=== PATIENT | male | born 1965 | race Hispanic/Latino ===

== ENCOUNTER → 2021-01-28 | Outpatient (CLI) | payer OTHER ==
[~2021-01-28] MED LIST: AMLO2.5T4 PO; CIPR-278 PO; HYDR12.54 PO; POTA20TA82 PO
== END | disposition home or self-care (01) ==
LOC: RAH 13:43
PROVIDERS: ATTEND Family Medicine
DX: F17.200 Nicotine dependence, unspecified, uncomplicated (principal)
CPT/HCPCS: 71046

== ENCOUNTER 2025-05-29 20:07 | Inpatient (IN) | payer BC ==
[~2025-05-29] VITALS: Ht 172.7 cm; Wt 55.5 kg
[~2025-05-29 20:07] MED LIST changes: -AMLO2.5T4 PO; +CHOL1CAP16 PO; -CIPR-278 PO; +FAMO20TA8 PO; -HYDR12.54 PO; +POTA-202 PO; -POTA20TA82 PO; +SULF500EC PO; +VITA1CAP PO
[2025-05-29] MEDS ORDERED: POTA-202 PO (20:36)
[2025-05-29] MEDS ORDERED: SULF500T49 PO (20:36)
[2025-05-29] MEDS: 0.9%NACL 1000ML 1,000 ML IV ONE (20:44)
[2025-05-29 21:19] LABS: IMMATURE GRANULOCYTE ABSOLUTE 0.02 K/uL (0-1); NUCLEATED RED BLOOD CELLS 0.0 % (0.0-0.19); PLATELET COUNT (AUTO) 332 K/uL (130-400); RED BLOOD CELL COUNT(AUTO) 3.74 MIL/uL (4.50-6.20); RED CELL DISTRIBUTION WIDTH 16.7 % (11.0-15.5); WHITE BLOOD COUNT (AUTO) 7.1 K/uL (4.8-10.8)
[2025-05-29 21:28] LABS: CREATININE 0.7 mg/dL (0.5-1.3); GLOMERULAR FILTR. RATE CALC 105.0 mL/min (>90); GLUCOSE,RANDOM 73.0 mg/dL (70-105); SODIUM SERUM 133.0 mmol/L (136-145); UREA NITROGEN, BLOOD 20.0 mg/dL (7-18)
[2025-05-29 21:37] LABS: ASPARTATE AMINOTRANSFERASE 16.0 U/L (10-37); CREATINE KINASE, TOTAL 19.0 U/L (21-232); TOTAL PROTEIN, SERUM 4.8 g/dL (6.0-8.3)
--- NOTE | 2025-05-29 21:43 | NUR ---
PT WAS GIVEN URINAL BUT STATES HE CANT PROVIDE A SAMPLE YET HE HAS NOT HAD ANYTHING TO EAT OR DRINK
--- NOTE | 2025-05-29 21:56 | HMCIMG ---
EXAM: CR Chest, 1 view CLINICAL HISTORY: Shortness of breath. COMPARISON: Chest radiograph dated 04/24/2025. FINDINGS: Small to moderate pleural effusion on the left side. Lower lobe airspace disease bilaterally, more pronounced on the left side. COPD. No pneumothorax. The cardiomediastinal silhouette is within normal limits. No acute osseous abnormality. IMPRESSION: Small to moderate pleural effusion on the left side. Lower lobe airspace disease bilaterally, more pronounced on the left side. COPD. No gross interval changes. /[place]
--- NOTE | 2025-05-29 23:15 | ERN ---
General Chief Complaint: Other Problems Stated Complaint: FAILURE TO THRIVE Time Seen by MD: 20:14 Time Seen by Midlevel: 20:14 Source: patient, EMS History of Present Illness Initial Comments Patient is a 59-year-old male presenting to the emergency department for evaluation of increased generalized body weakness for the last six days. According to EMS and family who was on scene the patient has not been eating for the past six days. Patient also reports mild shortness of breath. Allergies: Coded Allergies: No Known Drug Allergies (Unverified Allergy, Unknown, 09/18/17) Home Meds Reported Medications Potassium Chloride (Potassium Chloride) 20 Meq Tab.er.prt, 1 TAB PO BID for 30 Days, #60 TAB 0 Refills 05/29/25 Sulfasalazine (Sulfasalazine Dr) 500 Mg Tablet.dr, 2 TAB PO QID for 30 Days, #120 TAB 0 Refills 05/29/25 Famotidine (Famotidine) 20 Mg Tablet, 1 TAB PO BID for 30 Days, #60 TAB 0 Refi lls 03/29/25 Discontinued Reported Medications Cholecalciferol (Vitd3)/Vit K2 (Vit D3-Vit K2 125-100 Mcg Sfgl) 125 Mcg (5000 Unit)-100 Mcg Capsule, 1 EACH PO QWEEK, CAP 03/29/25 Discontinued Scripts Sulfasalazine (Azulfidine En-Tab) 500 Mg Ectab, 1000 MG PO QID for 30 Days, #120 TAB.EC 0 Refills Prov:KERLINE ARENAS MD 04/25/25 Vitamin B Complex (B Complex) 1 Cap Capsule, 1 CAP PO DAILY for 30 Days, #30 CAP 0 Refills Prov:RADHA ROSENBAUM 04/02/25 Potassium Chloride (Potassium Chloride) 20 Meq Tab.er.prt, 20 MEQ PO DAILY, #60 TAB Prov:MICHAEL RENDON MD 09/20/17 Past Medical History Past Medical History: Other Medical History Other: CROHN'S Past Surgical History: None ROS Dictation CONSTITUTIONAL: Negative except for HPI HEAD/FACE: Negative except for HPI EENT: Negative except for HPI RESPIRATORY: Negative except for HPI GASTROINTESTINAL/ABDOMINAL: Negative except for HPI GENITOURINARY: Negative except for HPI MUSCULOSKELETAL: Negative except for HPI INTEGUMENTARY: Negative except for HPI NEUROLOGICAL/PSYCH: Negative except for HPI HEMATOLOGIC/LYMPHATIC: Negative except for HPI All Systems Negative, Except as noted above. 13 point review of systems assessed and all negative except for above. Physical Exam Physical Exam Dictation Vital Signs reviewed General Appearance: Alert, oriented x 3, no acute distress, frail-appearing Head and Face: non-traumatic. Eyes: PERRL, pink conjunctivas, eyelid no trauma, anterior chamber with arcus senilis. Ears: Pinnas intact and no signs of trauma or erythema ear canals clear and no discharge TM no erythema Nose: No discharge, no bleeding. Oropharynx: Mouth normal, tongue pink, pharynx clear,no erythema, tonsils no exudates, no abscesses noted, mucous membrane moist Neck: Supple, non-tender, no thyromegaly, no masses, no JVD, no bruits Breast:Deferred Chest:No tenderness, no crepitus, no paradoxical movement, no retractions Lungs:Clear, well-ventilated, symmetric, no rales, no wheezing, no rhonchi, no stridor, good breath sounds bilaterally Heart: Regular rate, regular rhythm, no murmur, no gallops Vascular: no peripheral edema, Abdomen: Soft, positive bowel sounds, nondistended, no guarding, nontender, no rebound, no masses no hepatomegaly, no splenomegaly, no Chopra's sign, no hernias. Rectal: Deferred Genital: Deferred Neurological: Normal speech, motor function intact, sensory function intact Musculoskeletal: Neck nontender, full range of motion, back nontender, full range of motion, Extremities: nontender, full range of motion Skin: Color pink, dry, no turgor, no rash, no lacerations, no abrasions, no contusions. Lymphatic: Deferred Results Laboratory and Microbiology Lab and Micro Result Laboratory Tests Test 05/29/25 20:54 05/29/25 23:22 White Blood Count 7.1 K/uL (4.8-10.8) Red Blood Count 3.74 MIL/uL (4.50-6.20) L Hemoglobin 12.1 g/dL (14.0-18.0) L Hematocrit 36.4 % (42-54) L Mean Corpuscular Volume 97.3 fL (79-99) Mean Corpuscular Hemoglobin 32.4 pg (27.0-33.0) Mean Corpuscular Hemoglobin Concent 33.2 g/dL (32.0-36.0) Red Cell Distribution Width 16.7 % (11.0-15.5) H Platelet Count 332 K/uL (130-400) Mean Platelet Volume 8.9 fL (7.5-10.5) Immature Granulocyte % (Auto) 0.3 % (0-1) Neutrophils (%) (Auto) 67.6 % (40.0-77.0) Lymphocytes (%) (Auto) 17.2 % (21.0-51.0) L Monocytes (%) (Auto) 14.1 % (3.0-13.0) H Eosinophils (%) (Auto) 0.4 % (0.0-8.0) Basophils (%) (Auto) 0.4 % (0.0-5.0) Neutrophils # (Auto) 4.8 K/uL (1.8-7.7) Lymphocytes # (Auto) 1.2 K/uL (1.0-4.8) Monocytes # (Auto) 1.0 K/uL (0.1-1.0) Eosinophils # (Auto) 0.03 K/uL (0.00-0.70) Basophils # (Auto) 0.03 K/uL (0.00-0.20) Absolute Immature Granulocyte (auto 0.02 K/uL (0-1) Nucleated Red Blood Cells 0.0 % (0.0-0.19) Sodium Level 133 mmol/L (136-145) L Potassium Level 3.7 mmol/L (3.5-5.1) Chloride Level 102 mmol/L (101-111) Carbon Dioxide Level 21 mmol/L (21-32) Blood Urea Nitrogen 20 mg/dL (7-18) H Creatinine 0.7 mg/dL (0.5-1.3) Glomerular Filtration Rate Calc 105 mL/min (>90) Random Glucose 73 mg/dL (70-105) Total Calcium 7.7 mg/dL (8.5-10.1) L Magnesium Level 1.90 mg/dL (1.80-2.40) Total Bilirubin 0.7 mg/dL (0.2-1.0) Aspartate Amino Transf (AST/SGOT) 16 U/L (10-37) Alanine Aminotransferase (ALT/SGPT) 11 U/L (12-78) L Alkaline Phosphatase 101 U/L (50-136) Total Creatine Kinase 19 U/L (21-232) #L Troponin I High Sensitivity 6 ng/L (4-75) Total Protein 4.8 g/dL (6.0-8.3) L Albumin 1.8 g/dL (3.5-5.0) L Urine Color DARK-YELLOW (YELLOW) Urine Appearance CLOUDY (CLEAR) H Urine pH 5.5 (5.0-8.0) Urine Specific [place] 1.030 (1.001-1.031) Urine Protein 30 mg/dL (NEGATIVE) H Urine Glucose (UA) NEGATIVE mg/dL (NEGATIVE) Urine Ketones 5 mg/dL (NEGATIVE) H Urine Occult Blood NEGATIVE (NEGATIVE) Urine Nitrate NEGATIVE (NEGATIVE) Urine Bilirubin 1 mg/dL (NEGATIVE) H Urine Urobilinogen 3 mg/dL (0.2-1.0) H Urine Leukocyte Esterase NEGATIVE Deonte/uL Urine RBC 11-25 /HPF (0-1) H Urine WBC 6-10 /HPF (0-1) H Urine Squamous Epithelial Cells RARE /HPF (0-2) Urine Calcium Oxalate Crystals RARE /LPF (None Seen) Urine Bacteria FEW /HPF (None Seen) Urine Hyaline Casts 11-25 /LPF (0-1 /LPF) H Labs Reviewed?: Yes MDM MDM: Differential diagnosis: Dehydration, failure to thrive, electrolyte abnormality Rationale: Tests considered and ordered secondary to shared decision making in clude: Previous outside records reviewed: Old ER visits. Risk of complication and/or morbidity or mortality of patient management: None Medications-Per medication reconciliation Need for hospitalization: Patient does meet criteria for hospitalization. Need for emergency major/minor surgery: No There are no social concerns with this patient. Prescription drug management Prescriptions will include symptomatic care Patient's prior external medical records from other ER visits were reviewed by me as indicated. Prior testing and results from previous visits were reviewed. Prior tests were taken into account with medical decision making and resource utilization, independent historian/historians were used to obtain complete medical history. I independently interpreted the test that were performed, results were reviewed by me and considered findings on radiology if ordered. Medical management and examination interpretation discussions were had by me with other qualified healthcare professionals as indicated for the patient's care. ED Course Orders Procedure Category Date Status Time Cbc With Differential LAB 05/29/25 Complete 20:29 Comprehensive LAB 05/29/25 Complete Metabolic Panel 20:29 Creatine Kinase, Total LAB 05/29/25 Complete 20:29 Troponin I High LAB 05/29/25 Complete Sensitivity 20:29 Urinalysis Profile LAB 05/29/25 Complete 20:29 Chest 1vw RAD 05/29/25 Resulted 20:29 Magnesium LAB 05/29/25 Complete 20:29 0.9%Nacl 1000ml (Ns PHA 05/29/25 Complete 1000ml) 20:30 Ceftriaxone 1g Vial PHA 05/29/25 Complete (Rocephine 1g Inj) 23:00 Culture Urine MARNIE 05/29/25 In Process 23:39 Current Medications Medications (Trade) Dose Ordered Sig/Estelita Route PRN Reason Start Time Stop Time Status Last Admin Dose Admin Ceftriaxone Sodium (ROCEphine 1G INJ) 1 gm ONCE ONCE IVPB 05/29/25 23:00 05/29/25 23:01 DC 05/29/25 23:18 Sodium Chloride 1,000 ml @ 0 mls/hr ONCE ONCE IV 05/29/25 20:30 05/29/25 20:31 DC 05/29/25 20:44 Vital Signs Date Time Temp Pulse Resp B/P (MAP) Pulse Ox O2 Delivery O2 Flow Rate FiO2 05/29/25 23:00 98.4 84 16 153/90 97 Room Air* 0 21 05/29/25 21:15 98.4 90 16 130/75 97 Room Air* 0 21 05/29/25 20:59 98.4 75 18 135/98 95 Room Air* 0 21 05/29/25 20:12 98.4 103 16 129/89 97 Room Air 0 DX & DISP Disposition: Inpatient Departure Impression: Primary Impression: Recurrent left pleural effusion Additional Impression: Failure to thrive Condition: Stable Referrals: BABAR THOMPSON M.D. (PCP) I have reviewed the case, and I agree with, Diagnosis and Plan I performed the substantive portion of the visit. I have reviewed and personally made and approve the management plan that is documented in the note by myself or the VALENTINA. I acknowledge for responsibility for the patient's management plan. ASIF MIJARES May 29, 2025 23:15
[2025-05-29 23:34] LABS: ADD UA MICROSCOPIC YES; APPEARANCE,URINE CLOUDY (CLEAR); GLUCOSE, URINE (UA) NEGATIVE (NEGATIVE); LEUKOCYTE ESTERASE ,URINE NEGATIVE Leu/uL (NEGATIVE); NITRATE,URINE NEGATIVE (NEGATIVE); OCCULT BLOOD,URINE NEGATIVE (NEGATIVE)
[2025-05-29 23:37] LABS: CALCIUM OXALATE CRYSTALS,UR RARE /LPF (None Seen); SQUAMOUS EPITHELIAL CELL,UR RARE /HPF (0-2)
--- NOTE | 2025-05-29 23:50 | HP ---
[facility] HISTORY AND PHYSICAL Date of Service: May 29, 2025 Time of Service: 23:50 Attending/supervising physicians: Dr. Rodriguez and Dr. Nation HISTORY OF PRESENT ILLNESS: Mr. Lu is 59-year-old male with a history of Crohn's, GERD, hypertension, multiple colonoscopies, former smoker with 10 years of tobacco use who presented to [facility] via EMS for evaluation of increased generalized body weakness for the last six days. According to EMS and family who was on scene the patient has not been eating for the past six days. ED provider reports that the patient also reports mild shortness of breath. Patient reports he has been having diarrhea but it is the same as it usually is due to Crohn's. He states he follows with Dr. Milner as outpatient. The patient denied any melena, hematemesis, fever or chills. The patient reports that the weakness is so bad that he has been bed- bound at home and not ambulating due to not feeling well and feeling very weak. Per chart review the patient was admitted on 04/20/2025 for similar symptoms of general body weakness. Cardiology, GI, and general surgeon evaluated the patient on that admission. The CT abdomen and pelvis done on 04/20/2025 showed colocolic intussusception at the sigmoid colon with underlining mass suspected. Right UPJ obstruction with mild hydronephrosis. GI was consulted who did a colonoscopy that showed partial obstructing polypoid mass in the ascending colon status post partial resection. General surgeon Dr. Santos was consulted who recommended outpatient follow up in elective surgery. Cardiology was consulted for moderate posterior pericardial effusion per echo which also showed global ej ection fraction of 65%. The patient was discharged on 04/25/2025. Today WBCs and troponin are WNL. Na 133, total calcium 7.7. Albumin 1.8, total protein 4.8. In ED the patient received Rocephin1 g and NS1 L bolus. ED provider request patient be admitted with the diagnosis of left pleural effusion and failure to thrive. Chest x-ray: Small to moderate pleural effusion on the left side. Lower lobe airspace disease bilaterally, more pronounced on the left side. COPD. No gross interval changes. I assessed the patient at bedside in ED 3. No family at bedside. The patient's breathing was even, unlabored, in no distress. He has edema to bilateral lower extremities and upper extremities (hand edema R>L) Informed him of plan to admit at CT results of left pleural effusion and interpretation of COPD. The patient reports that he has never been told that he has pleural effusion nor COPD and stated that that must be results from another patient. He reports that he never told ED provider that he was short of breath. He states that he is just here because he is very weak and has no appetite. Patient was not contributing with medical questions. He appeared frustrated. Plan and assessment are listed below. REVIEW OF SYSTEMS 12-point ROS reviewed with the patient. All pertinent positives mentioned above. Otherwise negative, noncontributory, non-pertinent. PAST MEDICAL HISTORY: As mentioned above PAST SURGICAL HISTORY: Colonoscopy PAST SOCIAL HISTORY: Quit smoking two years ago. Smoked on and off for 10 years, does not want to report, she used to smoke. FAMILY HISTORY: Noncontributory Coded Allergies: No Known Drug Allergies (Unverified Allergy, Unknown, 09/18/17) PHYSICAL EXAM GENERAL APPEARANCE: The patient is awake, alert, and oriented, in no acute cardiopulmonary distress. NEUROLOGICAL: Cranial nerves II-XII grossly intact. Motor is 5/5 in bilateral upper and lower extremities proximal to distal. No sensory deficits. HEENT: Face is symmetric. Pupils are equal and reactive. Extraocular movements are intact. NECK: Supple. No JVD. No thyromegaly. No submental, submandibular, pre- /postauricular, occipital or supraclavicular lymphadenopathy. CHEST: Normal chest expansion. No Telemetry. LUNGS: Absence of any rales, rhonchi or any wheezing. CARDIOVASCULAR: Regular. S1 and S2 normal. No appreciable rubs, murmurs or gallops. Bilateral upper and lower extremity edema. Edema right hand > left ABDOMEN: Soft, nontender, and nondistended. There is no rebound, voluntary guarding, or rigidity. : Deferred. No [place]. EXTREMITIES: Non-edematous and not cyanotic. No clubbing. Good capillary refill. SKIN: No skin breakdown. Vital Sign (Last 24 Hours) 05/29/25 23:00 Temp 98.4 Pulse 84 Resp 16 B/P (MAP) 153/90 Pulse Ox 97 O2 Delivery Room Air* O2 Flow Rate 0 FiO2 21 LABS: Laboratory: Test 05/29/25 23:22 05/29/25 20:54 Range/Units Urine Color DARK-YELLOW YELLOW Urine Appearance CLOUDY H CLEAR Urine pH 5.5 5.0-8.0 Urine Specific [place] 1.030 1.001-1.031 Urine Protein 30 H NEGATIVE mg/dL Urine Glucose (UA) NEGATIVE NEGATIVE mg/dL Urine Ketones 5 H NEGATIVE mg/dL Urine Occult Blood NEGATIVE NEGATIVE Urine Nitrate NEGATIVE NEGATIVE Urine Bilirubin 1 H NEGATIVE mg/dL Urine Urobilinogen 3 H 0.2-1.0 mg/dL Urine Leukocyte Esterase NEGATIVE NEGATIVE Deonte/uL Urine RBC 11-25 H 0-1 /HPF Urine WBC 6-10 H 0-1 /HPF Urine Squamous Epithelial Cells RARE 0-2 /HPF Urine Calcium Oxalate Crystals RARE None Seen /LPF Urine Bacteria FEW None Seen /HPF Urine Hyaline Casts 11-25 H 0-1 /LPF /LPF White Blood Count 7.1 4.8-10.8 K/uL Red Blood Count 3.74 L 4.50-6.20 MIL/uL Hemoglobin 12.1 L 14.0-18.0 g/dL Hematocrit 36.4 L 42-54 % Mean Corpuscular Volume 97.3 79-99 fL Mean Corpuscular Hemoglobin 32.4 27.0-33.0 pg Mean Corpuscular Hemoglobin Concent 33.2 32.0-36.0 g/dL Red Cell Distribution Width 16.7 H 11.0-15.5 % Platelet Count 332 130-400 K/uL Mean Platelet Volume 8.9 7.5-10.5 fL Immature Granulocyte % (Auto) 0.3 0-1 % Neutrophils (%) (Auto) 67.6 40.0-77.0 % Lymphocytes (%) (Auto) 17.2 L 21.0-51.0 % Monocytes (%) (Auto) 14.1 H 3.0-13.0 % Eosinophils (%) (Auto) 0.4 0.0-8.0 % Basophils (%) (Auto) 0.4 0.0-5.0 % Neutrophils # (Auto) 4.8 1.8-7.7 K/uL Lymphocytes # (Auto) 1.2 1.0-4.8 K/uL Monocytes # (Auto) 1.0 0.1-1.0 K/uL Eosinophils # (Auto) 0.03 0.00-0.70 K/uL Basophils # (Auto) 0.03 0.00-0.20 K/uL Absolute Immature Granulocyte (auto 0.02 0-1 K/uL Nucleated Red Blood Cells 0.0 0.0-0.19 % Sodium Level 133 L 136-145 mmol/L Potassium Level 3.7 3.5-5.1 mmol/L Chloride Level 102 101-111 mmol/L Carbon Dioxide Level 21 21-32 mmol/L Blood Urea Nitrogen 20 H 7-18 mg/dL Creatinine 0.7 0.5-1.3 mg/dL Glomerular Filtration Rate Calc 105 >90 mL/min Random Glucose 73 70-105 mg/dL Total Calcium 7.7 L 8.5-10.1 mg/dL Magnesium Level 1.90 1.80-2.40 mg/dL Total Bilirubin 0.7 0.2-1.0 mg/dL Aspartate Amino Transf (AST/SGOT) 16 10-37 U/L Alanine Aminotransferase (ALT/SGPT) 11 L 12-78 U/L Alkaline Phosphatase 101 50-136 U/L Total Creatine Kinase 19 #L 21-232 U/L Troponin I High Sensitivity 6 4-75 ng/L Total Protein 4.8 L 6.0-8.3 g/dL Albumin 1.8 L 3.5-5.0 g/dL DIAGNOSTICS / RADIOLOGY: [ ] ASSESSMENT: Failure to thrive, POA Anorexia, has not been eating x6 days Acute on chronic abdominal pain, POA Chronic diarrhea 2/2 Crohn's disease Acute dehydration, elevated BUN/ketonuria History of multiple colonoscopies, followed by Dr. Milner hx of colocolic intussusception at the sigmoid colon with underlining mass suspected, per CT abdomen and pelvis on 04/20/2025 Partial obstructing polypoid mass in the ascending colon status post partial resection, per colonoscopy on 03/2025 admission Left pleural effusion per chest x-ray on 05/30/2025, recurrent, with dyspnea, POA COPD per chest x-ray on 05/30/2025 Anemia chronic disease Electrolyte derangement (hyponatremia, hypocalcemia) Protein calorie malnutrition/hypoalbuminemia Proteinuria, ketonuria, bilirubinuria, urobilinogenuria, per UA on 05/29/25 Chronic problem list: Crohn's, GERD, hypertension, multiple colonoscopies, former smoker with 10 years of tobacco use History of right UPJ obstruction with mild hydronephrosis, per CT on 04/20/2025 Small to large posterior pericardial effusion, EF > 65%/3D volume EF 68% per echo on 04/21/2025 PLAN: -Admit to Medical floor with continuous telemetry monitoring -Obtain and follow CT abdomen/pelvis/chest with and without IV contrast. -Obtain influenza, COVID, strep screen. -Consult with pulmonology team for recurrent pleural effusion and suspected COPD. -GI or surgical consult depending on CT results. -LR gentle hydration at 50 mL/hour. -Monitor for fluid overload (The patient is edematous and dehydrated, ER administered NS 1 L bolus). -Pending BNP and D-dimer. -Echo in a.m. for evaluation of pericardial effusion. -Fluid restriction a 1200 mL. -Strict I&Os. -Monitor respiratory status. -Oxygen therapy as needed. Titrate oxygen prn to keep Spo2>/+=92%. -Albuterol and Atrovent PRN SOB. -Antibiotic therapy: Zosyn IV empiric coverage and for suspected complicated effusion (ED administered Rocephin1 g) -PRN medications for: Pain management, fever, hypertension, N/V, constipation, SOB. -Glucometer checks AC & HS needed with insulin regular sliding scale coverage as needed. -Blood pressure checks every 4 hours and as needed. -Reconcile home medications once available. -Monitor renal and liver function. -Monitor electrolytes and treat accordingly PRN -AM labs. -GI and DVT prophylaxis -Further plan/orders per hospitalization course. ADVANCED CARE PLANNING 1. Which of the following were discussed? Hospice Care - No Therapeutic options - Yes Advance Directives - Yes Other discussions - 2. Discussed with who? The patient 3. Voluntary nature of this service was explained to the patient? Yes 4. Amount of time spent - __ Over 35 minutes 5. Reviewed by Physician? (if this service was performed by VALENTINA) ATTESTATION BY PHYSICIAN I reviewed the documentation, medical decision making, and treatment plan as noted by the mid-level provider above. I agree with the findings and plan of care. ZIYAD GORDON [facility] May 29, 2025 23:50
[2025-05-30] MEDS ORDERED: LACTULOSE 20 GM/30 ML UDCUP PO PRN
--- NOTE | 2025-05-30 00:26 | NUR ---
PT WAS CHANGED AT THIS TIME, PT HAD LARGE LIQUI, BROWN BOWEL MOVEMENT IN HIS DISPOSABLE BRIEF.
[2025-05-30 03:16] LABS: AMPHET/METH SCREEN,URINE NEGATIVE (NEGATIVE); BARBITURATE SCREEN, URINE NEGATIVE (NEGATIVE); CANNABINOID SCREEN,URINE NEGATIVE (NEGATIVE); COCAINE SCREEN,URINE NEGATIVE (NEGATIVE)
[2025-05-30 05:14] LABS: NUCLEATED RED BLOOD CELLS 0.0 % (0.0-0.19); PLATELET COUNT (AUTO) 342.0 K/uL (130-400); RED BLOOD CELL COUNT(AUTO) 3.46 MIL/uL (4.50-6.20); RED CELL DISTRIBUTION WIDTH 16.6 % (11.0-15.5); WHITE BLOOD COUNT (AUTO) 7.4 K/uL (4.8-10.8)
[2025-05-30 05:41] LABS: ABG BASE EXCESS -7.1 mmol/L (-2.0-3.0); ABG HCO3 16.4 mmol/L (21.0-28.0); ABG OXYGEN SATURATION 95.1 % (94.0-98.0); ABG PCO2 27 mmHg (35-48); ABG PH 7.400 (7.350-7.450); CARBON MONOXIDE 0.1 % (0.5-1.5); DEVICE COMMENT RR NURSE MANNY; PO2, ARTERIAL BG 96.7 mmHg (83.0-108.0); TEMPERATURE, CELSIUS BG 37.0 CELSIUS (35.5-37.0); VENT MODE, BG ROOMAIR (ROOM AIR)
[2025-05-30 05:50] LABS: CREATININE 0.6 mg/dL (0.5-1.3); GLOMERULAR FILTR. RATE CALC 111.0 mL/min (>90); GLUCOSE,RANDOM 68.0 mg/dL (70-105); PHOSPHORUS 3.3 mg/dL (2.5-4.9); SODIUM SERUM 135.0 mmol/L (136-145); UREA NITROGEN, BLOOD 19.0 mg/dL (7-18)
[2025-05-30] MEDS: LACTATED RINGERS 1000ML 1,000 ML IV SCH (06:03)
[2025-05-30] MEDS ORDERED: IOHEXOL 350 MG/ML 100ML INFUS..BTL IV ONE (06:06)
[2025-05-30] MEDS ORDERED: ALBUTEROL 0.083% 2.5 MG/3 ML INH IH PRN (06:30)
[2025-05-30] MEDS: ZOSYN 3.375GM +NS 50ML IVPB SCH (06:31)
[2025-05-30 06:33] LABS: RAPID GROUP A STREP negative (NEGATIVE)
[2025-05-30 06:42] LABS: INFLUENZA TYPE A Negative For Type A (NEGATIVE); INFLUENZA TYPE B Negative For Type B (NEGATIVE); SARS-CoV-2, RNA, NAAT NEGATIVE SARS CoV-2 (NEGATIVE)
--- NOTE | 2025-05-30 07:39 | NUR ---
PT IS AOX4 NO SIGNS OF DISTRESS. 2 ORANGE JUICE AND BREAKFAST GIVEN TO PATIENT AT THIS TIME.
--- NOTE | 2025-05-30 09:31 | NUR ---
PULMOOLGY CONSULT DONE SPOKE TO RADHIKA LANDA NO NEW ORDERS AT THIS TIME
[2025-05-30] MEDS: DEXTROSE 5 % AND 0.9 % NACL 1,000 ML IV SCH (10:28)
[2025-05-30] MEDS: THIAMINE HCL 100 MG/ML 2ML VIAL IVP SCH (10:31)
--- NOTE | 2025-05-30 10:46 | CONS ---
[facility] CONSULTATION NOTE Date Patient Seen: May 30, 2025 Time of Visit: 10:46 Supervising Physician: Dr. Nakul Neri Reason for Consultation: Recurrent pleural effusions left lower lung Primary Care Physician: [ ] Outpatient Specialists: [ ] Inpatient Consults: [ ] PROBLEM LIST: 1. CHRISTIANA basal pleural effusion 2. Suspect congestive heart failure, last echocardiogram results 04/16EF greater than 65% 3. 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 Neumann, previous admission 04/20/2020 4. Dyspnea 5. Generalized body weakness 7. Electrolyte derangement syndrome: Hypokalemia, Hyponatremia mild, & Hypomagnesemia CHRONIC PROBLEM LIST: Crohn's disease GERD Hypertension Former smoker 10 years Suspect, COPD, undiagnosed and untreated Recommendations: Bilateral basal pleural effusions, clinical workup echocardiogram ordered to be read by on-call [employer], patient does not have one Gentle diuretic: Lasix 40 mg IV b.i.d. Electrolyte protocol replacement therapy: Potassium and Magnesium Keep oxygen saturation greater than 92% Aspiration precautions Safety precautions DVT prophylaxis with Lovenox 40 mg sub q.day GI prophylaxis Protonix 40 mg p.o. daily Strict I&O Daily weight A.m. labs ordered: CBC, CMP, magnesium, calcium, hemoglobin A1c Out of bed for all meals Educate and use incentive spirometer while awake out of bed 6-10 times an hours HPI: Latrlel Lu is a 59-year-old gentleman, patient of Dr. Layton Gonzales, health history: Hypertension, Crohn's disease, GERD, former smoker for 10 years, suspect COPD, undiagnosed and untreated,and obstructing polypoid mass ascending colon s/p partial resection, patient to follow up with Dr. Neumann, previous admission 04/20/2020, presents to the emergency department, yesterday evening, 05/29/2025 for generalized body weakness and dyspnea. Patient reports for the past six days to feel generalized body weakness has progressively worsened. Additionally, the patient is having increase shortness of the breath with minimal activities. Patient also reports feeling more bloated and that his legs are swollen. The patient had a previous admission on with similar symptoms was clinically worked up and diagnosed with obstructing polypoid mass ascending colon s/p partial resection, patient to follow up with Dr. Neumann as an outpatient. The patient did not. Consulted to assist with management of recurrent pleural effusion left lower lung. Vital signs: Temperature 98.4, pulse 90, respirations 16, blood pressure 130/75, oxygen saturation 97% on room air FiO2, 21. Laboratory results: Sodium 135, magnesium 1.8, calcium 7.5, white blood cell 7.1, hemoglobin 12.1, and hematocrit 36.4 CXR one view results: Left lower lobe basal effusion CT pelvis/abdomen/chest with/without contrast results: CHRISTIANA basal pleural effusions. The patient was assessed in the Emergency department, in [place]3, and a limited history and physical was obtained, the patient is a poor historian. And additional information was gathered by looking through the chart records. The patient did confirm that he did not follow up with Dr. Neumann as instructed during his previous admission at the end of March. Patient also reports being n oncompliant with his medications. During the assessment patient has bilateral lower extremity pitting edema, extra swelling in the abdominal area. Patient also reports that he feels that he has gained weight but has not checked his weight. Thank you for the consult in the and for the opportunity to participate in the care for this patient. PAST MEDICAL HX: see above PAST SURGICAL HX: noncontributory SOCIAL HISTORY: The patient reports smoking for 10 years and has quit for probably over20 +years. The patient reports drinking alcohol in the past, but has not and denies the use of recreational drugs. 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 The patient lives independently and has friends and family in the area. Coded Allergies: No Known Drug Allergies (Unverified Allergy, Unknown, 09/18/17) REVIEW OF SYSTEMS: 12 point ROS reviewed with patient. Pertinent positives mentioned above. Otherwise negative. PHYSICAL EXAM: GENERAL: alert, , awake oriented x 3 HEENT: EOMI, Sclera non icteric, moist mucosa NECK: Supple, no JVD, trachea midline LUNGS: Clear breath sounds bilaterally. No wheezes HEART: Regular rate and rhythm. Normal S1 and S2, without murmurs ABD: Abdomen soft, distended, nontender. Bowel sounds present EXT: No clubbing cyanosis bilateral pitting edema NEURO: Alert and oriented to person, follows commands Vital Signs (last 8hr) Date Time Temp Pulse Resp B/P (MAP) Pulse Ox O2 Delivery O2 Flow Rate FiO2 8//25 08:18 98.4 120 12 125/87 97 Room Air* 0 21 05/30/25 05:12 98.4 85 16 137/90 96 Room Air* 0 21 LABS: Hematology Labs: Test 05/30/25 05:04 05/29/25 20:54 Range/Units White Blood Count 7.4 4.8-10.8 K/uL Red Blood Count 3.46 L 4.50-6.20 MIL/uL Hemoglobin 11.2 L 14.0-18.0 g/dL Hematocrit 33.2 L 42-54 % Mean Corpuscular Volume 96.0 79-99 fL Mean Corpuscular Hemoglobin 32.4 27.0-33.0 pg Mean Corpuscular Hemoglobin Concent 33.7 32.0-36.0 g/dL Red Cell Distribution Width 16.6 H 11.0-15.5 % Platelet Count 342 130-400 K/uL Mean Platelet Volume 8.5 7.5-10.5 fL Nucleated Red Blood Cells 0.0 0.0-0.19 % Immature Granulocyte % (Auto) 0.3 0-1 % Neutrophils (%) (Auto) 67.6 40.0-77.0 % Lymphocytes (%) (Auto) 17.2 L 21.0-51.0 % Monocytes (%) (Auto) 14.1 H 3.0-13.0 % Eosinophils (%) (Auto) 0.4 0.0-8.0 % Basophils (%) (Auto) 0.4 0.0-5.0 % Neutrophils # (Auto) 4.8 1.8-7.7 K/uL Lymphocytes # (Auto) 1.2 1.0-4.8 K/uL Monocytes # (Auto) 1.0 0.1-1.0 K/uL Eosinophils # (Auto) 0.03 0.00-0.70 K/uL Basophils # (Auto) 0.03 0.00-0.20 K/uL Absolute Immature Granulocyte (auto 0.02 0-1 K/uL Chemistry Labs: Test 05/30/25 09:29 05/30/25 07:34 05/30/25 05:04 05/29/25 20:54 Range/Units Whole Blood Ketones Quantitative 3.6 H 0.0-0.6 mmol/L Lactic Acid Level 1.3 0.8-2.5 mmol/L Free Thyroxine (T4) Direct 0.97 0.76-1.46 ng/dL Free Triiodothyronine (T3) pg/mL 0.55 L 2.18-3.98 pg/mL Whole Blood Glucose 66 L 70-110 MG/DL Sodium Level 135 L 136-145 mmol/L Potassium Level 4.1 3.5-5.1 mmol/L Chloride Level 104 101-111 mmol/L Carbon Dioxide Level 21 21-32 mmol/L Blood Urea Nitrogen 19 H 7-18 mg/dL Creatinine 0.6 0.5-1.3 mg/dL Glomerular Filtration Rate Calc 111 >90 mL/min Random Glucose 68 L 70-105 mg/dL Total Calcium 7.5 L 8.5-10.1 mg/dL Phosphorus Level 3.3 2.5-4.9 mg/dL Magnesium Level 1.80 1.80-2.40 mg/dL Troponin I High Sensitivity 5 4-75 ng/L B-Type Natriuretic Peptide 19 0-100 pg/mL Thyroid Stimulating Hormone (TSH) 5.20 #H 0.36-3.74 uIU/mL Total Bilirubin 0.7 0.2-1.0 mg/dL Aspartate Amino Transf (AST/SGOT) 16 10-37 U/L Alanine Aminotransferase (ALT/SGPT) 11 L 12-78 U/L Alkaline Phosphatase 101 50-136 U/L Total Creatine Kinase 19 #L 21-232 U/L Total Protein 4.8 L 6.0-8.3 g/dL Albumin 1.8 L 3.5-5.0 g/dL Coagulation Labs: Test 05/30/25 05:04 Range/Units D-Dimer Quantitative (PE/DVT) 399 0-500 ng/mL DIAGNOSTICS / RADIOLOGY RESULTS: [ ] PLAN NEURO: Minimize central acting medications as possible. Maintain fall precautions, adequate lighting during the day PULMONARY: Supplemental 02 as needed. Maintain aspiration precautions at all times CARDIOVASCULAR: Follow hemodynamics. Vital signs per facility protocol GI & NUTRITION: Continue with nutritional support. Continue stool softeners and laxatives as needed. KIDNEYS & ELECTROLYTES: Strict monitoring of intake, output and overall fluid balance. Avoid nephrotoxic medications to the extent possible. Medications to be dosed according to renal function. Monitor electrolytes and replace as needed ENDOCRINE: Maintain blood glucose between 100-180 at all times. Hypoglycemia protocol in place INFECTIOUS DISEASE: Trend temperature, WBC and procalcitonin level Follow cultures, deescalate antibiotics as soon as possible. Panculture if new onset fever ONCOLOGY/HEMATOLOGY/COAGULATION: Monitor for s/s of bleeding Monitor hemoglobin, coagulation studies as needed SKIN: Pressure ulcer prevention per facility protocol Specialty mattress ORTHO/REHAB: Continue PT/OT Prophylaxis: Continue GI and DVT prophylaxis Code Status: Full Resuscitation Disposition: TBD Other: Total patient care time exceeds 50 minutes excluding all procedures. The patient's information including vital signs diagnostic tests assessment findings was reviewed and discussed with supervising physician, Dr. Nakul Neri and an intervention and treatment plan was formulated and implemented. ROSS AMBRIZ NP May 30, 2025 10:46
[2025-05-30] MEDS ORDERED: COMPOUND IV REFRIGERATED 1 EACH IVSOLN MISC PRN (11:00)
[2025-05-30 11:32] LABS: INR 1.15 (0.85-1.15)
--- NOTE | 2025-05-30 11:36 | PN ---
[facility] PROGRESS NOTE Date of Service: May 30, 2025 Time of Service: 10:57 History of Presenting Illness: Mr. Lu is 59-year-old male with a history of Crohn's, GERD, hypertension, multiple colonoscopies, former smoker with 10 years of tobacco use who presented to [facility] via EMS for evaluation of increased generalized body weakness for the last six days. According to EMS and family who was on scene the patient has not been eating for the past six days. ED provider reports that the patient also reports mild shortness of breath. Patient reports he has been having diarrhea but it is the same as it usually is due to Crohn's. He states he follows with Dr. Milner as outpatient. The patient denied any melena, hematemesis, fever or chills. The patient reports that the weakness is so bad that he has been bed- bound at home and not ambulating due to not feeling well and feeling very weak. Per chart review the patient was admitted on 04/20/2025 for similar symptoms of general body weakness. Cardiology, GI, and general surgeon evaluated the patient on that admission. The CT abdomen and pelvis done on 04/20/2025 showed colocolic intussusception at the sigmoid colon with underlining mass suspected. Right UPJ obstruction with mild hydronephrosis. GI was consulted who did a colonoscopy that showed partial obstructing polypoid mass in the ascending colon status post partial resection. General surgeon Dr. Santos was consulted who recommended outpatient follow up in elective surgery. Cardiology was consulted for moderate posterior pericardial effusion per echo which also showed global ejection fraction of 65%. The patient was discharged on 04/25/2025. Today WBCs and troponin are WNL. Na 133, total calcium 7.7. Albumin 1.8, total protein 4.8. In ED the patient received Rocephin1 g and NS1 L bolus. ED provider request patient be admitted with the diagnosis of left pleural effusion and failure to thrive. Chest x-ray: Small to moderate pleural effusion on the left side. Lower lobe airspace disease bilaterally, more pronounced on the left side. COPD. No gross interval changes. I assessed the patient at bedside in ED 3. No family at bedside. The patient's breathing was even, unlabored, in no distress. He has edema to bilateral lower extremities and upper extremities (hand edema R>L) Informed him of plan to admit at CT results of left pleural effusion and interpretation of COPD. The patient reports that he has never been told that he has pleural effusion nor COPD and stated that that must be results from another patient. He reports that he never told ED provider that he was short of breath. He states that he is just here because he is very weak and has no appetite. Patient was not contributing with medical questions. He appeared frustrated. Plan and assessment are listed below. SUBJECTIVE: 05/30/25: Patient was evaluated at the bedside in ED 3 today. Patient appeared very frail and weak. Patient has been complaining of generalized weakness since December or January this year. Patient has a past medical history of Crohn's disease follows Dr. Milner on an outpatient basis. Patient says he has no appetite and has nausea and vomiting. Patient does not recall the last time he had a proper meal. He is living with his sister who helps him with his daily activities of living. Patient reports he feels depressed. Denies fever, chills, abdominal pain, diarrhea, melena, and hematemesis. Patient says he had multiple colonos copies in the past and attributes his weakness to these procedures. His TSH is elevated 5.2, low free T3 was 0.55, and free T4 0.97. His serum albumin 1.8. He has Generalized edema prominent in the right lower leg and left leg up to mid calf and in bilateral upper limbs. His CRP is elevated, 77.2, Whole blood ketone is high,3.6 and ABG revealing primary metabolic acidosis, with adequate compensation. Anion gap of 14.6 and corrected anion gap of 20.1. Urine protein creatinine ratio is pending. A CT abdomen and 2D echo were ordered. REVIEW OF SYSTEMS CONSTITUTIONAL: No chills, no fever, generalized body weakness, no diaphoresis, malaise. HEAD/FACE: No signs of trauma. EENT: No eye pain, no blurred vision, no tearing, no double vision, no ear pain, no ear discharge, no nose pain, no nasal congestion, no throat pain, no throat swelling, no mouth pain. RESPIRATORY: No cough, no SOB, no orthopnea, no PND, no wheezing. CARDIOVASCULAR: No chest pain, generalized edema, bilateral pedal edema prominent on right, bilateral upper extremity edema, no palpitations, no syncope. GASTROINTESTINAL/ABDOMINAL: No abdominal pain, no constipation, no diarrhea, no nausea, no vomiting. GENITOURINARY: No abnormal discharge, no dysuria, no frequent urination, no hematuria. No complaints of pain in the genitals. MUSCULOSKELETAL: No back pain, no gout, no joint pain, no joint swelling, no muscle pain, no muscle stiffness, no neck pain. INTEGUMENTARY: No change in color, no change in hair/nails, no dryness, no lesion, no lumps, no rash. NEUROLOGICAL/PSYCH: No anxiety, depressed, no emotional problem, no headache, no numbness, no pre-existing deficit, no history of seizures, no tremors, no weakness. HEMATOLOGIC/LYMPHATIC: Not anemic, no history of blood clots, no apparent bleeding, no bruising, glands not swollen. All Systems Negative, Except as Noted. PHYSICAL EXAM GENERAL APPEARANCE: The patient is awake, alert, and oriented, in no acute cardiopulmonary distress. NEUROLOGICAL: Cranial nerves II-XII grossly intact. Motor is 5/5 in bilateral upper and lower extremities proximal to distal. No sensory deficits. HEENT: Face is symmetric. Pupils are equal and reactive. Extraocular movements are intact. NECK: Supple. No JVD. No thyromegaly. No submental, submandibular, pre- /postauricular, occipital or supraclavicular lymphadenopathy. CHEST: Normal chest expansion. No Telemetry. LUNGS: Absence of any rales, rhonchi or any wheezing. CARDIOVASCULAR: Regular. S1 and S2 normal. No appreciable rubs, murmurs or gallops. Bilateral upper and lower extremity edema. Edema right hand > left ABDOMEN: Soft, nontender, and nondistended. There is no rebound, voluntary guarding, or rigidity. : Deferred. No [place]. EXTREMITIES: Pitting edema bilateral lower extremities up to mid calf more prominent on right, bilateral upper extremity edema. No clubbing. Good capillary refill. SKIN: No skin breakdown. Vital Signs (last 8hr) Date Time Temp Pulse Resp B/P (MAP) Pulse Ox O2 Delivery O2 Flow Rate FiO2 05/30/25 08:18 98.4 120 12 125/87 97 Room Air* 0 21 05/30/25 05:12 98.4 85 16 137/90 96 Room Air* 0 21 LABS: Laboratory: Test 05/30/25 09:29 05/30/25 07:34 05/30/25 06:12 05/30/25 05:39 Range/Units Whole Blood Ketones Quantitative 3.6 H 0.0-0.6 mmol/L Lactic Acid Level 1.3 0.8-2.5 mmol/L Free Thyroxine (T4) Direct 0.97 0.76-1.46 ng/dL Free Triiodothyronine (T3) pg/mL 0.55 L 2.18-3.98 pg/mL Whole Blood Glucose 66 L 70-110 MG/DL Influenza Type A Antigen Negative For Type A NEGATIVE Influenza Type B Antigen Negative For Type B NEGATIVE SARS-CoV-2, RNA, NAAT NEGATIVE SARS CoV-2 NEGATIVE Group A Streptococcus Rapid negative NEGATIVE Blood Gas Specimen Type Arterial Arterial Blood pH 7.400 7.350-7.450 Arterial Blood Partial Pressure CO2 27 L 35-48 mmHg Arterial Blood Partial Pressure O2 96.7 83.0-108.0 mmHg Arterial Blood HCO3 16.4 L 21.0-28.0 mmol/L Arterial Blood Oxygen Saturation 95.1 94.0-98.0 % Arterial Blood Base Excess -7.1 L -2.0-3.0 mmol/L Hemoglobin (Blood Gas) 10.9 L 13.5-17.5 g/dL Sodium (Blood Gas) 128 L 136-145 MMOL/L Bedside Potassium (Blood Gas) 3.5 3.4-4.5 MMOL/L Bedside Chloride (Blood Gas) 106 98-107 MMOL/L Bedside Glucose (Blood Gas) 65 65-95 MG/DL Bedside Ionized Calcium (Blood Gas) 1.17 1.15-1.33 MMOL/L Bedside Lactic Acid (Blood Gas) 0.66 0.36-0.75 MMOL/L Blood Gas Temperature 37.0 35.5-37.0 CELSIUS Blood Gas Vent Mode ROOMAIR ROOM AIR FiO2 21.0 % Blood Gas Specimen Comment RR NURSE JULIEN Test 05/30/25 05:04 05/29/25 23:22 05/29/25 20:54 Range/Units White Blood Count 7.4 4.8-10.8 K/uL Red Blood Count 3.46 L 4.50-6.20 MIL/uL Hemoglobin 11.2 L 14.0-18.0 g/dL Hematocrit 33.2 L 42-54 % Mean Corpuscular Volume 96.0 79-99 fL Mean Corpuscular Hemoglobin 32.4 27.0-33.0 pg Mean Corpuscular Hemoglobin Concent 33.7 32.0-36.0 g/dL Red Cell Distribution Width 16.6 H 11.0-15.5 % Platelet Count 342 130-400 K/uL Mean Platelet Volume 8.5 7.5-10.5 fL Nucleated Red Blood Cells 0.0 0.0-0.19 % D-Dimer Quantitative (PE/DVT) 399 0-500 ng/mL Sodium Level 135 L 136-145 mmol/L Potassium Level 4.1 3.5-5.1 mmol/L Chloride Level 104 101-111 mmol/L Carbon Dioxide Level 21 21-32 mmol/L Blood Urea Nitrogen 19 H 7-18 mg/dL Creatinine 0.6 0.5-1.3 mg/dL Glomerular Filtration Rate Calc 111 >90 mL/min Random Glucose 68 L 70-105 mg/dL Total Calcium 7.5 L 8.5-10.1 mg/dL Phosphorus Level 3.3 2.5-4.9 mg/dL Magnesium Level 1.80 1.80-2.40 mg/dL Troponin I High Sensitivity 5 4-75 ng/L B-Type Natriuretic Peptide 19 0-100 pg/mL Thyroid Stimulating Hormone (TSH) 5.20 #H 0.36-3.74 uIU/mL Urine Color DARK-YELLOW YELLOW Urine Appearance CLOUDY H CLEAR Urine pH 5.5 5.0-8.0 Urine Specific [place] 1.030 1.001-1.031 Urine Protein 30 H NEGATIVE mg/dL Urine Glucose (UA) NEGATIVE NEGATIVE mg/dL Urine Ketones 5 H NEGATIVE mg/dL Urine Occult Blood NEGATIVE NEGATIVE Urine Nitrate NEGATIVE NEGATIVE Urine Bilirubin 1 H NEGATIVE mg/dL Urine Urobilinogen 3 H 0.2-1.0 mg/dL Urine Leukocyte Esterase NEGATIVE NEGATIVE [place]/uL Urine RBC 11-25 H 0-1 /HPF Urine WBC 6-10 H 0-1 /HPF Urine Squamous Epithelial Cells RARE 0-2 /HPF Urine Calcium Oxalate Crystals RARE None Seen /LPF Urine Bacteria FEW None Seen /HPF Urine Hyaline Casts 11-25 H 0-1 /LPF /LPF Urine Opiates Screen NEGATIVE NEGATIVE Urine Barbiturates Screen NEGATIVE NEGATIVE Urine Phencyclidine Screen NEGATIVE NEGATIVE Urine Amphetamines Screen NEGATIVE NEGATIVE Urine Benzodiazepines Screen NEGATIVE NEGATIVE Urine Cocaine Screen NEGATIVE NEGATIVE Urine Marijuana (THC) Screen NEGATIVE NEGATIVE Immature Granulocyte % (Auto) 0.3 0-1 % Neutrophils (%) (Auto) 67.6 40.0-77.0 % Lymphocytes (%) (Auto) 17.2 L 21.0-51.0 % Monocytes (%) (Auto) 14.1 H 3.0-13.0 % Eosinophils (%) (Auto) 0.4 0.0-8.0 % Basophils (%) (Auto) 0.4 0.0-5.0 % Neutrophils # (Auto) 4.8 1.8-7.7 K/uL Lymphocytes # (Auto) 1.2 1.0-4.8 K/uL Monocytes # (Auto) 1.0 0.1-1.0 K/uL Eosinophils # (Auto) 0.03 0.00-0.70 K/uL Basophils # (Auto) 0.03 0.00-0.20 K/uL Absolute Immature Granulocyte (auto 0.02 0-1 K/uL Total Bilirubin 0.7 0.2-1.0 mg/dL Aspartate Amino Transf (AST/SGOT) 16 10-37 U/L Alanine Aminotransferase (ALT/SGPT) 11 L 12-78 U/L Alkaline Phosphatase 101 50-136 U/L Total Creatine Kinase 19 #L 21-232 U/L Total Protein 4.8 L 6.0-8.3 g/dL Albumin 1.8 L 3.5-5.0 g/dL Current Medications Medications (Trade) Dose Ordered Sig/Estelita Route PRN Reason Start Time Stop Time Status Last Admin Dose Admin Acetaminophen (TYLenol 325MG TAB) 650 mg Q6H PRN PO FEVER/MILD PAIN LEVEL 1-3 05/30/25 00:00 06/29/25 00:00 Acetaminophen (TYLenol 650MG SUPPOSITORY) 650 mg Q6H PRN RC FEVER / MILD PAIN 1-3 IF NPO 05/30/25 00:00 06/29/25 00:00 Albuterol Sulfate (Proventil 0.083% 2.5mg/3ml) 2.5 mg Q4H PRN IH SHORTNESS OF BREATH 05/30/25 06:30 06/29/25 06:29 Dextrose/Sodium Chloride 1,000 ml @ 100 mls/hr Q10H IV 05/30/25 10:30 06/29/25 10:29 05/30/25 10:28 100 MLS/HR Docusate Sodium (COLace 100MG CAP) 100 mg BID PRN PO CONSTIPATION 05/30/25 00:00 06/29/25 00:00 Insulin Human Regular (humuLIN R 100 UNIT/ML 3ML) INSULIN SLIDING SCAL... ACHS SQ 05/30/25 07:30 06/29/25 07:29 Ipratropium [place] (AtrovENT UD) 0.5 mg Q4H PRN IH SHORTNESS OF BREATH 05/30/25 06:30 06/29/25 06:29 Labetalol HCl (TRANdate 20MG SYG) 10 mg Q2H PRN IV SBP GREATER THAN 160 05/30/25 00:00 06/29/25 00:00 Lactated Ringer's 1,000 ml @ 50 mls/hr Q20H IV 05/30/25 06:00 06/29/25 05:59 Hold 05/30/25 06:03 50 MLS/HR Lactulose (Constulose 20gm/ 30ml Udcup) 20 gm Q6H PRN PO CONSTIPATION 05/30/25 00:00 06/29/25 00:00 Multivitamins Therapeutic (Multivitamin Tablet) 1 tab DAILY PO 05/31/25 09:00 06/30/25 08:59 Multivitamins/ Minerals 10 ml/ Folic Acid 1 mg/ Thiamine HCl 100 mg/Sodium Chloride 1,010 ml @ 0 mls/hr DAILY IV 05/30/25 12:00 06/01/25 09:01 Ondansetron HCl (zoFRAN 4MG INJ) 4 mg Q6H PRN IVP NAUSEA/VOMITING 05/30/25 00:00 06/29/25 00:00 Piperacillin Sod/ Tazobactam Sod (Zosyn 3.375gm+NS 50ml) 3.375 gm Q8H IVPB 05/30/25 06:30 06/09/25 06:29 05/30/25 06:31 3.375 GM Temazepam (restORIL 15 MG CAP) 15 mg HS PRN PO INSOMNIA/SLEEP 05/30/25 00:00 06/29/25 00:00 Thiamine HCl (Vitamin B-1) 100 mg DAILY IVP 05/30/25 10:30 06/29/25 10:29 05/30/25 10:31 100 MG DIAGNOSTICS / RADIOLOGY: [ ] PATIENT: KIMBERLEY LU MR#: [id number] : 1965 SEX: M AGE: 59 LOCATION: [facility] ORDER 29 STATUS: REG ER REPORT#: [id number] SERVICE 28 REASON: SOB ORDERING PHYSICIAN: ASIF MIJARES PROCEDURE: CXR1VW - CHEST 1VW EXAM: CR Chest, 1 view CLINICAL HISTORY: Shortness of breath. COMPARISON: Chest radiograph dated 04/24/2025. FINDINGS: Small to moderate pleural effusion on the left side. Lower lobe airspace disease bilaterally, more pronounced on the left side. COPD. No pneumothorax. The cardiomediastinal silhouette is within normal limits. No acute osseous abnormality. IMPRESSION: Small to moderate pleural effusion on the left side. Lower lobe airspace disease bilaterally, more pronounced on the left side. COPD. No gross interval changes. /[place] DICTATED BY: STEPHIE EVANS Jr., MD DATE: 05/29/252254 ELECTRONICALLY SIGNED BY: STEPHIE EVANS Jr., MD DATE: 05/29/252254 ASSESSMENT: Failure to thrive, POA Anorexia, has not been eating x6 days Acute on chronic abdominal pain, POA Chronic diarrhea 2/2 Crohn's disease Acute dehydration, elevated BUN/ketonuria History of multiple colonoscopies, followed by Dr. Milner hx of colocolic intussusception at the sigmoid colon with underlining mass suspected, per CT abdomen and pelvis on 04/20/2025 Partial obstructing polypoid mass in the ascending colon status post partial resection, per colonoscopy on 03/2025 admission Left pleural effusion per chest x-ray on 05/30/2025, recurrent, with dyspnea, POA COPD per chest x-ray on 05/30/2025 Anemia chronic disease Electrolyte derangement (hyponatremia, hypocalcemia) Protein calorie malnutrition/hypoalbuminemia Proteinuria, ketonuria, bilirubinuria, urobilinogenuria, per UA on 05/29/25 Chronic problem list: Crohn's, GERD, hypertension, multiple colonoscopies, former smoker with 10 years of tobacco use History of right UPJ obstruction with mild hydronephrosis, per CT on 04/20/2025 Small to large posterior pericardial effusion, EF > 65%/3D volume EF 68% per echo on 04/21/2025 PLAN: Starvation ketosis * Admit to Medical floor with continuous telemetry monitoring * Start D5 NS 1000 ml @ 100 mls/hr * Start Thiamine 100 mg * Transfuse 3 Banana bags 1010 ml (multi vitamins, folic acid, Thiamine, 0.9 Nacl) * Monitor for phosphorous, magnesium, and electrolytes q12 * Monitor for signs of confusion, delirium, ataxia * Monitor Daily weight, strict I/O, JVP, lung crackles Failure to thrive, Protein calorie malnutrition, hypoalbuminemia * GI consult placed for assessment of chronic malnutrition, history of Crohn's disease, loss of appetite, heartburn * Dietary consult placed * Advance towards goals as tolerated * CT of chest, abdomen, and pelvis ordered * Hepatitis panel ordered * PT PTT ordered Left sided Pleural effusion, suspected pneumonia * Chest x-ray showed left sided pleural effusion * CT chest ordered * Serology influenza, COVID, strep screen, tested negative * Continue IV Zosyn 3.375 q8 * Monitor respiratory status. * Oxygen therapy as needed. Titrate oxygen prn to keep Spo2>/+=92%. * Albuterol and Atrovent PRN SOB. * Consult with pulmonology team for recurrent pleural effusion and suspected COPD. Hypothyroidism * TSH is 5.4, free T3 0.55, Free T4 0.97 * Monitor until patient is hemodynamically stable -LR gentle hydration at 50 mL/hour. -Monitor for fluid overload (The patient is edematous and dehydrated, ER administered NS 1 L bolus). -Pending BNP and D-dimer. -Echo in a.m. for evaluation of pericardial effusion. -Fluid restriction a 1200 mL. -PRN medications for: Pain management, fever, hypertension, N/V, constipation, SOB. -Glucometer checks AC & HS needed with insulin regular sliding scale coverage as needed. -Blood pressure checks every 4 hours and as needed. -Reconcile home medications once available. -Monitor renal and liver function. -Monitor electrolytes and treat accordingly PRN -AM labs. -GI and DVT prophylaxis -Further plan/orders per hospitalization course. ATTESTATION BY PHYSICIAN I have seen and examined the patient. I reviewed the documentation, medical dec ision making, and treatment plan as noted by the resident provider above. I agree with the findings and plan of care. ÁNGELA GAYLE MD, HARSHAVARDHA MD May 30, 2025 11:36
[2025-05-30 11:42] VITALS: PULSE 102; RESP 18; O2SAT 98
[2025-05-30 12:52] LABS: CREATININE,URINE RANDOM 96.94 mg/dL (30-135)
[2025-05-30] MEDS: M.V.I. IV [ADULT] 10 ML, FOLic ACID 5 MG/ML VIAL 1 MG, THIAMINE HCL 100 MG in 0.9%NACL ... IV SCH (13:32)
--- NOTE | 2025-05-30 14:13 | NUR ---
DCP:HOME Pt currently lives with his sister in her home. Pt has a hospital bed, wheelchair, and bedside commode. Pt does not have a provider or home health agency. Pt does require assistance with ADLS and dgt has been the one to assist with bathing and sister with home management and meals. PCP is Dr. Layton Gonzales and uses [facility] for any RX needs. At [place] pt will want to go home and family can assist with transportation. Addendum: 05/30/25 at 1415 by SANA DAVILA SS Amended: Links added.
--- NOTE | 2025-05-30 14:21 | NUR ---
GI CONSULT [employer] COUNTER PERSON AT BEDSIDE
--- NOTE | 2025-05-30 15:11 | CONS ---
GASTROENTEROLOGY CONSULTATION NOTE Date of Consultation: May 30, 2025 Time of Consultation: 15:11 History of Present Illness: [59-year-old male patient with past medical history significant for Crohn's disease, GERD, hypertension, who presented to the emergency room with complaints of generalized weakness, and shortness of breath. Per ER report any EMS report patient's family reported patient had not been eating for the past six days.On admission patient's WBC of 7.1, hemoglobin 12.1, platelets 332. Chemistry significant for sodium of 133, BUN of 20, calcium 7.7, total bilirubin 0.7, AST 16, ALT 11, alkaline phos 101, total creatinine kinase 19, albumin 1.8, and TSH 5.20. PT 12.0, INR 1.15. CT abdomen and pelvis impression: Long segment thickening of the proximal sigmoid colon for a length of 16.4 cm with a maximum diameter of 5.8 cm, showing significant inflammation, engorge pericolonic vessels, and mild fat stranding. No evidence of pneumatosis, evident perforation, or pericolonic abscess. Features suggestive of active colitis. Right UPJ obstruction with moderate hydronephrosis and calculi in the lower calyx. Thickened urinary bladder wall, suggesting cystitis. Bladder calculi. On 04/20/25: Patient had colonoscopy and was found to have a partially obstructing mass in ascending colon, diverticulosis in the sigmoid, descending colon, transverse colon, and an ascending colon, congested erythematous and inflamed mucosa in the sigmoid colon, normal rectum, nonbleeding internal hemorrhoids, fair prep noted. Patient reports he has had several colonoscopies with Dr. Milner and states he does not remember results but states his daughter was given information on results. On exam patient is ill-appearing. His vital signs are stable. His respirations are deep and unlabored with bilateral breath sounds clear. Abdomen is soft and not distended and nontender. He reports feeling tired he denies having any hematochezia. ] Review of Systems: CONSTITUTIONAL: No malaise or change in sensation of wellbeing. ENMT: No rhinorrhea, otorrhea, sinus pain, ear ache. CARDIOVASCULAR: No angina, palpitations, orthopnea or paroxysmal dyspnea. RESPIRATORY: No SOB. GASTROINTESTINAL: No abdominal pain, nausea, vomiting, diarrhea, hematemesis, melena or change in the patient's habitual bowel movements consistency/number. GENITOURINARY: No dysuria, hematuria or change in bladder continence. MUSCULOSKELETAL: No new muscle pain or decrease in muscular strength. No new joint swelling, redness or tenderness. SKIN: No new rash. Past Medical History: [ ] Past Surgical History: [ ] Past Social History: [ ] Family History: [ ] Coded Allergies: No Known Drug Allergies (Unverified Allergy, Unknown, 09/18/17) Physical Exam: GEN: Awake, alert, oriented in person, time and place, and in no acute distress. HEENT: No sinus tenderness. Tympanic membranes were not examined. No rhinorrhea. Oral pharyngeal mucosa is pink, moist and within normal limits. CHEST: Inspection, palpation of the chest were unremarkable. Lung auscultation revealed normal breath sounds bilaterally. CARDIAC: PMI is within normal limits. Heart sounds are regular. ABD: Soft, non-tender and not distended. No peritoneal signs on palpation. No organomegaly. Normal bowel sounds. EXT: No cyanosis or clubbing. No edema. SKIN: Intact. No rashes. JOINTS: No evidence of synovitis or acute arthritis. NEURO: Alert and oriented to name, place and person. Cranial nerve examination is unremarkable. No focal motor deficits. Normal speech. Strength is normal. Vital Sign (Last 24 Hours) 05/30/25 05/30/25 08:18 11:42 Temp 98.4 Pulse 102 Resp 18 B/P (MAP) 125/87 Pulse Ox 97 O2 Delivery N/A Room Air O2 Flow Rate 0 FiO2 21 Laboratory: [ ] Laboratory: Test 05/30/25 12:09 05/30/25 11:45 05/30/25 09:29 05/30/25 06:12 Range/Units Whole Blood Glucose 101 # 70-110 MG/DL Urine Random Creatinine 96.94 30-135 mg/dL Urine Random Sodium < 13 L 40-220 mmol/l Urine Random Potassium 30 25-125 mmol/L Urine Random Chloride 42 L 110-250 mmol/L Whole Blood Ketones Quantitative 3.6 H 0.0-0.6 mmol/L Lactic Acid Level 1.3 0.8-2.5 mmol/L Free Thyroxine (T4) Direct 0.97 0.76-1.46 ng/dL Free Triiodothyronine (T3) pg/mL 0.55 L 2.18-3.98 pg/mL Influenza Type A Antigen Negative For Type A NEGATIVE Influenza Type B Antigen Negative For Type B NEGATIVE SARS-CoV-2, RNA, NAAT NEGATIVE SARS CoV-2 NEGATIVE Group A Streptococcus Rapid negative NEGATIVE Test 05/30/25 05:39 05/30/25 05:04 05/29/25 23:22 05/29/25 20:54 Range/Units Blood Gas Specimen Type Arterial Arterial Blood pH 7.400 7.350-7.450 Arterial Blood Partial Pressure CO2 27 L 35-48 mmHg Arterial Blood Partial Pressure O2 96.7 83.0-108.0 mmHg Arterial Blood HCO3 16.4 L 21.0-28.0 mmol/L Arterial Blood Oxygen Saturation 95.1 94.0-98.0 % Arterial Blood Base Excess -7.1 L -2.0-3.0 mmol/L Hemoglobin (Blood Gas) 10.9 L 13.5-17.5 g/dL Sodium (Blood Gas) 128 L 136-145 MMOL/L Bedside Potassium (Blood Gas) 3.5 3.4-4.5 MMOL/L Bedside Chloride (Blood Gas) 106 98-107 MMOL/L Bedside Glucose (Blood Gas) 65 65-95 MG/DL Bedside Ionized Calcium (Blood Gas) 1.17 1.15-1.33 MMOL/L Bedside Lactic Acid (Blood Gas) 0.66 0.36-0.75 MMOL/L Blood Gas Temperature 37.0 35.5-37.0 CELSIUS Blood Gas Vent Mode ROOMAIR ROOM AIR FiO2 21.0 % Blood Gas Specimen Comment RR NURSE JULIEN White Blood Count 7.4 4.8-10.8 K/uL Red Blood Count 3.46 L 4.50-6.20 MIL/uL Hemoglobin 11.2 L 14.0-18.0 g/dL Hematocrit 33.2 L 42-54 % Mean Corpuscular Volume 96.0 79-99 fL Mean Corpuscular Hemoglobin 32.4 27.0-33.0 pg Mean Corpuscular Hemoglobin Concent 33.7 32.0-36.0 g/dL Red Cell Distribution Width 16.6 H 11.0-15.5 % Platelet Count 342 130-400 K/uL Mean Platelet Volume 8.5 7.5-10.5 fL Nucleated Red Blood Cells 0.0 0.0-0.19 % Prothrombin Time 12.0 H 9.6-11.6 SEC Prothromb Time International Ratio 1.15 0.85-1.15 Activated Partial Thromboplast Time 39.0 H 26.3-35.5 SEC D-Dimer Quantitative (PE/DVT) 399 0-500 ng/mL Sodium Level 135 L 136-145 mmol/L Potassium Level 4.1 3.5-5.1 mmol/L Chloride Level 104 101-111 mmol/L Carbon Dioxide Level 21 21-32 mmol/L Blood Urea Nitrogen 19 H 7-18 mg/dL Creatinine 0.6 0.5-1.3 mg/dL Glomerular Filtration Rate Calc 111 >90 mL/min Random Glucose 68 L 70-105 mg/dL Total Calcium 7.5 L 8.5-10.1 mg/dL Phosphorus Level 3.3 2.5-4.9 mg/dL Magnesium Level 1.80 1.80-2.40 mg/dL Troponin I High Sensitivity 5 4-75 ng/L C-Reactive Protein, Quantitative 77.20 H 0.5-3.0 mg/L B-Type Natriuretic Peptide 19 0-100 pg/mL Thyroid Stimulating Hormone (TSH) 5.20 #H 0.36-3.74 uIU/mL Urine Color DARK-YELLOW YELLOW Urine Appearance CLOUDY H CLEAR Urine pH 5.5 5.0-8.0 Urine Specific [place] 1.030 1.001-1.031 Urine Protein 30 H NEGATIVE mg/dL Urine Glucose (UA) NEGATIVE NEGATIVE mg/dL Urine Ketones 5 H NEGATIVE mg/dL Urine Occult Blood NEGATIVE NEGATIVE Urine Nitrate NEGATIVE NEGATIVE Urine Bilirubin 1 H NEGATIVE mg/dL Urine Urobilinogen 3 H 0.2-1.0 mg/dL Urine Leukocyte Esterase NEGATIVE NEGATIVE Deonte/uL Urine RBC 11-25 H 0-1 /HPF Urine WBC 6-10 H 0-1 /HPF Urine Squamous Epithelial Cells RARE 0-2 /HPF Urine Calcium Oxalate Crystals RARE None Seen /LPF Urine Bacteria FEW None Seen /HPF Urine Hyaline Casts 11-25 H 0-1 /LPF /LPF Urine Opiates Screen NEGATIVE NEGATIVE Urine Barbiturates Screen NEGATIVE NEGATIVE Urine Phencyclidine Screen NEGATIVE NEGATIVE Urine Amphetamines Screen NEGATIVE NEGATIVE Urine Benzodiazepines Screen NEGATIVE NEGATIVE Urine Cocaine Screen NEGATIVE NEGATIVE Urine Marijuana (THC) Screen NEGATIVE NEGATIVE Immature Granulocyte % (Auto) 0.3 0-1 % Neutrophils (%) (Auto) 67.6 40.0-77.0 % Lymphocytes (%) (Auto) 17.2 L 21.0-51.0 % Monocytes (%) (Auto) 14.1 H 3.0-13.0 % Eosinophils (%) (Auto) 0.4 0.0-8.0 % Basophils (%) (Auto) 0.4 0.0-5.0 % Neutrophils # (Auto) 4.8 1.8-7.7 K/uL Lymphocytes # (Auto) 1.2 1.0-4.8 K/uL Monocytes # (Auto) 1.0 0.1-1.0 K/uL Eosinophils # (Auto) 0.03 0.00-0.70 K/uL Basophils # (Auto) 0.03 0.00-0.20 K/uL Absolute Immature Granulocyte (auto 0.02 0-1 K/uL Total Bilirubin 0.7 0.2-1.0 mg/dL Aspartate Amino Transf (AST/SGOT) 16 10-37 U/L Alanine Aminotransferase (ALT/SGPT) 11 L 12-78 U/L Alkaline Phosphatase 101 50-136 U/L Total Creatine Kinase 19 #L 21-232 U/L Total Protein 4.8 L 6.0-8.3 g/dL Albumin 1.8 L 3.5-5.0 g/dL Current Medications Medications (Trade) Dose Ordered Sig/Estelita Route PRN Reason Start Time Stop Time Status Last Admin Dose Admin Acetaminophen (TYLenol 325MG TAB) 650 mg Q6H PRN PO FEVER/MILD PAIN LEVEL 1-3 05/30/25 00:00 06/29/25 00:00 Acetaminophen (TYLenol 650MG SUPPOSITORY) 650 mg Q6H PRN RC FEVER / MILD PAIN 1-3 IF NPO 05/30/25 00:00 06/29/25 00:00 Albuterol Sulfate (Proventil 0.083% 2.5mg/3ml) 2.5 mg Q4H PRN IH SHORTNESS OF BREATH 05/30/25 06:30 06/29/25 06:29 Dextrose/Sodium Chloride 1,000 ml @ 100 mls/hr Q10H IV 05/30/25 10:30 06/29/25 10:29 05/30/25 10:28 100 MLS/HR Docusate Sodium (COLace 100MG CAP) 100 mg BID PRN PO CONSTIPATION 05/30/25 00:00 06/29/25 00:00 Insulin Human Regular (humuLIN R 100 UNIT/ML 3ML) INSULIN SLIDING SCAL... ACHS SQ 05/30/25 07:30 06/29/25 07:29 Ipratropium [place] (AtrovENT UD) 0.5 mg Q4H PRN IH SHORTNESS OF BREATH 05/30/25 06:30 06/29/25 06:29 Labetalol HCl (TRANdate 20MG SYG) 10 mg Q2H PRN IV SBP GREATER THAN 160 05/30/25 00:00 06/29/25 00:00 Lactated Ringer's 1,000 ml @ 50 mls/hr Q20H IV 05/30/25 06:00 06/29/25 05:59 Hold 05/30/25 06:03 50 MLS/HR Lactulose (Constulose 20gm/ 30ml Udcup) 20 gm Q6H PRN PO CONSTIPATION 05/30/25 00:00 06/29/25 00:00 Multivitamins Therapeutic (Multivitamin Tablet) 1 tab DAILY PO 05/31/25 09:00 06/30/25 08:59 Multivitamins/ Minerals 10 ml/ Folic Acid 1 mg/ Thiamine HCl 100 mg/Sodium Chloride 1,010 ml @ 0 mls/hr DAILY IV 05/30/25 12:00 06/01/25 09:01 05/30/25 13:32 125 MLS/HR Ondansetron HCl (zoFRAN 4MG INJ) 4 mg Q6H PRN IVP NAUSEA/VOMITING 05/30/25 00:00 06/29/25 00:00 Piperacillin Sod/ Tazobactam Sod (Zosyn 3.375gm+NS 50ml) 3.375 gm Q8H IVPB 05/30/25 06:30 06/09/25 06:29 05/30/25 15:04 3.375 GM Temazepam (restORIL 15 MG CAP) 15 mg HS PRN PO INSOMNIA/SLEEP 05/30/25 00:00 06/29/25 00:00 Thiamine HCl (Vitamin B-1) 100 mg DAILY IVP 05/30/25 10:30 06/29/25 10:29 05/30/25 10:31 100 MG Diagnostics / Radiology: [COPY/PASTE HERE IF NO REPORTS PLEASE DELETE SECTION] Assessment: [Crohn's disease Acute dehydration Left Pleural effusion Ascending colon mass Copd Anemia ] Plan: [NO gi endoscopic intervention at this time given patient status Recommend repeating colonoscopy once patient's status improves Recommend GI prophylaxis with Protonix 40 BID Optimize hydration Trend HGB and transfuse as needed to goal of HGB> 7 Please call with questions, concerns, and change in clinical status Thank you for this consult. ] RANDALL OCHOA NP May 30, 2025 15:11
[2025-05-30 16:26] LABS: PHOSPHORUS 3.2 mg/dL (2.5-4.9)
--- NOTE | 2025-05-30 17:07 | HMCIMG ---
EXAM: CT Abdomen and Pelvis with and without Intravenous Contrast CLINICAL HISTORY: PLEURAL EFFUSION TECHNIQUE: Axial computed tomography images of the chest, abdomen and pelvis with and without intravenous contrast. CONTRAST: None. COMPARISON: None provided. FINDINGS: Large Bowel: There is a long segment thickening of the sigmoid colon for a length of 16.4 cm with a maximum diameter of 5.8 cm, showing significant inflammation, engorged pericolonic vessels, and mild fat stranding. There is also mild thickening of the splenic flexure, transverse colon, and ascending colon, reflecting underlying active colitis. No evidence of pneumatosis, evident perforation, or pericolonic abscess. There is mild wall thickening of the left lateral conal fascia and the paracolic gutter. Small Bowel: Small bowel loops within normal caliber. No evidence of significant small bowel wall thickening, obstruction, or abnormal enhancement. Liver, spleen, gall bladder, pancreas, and adrenal glands are normal in size and attenuation, with no focal lesions. Kidneys and Ureters: There is right UPJ obstruction causing moderate hydronephrosis with pooling of contrast and 6mm calculus in the lower calyx . No renal mass or perinephric collection. Urinary Bladder and Prostate: There is a 6.4 mm calculus in the dependent portion of the urinary bladder with wall thickening of 4.5 mm. Mild bladder wall calcification along the posterior urinary bladder wall. There is thickening of the bladder wall. Prostate is normal sized with intraprostatic calcification. Abdominal Wall and Subcutaneous Tissues: There is diffuse edema along the subcutaneous plane of the abdomen and the intramuscular plane. Musculoskeletal Structures: Bone shows degenerative changes. No lytic or sclerotic lesions. Other Findings: No free fluid or free air in the abdomen or pelvis. No lymphadenopathy. IMPRESSION: Long segment thickening of the proximal sigmoidcolon for a length of 16.4 cm with a maximum diameter of 5.8 cm, showing significant inflammation, engorged pericolonic vessels, and mild fat stranding. No evidence of pneumatosis, evident perforation, or pericolonic abscess. Features suggestive of active colitis. Right UPJ obstruction with moderate hydronephrosis and calculi in the lower calyx. Thickened urinary bladder wall, suggesting cystitis. Bladder calculi. /[place]
[2025-05-30] MEDS: ENOXAPARIN SODIUM 40 MG/0.4 ML SYRINGE SQ SCH (18:45)
[2025-05-30 19:15] VITALS: PULSE 100; RESP 16; O2SAT 97
--- NOTE | 2025-05-30 19:34 | NUR ---
CALLED TO GIVE REPORT FOR ROOM 414 AND FLOOR HUNG UP ON ME WILL TRY AGAIN IN 15 MINS
[2025-05-30 20:10] VITALS: BP_SYST 131; BP_SYST 135; BP_DIAS 62; BP_DIAS 88; PULSE 117; PULSE 69; RESP 20; TEMP 98.4; TEMP 98.9
[2025-05-30 23:02] LABS: HEPATITIS A IGM ANTIBODY Non-Reactive (Nonreactive); HEPATITIS B CORE IGM ANTIBODY Non-Reactive (Negative)
[2025-05-31] VITALS (7 sets, daily range): BP systolic 106–165; BP diastolic 61–83; PULSE 80–113; RESP 16–20; TEMP 97.6–98.8; O2SAT 94–96
[2025-05-31 05:34] LABS: IMMATURE GRANULOCYTE ABSOLUTE 0.02 K/uL (0-1); NUCLEATED RED BLOOD CELLS 0.0 % (0.0-0.19); PLATELET COUNT (AUTO) 278 K/uL (130-400); RED BLOOD CELL COUNT(AUTO) 3.37 MIL/uL (4.50-6.20); RED CELL DISTRIBUTION WIDTH 16.3 % (11.0-15.5); WHITE BLOOD COUNT (AUTO) 5.7 K/uL (4.8-10.8)
[2025-05-31 06:02] LABS: ASPARTATE AMINOTRANSFERASE 14.0 U/L (10-37); CREATININE 0.7 mg/dL (0.5-1.3); GLOMERULAR FILTR. RATE CALC 105.0 mL/min (>90); GLUCOSE,RANDOM 131.0 mg/dL (70-105); SODIUM SERUM 135.0 mmol/L (136-145); TOTAL PROTEIN, SERUM 4.3 g/dL (6.0-8.3); UREA NITROGEN, BLOOD 18.0 mg/dL (7-18)
[2025-05-31] MEDS: PoTASSium chl 10% ELIXIR 20MEQ 20 MEQ/15 ML UDCUP PO PRN (06:26)
--- NOTE | 2025-05-31 08:01 | HMCSR ---
APPROVED REPORT EXAM: Two-dimensional and M-mode echocardiogram with Doppler and color Doppler. Study Details: Previous echo 04/21/25 INDICATION ICD: General body weakness 2D Dimensions IVSd0.8 (0.7-1.1cm)LVEF(%)63.6 (>50%) LVDd3.2 (3.8-5.6cm)FS(%)33 % PWd1.1 (0.7-1.1cm)LA (2D)3.2 (1.6-4.0cm) IVSs1.1 cmAo Root(2D)3.0 (2.0-3.7cm) LVDs2.1 (2.5-4.0cm)LVOT diam1.8 (1.8-2.4cm) PWs1.0 cm M-Mode Dimensions EPSS0.6 cm LA (MM)3.2 (1.6-4.0cm) Ao Root(MM)2.8 (2.0-3.7cm) Aortic Valve AoV Vmax0.9 m/Michelle Peak GR3.5 mmHgLVOT Vmax0.8 m/s AoV VTI0.2 mAo Mean GR2.3 mmHgLVOT VTI0.16 m DEREK (VMAX)2.18 cm2AVA (VTI) 2.4 cm2 Mitral Valve MV E Vmax45.9 cm/sDECEL Mcpy075 ms MV A Vmax64.9 cm/sP 1/2 T59 ms E/A ratio0.7MVA (PHT)3.8 cm2 TDI E/E' Medial9.9E/E' Lateral8.5 Medial E' Peak V4.63 cm/sLateral E' Peak V5.38 cm/s Pulmonary Valve PV Vmax1.1 m/sPV VTI0.18 mPV Mean GR2.7 mmHg PV Peak GR5.2 mmHg Tricuspid Valve TR Vmax1.0 m/sRAP (EST) 8 ygMyFJSG26.1 mmHg TR Peak GR4.1 mmHg Left Ventricle The left ventricle is normal size. Cannot exclude regional wall motion abnormalities. Left ventricula r wall thickness appears normal. The LVEF is estimated> 65%. The left ventricular diastolic function is normal. Right Ventricle The right ventricle is normal size. The right ventricular systolic function appears normal. Atria The left atrium size is normal. The right atrium size is normal. Aortic Valve The aortic valve is normal in structure. No aortic regurgitation is present. There is no aortic valvu lar stenosis. Mitral Valve The mitral valve is normal in structure. There is no mitral valve regurgitation noted. There is no mi tral valve stenosis. Tricuspid Valve The tricuspid valve is normal in structure. There is trace of tricuspid valve regurgitation noted. Pulmonic Valve Pulmonic valve is not well visualized. There is no pulmonic valvular regurgitation. Great Vessels The aortic root is normal in size. IVC is not well visualized. Pericardium There is smal loculatedl pericardial effusion. No echo indications of pericardial tamponade. Other Information Quality : Technically difficult study due to body habitus Conclusion No significant changes compared to previous echocardiogram done on 04/21/25. The left ventricle is normal size. The LVEF is estimated> 65%. The left ventricular diastolic function is normal. The right ventricular systolic function appears normal. Both atria are normal in size. No hemodynamically significant valvular abnormalities. There is smal loculatedl pericardial effusion. No echo indications of pericardial tamponade.
[2025-05-31] MEDS ORDERED: MAGNESIUM 2GM PREMIX 50ML 50 ML IV PRN (09:00)
[2025-05-31] MEDS: MULTIVITAMIN TABLET PO SCH (09:24)
[2025-05-31] MEDS: PoTASSium chloRIDE 20MEQ ER 20 MEQ ERTAB PO PRN (09:25)
[2025-05-31 09:59] LABS: IRON, SERUM 41.0 mcg/dL (65-175)
[2025-05-31 10:07] LABS: % IRON SATURATION 102.5 % (30-44)
--- NOTE | 2025-05-31 11:23 | PN ---
[facility] PROGRESS NOTE Date Patient Seen: May 31, 2025 Time of Visit: 11:23 Supervising Physician: [ ] Primary Care Physician: [ ] Outpatient Specialists: [ ] Inpatient Consults: [ ] PROBLEM LIST: 1. CHRISTIANA basal pleural effusion 2. Suspect congestive heart failure, last echocardiogram results 04/16EF greater than 65% 3. 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 Neumann, previous admission 04/20/2020 4. Dyspnea 5. Generalized body weakness 7. Electrolyte derangement syndrome: Hypokalemia, Hyponatremia mild, & Hypomagnesemia CHRONIC PROBLEM LIST: Crohn's disease GERD Hypertension Former smoker 10 years Suspect, COPD, undiagnosed and untreated Recommendations: Bilateral basal pleural effusions, clinical workup echocardiogram ordered to be read by on-call sprinkler fitter helper's, patient does not have one Gentle diuretic: Lasix 40 mg IV b.i.d. Electrolyte protocol replacement therapy: Potassium and Magnesium Keep oxygen saturation greater than 92% Aspiration precautions Safety precautions DVT prophylaxis with Lovenox 40 mg sub q.day GI prophylaxis Protonix 40 mg p.o. daily Strict I&O Daily weight A.m. labs ordered: CBC, CMP, magnesium, calcium, hemoglobin A1c Out of bed for all meals Educate and use incentive spirometer while awake out of bed 6-10 times an hours INTERVAL HISTORY: [ ] REVIEW OF SYSTEMS: 12 point ROS reviewed with patient. Pertinent positives mentioned above. Otherwise negative. PHYSICAL EXAM: GENERAL: alert, , awake oriented x 3 HEENT: EOMI, Sclera non icteric, moist mucosa NECK: Supple, no JVD, trachea midline LUNGS: Clear breath sounds bilaterally. No wheezes HEART: Regular rate and rhythm. Normal S1 and S2, without murmurs ABD: Abdomen soft, distended, nontender. Bowel sounds present EXT: No clubbing cyanosis bilateral pitting edema NEURO: Alert and oriented to person, follows commands Vital Signs (last 8hr) Date Time Temp Pulse Resp B/P (MAP) Pulse Ox O2 Delivery O2 Flow Rate FiO2 05/31/25 08:00 98.8 100 18 119/80 94 Room Air 05/31/25 04:00 98.1 98 20 112/83 95 Room Air LABS: Hematology Labs: Test 05/31/25 09:22 05/31/25 05:27 Range/Units Reticulocyte Count (auto) 2.39396 H 0.42-2.23 % Immature Reticulocyte Fraction 6.60 H 0.18-0.48 % White Blood Count 5.7 4.8-10.8 K/uL Red Blood Count 3.37 L 4.50-6.20 MIL/uL Hemoglobin 10.9 L 14.0-18.0 g/dL Hematocrit 31.1 L 42-54 % Mean Corpuscular Volume 92.3 79-99 fL Mean Corpuscular Hemoglobin 32.3 27.0-33.0 pg Mean Corpuscular Hemoglobin Concent 35.0 32.0-36.0 g/dL Red Cell Distribution Width 16.3 H 11.0-15.5 % Platelet Count 278 130-400 K/uL Mean Platelet Volume 7.9 7.5-10.5 fL Immature Granulocyte % (Auto) 0.3 0-1 % Neutrophils (%) (Auto) 70.5 40.0-77.0 % Lymphocytes (%) (Auto) 15.7 L 21.0-51.0 % Monocytes (%) (Auto) 12.5 3.0-13.0 % Eosinophils (%) (Auto) 0.7 0.0-8.0 % Basophils (%) (Auto) 0.3 0.0-5.0 % Neutrophils # (Auto) 4.0 1.8-7.7 K/uL Lymphocytes # (Auto) 0.9 L 1.0-4.8 K/uL Monocytes # (Auto) 0.7 0.1-1.0 K/uL Eosinophils # (Auto) 0.04 0.00-0.70 K/uL Basophils # (Auto) 0.02 0.00-0.20 K/uL Absolute Immature Granulocyte (auto 0.02 0-1 K/uL Nucleated Red Blood Cells 0.0 0.0-0.19 % Chemistry Labs: Test 05/31/25 10:51 05/31/25 09:22 05/31/25 05:27 05/30/25 15:53 Range/Units Whole Blood Glucose 143 H 70-110 MG/DL Potassium Level 3.2 L 3.5-5.1 mmol/L Iron Level 41 L 65-175 mcg/dL Total Iron Binding Capacity 40 L 250-450 mcg/dL Percent Iron Saturation 102.5 H 30-44 % Ferritin 512 H 30-400 ng/mL Vitamin B12 Level 1616 H 193-986 pg/mL Sodium Level 135 L 136-145 mmol/L Chloride Level 105 101-111 mmol/L Carbon Dioxide Level 21 21-32 mmol/L Blood Urea Nitrogen 18 7-18 mg/dL Creatinine 0.7 0.5-1.3 mg/dL Glomerular Filtration Rate Calc 105 >90 mL/min Random Glucose 131 H 70-105 mg/dL Total Calcium 7.4 L 8.5-10.1 mg/dL Magnesium Level 1.60 L 1.80-2.40 mg/dL Total Bilirubin 0.7 0.2-1.0 mg/dL Aspartate Amino Transf (AST/SGOT) 14 10-37 U/L Alanine Aminotransferase (ALT/SGPT) 10 L 12-78 U/L Alkaline Phosphatase 95 50-136 U/L B-Type Natriuretic Peptide 32 0-100 pg/mL Total Protein 4.3 L 6.0-8.3 g/dL Albumin 1.5 L 3.5-5.0 g/dL Phosphorus Level 3.2 2.5-4.9 mg/dL Test 05/30/25 09:29 05/30/25 05:04 05/29/25 20:54 Range/Units Whole Blood Ketones Quantitative 3.6 H 0.0-0.6 mmol/L Serum Osmolality 279 278-305 mOsm/kg Lactic Acid Level 1.3 0.8-2.5 mmol/L Free Thyroxine (T4) Direct 0.97 0.76-1.46 ng/dL Free Triiodothyronine (T3) pg/mL 0.55 L 2.18-3.98 pg/mL Troponin I High Sensitivity 5 4-75 ng/L C-Reactive Protein, Quantitative 77.20 H 0.5-3.0 mg/L Thyroid Stimulating Hormone (TSH) 5.20 #H 0.36-3.74 uIU/mL Total Creatine Kinase 19 #L 21-232 U/L Coagulation Labs: Test 05/30/25 05:04 Range/Units Prothrombin Time 12.0 H 9.6-11.6 SEC Prothromb Time International Ratio 1.15 0.85-1.15 Activated Partial Thromboplast Time 39.0 H 26.3-35.5 SEC D-Dimer Quantitative (PE/DVT) 399 0-500 ng/mL DIAGNOSTICS / RADIOLOGY RESULTS: [ ] PLAN NEURO: Minimize central acting medications as possible. Maintain fall precautions, adequate lighting during the day PULMONARY: Supplemental 02 as needed. Maintain aspiration precautions at all times CARDIOVASCULAR: Follow hemodynamics. Vital signs per facility protocol GI & NUTRITION: Continue with nutritional support. Continue stool softeners and laxatives as needed. KIDNEYS & ELECTROLYTES: Strict monitoring of intake, output and overall fluid balance. Avoid nephrotoxic medications to the extent possible. Medications to be dosed according to renal function. Monitor electrolytes and replace as needed ENDOCRINE: Maintain blood glucose between 100-180 at all times. Hypoglycemia protocol in place INFECTIOUS DISEASE: Trend temperature, WBC and procalcitonin level Follow cultures, deescalate antibiotics as soon as possible. Panculture if new onset fever ONCOLOGY/HEMATOLOGY/COAGULATION: Monitor for s/s of bleeding Monitor hemoglobin, coagulation studies as needed SKIN: Pressure ulcer prevention per facility protocol Specialty mattress ORTHO/REHAB: Continue PT/OT Prophylaxis: Continue GI and DVT prophylaxis Code Status: Full Resuscitation Disposition: TBD Other: Total patient care time exceeds 50 minutes excluding all procedures. The patient's information including vital signs diagnostic tests assessment findings was reviewed and discussed with supervising physician, Dr. Nakul Neri and an int ervention and treatment plan was formulated and implemented. ROSS AMBRIZ NP May 31, 2025 11:23
[2025-05-31] MEDS ORDERED: COMPOUND IV MISC 1 EACH IVSOLN MISC PRN (11:30)
--- NOTE | 2025-05-31 13:29 | NUR ---
SPOKE TO DR. CARDOZO REGARDING CONSULT, STATES WILL BE SEEING PATIENT LATER TODAY. SPOKE TO DR. ENGLAND REGARDING CONSULT, [facility] GI TEAM WILL BE SEEING PATIENT MONDAY, NO RECOMMENDATIONS AT THIS TIME.
--- NOTE | 2025-05-31 15:16 | PN ---
[facility] PROGRESS NOTE Date of Service: May 31, 2025 Time of Service: 15:03 History of Presenting Illness: Mr. Lu is 59-year-old male with a history of Crohn's, GERD, hypertension, multiple colonoscopies, former smoker with 10 years of tobacco use who presented to [facility] via EMS for evaluation of increased generalized body weakness for the last six days. According to EMS and family who was on scene the patient has not been eating for the past six days. ED provider reports that the patient also reports mild shortness of breath. Patient reports he has been having diarrhea but it is the same as it usually is due to Crohn's. He states he follows with Dr. Milner as outpatient. The patient denied any melena, hematemesis, fever or chills. The patient reports that the weakness is so bad that he has been bed- bound at home and not ambulating due to not feeling well and feeling very weak. Per chart review the patient was admitted on 04/20/2025 for similar symptoms of general body weakness. Cardiology, GI, and general surgeon evaluated the patient on that admission. The CT abdomen and pelvis done on 04/20/2025 showed colocolic intussusception at the sigmoid colon with underlining mass suspected. Right UPJ obstruction with mild hydronephrosis. GI was consulted who did a colonoscopy that showed partial obstructing polypoid mass in the ascending colon status post partial resection. General surgeon Dr. Santos was consulted who recommended outpatient follow up in elective surgery. Cardiology was consulted for moderate posterior pericardial effusion per echo which also showed global ejection fraction of 65%. The patient was discharged on 04/25/2025. Today WBCs and troponin are WNL. Na 133, total calcium 7.7. Albumin 1.8, total protein 4.8. In ED the patient received Rocephin1 g and NS1 L bolus. ED provider request patient be admitted with the diagnosis of left pleural effusion and failure to thrive. Chest x-ray: Small to moderate pleural effusion on the left side. Lower lobe airspace disease bilaterally, more pronounced on the left side. COPD. No gross interval changes. I assessed the patient at bedside in ED 3. No family at bedside. The patient's breathing was even, unlabored, in no distress. He has edema to bilateral lower extremities and upper extremities (hand edema R>L) Informed him of plan to admit at CT results of left pleural effusion and interpretation of COPD. The patient reports that he has never been told that he has pleural effusion nor COPD and stated that that must be results from another patient. He reports that he never told ED provider that he was short of breath. He states that he is just here because he is very weak and has no appetite. Patient was not contributing with medical questions. He appeared frustrated. Plan and assessment are listed below. SUBJECTIVE: 05/30/25: Patient was evaluated at the bedside in ED 3 today. Patient appeared very frail and weak. Patient has been complaining of generalized weakness since December or January this year. Patient has a past medical history of Crohn's disease follows Dr. Milner on an outpatient basis. Patient says he has no appetite and has nausea and vomiting. Patient does not recall the last time he had a proper meal. He is living with his sister who helps him with his daily activities of living. Patient reports he feels depressed. Denies fever, chills, abdominal pain, diarrhea, melena, and hematemesis. Patient says he had multiple colonos copies in the past and attributes his weakness to these procedures. His TSH is elevated 5.2, low free T3 was 0.55, and free T4 0.97. His serum albumin 1.8. He has Generalized edema prominent in the right lower leg and left leg up to mid calf and in bilateral upper limbs. His CRP is elevated, 77.2, Whole blood ketone is high,3.6 and ABG revealing primary metabolic acidosis, with adequate compensation. Anion gap of 14.6 and corrected anion gap of 20.1. Urine protein creatinine ratio is pending. A CT abdomen and 2D echo were ordered. 05/31/25 Patient was seen and examined at the bedside today. His appetite has improved slightly. He received D5NS and a banana bag yesterday; we will transition to LR. He remains on gentle diuresis with furosemide 40 mg BID for anasarca. GI is scheduled to see him on Monday. We will monitor for refeeding syndrome and recheck magnesium and phosphorus. Chest x-ray and repeat potassium are planned. He is tachycardic and has been bedbound for several days; we will obtain a venous Doppler ultrasound to rule out DVT. CT abdomen showed active colitis, right UPJ obstruction with moderate hydronephrosis, and a calculus in the lower calyx. A urology consult will be requested. [employer] recommendations are pending as his appetite has been poor. REVIEW OF SYSTEMS CONSTITUTIONAL: No chills, no fever, generalized body weakness, no diaphoresis, malaise. HEAD/FACE: No signs of trauma. EENT: No eye pain, no blurred vision, no tearing, no double vision, no ear pain, no ear discharge, no nose pain, no nasal congestion, no throat pain, no throat swelling, no mouth pain. RESPIRATORY: No cough, no SOB, no orthopnea, no PND, no wheezing. CARDIOVASCULAR: No chest pain, generalized edema, bilateral pedal edema prominent on right, bilateral upper extremity edema, no palpitations, no syncope. GASTROINTESTINAL/ABDOMINAL: No abdominal pain, no constipation, no diarrhea, no nausea, no vomiting. GENITOURINARY: No abnormal discharge, no dysuria, no frequent urination, no hematuria. No complaints of pain in the genitals. MUSCULOSKELETAL: No back pain, no gout, no joint pain, no joint swelling, no muscle pain, no muscle stiffness, no neck pain. INTEGUMENTARY: No change in color, no change in hair/nails, no dryness, no lesion, no lumps, no rash. NEUROLOGICAL/PSYCH: No anxiety, depressed, no emotional problem, no headache, no numbness, no pre-existing deficit, no history of seizures, no tremors, no weakness. HEMATOLOGIC/LYMPHATIC: Not anemic, no history of blood clots, no apparent bleeding, no bruising, glands not swollen. All Systems Negative, Except as Noted. PHYSICAL EXAM GENERAL APPEARANCE: The patient is awake, alert, and oriented, in no acute cardiopulmonary distress. NEUROLOGICAL: Cranial nerves II-XII grossly intact. Motor is 5/5 in bilateral upper and lower extremities proximal to distal. No sensory deficits. HEENT: Face is symmetric. Pupils are equal and reactive. Extraocular movements are intact. NECK: Supple. No JVD. No thyromegaly. No submental, submandibular, pre-/postauricular, occipital or supraclavicular lymphadenopathy. CHEST: Normal chest expansion. No Telemetry. LUNGS: Absence of any rales, rhonchi or any wheezing. CARDIOVASCULAR: Regular. S1 and S2 normal. No appreciable rubs, murmurs or gallops. Bilateral upper and lower extremity edema. Edema right hand > left ABDOMEN: Soft, nontender, and nondistended. There is no rebound, voluntary guarding, or rigidity. : Deferred. No [place]. EXTREMITIES: Pitting edema bilateral lower extremities up to mid calf more prominent on right, bilateral upper extremity edema. No clubbing. Good capillary refill. SKIN: No skin breakdown. Vital Signs (last 8hr) Date Time Temp Pulse Resp B/P (MAP) Pulse Ox O2 Delivery O2 Flow Rate FiO2 05/31/25 12:00 97.5 99 18 165/69 95 Room Air 05/31/25 08:00 98.8 100 18 119/80 94 Room Air LABS: Laboratory: Test 05/31/25 10:51 05/31/25 09:22 05/31/25 05:27 05/30/25 15:53 Range/Units Whole Blood Glucose 143 H 70-110 MG/DL Reticulocyte Count (auto) 2.55144 H 0.42-2.23 % Immature Reticulocyte Fraction 6.60 H 0.18-0.48 % Potassium Level 3.2 L 3.5-5.1 mmol/L Iron Level 41 L 65-175 mcg/dL Total Iron Binding Capacity 40 L 250-450 mcg/dL Percent Iron Saturation 102.5 H 30-44 % Ferritin 512 H 30-400 ng/mL Vitamin B12 Level 1616 H 193-986 pg/mL White Blood Count 5.7 4.8-10.8 K/uL Red Blood Count 3.37 L 4.50-6.20 MIL/uL Hemoglobin 10.9 L 14.0-18.0 g/dL Hematocrit 31.1 L 42-54 % Mean Corpuscular Volume 92.3 79-99 fL Mean Corpuscular Hemoglobin 32.3 27.0-33.0 pg Mean Corpuscular Hemoglobin Concent 35.0 32.0-36.0 g/dL Red Cell Distribution Width 16.3 H 11.0-15.5 % Platelet Count 278 130-400 K/uL Mean Platelet Volume 7.9 7.5-10.5 fL Immature Granulocyte % (Auto) 0.3 0-1 % Neutrophils (%) (Auto) 70.5 40.0-77.0 % Lymphocytes (%) (Auto) 15.7 L 21.0-51.0 % Monocytes (%) (Auto) 12.5 3.0-13.0 % Eosinophils (%) (Auto) 0.7 0.0-8.0 % Basophils (%) (Auto) 0.3 0.0-5.0 % Neutrophils # (Auto) 4.0 1.8-7.7 K/uL Lymphocytes # (Auto) 0.9 L 1.0-4.8 K/uL Monocytes # (Auto) 0.7 0.1-1.0 K/uL Eosinophils # (Auto) 0.04 0.00-0.70 K/uL Basophils # (Auto) 0.02 0.00-0.20 K/uL Absolute Immature Granulocyte (auto 0.02 0-1 K/uL Nucleated Red Blood Cells 0.0 0.0-0.19 % Sodium Level 135 L 136-145 mmol/L Chloride Level 105 101-111 mmol/L Carbon Dioxide Level 21 21-32 mmol/L Blood Urea Nitrogen 18 7-18 mg/dL Creatinine 0.7 0.5-1.3 mg/dL Glomerular Filtration Rate Calc 105 >90 mL/min Random Glucose 131 H 70-105 mg/dL Total Calcium 7.4 L 8.5-10.1 mg/dL Magnesium Level 1.60 L 1.80-2.40 mg/dL Total Bilirubin 0.7 0.2-1.0 mg/dL Aspartate Amino Transf (AST/SGOT) 14 10-37 U/L Alanine Aminotransferase (ALT/SGPT) 10 L 12-78 U/L Alkaline Phosphatase 95 50-136 U/L B-Type Natriuretic Peptide 32 0-100 pg/mL Total Protein 4.3 L 6.0-8.3 g/dL Albumin 1.5 L 3.5-5.0 g/dL Phosphorus Level 3.2 2.5-4.9 mg/dL Test 05/30/25 11:45 05/30/25 09:29 05/30/25 06:12 05/30/25 05:39 Range/Units Urine Osmolality 720 50-1200 mOsm/kg Urine Random Creatinine 96.94 30-135 mg/dL Urine Random Sodium < 13 L 40-220 mmol/l Urine Random Potassium 30 25-125 mmol/L Urine Random Chloride 42 L 110-250 mmol/L Whole Blood Ketones Quantitative 3.6 H 0.0-0.6 mmol/L Serum Osmolality 279 278-305 mOsm/kg Lactic Acid Level 1.3 0.8-2.5 mmol/L Free Thyroxine (T4) Direct 0.97 0.76-1.46 ng/dL Free Triiodothyronine (T3) pg/mL 0.55 L 2.18-3.98 pg/mL Influenza Type A Antigen Negative For Type A NEGATIVE Influenza Type B Antigen Negative For Type B NEGATIVE SARS-CoV-2, RNA, NAAT NEGATIVE SARS CoV-2 NEGATIVE Group A Streptococcus Rapid negative NEGATIVE Blood Gas Specimen Type Arterial Arterial Blood pH 7.400 7.350-7.450 Arterial Blood Partial Pressure CO2 27 L 35-48 mmHg Arterial Blood Partial Pressure O2 96.7 83.0-108.0 mmHg Arterial Blood HCO3 16.4 L 21.0-28.0 mmol/L Arterial Blood Oxygen Saturation 95.1 94.0-98.0 % Arterial Blood Base Excess -7.1 L -2.0-3.0 mmol/L Hemoglobin (Blood Gas) 10.9 L 13.5-17.5 g/dL Sodium (Blood Gas) 128 L 136-145 MMOL/L Bedside Potassium (Blood Gas) 3.5 3.4-4.5 MMOL/L Bedside Chloride (Blood Gas) 106 98-107 MMOL/L Bedside Glucose (Blood Gas) 65 65-95 MG/DL Bedside Ionized Calcium (Blood Gas) 1.17 1.15-1.33 MMOL/L Bedside Lactic Acid (Blood Gas) 0.66 0.36-0.75 MMOL/L Blood Gas Temperature 37.0 35.5-37.0 CELSIUS Blood Gas Vent Mode ROOMAIR ROOM AIR FiO2 21.0 % Blood Gas Specimen Comment RR NURSE JULIEN Test 05/30/25 05:04 05/29/25 23:22 05/29/25 20:54 Range/Units Prothrombin Time 12.0 H 9.6-11.6 SEC Prothromb Time International Ratio 1.15 0.85-1.15 Activated Partial Thromboplast Time 39.0 H 26.3-35.5 SEC D-Dimer Quantitative (PE/DVT) 399 0-500 ng/mL Troponin I High Sensitivity 5 4-75 ng/L C-Reactive Protein, Quantitative 77.20 H 0.5-3.0 mg/L Thyroid Stimulating Hormone (TSH) 5.20 #H 0.36-3.74 uIU/mL Hepatitis A IgM Antibody Non-Reactive Nonreactive Hepatitis B Surface Antigen. Non-Reactive Nonreactive Hepatitis B Core IgM Antibody Non-Reactive Negative Hepatitis C Antibody Non-Reactive Nonreactive Urine Color DARK-YELLOW YELLOW Urine Appearance CLOUDY H CLEAR Urine pH 5.5 5.0-8.0 Urine Specific [place] 1.030 1.001-1.031 Urine Protein 30 H NEGATIVE mg/dL Urine Glucose (UA) NEGATIVE NEGATIVE mg/dL Urine Ketones 5 H NEGATIVE mg/dL Urine Occult Blood NEGATIVE NEGATIVE Urine Nitrate NEGATIVE NEGATIVE Urine Bilirubin 1 H NEGATIVE mg/dL Urine Urobilinogen 3 H 0.2-1.0 mg/dL Urine Leukocyte Esterase NEGATIVE NEGATIVE Deonte/uL Urine RBC 11-25 H 0-1 /HPF Urine WBC 6-10 H 0-1 /HPF Urine Squamous Epithelial Cells RARE 0-2 /HPF Urine Calcium Oxalate Crystals RARE None Seen /LPF Urine Bacteria FEW None Seen /HPF Urine Hyaline Casts 11-25 H 0-1 /LPF /LPF Urine Opiates Screen NEGATIVE NEGATIVE Urine Barbiturates Screen NEGATIVE NEGATIVE Urine Phencyclidine Screen NEGATIVE NEGATIVE Urine Amphetamines Screen NEGATIVE NEGATIVE Urine Benzodiazepines Screen NEGATIVE NEGATIVE Urine Cocaine Screen NEGATIVE NEGATIVE Urine Marijuana (THC) Screen NEGATIVE NEGATIVE Total Creatine Kinase 19 #L 21-232 U/L Current Medications Medications (Trade) Dose Ordered Sig/Estelita Route PRN Reason Start Time Stop Time Status Last Admin Dose Admin Acetaminophen (TYLenol 325MG TAB) 650 mg Q6H PRN PO FEVER/MILD PAIN LEVEL 1-3 05/30/25 00:00 06/29/25 00:00 Acetaminophen (TYLenol 650MG SUPPOSITORY) 650 mg Q6H PRN RC FEVER / MILD PAIN 1-3 IF NPO 05/30/25 00:00 06/29/25 00:00 Albuterol Sulfate (Proventil 0.083% 2.5mg/3ml) 2.5 mg Q4H PRN IH SHORTNESS OF BREATH 05/30/25 06:30 06/29/25 06:29 Dextrose/Sodium Chloride 1,000 ml @ 100 mls/hr Q10H IV 05/30/25 10:30 06/29/25 10:29 05/30/25 21:49 100 MLS/HR Docusate Sodium (COLace 100MG CAP) 100 mg BID PRN PO CONSTIPATION 05/30/25 00:00 06/29/25 00:00 Enoxaparin Sodium (Lovenox) 40 mg DAILY SQ 05/30/25 17:30 06/29/25 17:29 05/31/25 09:24 40 MG Furosemide (LASix 40MG VIAL) 40 mg Q12H IV 05/30/25 17:30 06/29/25 17:29 05/31/25 05:25 40 MG Insulin Human Regular (humuLIN R 100 UNIT/ML 3ML) INSULIN SLIDING SCAL... ACHS SQ 05/30/25 07:30 06/29/25 07:29 Ipratropium [place] (AtrovENT UD) 0.5 mg Q4H PRN IH SHORTNESS OF BREATH 05/30/25 06:30 06/29/25 06:29 Labetalol HCl (TRANdate 20MG SYG) 10 mg Q2H PRN IV SBP GREATER THAN 160 05/30/25 00:00 06/29/25 00:00 Lactated Ringer's 1,000 ml @ 50 mls/hr Q20H IV 05/30/25 06:00 06/29/25 05:59 Hold 05/30/25 06:03 50 MLS/HR Lactulose (Constulose 20gm/ 30ml Udcup) 20 gm Q6H PRN PO CONSTIPATION 05/30/25 00:00 06/29/25 00:00 Magnesium Sulfate 50 ml @ 0 mls/hr PROTOCOL PRN IV LOW MG 05/31/25 09:00 06/30/25 08:59 Multivitamins Therapeutic (Multivitamin Tablet) 1 tab DAILY PO 05/31/25 09:00 06/30/25 08:59 05/31/25 09:24 1 TAB Multivitamins/ Minerals 10 ml/ Folic Acid 1 mg/ Thiamine HCl 100 mg/Sodium Chloride 1,010 ml @ 0 mls/hr DAILY IV 05/30/25 12:00 06/01/25 09:01 05/30/25 13:32 125 MLS/HR Ondansetron HCl (zoFRAN 4MG INJ) 4 mg Q6H PRN IVP NAUSEA/VOMITING 05/30/25 00:00 05/30/25 17:34 DC Ondansetron HCl (zoFRAN 4MG INJ) 4 mg Q8H PRN IVP NAUSEA/VOMITING 05/30/25 17:30 06/29/25 17:29 Pantoprazole Sodium (PROTonix 40MG INJ) 40 mg BID IVP 05/30/25 21:00 06/29/25 20:59 05/31/25 09:24 40 MG Piperacillin Sod/ Tazobactam Sod (Zosyn 3.375gm+NS 50ml) 3.375 gm Q8H IVPB 05/30/25 06:30 06/09/25 06:29 05/31/25 05:25 3.375 GM Potassium Chloride 100 ml @ 100 mls/hr AD PRN IV POTASSIUM PROTOCOL 05/30/25 17:30 06/29/25 17:29 Potassium Chloride (K-Dur/Klor-Con 20meq) 20 meq AD PRN PO POTASSIUM PROTOCOL 05/30/25 17:30 06/29/25 17:29 05/31/25 09:30 20 MEQ Potassium Chloride (KCl 10% Elixir 20meq/15ml) 20 meq AD PRN PO POTASSIUM PROTOCOL 05/30/25 17:30 06/29/25 17:29 05/31/25 06:26 20 MEQ Temazepam (restORIL 15 MG CAP) 15 mg HS PRN PO INSOMNIA/SLEEP 05/30/25 00:00 06/29/25 00:00 Thiamine HCl (Vitamin B-1) 100 mg DAILY IVP 05/30/25 10:30 06/29/25 10:29 05/31/25 09:24 100 MG DIAGNOSTICS / RADIOLOGY: PATIENT: KIMBERLEY LU MR#: [id number] : 1965 SEX: M AGE: 59 LOCATION: [facility] ORDER [id number] STATUS: ADM IN REPORT#: [id number] SERVICE [id number] REASON: GBW ORDERING PHYSICIAN: ZIYAD GORDON PROCEDURE: ECHO CMP - ECHO 2-D COMPLETE APPROVED REPORT EXAM: Two-dimensional and M-mode echocardiogram with Doppler and color Doppler. Study Details: Previous echo 04/21/25 INDICATION ICD: General body weakness 2D Dimensions IVSd 0.8 (0.7-1.1cm) LVEF(%) 63.6 (>50%) LVDd 3.2 (3.8-5.6cm) FS(%) 33 % PWd 1.1 (0.7-1.1cm) LA (2D) 3.2 (1.6-4.0cm) IVSs 1.1 cm Ao Root(2D) 3.0 (2.0-3.7cm) LVDs 2.1 (2.5-4.0cm) LVOT diam 1.8 (1.8-2.4cm) PWs 1.0 cm M-Mode Dimensions EPSS 0.6 cm LA (MM) 3.2 (1.6-4.0cm) Ao Root(MM) 2.8 (2.0-3.7cm) Aortic Valve AoV Vmax 0.9 m/s Ao Peak GR 3.5 mmHg LVOT Vmax 0.8 m/s AoV VTI 0.2 m Ao Mean GR 2.3 mmHg LVOT VTI 0.16 m DEREK (VMAX) 2.18 cm2 DEREK (VTI) 2.4 cm2 Mitral Valve MV E Vmax 45.9 cm/s DECEL Time 178 ms MV A Vmax 64.9 cm/s P 1/2 T 59 ms E/A ratio 0.7 MVA (PHT) 3.8 cm2 TDI E/E' Medial 9.9 E/E' Lateral 8.5 Medial E' Peak V 4.63 cm/s Lateral E' Peak V 5.38 cm/s Pulmonary Valve PV Vmax 1.1 m/s PV VTI 0.18 m PV Mean GR 2.7 mmHg PV Peak GR 5.2 mmHg Tricuspid Valve TR Vmax 1.0 m/s RAP (EST) 8 mmHg RVSP 12.1 mmHg TR Peak GR 4.1 mmHg Left Ventricle The left ventricle is normal size. Cannot exclude regional wall motion abnormalities. Left ventricular wall thickness appears normal. The LVEF is estimated> 65%. The left ventricular diastolic function is normal. Right Ventricle The right ventricle is normal size. The right ventricular systolic function kanika ears normal. Atria The left atrium size is normal. The right atrium size is normal. Aortic Valve The aortic valve is normal in structure. No aortic regurgitation is present. There is no aortic valvular stenosis. Mitral Valve The mitral valve is normal in structure. There is no mitral valve regurgitation noted. There is no mitral valve stenosis. Tricuspid Valve The tricuspid valve is normal in structure. There is trace of tricuspid valve regurgitation noted. Pulmonic Valve Pulmonic valve is not well visualized. There is no pulmonic valvular regurgitation. Great Vessels The aortic root is normal in size. IVC is not well visualized. Pericardium There is smal loculatedl pericardial effusion. No echo indications of pericardial tamponade. Other Information Quality : Technically difficult study due to body habitus Conclusion No significant changes compared to previous echocardiogram done on 04/21/25. The left ventricle is normal size. The LVEF is estimated> 65%. The left ventricular diastolic function is normal. The right ventricular systolic function appears normal. Both atria are normal in size. No hemodynamically significant valvular abnormalities. There is smal loculatedl pericardial effusion. No echo indications of pericardial tamponade. DICTATED BY: GROVER CARDOZO MD DATE: 05/30/25 0932 ELECTRONICALLY SIGNED BY: GROVER CARDOZO MD DATE: 05/31/25 0801 ASSESSMENT: Failure to thrive, POA Anorexia, has not been eating x6 days Acute colitis on CT abdomen/pelvis Moderate hydronephrosis due to renal calculi Cystitis on Ct abdomen/pelvis Acute on chronic abdominal pain, POA Chronic diarrhea 2/2 Crohn's disease Acute dehydration, elevated BUN/ketonuria History of multiple colonoscopies, followed by Dr. Alf campo of colocolic intussusception at the sigmoid colon with underlining mass suspected, per CT abdomen and pelvis on 04/20/2025 Partial obstructing polypoid mass in the ascending colon status post partial resection, per colonoscopy on 03/2025 admission Left pleural effusion per chest x-ray on 05/30/2025, recurrent, with dyspnea, POA COPD per chest x-ray on 05/30/2025 Anemia of chronic disease Electrolyte derangement (hyponatremia, hypocalcemia) Protein calorie malnutrition/hypoalbuminemia Proteinuria, ketonuria, bilirubinuria, urobilinogenuria, per UA on 05/29/25 Chronic problem list: Crohn's, GERD, hypertension, multiple colonoscopies, former smoker with 10 years of tobacco use History of right UPJ obstruction with mild hydronephrosis, per CT on 04/20/2025 Small to large posterior pericardial effusion, EF > 65%/3D volume EF 68% per echo on 04/21/2025 PLAN: Starvation ketoacidosis * Stop D5 and start LR @25 ml/hr * Start Thiamine 500 mg and transition to 100 after 5 days * Transfuse 3 Banana bags 1010 ml (multi vitamins, folic acid, Thiamine, 0.9 Nacl) * Monitor for phosphorous, magnesium, and electrolytes q12 * Monitor for signs of confusion, delirium, ataxia * Monitor Daily weight, strict I/O, JVP, lung crackles Failure to thrive, Protein calorie malnutrition, hypoalbuminemia * GI consult placed for assessment of chronic malnutrition, history of Crohn's disease, loss of appetite, heartburn * Dietary consult placed * Advance towards goals as tolerated * CT of chest, abdomen, and pelvis showed active colitis and right UPJ o bstruction with moderate hydronephrosis * Hepatitis panel - negative Acute Colitis IV fluids, bowel rest, electrolyte correction. Continue IV zosyn Monitor for complications: perforation, toxic megacolon. Hydronephrosis from Right UPJ Obstruction with Calculus in Lower Calyx Consult urology urgently for possible stent placement or nephrostomy Manage pain and give antiemetics as needed. Cystitis Currently on zosyn Monitor for progression to pyelonephritis, especially given concurrent obstruction. Left sided Pleural effusion, suspected pneumonia * Chest x-ray showed left sided pleural effusion * Will repeat chest x-ray * Serology influenza, COVID, strep screen, tested negative * Continue IV Zosyn 3.375 q8 * Monitor respiratory status. * Oxygen therapy as needed. Titrate oxygen prn to keep Spo2>/+=92%. * Albuterol and Atrovent PRN SOB. * Pulmonology team for recurrent pleural effusion and suspected COPD. Sublicinal Hypothyroidism * TSH is 5.4, free T3 0.55, Free T4 0.97 * Monitor until patient is hemodynamically stable -Monitor for fluid overload (The patient is edematous and dehydrated, ER administered NS 1 L bolus). -Fluid restriction a 1200 mL. -PRN medications for: Pain management, fever, hypertension, N/V, constipation, SOB. -Glucometer checks AC & HS needed with insulin regular sliding scale coverage as needed. -Blood pressure checks every 4 hours and as needed. -Reconcile home medications once available. -Monitor renal and liver function. -Monitor electrolytes and treat accordingly PRN -AM labs. -GI and DVT prophylaxis -Further plan/orders per hospitalization course. ATTESTATION BY PHYSICIAN I have seen and examined the patient. I reviewed the documentation, medical decision making, and treatment plan as noted by the resident provider above. I agree with the findings and plan of care. Cheo Florez IV, MD, NIHITHA MD May 31, 2025 15:16
--- NOTE | 2025-05-31 16:37 | PN ---
[facility] PROGRESS NOTE Date Patient Seen: May 31, 2025 Time of Visit: 16:36 Supervising Physician: Dr. Armando Jose Primary Care Physician: [ ] Outpatient Specialists: [ ] Inpatient Consults: VANESSA pulmonary PROBLEM LIST: 1. CHRISTIANA basal pleural effusion 2. CHF ruled out echocardiogram: LVEF 65%, right ventricle normal size, & right ventricle systolic function normal 3. 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 Neumann, previous admission 04/20/2020 4. Dyspnea 5. Generalized body weakness 7. Electrolyte derangement syndrome: Hypokalemia, Hyponatremia mild, & Hypomagnesemia CHRONIC PROBLEM LIST: Crohn's disease GERD Hypertension Former smoker 10 years COPD, undiagnosed and untreated RECOMMENDATIONS: Bilateral basal pleural effusions small Discontinue diuretics Lasix 40 mg IV b.i.d: Chest x-ray negative for fluid, BNP 32, patient has no bilateral pitting edema Gentle diuretic: Lasix 40 mg IV b.i.d. Electrolyte protocol replacement therapy: Potassium and Magnesium Keep oxygen saturation greater than 92% Aspiration precautions Safety precautions DVT prophylaxis with Lovenox 40 mg sub q.day GI prophylaxis Protonix 40 mg p.o. daily Strict I&O Daily weight A.m. labs ordered: CBC, CMP, magnesium, calcium, hemoglobin A1c Out of bed for all meals Educate and use incentive spirometer while awake out of bed 6-10 times an hours INTERVAL HISTORY: Latrell Lu is a 59-year-old gentleman, patient of Dr. Layton Gonzales, health history: Hypertension, Crohn's disease, GERD, former smoker for 10 years, suspect COPD, undiagnosed and untreated,and obstructing polypoid mass ascending colon s/p partial resection, patient to follow up with Dr. Neumann, previous admission 04/20/2020, presents to the emergency department, yesterday evening, 05/29/2025 for generalized body weakness and dyspnea. Patient reports for the past six days to feel generalized body weakness has progressively worsened. Additionally, the patient is having increase shortness of the breath with minimal activities. Patient also reports feeling more bloated and that his legs are swollen. The patient had a previous admission on with similar symptoms was clinically worked up and diagnosed with obstructing polypoid mass ascending colon s/p partial resection, patient to follow up with Dr. Neumann as an outpatient. The patient did not. Consulted to assist with management of recurrent pleural effusion left lower lung. Vital signs: Temperature 98.4, pulse 90, respirations 16, blood pressure 130/75, oxygen saturation 97% on room air FiO2, 21. Laboratory results: Sodium 135, magnesium 1.8, calcium 7.5, white blood cell 7.1, hemoglobin 12.1, and hematocrit 36.4 CXR one view results: Left lower lobe basal effusion CT pelvis/abdomen/chest with/without contrast results: CHRISTIANA basal pleural effusions. The patient was assessed in the Emergency department, in [place]#3, and a limited history and physical was obtained, the patient is a poor historian. And additional information was gathered by looking through the chart records. The patient did confirm that he did not follow up with Dr. Neumann as instructed during his previous admission at the end of March. Patient also reports being noncompliant with his medications. During the assessment patient has bilateral lower extremity pitting edema, extra swelling in the abdominal area. Patient also reports that he feels that he has gained weight but has not checked his weight. 05/31-The patient was seen in his assess resting in bed head of the bed elevated conversant friendly, accompanied by patient's bedside nurse, nursing staff report no adverse events occurring overnight impacting the patient. Patient reports no pain, chest pain, fever, chills, shortness for breath and constipation currently. Patient is hemodynamically stable. Pulmonary patient does not require supplemental oxygen, no acute hypoxic or hypercapnic respiratory failure present, chest x-ray reviewed and discussed with supervising physician, patient has bilateral small pleural effusions there was not enough for any other procedure to be performed at this time. Based on laboratory results BNP of 32, a chest x-ray that does not indicate any fluid, and assessment findings with out pitting edema Lasix 40 mg IV b.i.d. was discontinued. Thank you for the consult in the and for the opportunity to participate in the care for this patient. During this admission, if issues arise feel free to reconsult thank you again. REVIEW OF SYSTEMS: 12 point ROS reviewed with patient. Pertinent positives mentioned above. Otherwise negative. PHYSICAL EXAM: GENERAL: alert, , awake oriented x 3 HEENT: EOMI, Sclera non icteric, moist mucosa NECK: Supple, no JVD, trachea midline LUNGS: Clear breath sounds bilaterally. No wheezes HEART: Regular rate and rhythm. Normal S1 and S2, without murmurs ABD: Abdomen soft, distended, nontender. Bowel sounds present EXT: No clubbing cyanosis bilateral pitting edema NEURO: Alert and oriented to person, follows commands Vital Signs (last 8hr) Date Time Temp Pulse Resp B/P (MAP) Pulse Ox O2 Delivery O2 Flow Rate FiO2 05/31/25 16:00 98.1 80 18 113/61 90 Room Air 05/31/25 12:00 97.5 99 18 165/69 95 Room Air LABS: Hematology Labs: Test 05/31/25 09:22 05/31/25 05:27 Range/Units Reticulocyte Count (auto) 2.33854 H 0.42-2.23 % Immature Reticulocyte Fraction 6.60 H 0.18-0.48 % White Blood Count 5.7 4.8-10.8 K/uL Red Blood Count 3.37 L 4.50-6.20 MIL/uL Hemoglobin 10.9 L 14.0-18.0 g/dL Hematocrit 31.1 L 42-54 % Mean Corpuscular Volume 92.3 79-99 fL Mean Corpuscular Hemoglobin 32.3 27.0-33.0 pg Mean Corpuscular Hemoglobin Concent 35.0 32.0-36.0 g/dL Red Cell Distribution Width 16.3 H 11.0-15.5 % Platelet Count 278 130-400 K/uL Mean Platelet Volume 7.9 7.5-10.5 fL Immature Granulocyte % (Auto) 0.3 0-1 % Neutrophils (%) (Auto) 70.5 40.0-77.0 % Lymphocytes (%) (Auto) 15.7 L 21.0-51.0 % Monocytes (%) (Auto) 12.5 3.0-13.0 % Eosinophils (%) (Auto) 0.7 0.0-8.0 % Basophils (%) (Auto) 0.3 0.0-5.0 % Neutrophils # (Auto) 4.0 1.8-7.7 K/uL Lymphocytes # (Auto) 0.9 L 1.0-4.8 K/uL Monocytes # (Auto) 0.7 0.1-1.0 K/uL Eosinophils # (Auto) 0.04 0.00-0.70 K/uL Basophils # (Auto) 0.02 0.00-0.20 K/uL Absolute Immature Granulocyte (auto 0.02 0-1 K/uL Nucleated Red Blood Cells 0.0 0.0-0.19 % Chemistry Labs: Test 05/31/25 15:11 05/31/25 09:22 05/31/25 05:27 05/30/25 15:53 Range/Units Whole Blood Glucose 145 H 70-110 MG/DL Potassium Level 3.2 L 3.5-5.1 mmol/L Iron Level 41 L 65-175 mcg/dL Total Iron Binding Capacity 40 L 250-450 mcg/dL Percent Iron Saturation 102.5 H 30-44 % Ferritin 512 H 30-400 ng/mL Vitamin B12 Level 1616 H 193-986 pg/mL Sodium Level 135 L 136-145 mmol/L Chloride Level 105 101-111 mmol/L Carbon Dioxide Level 21 21-32 mmol/L Blood Urea Nitrogen 18 7-18 mg/dL Creatinine 0.7 0.5-1.3 mg/dL Glomerular Filtration Rate Calc 105 >90 mL/min Random Glucose 131 H 70-105 mg/dL Total Calcium 7.4 L 8.5-10.1 mg/dL Magnesium Level 1.60 L 1.80-2.40 mg/dL Total Bilirubin 0.7 0.2-1.0 mg/dL Aspartate Amino Transf (AST/SGOT) 14 10-37 U/L Alanine Aminotransferase (ALT/SGPT) 10 L 12-78 U/L Alkaline Phosphatase 95 50-136 U/L B-Type Natriuretic Peptide 32 0-100 pg/mL Total Protein 4.3 L 6.0-8.3 g/dL Albumin 1.5 L 3.5-5.0 g/dL Phosphorus Level 3.2 2.5-4.9 mg/dL Test 05/30/25 09:29 05/30/25 05:04 05/29/25 20:54 Range/Units Whole Blood Ketones Quantitative 3.6 H 0.0-0.6 mmol/L Serum Osmolality 279 278-305 mOsm/kg Lactic Acid Level 1.3 0.8-2.5 mmol/L Free Thyroxine (T4) Direct 0.97 0.76-1.46 ng/dL Free Triiodothyronine (T3) pg/mL 0.55 L 2.18-3.98 pg/mL Troponin I High Sensitivity 5 4-75 ng/L C-Reactive Protein, Quantitative 77.20 H 0.5-3.0 mg/L Thyroid Stimulating Hormone (TSH) 5.20 #H 0.36-3.74 uIU/mL Total Creatine Kinase 19 #L 21-232 U/L Coagulation Labs: Test 05/30/25 05:04 Range/Units Prothrombin Time 12.0 H 9.6-11.6 SEC Prothromb Time International Ratio 1.15 0.85-1.15 Activated Partial Thromboplast Time 39.0 H 26.3-35.5 SEC D-Dimer Quantitative (PE/DVT) 399 0-500 ng/mL DIAGNOSTICS / RADIOLOGY RESULTS: [ ] PLAN NEURO: Minimize central acting medications as possible. Maintain fall precautions, adequate lighting during the day PULMONARY: Supplemental 02 as needed. Maintain aspiration precautions at all times CARDIOVASCULAR: Follow hemodynamics. Vital signs per facility protocol GI & NUTRITION: Continue with nutritional support. Continue stool softeners and laxatives as needed. KIDNEYS & ELECTROLYTES: Strict monitoring of intake, output and overall fluid balance. Avoid nephrotoxic medications to the extent possible. Medications to be dosed according to renal function. Monitor electrolytes and replace as needed ENDOCRINE: Maintain blood glucose between 100-180 at all times. Hypoglycemia protocol in place INFECTIOUS DISEASE: Trend temperature, WBC and procalcitonin level Follow cultures, deescalate antibiotics as soon as possible. Panculture if new onset fever ONCOLOGY/HEMATOLOGY/COAGULATION: Monitor for s/s of bleeding Monitor hemoglobin, coagulation studies as needed SKIN: Pressure ulcer prevention per facility protocol Specialty mattress ORTHO/REHAB: Continue PT/OT Prophylaxis: Continue GI and DVT prophylaxis Code Status: Full Resuscitation Disposition: TBD Other: Total patient care time exceeds 50 minutes excluding all procedures. The patient's information including vital signs diagnostic tests assessment findings was reviewed and discussed with supervising physician, Dr. Nakul Neri and an intervention and treatment plan was formulated and implemented. ROSS AMBRIZ NP May 31, 2025 16:37
--- NOTE | 2025-05-31 18:45 | NUR ---
CM NOTE CM received prompt regarding "family concern for managing care for patient at home". CM reviewed previous admission in March. Patient has exhausted all SNF days. Patient has had limited mobility for months. CM f/u with patient. States he is living with his sister but does not know for how long. CM asked for verbal consent to speak to sister to discuss plan. Richelle Boyd [phone]. CM attempted call at number provided. No answer. Patient reports he has applied for disability. CM offered to send request to [employer] for possible assistance or updates on case. Patient agreeable to speaking to them. Plan for now is to return to same setting with sister.
--- NOTE | 2025-05-31 18:51 | CONS ---
[facility] CARDIOLOGY CONSULTATION NOTE Date Patient Seen: May 31, 2025 Time of Visit: 18:43 Reason for Consultation: [Suspected heart failure ] History of Present Illness: [ 59-year-old male patient with a past medical history of Crohn's disease, GERD, hypertension, multiple colonoscopies, patient plans to [facility] wish department by EMS to generalized body weakness onset six days. Patient was endorsing also mild shortness of breath. Of note has a prior admission from March 2025 cardiology was consulted at that time for moderate pericardial effusion, LVEF showed 65%, repeat 2D echo on this admission showed LVEF of greater than 65%, no hemodynamically significant valvular abnormalities, with a small loculated pericardial effusion, concerning for cardiac mass, with no echo indications for pericardial tamponade. Remarkable lab results, albumin 1.8, troponin is negative, the clinical evidence of heart failure. ] Past Medical History: [Refer to chart ] Past Surgical History: [Refer to HPI ] Family History: [Refer to HPI] Social History: [Refer to HPI] Habits: [Never] smoker. [Denies] alcohol consumption. [Denies] illicit drug use Review of Systems: A review of12 point system was negative set per HPI Physical Examination: GENERAL: [No acute distress.] HEAD: [Normal with no signs of head trauma.] EYES: [PERRLA, EOMI, conjunctiva and sclera normal.] ENT: [Hearing grossly intact, normal oropharynx.] NECK: [Supple without JVD. There is no tenderness, lymphadenopathy, or masses. No thyromegaly. Normal carotid upstrokes without bruits.] LUNGS: [Decreased breath sounds in the bases bilaterally . No wheezes, or rhonchi.] HEART: [Normal rate and rhythm. Normal S1 and S2 without mumurs, gallop or rub.] VASC: [Peripheral pulses +2 bilaterally.] ABD: [Bowel sounds normal, soft, nontender, no masses, no organomegaly. No audible bruits.] : [Not examined] LYMPH: [No lymphadenopathy noted.] EXT: [No clubbing, cyanosis or edema.] SKIN: [No rashes or lesions noted.] NEURO: [Awake, alert, and oriented x3. No focal sensory or strength deficits noted.] Vital Signs (last 8hr) Date Time Temp Pulse Resp B/P (MAP) Pulse Ox O2 Delivery O2 Flow Rate FiO2 05/31/25 16:00 98.1 80 18 113/61 90 Room Air 05/31/25 12:00 97.5 99 18 165/69 95 Room Air Laboratory: [ ] Hematology Labs: Test 05/31/25 09:22 05/31/25 05:27 Range/Units Reticulocyte Count (auto) 2.88814 H 0.42-2.23 % Immature Reticulocyte Fraction 6.60 H 0.18-0.48 % White Blood Count 5.7 4.8-10.8 K/uL Red Blood Count 3.37 L 4.50-6.20 MIL/uL Hemoglobin 10.9 L 14.0-18.0 g/dL Hematocrit 31.1 L 42-54 % Mean Corpuscular Volume 92.3 79-99 fL Mean Corpuscular Hemoglobin 32.3 27.0-33.0 pg Mean Corpuscular Hemoglobin Concent 35.0 32.0-36.0 g/dL Red Cell Distribution Width 16.3 H 11.0-15.5 % Platelet Count 278 130-400 K/uL Mean Platelet Volume 7.9 7.5-10.5 fL Immature Granulocyte % (Auto) 0.3 0-1 % Neutrophils (%) (Auto) 70.5 40.0-77.0 % Lymphocytes (%) (Auto) 15.7 L 21.0-51.0 % Monocytes (%) (Auto) 12.5 3.0-13.0 % Eosinophils (%) (Auto) 0.7 0.0-8.0 % Basophils (%) (Auto) 0.3 0.0-5.0 % Neutrophils # (Auto) 4.0 1.8-7.7 K/uL Lymphocytes # (Auto) 0.9 L 1.0-4.8 K/uL Monocytes # (Auto) 0.7 0.1-1.0 K/uL Eosinophils # (Auto) 0.04 0.00-0.70 K/uL Basophils # (Auto) 0.02 0.00-0.20 K/uL Absolute Immature Granulocyte (auto 0.02 0-1 K/uL Nucleated Red Blood Cells 0.0 0.0-0.19 % Chemistry Labs: Test 05/31/25 15:11 05/31/25 09:22 05/31/25 05:27 8/8/25 15:53 Range/Units Whole Blood Glucose 145 H 70-110 MG/DL Potassium Level 3.2 L 3.5-5.1 mmol/L Iron Level 41 L 65-175 mcg/dL Total Iron Binding Capacity 40 L 250-450 mcg/dL Percent Iron Saturation 102.5 H 30-44 % Ferritin 512 H 30-400 ng/mL Vitamin B12 Level 1616 H 193-986 pg/mL Sodium Level 135 L 136-145 mmol/L Chloride Level 105 101-111 mmol/L Carbon Dioxide Level 21 21-32 mmol/L Blood Urea Nitrogen 18 7-18 mg/dL Creatinine 0.7 0.5-1.3 mg/dL Glomerular Filtration Rate Calc 105 >90 mL/min Random Glucose 131 H 70-105 mg/dL Total Calcium 7.4 L 8.5-10.1 mg/dL Magnesium Level 1.60 L 1.80-2.40 mg/dL Total Bilirubin 0.7 0.2-1.0 mg/dL Aspartate Amino Transf (AST/SGOT) 14 10-37 U/L Alanine Aminotransferase (ALT/SGPT) 10 L 12-78 U/L Alkaline Phosphatase 95 50-136 U/L B-Type Natriuretic Peptide 32 0-100 pg/mL Total Protein 4.3 L 6.0-8.3 g/dL Albumin 1.5 L 3.5-5.0 g/dL Phosphorus Level 3.2 2.5-4.9 mg/dL Test 05/30/25 09:29 05/30/25 05:04 05/29/25 20:54 Range/Units Whole Blood Ketones Quantitative 3.6 H 0.0-0.6 mmol/L Serum Osmolality 279 278-305 mOsm/kg Lactic Acid Level 1.3 0.8-2.5 mmol/L Free Thyroxine (T4) Direct 0.97 0.76-1.46 ng/dL Free Triiodothyronine (T3) pg/mL 0.55 L 2.18-3.98 pg/mL Troponin I High Sensitivity 5 4-75 ng/L C-Reactive Protein, Quantitative 77.20 H 0.5-3.0 mg/L Thyroid Stimulating Hormone (TSH) 5.20 #H 0.36-3.74 uIU/mL Total Creatine Kinase 19 #L 21-232 U/L Coagulation Labs: Test 05/30/25 05:04 Range/Units Prothrombin Time 12.0 H 9.6-11.6 SEC Prothromb Time International Ratio 1.15 0.85-1.15 Activated Partial Thromboplast Time 39.0 H 26.3-35.5 SEC D-Dimer Quantitative (PE/DVT) 399 0-500 ng/mL Diagnostics / Radiology: [Copy/Paste Echos/Imaging Report here] Assessment: [Crohn's disease Current Hypertension ] Plan: [# suspected heart failure Patient was admitted for ongoing fatigue tiredness for the past six days. Also shortness of breath Presenting ECG was sinus rhythm, no acute ischemia. Troponins negative Prior admission from March 2025 cardiology was consulted at that time for moderate pericardial effusion, LVEF showed 65% Repeat 2D echo on this admission showed LVEF of greater than 65%, no hemodynamically significant valvular abnormalities, with a small loculated pericardial effusion, concerning for cardiac mass, with no echo indications for pericardial tamponade No clinical evidence for heart failure, but the loculated pericardial effusion is concerning he should be followed up with an MRI of the chest with the contrast to further delineate this patient's anatomy Thank you for this consult cardiology will continue to follow along Prakash maloney MD ] ATTESTATION BY PHYSICIAN I have seen and examined the patient, reviewed the above documentation, participated in medical decision making, made necessary modifications, and agree with the treatment plan as documented by my mid-level provider above. MD CAS Galicia JAMES R MD May 31, 2025 18:50
[2025-05-31] MEDS ORDERED: LACTULOSE 20 GM/30 ML UDCUP PO PRN (23:00)
[2025-05-31] MEDS ORDERED: ALBUTEROL 0.083% 2.5 MG/3 ML INH IH PRN (23:00)
[2025-05-31] MEDS ORDERED: PoTASSium chl 10% ELIXIR 20MEQ 20 MEQ/15 ML UDCUP PO PRN (23:00)
[2025-05-31] MEDS: ZOSYN 3.375GM +NS 50ML IVPB SCH (23:15)
--- NOTE | 2025-05-31 23:19 | NUR ---
Dr Rhodes in to see patient, new orders for IVP with Tomogram in AM and follow up outpatient. Patient aware.
[2025-06-01] VITALS (7 sets, daily range): BP systolic 98–149; BP diastolic 69–93; PULSE 85–108; RESP 17–20; TEMP 97.6–98.6; O2SAT 94–98
--- NOTE | 2025-06-01 00:23 | CONS ---
REQUESTING PHYSICIAN: Wisam Rodriguez MD REASON FOR CONSULTATION: Right hydronephrosis. HISTORY OF PRESENT ILLNESS: Dear Dr. Rodriguez and Dr. Barrera, I had the pleasure of seeing the patient, 59-year-old male, admitted to the hospital because of exacerbation of Crohn's disease. CT scan performed because of abdominal pain, documented the presence of ____ secondary to obstruction on the right hand side. The patient's hydronephrosis has been present on CT scans dated from 2017 without any change in intensity. Nonetheless, the consultation of urology requested because of the hydronephrosis as well as the finding of a small calcification in the most dependent part of his bladder. The patient encountered lying in bed comfortably. He has no flank pain, no gross hematuria. He has abdominal discomfort. ALLERGIES: Recorded as none. MEDICATIONS: Include sulfasalazine, famotidine, vitamins. The patient's additional medication in the hospital includes albuterol, Atrovent. PAST MEDICAL HISTORY: Significant for Crohn's disease. PAST SURGICAL HISTORY: Multiple colonoscopies. REVIEW OF SYSTEMS: No shortness of breath. No chest pain. Appetite is poor. He has nausea. No vomiting. He has no constipation. He has diarrhea. He has no headaches or dizziness. He feels weak. No fever or chills. FAMILY HISTORY: Negative for kidney stones. SOCIAL HISTORY: Does not smoke or drink. Lives with family. PHYSICAL EXAMINATION: GENERAL: A very thin male, awake and oriented, in no distress. VITAL SIGNS: Temperature is 98, blood pressure is 153/____. LUNGS: Lung zamora are clear to auscultation and percussion. ABDOMEN: Scaphoid, full, soft, nontender. No masses. BACK: No CVA tenderness. EXTERNAL GENITALIA AND RECTAL: Deferred. LABORATORY DATA: Urinalysis shows dark, cloudy, yellow urine, specific gravity of 1.030, pH of 5.5, no blood, no nitrites, no bilirubin, no bacteria. The patient's white count is 7, hematocrit is 36, platelet count is 332. Sodium 133, potassium 3.7. BUN and creatinine are 20/0.7. IMAGING STUDIES: Reviewed today include a CT scan of the abdomen and pelvis that documents uteropelvic junction obstruction, chronic, longstanding, and this is unchanged from 2017. In addition, the patient has small calcification in his bladder. ASSESSMENT: * Ureteropelvic junction obstruction with minimal to no change in the last several years. * Exacerbation of Crohn's disease. * Small bladder stone. RECOMMENDATIONS: * To have IVP with tomograms. * Follow up with PCP as an outpatient with referral to Urology. * The patient's concern was answered. * No surgical urologic intervention is planned at this time. Thank you for the opportunity for providing consultation on your patient. Sincerely, TID: [id number] RECEIPT: [id number]
[2025-06-01 04:27] LABS: NUCLEATED RED BLOOD CELLS 0.0 % (0.0-0.19); PLATELET COUNT (AUTO) 242.0 K/uL (130-400); RED BLOOD CELL COUNT(AUTO) 3.04 MIL/uL (4.50-6.20); RED CELL DISTRIBUTION WIDTH 16.7 % (11.0-15.5); WHITE BLOOD COUNT (AUTO) 6.3 K/uL (4.8-10.8)
[2025-06-01 04:52] LABS: ASPARTATE AMINOTRANSFERASE 14.0 U/L (10-37); CREATININE 0.9 mg/dL (0.5-1.3); GLOMERULAR FILTR. RATE CALC 98.0 mL/min (>90); GLUCOSE,RANDOM 102.0 mg/dL (70-105); PHOSPHORUS 3.2 mg/dL (2.5-4.9); SODIUM SERUM 135.0 mmol/L (136-145); TOTAL PROTEIN, SERUM 3.8 g/dL (6.0-8.3); UREA NITROGEN, BLOOD 19.0 mg/dL (7-18)
--- NOTE | 2025-06-01 08:36 | PN ---
[facility] CARDIOLOGY PROGRESS NOTE Date Patient Seen: Jun 01, 2025 Time of Visit: 08:34 Interval History: [ No events overnight.] Physical Examination: GENERAL: [No acute distress.] HEAD: [Normal with no signs of head trauma.] EYES: [PERRLA, EOMI, conjunctiva and sclera normal.] ENT: [Hearing grossly intact, normal oropharynx.] NECK: [Supple without JVD. There is no tenderness, lymphadenopathy, or masses. No thyromegaly. Normal carotid upstrokes without bruits.] LUNGS: [Decreased breath sounds in the bases bilaterally . No wheezes, or rhonchi.] HEART: [Normal rate and rhythm. Normal S1 and S2 without mumurs, gallop or rub.] VASC: [Peripheral pulses +2 bilaterally.] ABD: [Bowel sounds normal, soft, nontender, no masses, no organomegaly. No audible bruits.] : [Not examined] LYMPH: [No lymphadenopathy noted.] EXT: [No clubbing, cyanosis or edema.] SKIN: [No rashes or lesions noted.] NEURO: [Awake, alert, and oriented x3. No focal sensory or strength deficits noted.] Laboratory: [ ] Hematology Labs: Test 06/01/25 04:16 05/31/25 09:22 05/31/25 05:27 Range/Units White Blood Count 6.3 4.8-10.8 K/uL Red Blood Count 3.04 L 4.50-6.20 MIL/uL Hemoglobin 9.7 L 14.0-18.0 g/dL Hematocrit 28.4 L 42-54 % Mean Corpuscular Volume 93.4 79-99 fL Mean Corpuscular Hemoglobin 31.9 27.0-33.0 pg Mean Corpuscular Hemoglobin Concent 34.2 32.0-36.0 g/dL Red Cell Distribution Width 16.7 H 11.0-15.5 % Platelet Count 242 130-400 K/uL Mean Platelet Volume 8.0 7.5-10.5 fL Nucleated Red Blood Cells 0.0 0.0-0.19 % Reticulocyte Count (auto) 2.29065 H 0.42-2.23 % Immature Reticulocyte Fraction 6.60 H 0.18-0.48 % Immature Granulocyte % (Auto) 0.3 0-1 % Neutrophils (%) (Auto) 70.5 40.0-77.0 % Lymphocytes (%) (Auto) 15.7 L 21.0-51.0 % Monocytes (%) (Auto) 12.5 3.0-13.0 % Eosinophils (%) (Auto) 0.7 0.0-8.0 % Basophils (%) (Auto) 0.3 0.0-5.0 % Neutrophils # (Auto) 4.0 1.8-7.7 K/uL Lymphocytes # (Auto) 0.9 L 1.0-4.8 K/uL Monocytes # (Auto) 0.7 0.1-1.0 K/uL Eosinophils # (Auto) 0.04 0.00-0.70 K/uL Basophils # (Auto) 0.02 0.00-0.20 K/uL Absolute Immature Granulocyte (auto 0.02 0-1 K/uL Chemistry Labs: Test 06/01/25 05:32 06/01/25 04:16 05/31/25 09:22 05/31/25 05:27 Range/Units Whole Blood Glucose 92 70-110 MG/DL Sodium Level 135 L 136-145 mmol/L Potassium Level 3.6 3.5-5.1 mmol/L Chloride Level 106 101-111 mmol/L Carbon Dioxide Level 24 21-32 mmol/L Blood Urea Nitrogen 19 H 7-18 mg/dL Creatinine 0.9 0.5-1.3 mg/dL Glomerular Filtration Rate Calc 98 >90 mL/min Random Glucose 102 70-105 mg/dL Total Calcium 7.0 L 8.5-10.1 mg/dL Phosphorus Level 3.2 2.5-4.9 mg/dL Magnesium Level 1.50 L 1.80-2.40 mg/dL Total Bilirubin 0.7 0.2-1.0 mg/dL Aspartate Amino Transf (AST/SGOT) 14 10-37 U/L Alanine Aminotransferase (ALT/SGPT) 6 L 12-78 U/L Alkaline Phosphatase 79 50-136 U/L Total Protein 3.8 L 6.0-8.3 g/dL Albumin 1.3 L 3.5-5.0 g/dL Folic Acid (LAB) 6.40 2-20 ng/mL Iron Level 41 L 65-175 mcg/dL Total Iron Binding Capacity 40 L 250-450 mcg/dL Percent Iron Saturation 102.5 H 30-44 % Ferritin 512 H 30-400 ng/mL Vitamin B12 Level 1616 H 193-986 pg/mL B-Type Natriuretic Peptide 32 0-100 pg/mL Test 05/30/25 09:29 Range/Units Whole Blood Ketones Quantitative 3.6 H 0.0-0.6 mmol/L Serum Osmolality 279 278-305 mOsm/kg Lactic Acid Level 1.3 0.8-2.5 mmol/L Free Thyroxine (T4) Direct 0.97 0.76-1.46 ng/dL Free Triiodothyronine (T3) pg/mL 0.55 L 2.18-3.98 pg/mL Diagnostics / Radiology: [Copy/Paste Echos/Imaging Report here] Impression and Plan: [ Crohn's disease Current Hypertension Small loculated pericardial effusion ] Plan: [#Small loculated pericardial effusion Patient was admitted for ongoing fatigue tiredness for the past six days. Also shortness of breath Presenting ECG was sinus rhythm, no acute ischemia. Troponins negative Prior admission from March 2025 cardiology was consulted at that time for moderate pericardial effusion, LVEF showed 65% Repeat 2D echo on this admission showed LVEF of greater than 65%, no hemodynamically significant valvular abnormalities, with a small loculated pericardial effusion, concerning for cardiac mass, with no echo indications for pericardial tamponade. Will need outpatient cardiac MRI. No MRI chest is available here at [facility] [place]. Loculated pericardial effusion, may be due to autoimmune and inflammatory process of Chrohn's vs malignancy. Will need repeat echo in one month. Weakness recommend PT/OT evaluation, patient lives alone at home and has no transportation and is having trouble with ADLs Patient reports edema and weeping fluid in legs and upper extremities, started lasix 20 mg qd Thank you for this consult cardiology will follow along. Maty Eldridge MD ] MATY ELDRIDGE MD Jun 01, 2025 08:36
[2025-06-01] MEDS: ENOXAPARIN SODIUM 40 MG/0.4 ML SYRINGE SQ SCH (09:00)
[2025-06-01] MEDS ORDERED: COMPOUND IV REFRIGERATED 1 EACH IVSOLN MISC PRN (09:30)
[2025-06-01] MEDS ORDERED: COMPOUND IV MISC 1 EACH IVSOLN MISC PRN (09:30)
[2025-06-01] MEDS: MULTIVITAMIN TABLET PO SCH (10:25)
[2025-06-01] MEDS: PoTASSium chloRIDE 20MEQ ER 20 MEQ ERTAB PO PRN (10:25)
--- NOTE | 2025-06-01 13:59 | PN ---
[facility] PROGRESS NOTE Date of Service: Jun 01, 2025 Time of Service: 13:59 History of Presenting Illness: Mr. Lu is 59-year-old male with a history of Crohn's, GERD, hypertension, multiple colonoscopies, former smoker with 10 years of tobacco use who presented to [facility] via EMS for evaluation of increased generalized body weakness for the last six days. According to EMS and family who was on scene the patient has not been eating for the past six days. ED provider reports that the patient also reports mild shortness of breath. Patient reports he has been having diarrhea but it is the same as it usually is due to Crohn's. He states he follows with Dr. Milner as outpatient. The patient denied any melena, hematemesis, fever or chills. The patient reports that the weakness is so bad that he has been bed- bound at home and not ambulating due to not feeling well and feeling very weak. Per chart review the patient was admitted on 04/20/2025 for similar symptoms of general body weakness. Cardiology, GI, and general surgeon evaluated the patient on that admission. The CT abdomen and pelvis done on 04/20/2025 showed colocolic intussusception at the sigmoid colon with underlining mass suspected. Right UPJ obstruction with mild hydronephrosis. GI was consulted who did a colonoscopy that showed partial obstructing polypoid mass in the ascending colon status post partial resection. General surgeon Dr. Santos was consulted who recommended outpatient follow up in elective surgery. Cardiology was consulted for moderate posterior pericardial effusion per echo which also showed global ejection fraction of 65%. The patient was discharged on 04/25/2025. Today WBCs and troponin are WNL. Na 133, total calcium 7.7. Albumin 1.8, total protein 4.8. In ED the patient received Rocephin1 g and NS1 L bolus. ED provider request patient be admitted with the diagnosis of left pleural effusion and failure to thrive. Chest x-ray: Small to moderate pleural effusion on the left side. Lower lobe airspace disease bilaterally, more pronounced on the left side. COPD. No gross interval changes. I assessed the patient at bedside in ED 3. No family at bedside. The patient's breathing was even, unlabored, in no distress. He has edema to bilateral lower extremities and upper extremities (hand edema R>L) Informed him of plan to admit at CT results of left pleural effusion and interpretation of COPD. The patient reports that he has never been told that he has pleural effusion nor COPD and stated that that must be results from another patient. He reports that he never told ED provider that he was short of breath. He states that he is just here because he is very weak and has no appetite. Patient was not contributing with medical questions. He appeared frustrated. Plan and assessment are listed below. SUBJECTIVE: 05/30/25: Patient was evaluated at the bedside in ED 3 today. Patient appeared very frail and weak. Patient has been complaining of generalized weakness since December or January this year. Patient has a past medical history of Crohn's disease follows Dr. Milner on an outpatient basis. Patient says he has no appetite and has nausea and vomiting. Patient does not recall the last time he had a proper meal. He is living with his sister who helps him with his daily activities of living. Patient reports he feels depressed. Denies fever, chills, abdominal pain, diarrhea, melena, and hematemesis. Patient says he had multiple colonoscopies in the past and attributes his weakness to these procedures. His TSH is elevated 5.2, low free T3 was 0.55, and free T4 0.97. His serum albumin 1.8. He has Generalized edema prominent in the right lower leg and left leg up to mid calf and in bilateral upper limbs. His CRP is elevated, 77.2, Whole blood ketone is high,3.6 and ABG revealing primary metabolic acidosis, with adequate compensation. Anion gap of 14.6 and corrected anion gap of 20.1. Urine protein creatinine ratio is pending. A CT abdomen and 2D echo were ordered. 05/31/25 Patient was seen and examined at the bedside today. His appetite has improved slightly. He received D5NS and a banana bag yesterday; we will transition to LR. He remains on gentle diuresis with furosemide 40 mg BID for anasarca. GI is scheduled to see him on Monday. We will monitor for refeeding syndrome and recheck magnesium and phosphorus. Chest x-ray and repeat potassium are planned. He is tachycardic and has been bedbound for several days; we will obtain a veno us Doppler ultrasound to rule out DVT. CT abdomen showed active colitis, right UPJ obstruction with moderate hydronephrosis, and a calculus in the lower calyx. A urology consult will be requested. [employer] Preflight recommendations are pending as his appetite has been poor. 06/01/25: The patient was examined at the bedside with family present. He appears malnourished and in mild distress. He is currently receiving a banana bag; daily IV thiamine 100 mg will be initiated tomorrow. Spanisher recommendations are pending. CT abdomen demonstrated moderate hydronephrosis with a right UPJ calculus in the upper calyx. Urology (Dr. Rhodes) has ordered an IV pyelogram which is scheduled for tomorrow, with outpatient follow-up planned. Cardiology consultation ruled out congestive heart failure but identified a loculated pericardial effusion on Echo. An MRI chest with contrast was recommended; however, this is not available at this facility. For lower extremity edema, cardiology initiated furosemide 20 mg. Gastroenterology was consulted for Crohns disease, malnutrition, and poor appetite; evaluation is scheduled for Monday. Laboratory results: Hgb 9.7 g/dL, potassium 3.6 mmol/L, magnesium 1.5 mg/dL, phosphorus 3.2 mg/dL, albumin 1.3 g/dL. Will monitor closely for signs of refeeding syndrome. The patient remains on Zosyn. Further assessment and plan as discussed below Review of Systems: General: Reports poor appetite and fatigue. Cardiovascular: Reports bilateral upper and lower extremity swelling; denies chest pain or palpitations. Respiratory: Denies shortness of breath or cough. Gastrointestinal: Reports poor appetite; denies abdominal pain, nausea, vomiting, or diarrhea. Genitourinary: No urinary complaints reported. Neurologic: Denies dizziness, syncope, or focal weakness. Skin/IV Site: Reports slight leakage from the left arm IV access site. General Physical Examination: General: Malnourished-appearing male, in mild distress, examined at bedside with family present. Neck: No JVD; trachea midline. Cardiovascular: Regular rate and rhythm; no murmurs, rubs, or gallops appreciated. Respiratory: Equal bilateral breath sounds; no wheezes, crackles, or rhonchi. Abdomen: Soft, non-distended, non-tender; normoactive bowel sounds. Extremities: Bilateral upper and lower extremity edema present; peripheral pulses palpable. Vital Signs (last 8hr) Date Time Temp Pulse Resp B/P (MAP) Pulse Ox O2 Delivery O2 Flow Rate FiO2 06/01/25 12:00 98.4 108 17 98/74 94 Room Air 06/01/25 08:00 97.9 96 17 100/69 94 Room Air 06/01/25 08:00 94 Room Air* 0 21 LABS: Laboratory: Test 06/01/25 11:03 06/01/25 04:16 05/31/25 09:22 05/31/25 05:27 Range/Units Whole Blood Glucose 91 70-110 MG/DL White Blood Count 6.3 4.8-10.8 K/uL Red Blood Count 3.04 L 4.50-6.20 MIL/uL Hemoglobin 9.7 L 14.0-18.0 g/dL Hematocrit 28.4 L 42-54 % Mean Corpuscular Volume 93.4 79-99 fL Mean Corpuscular Hemoglobin 31.9 27.0-33.0 pg Mean Corpuscular Hemoglobin Concent 34.2 32.0-36.0 g/dL Red Cell Distribution Width 16.7 H 11.0-15.5 % Platelet Count 242 130-400 K/uL Mean Platelet Volume 8.0 7.5-10.5 fL Nucleated Red Blood Cells 0.0 0.0-0.19 % Sodium Level 135 L 136-145 mmol/L Potassium Level 3.6 3.5-5.1 mmol/L Chloride Level 106 101-111 mmol/L Carbon Dioxide Level 24 21-32 mmol/L Blood Urea Nitrogen 19 H 7-18 mg/dL Creatinine 0.9 0.5-1.3 mg/dL Glomerular Filtration Rate Calc 98 >90 mL/min Random Glucose 102 70-105 mg/dL Total Calcium 7.0 L 8.5-10.1 mg/dL Phosphorus Level 3.2 2.5-4.9 mg/dL Magnesium Level 1.50 L 1.80-2.40 mg/dL Total Bilirubin 0.7 0.2-1.0 mg/dL Aspartate Amino Transf (AST/SGOT) 14 10-37 U/L Alanine Aminotransferase (ALT/SGPT) 6 L 12-78 U/L Alkaline Phosphatase 79 50-136 U/L Total Protein 3.8 L 6.0-8.3 g/dL Albumin 1.3 L 3.5-5.0 g/dL Folic Acid (LAB) 6.40 2-20 ng/mL Reticulocyte Count (auto) 2.57183 H 0.42-2.23 % Immature Reticulocyte Fraction 6.60 H 0.18-0.48 % Iron Level 41 L 65-175 mcg/dL Total Iron Binding Capacity 40 L 250-450 mcg/dL Percent Iron Saturation 102.5 H 30-44 % Ferritin 512 H 30-400 ng/mL Vitamin B12 Level 1616 H 193-986 pg/mL Immature Granulocyte % (Auto) 0.3 0-1 % Neutrophils (%) (Auto) 70.5 40.0-77.0 % Lymphocytes (%) (Auto) 15.7 L 21.0-51.0 % Monocytes (%) (Auto) 12.5 3.0-13.0 % Eosinophils (%) (Auto) 0.7 0.0-8.0 % Basophils (%) (Auto) 0.3 0.0-5.0 % Neutrophils # (Auto) 4.0 1.8-7.7 K/uL Lymphocytes # (Auto) 0.9 L 1.0-4.8 K/uL Monocytes # (Auto) 0.7 0.1-1.0 K/uL Eosinophils # (Auto) 0.04 0.00-0.70 K/uL Basophils # (Auto) 0.02 0.00-0.20 K/uL Absolute Immature Granulocyte (auto 0.02 0-1 K/uL B-Type Natriuretic Peptide 32 0-100 pg/mL Current Medications Medications (Trade) Dose Ordered Sig/Estelita Route PRN Reason Start Time Stop Time Status Last Admin Dose Admin Acetaminophen (TYLenol 325MG TAB) 650 mg Q6H PRN PO FEVER/MILD PAIN LEVEL 1-3 05/30/25 00:00 05/31/25 22:42 DC Acetaminophen (TYLenol 325MG TAB) 650 mg Q6H PRN PO FEVER/MILD PAIN LEVEL 1-3 05/31/25 23:00 06/30/25 22:59 Acetaminophen (TYLenol 650MG SUPPOSITORY) 650 mg Q6H PRN RC FEVER / MILD PAIN 1-3 IF NPO 06/01/25 09:00 07/01/25 08:59 Acetaminophen (TYLenol 650MG SUPPOSITORY) 650 mg Q6H PRN RC FEVER / MILD PAIN 1-3 IF NPO 05/30/25 00:00 06/01/25 08:57 DC Albuterol Sulfate (Proventil 0.083% 2.5mg/3ml) 2.5 mg Q4H PRN IH SHORTNESS OF BREATH 05/30/25 06:30 05/31/25 22:43 DC Albuterol Sulfate (Proventil 0.083% 2.5mg/3ml) 2.5 mg Q4H PRN IH SHORTNESS OF BREATH 05/31/25 23:00 06/30/25 22:59 Dextrose/Sodium Chloride 1,000 ml @ 100 mls/hr Q10H IV 05/30/25 10:30 05/31/25 16:00 DC 05/30/25 21:49 100 MLS/HR Docusate Sodium (COLace 100MG CAP) 100 mg BID PRN PO CONSTIPATION 06/01/25 09:00 07/01/25 08:59 Docusate Sodium (COLace 100MG CAP) 100 mg BID PRN PO CONSTIPATION 05/30/25 00:00 06/01/25 08:57 DC Enoxaparin Sodium (Lovenox) 40 mg DAILY SQ 06/01/25 09:00 07/01/25 08:59 06/01/25 10:27 40 MG Enoxaparin Sodium (Lovenox) 40 mg DAILY SQ 05/30/25 17:30 06/01/25 08:59 DC 05/31/25 09:24 40 MG Furosemide (LASix 20MG TAB) 20 mg DAILY PO 06/02/25 09:00 07/02/25 08:59 Furosemide (LASix 40MG VIAL) 40 mg Q12H IV 06/01/25 06:00 06/01/25 07:48 DC 06/01/25 06:08 40 MG Furosemide (LASix 40MG VIAL) 40 mg Q12H IV 05/30/25 17:30 06/01/25 05:44 DC 05/31/25 16:37 40 MG Insulin Human Regular (humuLIN R 100 UNIT/ML 3ML) INSULIN SLIDING SCAL... ACHS SQ 06/01/25 11:30 07/01/25 11:29 Insulin Human Regular (humuLIN R 100 UNIT/ML 3ML) INSULIN SLIDING SCAL... ACHS SQ 05/30/25 07:30 06/01/25 08:59 DC Ipratropium Show Low (AtrovENT UD) 0.5 mg Q4H PRN IH SHORTNESS OF BREATH 05/30/25 06:30 05/31/25 22:44 DC Ipratropium Show Low (AtrovENT UD) 0.5 mg Q4H PRN IH SHORTNESS OF BREATH 05/31/25 23:00 06/30/25 22:59 Labetalol HCl (TRANdate 20MG SYG) 10 mg Q2H PRN IV SBP GREATER THAN 160 05/30/25 00:00 05/31/25 22:43 DC Labetalol HCl (TRANdate 20MG SYG) 10 mg Q2H PRN IV SBP GREATER THAN 160 05/31/25 23:00 06/30/25 22:59 Lactated Ringer's 1,000 ml @ 25 mls/hr Q24H IV 05/30/25 06:00 06/01/25 09:05 DC 05/30/25 06:03 50 MLS/HR Lactulose (Constulose 20gm/ 30ml Udcup) 20 gm Q6H PRN PO CONSTIPATION 05/30/25 00:00 05/31/25 22:42 DC Lactulose (Constulose 20gm/ 30ml Udcup) 20 gm Q6H PRN PO CONSTIPATION 05/31/25 23:00 06/30/25 22:59 Magnesium Sulfate 50 ml @ 0 mls/hr NOW IV 06/01/25 14:00 06/01/25 13:58 DC Magnesium Sulfate 50 ml @ 0 mls/hr PROTOCOL PRN IV LOW MG 06/01/25 09:00 07/01/25 08:59 Magnesium Sulfate 50 ml @ 0 mls/hr PROTOCOL PRN IV LOW MG 05/31/25 09:00 06/01/25 08:59 DC Multivitamins Therapeutic (Multivitamin Tablet) 1 tab DAILY PO 06/01/25 09:00 07/01/25 08:59 06/01/25 10:25 1 TAB Multivitamins Therapeutic (Multivitamin Tablet) 1 tab DAILY PO 05/31/25 09:00 06/01/25 08:59 DC 05/31/25 09:24 1 TAB Multivitamins/ Minerals 10 ml/ Folic Acid 1 mg/ Thiamine HCl 100 mg/Sodium Chloride 1,010 ml @ 0 mls/hr DAILY IV 05/30/25 12:00 06/01/25 09:01 DC 06/01/25 10:25 100 MLS/HR Ondansetron HCl (zoFRAN 4MG INJ) 4 mg Q6H PRN IVP NAUSEA/VOMITING 05/30/25 00:00 05/30/25 17:34 DC Ondansetron HCl (zoFRAN 4MG INJ) 4 mg Q8H PRN IVP NAUSEA/VOMITING 05/30/25 17:30 05/31/25 22:45 DC Ondansetron HCl (zoFRAN 4MG INJ) 4 mg Q8H PRN IVP NAUSEA/VOMITING 05/31/25 23:00 06/30/25 22:59 Pantoprazole Sodium (PROTonix 40MG INJ) 40 mg BID IVP 05/30/25 21:00 05/31/25 22:40 DC 05/31/25 09:24 40 MG Pantoprazole Sodium (PROTonix 40MG INJ) 40 mg BID IVP 05/31/25 23:00 06/30/25 22:59 06/01/25 10:25 40 MG Piperacillin Sod/ Tazobactam Sod (Zosyn 3.375gm+NS 50ml) 3.375 gm Q8H IVPB 05/30/25 06:30 05/31/25 22:39 DC 05/31/25 15:46 3.375 GM Piperacillin Sod/ Tazobactam Sod (Zosyn 3.375gm+NS 50ml) 3.375 gm Q8H IVPB 05/31/25 23:00 06/10/25 22:59 06/01/25 06:08 3.375 GM Potassium Chloride 100 ml @ 100 mls/hr AD PRN IV POTASSIUM PROTOCOL 05/30/25 17:30 05/31/25 22:44 DC Potassium Chloride 100 ml @ 100 mls/hr AD PRN IV POTASSIUM PROTOCOL 05/31/25 23:00 06/30/25 22:59 Potassium Chloride (K-Dur/Klor-Con 20meq) 20 meq AD PRN PO POTASSIUM PROTOCOL 05/30/25 17:30 05/31/25 22:45 DC 05/31/25 16:38 20 MEQ Potassium Chloride (K-Dur/Klor-Con 20meq) 20 meq AD PRN PO POTASSIUM PROTOCOL 05/31/25 23:00 06/30/25 22:59 06/01/25 10:28 20 MEQ Potassium Chloride (KCl 10% Elixir 20meq/15ml) 20 meq AD PRN PO POTASSIUM PROTOCOL 05/30/25 17:30 05/31/25 22:45 DC 05/31/25 06:26 20 MEQ Potassium Chloride (KCl 10% Elixir 20meq/15ml) 20 meq AD PRN PO POTASSIUM PROTOCOL 05/31/25 23:00 06/30/25 22:59 Temazepam (restORIL 15 MG CAP) 15 mg HS PRN PO INSOMNIA/SLEEP 06/01/25 09:00 07/01/25 08:59 Temazepam (restORIL 15 MG CAP) 15 mg HS PRN PO INSOMNIA/SLEEP 05/30/25 00:00 06/01/25 08:59 DC Thiamine HCl (Vitamin B-1) 100 mg DAILY IVP 06/02/25 09:00 07/02/25 08:59 Thiamine HCl (Vitamin B-1) 100 mg DAILY IVP 05/30/25 10:30 06/01/25 09:02 DC 05/31/25 09:24 100 MG DIAGNOSTICS / RADIOLOGY: [place] [address] IMAGING REPORT Signed PATIENT: KIMBERLEY LU MR#: [id number] : 1965 SEX: M AGE: 59 LOCATION: [facility] ORDER 5 STATUS: ADM IN REPORT#: [id number] SERVICE 4 REASON: PLEURAL EFFUSION ORDERING PHYSICIAN: ZIYAD GORDON PROCEDURE: CAP WWO - CT CHEST/ABD/PELV W/WO CONTRAS EXAM: CT Abdomen and Pelvis with and without Intravenous Contrast CLINICAL HISTORY: PLEURAL EFFUSION TECHNIQUE: Axial computed tomography images of the chest, abdomen and pelvis with and without intravenous contrast. CONTRAST: None. COMPARISON: None provided. FINDINGS: Large Bowel: There is a long segment thickening of the sigmoid colon for a length of 16.4 cm with a maximum diameter of 5.8 cm, showing significant inflammation, engorged pericolonic vessels, and mild fat stranding. There is also mild thickening of the splenic flexure, transverse colon, and ascending colon, reflecting underlying active colitis. No evidence of pneumatosis, evident perforation, or pericolonic abscess. There is mild wall thickening of the left lateral conal fascia and the paracolic gutter. Small Bowel: Small bowel loops within normal caliber. No evidence of significant small bowel wall thickening, obstruction, or abnormal enhancement. Liver, spleen, gall bladder, pancreas, and adrenal glands are normal in size and attenuation, with no focal lesions. Kidneys and Ureters: There is right UPJ obstruction causing moderate hydronephrosis with pooling of contrast and 6mm calculus in the lower calyx . No renal mass or perinephric collection. Urinary Bladder and Prostate: There is a 6.4 mm calculus in the dependent portion of the urinary bladder with wall thickening of 4.5 mm. Mild bladder wall calcification along the posterior urinary bladder wall. There is thickening of the bladder wall. Prostate is normal sized with intraprostatic calcification. Abdominal Wall and Subcutaneous Tissues: There is diffuse edema along the subcutaneous plane of the abdomen and the intramuscular plane. Musculoskeletal Structures: Bone shows degenerative changes. No lytic or sclerotic lesions. Other Findings: No free fluid or free air in the abdomen or pelvis. No lymphadenopathy. IMPRESSION: Long segment thickening of the proximal sigmoidcolon for a length of 16.4 cm with a maximum diameter of 5.8 cm, showing significant inflammation, engorged pericolonic vessels, and mild fat stranding. No evidence of pneumatosis, evident perforation, or pericolonic abscess. Features suggestive of active colitis. Right UPJ obstruction with moderate hydronephrosis and calculi in the lower calyx. Thickened urinary bladder wall, suggesting cystitis. Bladder calculi. /[place] DICTATED BY: CRISTIANE JETER MD DATE: 05/30/251811 ELECTRONICALLY SIGNED BY: CRISTIANE JETER MD DATE: 05/30/251811 [address] [address] IMAGING REPORT Signed PATIENT: KIMBERLEY LU MR#: [id number] : 1965 SEX: M AGE: 59 LOCATION: [facility] ORDER 1413 STATUS: ADM IN REPORT#: [id number] SERVICE 0932 REASON: GBW ORDERING PHYSICIAN: ZIYAD GORDON PROCEDURE: ECHO CMP - [place]CHO 2-D COMPLETE APPROVED REPORT EXAM: Two-dimensional and M-mode echocardiogram with Doppler and color Doppler. Study Details: Previous echo 04/21/25 INDICATION ICD: General body weakness 2D Dimensions IVSd 0.8 (0.7-1.1cm) LVEF(%) 63.6 (>50%) LVDd 3.2 (3.8-5.6cm) FS(%) 33 % PWd 1.1 (0.7-1.1cm) LA (2D) 3.2 (1.6-4.0cm) IVSs 1.1 cm Ao Root(2D) 3.0 (2.0-3.7cm) LVDs 2.1 (2.5-4.0cm) LVOT diam 1.8 (1.8-2.4cm) PWs 1.0 cm M-Mode Dimensions EPSS 0.6 cm LA (MM) 3.2 (1.6-4.0cm) Ao Root(MM) 2.8 (2.0-3.7cm) Aortic Valve AoV Vmax 0.9 m/s Ao Peak GR 3.5 mmHg LVOT Vmax 0.8 m/s AoV VTI 0.2 m Ao Mean GR 2.3 mmHg LVOT VTI 0.16 m DEREK (VMAX) 2.18 cm2 DEREK (VTI) 2.4 cm2 Mitral Valve MV E Vmax 45.9 cm/s DECEL Time 178 ms MV A Vmax 64.9 cm/s P 1/2 T 59 ms E/A ratio 0.7 MVA (PHT) 3.8 cm2 TDI E/E' Medial 9.9 E/E' Lateral 8.5 Medial E' Peak V 4.63 cm/s Lateral E' Peak V 5.38 cm/s Pulmonary Valve PV Vmax 1.1 m/s PV VTI 0.18 m PV Mean GR 2.7 mmHg PV Peak GR 5.2 mmHg Tricuspid Valve TR Vmax 1.0 m/s RAP (EST) 8 mmHg RVSP 12.1 mmHg TR Peak GR 4.1 mmHg Left Ventricle The left ventricle is normal size. Cannot exclude regional wall motion abnormalities. Left ventricular wall thickness appears normal. The LVEF is estimated> 65%. The left ventricular diastolic function is normal. Right Ventricle The right ventricle is normal size. The right ventricular systolic function appe ars normal. Atria The left atrium size is normal. The right atrium size is normal. Aortic Valve The aortic valve is normal in structure. No aortic regurgitation is present. There is no aortic valvular stenosis. Mitral Valve The mitral valve is normal in structure. There is no mitral valve regurgitation noted. There is no mitral valve stenosis. Tricuspid Valve The tricuspid valve is normal in structure. There is trace of tricuspid valve regurgitation noted. Pulmonic Valve Pulmonic valve is not well visualized. There is no pulmonic valvular regurgitation. Great Vessels The aortic root is normal in size. IVC is not well visualized. Pericardium There is smal loculatedl pericardial effusion. No echo indications of pericardial tamponade. Other Information Quality : Technically difficult study due to body habitus Conclusion No significant changes compared to previous echocardiogram done on 04/21/25. The left ventricle is normal size. The LVEF is estimated> 65%. The left ventricular diastolic function is normal. The right ventricular systolic function appears normal. Both atria are normal in size. No hemodynamically significant valvular abnormalities. There is smal loculatedl pericardial effusion. No echo indications of pericardial tamponade. DICTATED BY: GROVER CARDOZO MD DATE: 05/30/25 0932 ELECTRONICALLY SIGNED BY: GROVER CARDOZO MD DATE: 05/31/25 0801 ASSESSMENT: Failure to thrive, POA Anorexia, has not been eating x6 days Acute colitis on CT abdomen/pelvis Moderate hydronephrosis due to renal calculi Cystitis on Ct abdomen/pelvis Acute on chronic abdominal pain, POA Chronic diarrhea 2/2 Crohn's disease Acute dehydration, elevated BUN/ketonuria History of multiple colonoscopies, followed by Dr. Milner hx of colocolic intussusception at the sigmoid colon with underlining mass s uspected, per CT abdomen and pelvis on 04/20/2025 Partial obstructing polypoid mass in the ascending colon status post partial r esection, per colonoscopy on 03/2025 admission Left pleural effusion per chest x-ray on 05/30/2025, recurrent, with dyspnea, POA COPD per chest x-ray on 05/30/2025 Anemia of chronic disease Electrolyte derangement (hyponatremia, hypocalcemia) Protein calorie malnutrition/hypoalbuminemia Proteinuria, ketonuria, bilirubinuria, urobilinogenuria, per UA on 05/29/25 Chronic problem list: Crohn's, GERD, hypertension, multiple colonoscopies, former smoker with 10 years of tobacco use History of right UPJ obstruction with mild hydronephrosis, per CT on 04/20/2025 Small to large posterior pericardial effusion, EF > 65%/3D volume EF 68% per ec ho on 04/21/2025 PLAN: Starvation ketoacidosis * Start Thiamine 500 mg and transition to 100 after 5 days * Transfuse 3 Banana bags 1010 ml (multi vitamins, folic acid, Thiamine, 0.9 Nacl) * Monitor for phosphorous, magnesium, and electrolytes q12 * Monitor for signs of confusion, delirium, ataxia * Monitor Daily weight, strict I/O, JVP, lung crackles Failure to thrive, Protein calorie malnutrition, hypoalbuminemia * GI consult placed for assessment of chronic malnutrition, history of Crohn's disease, loss of appetite, heartburn * Dietary consult placed, recommendations are pending * Advance towards goals as tolerated * CT of chest, abdomen, and pelvis showed active colitis and right UPJ obstruction with moderate hydronephrosis * Hepatitis panel - negative Acute Colitis IV fluids, bowel rest, electrolyte correction. Continue IV zosyn Monitor for complications: perforation, toxic megacolon. Hydronephrosis from Right UPJ Obstruction with Calculus in Lower Calyx IVP is scheduled today. Follow up outpatient. Cystitis Currently on zosyn Monitor for progression to pyelonephritis, especially given concurrent obstruction. Left sided Pleural effusion, suspected pneumonia * Chest x-ray showed left sided pleural effusion * Will repeat chest x-ray * Serology influenza, COVID, strep screen, tested negative * Continue IV Zosyn 3.375 q8 * Monitor respiratory status. * Oxygen therapy as needed. Titrate oxygen prn to keep Spo2>/+=92%. * Albuterol and Atrovent PRN SOB. * Pulmonology team for recurrent pleural effusion and suspected COPD. Sublicinal Hypothyroidism * TSH is 5.4, free T3 0.55, Free T4 0.97 * Monitor until patient is hemodynamically stable -Monitor for fluid overload (The patient is edematous and dehydrated, ER administered NS 1 L bolus). -Fluid restriction a 1200 mL. -PRN medications for: Pain management, fever, hypertension, N/V, constipation, SOB. -Glucometer checks AC & HS needed with insulin regular sliding scale coverage as needed. -Blood pressure checks every 4 hours and as needed. -Reconcile home medications once available. -Monitor renal and liver function. -Monitor electrolytes and treat accordingly PRN -AM labs. -GI and DVT prophylaxis -Further plan/orders per hospitalization course. ATTESTATION BY PHYSICIAN I have seen and examined the patient. I reviewed the documentation, medical decision making, and treatment plan as noted by the resident provider above. I agree with the findings and plan of care. Cheo Florez MD, MANALI MD Jun 01, 2025 13:59
[2025-06-01] MEDS ORDERED: MAGNESIUM 2GM PREMIX 50ML 50 ML IV SCH (14:00)
[2025-06-01] MEDS: PoTASSium chloRIDE 20MEQ ER 20 MEQ ERTAB PO SCH (14:59)
[2025-06-02] VITALS (9 sets, daily range): BP systolic 101–122; BP diastolic 70–85; PULSE 77–93; RESP 16–20; TEMP 97.6–98.3; O2SAT 98
[2025-06-02] MEDS: MAGNESIUM 2GM PREMIX 50ML 50 ML IV PRN (01:32)
[2025-06-02 05:15] LABS: IMMATURE GRANULOCYTE ABSOLUTE 0.02 K/uL (0-1); NUCLEATED RED BLOOD CELLS 0.0 % (0.0-0.19); PLATELET COUNT (AUTO) 264 K/uL (130-400); RED BLOOD CELL COUNT(AUTO) 3.07 MIL/uL (4.50-6.20); RED CELL DISTRIBUTION WIDTH 16.9 % (11.0-15.5); WHITE BLOOD COUNT (AUTO) 5.0 K/uL (4.8-10.8)
[2025-06-02 05:24] LABS: ASPARTATE AMINOTRANSFERASE 15.0 U/L (10-37); CREATININE 0.9 mg/dL (0.5-1.3); GLOMERULAR FILTR. RATE CALC 98.0 mL/min (>90); GLUCOSE,RANDOM 99.0 mg/dL (70-105); PHOSPHORUS 3.2 mg/dL (2.5-4.9); SODIUM SERUM 138.0 mmol/L (136-145); TOTAL PROTEIN, SERUM 3.9 g/dL (6.0-8.3); UREA NITROGEN, BLOOD 21.0 mg/dL (7-18)
--- NOTE | 2025-06-02 07:59 | PN ---
GASTROENTEROLOGY PROGRESS NOTE Date of Visit: Jun 02, 2025 Time of Visit: 07:57 Events / Notes: [ ] Review of Systems: CONSTITUTIONAL: No malaise or change in sensation of wellbeing. ENMT: No rhinorrhea, otorrhea, sinus pain, ear ache. CARDIOVASCULAR: No angina, palpitations, orthopnea or paroxysmal dyspnea. RESPIRATORY: No SOB. GASTROINTESTINAL: No abdominal pain, nausea, vomiting, diarrhea, hematemesis, melena or change in the patient's habitual bowel movements consistency/number. GENITOURINARY: No dysuria, hematuria or change in bladder continence. MUSCULOSKELETAL: No new muscle pain or decrease in muscular strength. No new joint swelling, redness or tenderness. SKIN: No new rash. Physical Exam: GEN: Awake, alert, oriented in person, time and place, and in no acute distress. HEENT: No sinus tenderness. Tympanic membranes were not examined. No rhinorrhea. Oral pharyngeal mucosa is pink, moist and within normal limits. Neck is supple with no cervical lymphadenopathy, thyromegaly or JVD. CHEST: Inspection, palpation and percussion of the chest were unremarkable. Lung auscultation revealed normal breath sounds bilaterally. CARDIAC: PMI is within normal limits. Heart sounds are regular. Normal S1, S2. No gallop or murmur. ABD: Soft, non-tender and not distended. No peritoneal signs on palpation. No organomegaly. Normal bowel sounds. EXT: No cyanosis or clubbing. No edema. SKIN: Intact. No rashes. JOINTS: No evidence of synovitis or acute arthritis. NEURO: Alert and oriented to name, place and person. Cranial nerve examination is unremarkable. No focal motor deficits. Normal speech. Gait is normal. Strength is normal. Vital Signs (last 8hr) Date Time Temp Pulse Resp B/P (MAP) Pulse Ox O2 Delivery O2 Flow Rate FiO2 06/02/25 04:00 97.5 86 20 107/73 97 Room Air 06/02/25 00:00 97.9 85 20 101/70 96 Room Air Laboratory: [ ] Laboratory: Test 06/02/25 05:26 06/02/25 04:53 06/01/25 04:16 05/31/25 09:22 Range/Units Whole Blood Glucose 93 70-110 MG/DL White Blood Count 5.0 4.8-10.8 K/uL Red Blood Count 3.07 L 4.50-6.20 MIL/uL Hemoglobin 10.1 L 14.0-18.0 g/dL Hematocrit 28.4 L 42-54 % Mean Corpuscular Volume 92.5 79-99 fL Mean Corpuscular Hemoglobin 32.9 27.0-33.0 pg Mean Corpuscular Hemoglobin Concent 35.6 32.0-36.0 g/dL Red Cell Distribution Width 16.9 H 11.0-15.5 % Platelet Count 264 130-400 K/uL Mean Platelet Volume 8.4 7.5-10.5 fL Immature Granulocyte % (Auto) 0.4 0-1 % Neutrophils (%) (Auto) 68.9 40.0-77.0 % Lymphocytes (%) (Auto) 20.3 L 21.0-51.0 % Monocytes (%) (Auto) 9.4 3.0-13.0 % Eosinophils (%) (Auto) 0.8 0.0-8.0 % Basophils (%) (Auto) 0.2 0.0-5.0 % Neutrophils # (Auto) 3.5 1.8-7.7 K/uL Lymphocytes # (Auto) 1.0 1.0-4.8 K/uL Monocytes # (Auto) 0.5 0.1-1.0 K/uL Eosinophils # (Auto) 0.04 0.00-0.70 K/uL Basophils # (Auto) 0.01 0.00-0.20 K/uL Absolute Immature Granulocyte (auto 0.02 0-1 K/uL Nucleated Red Blood Cells 0.0 0.0-0.19 % Sodium Level 138 136-145 mmol/L Potassium Level 3.3 L 3.5-5.1 mmol/L Chloride Level 105 101-111 mmol/L Carbon Dioxide Level 25 21-32 mmol/L Blood Urea Nitrogen 21 H 7-18 mg/dL Creatinine 0.9 0.5-1.3 mg/dL Glomerular Filtration Rate Calc 98 >90 mL/min Random Glucose 99 70-105 mg/dL Total Calcium 7.3 L 8.5-10.1 mg/dL Phosphorus Level 3.2 2.5-4.9 mg/dL Magnesium Level 2.10 1.80-2.40 mg/dL Total Bilirubin 0.9 0.2-1.0 mg/dL Direct Bilirubin 0.5 H 0.0-0.3 mg/dL Aspartate Amino Transf (AST/SGOT) 15 10-37 U/L Alanine Aminotransferase (ALT/SGPT) 9 L 12-78 U/L Alkaline Phosphatase 86 50-136 U/L Ammonia 36 H 11-32 umol/L B-Type Natriuretic Peptide 20 0-100 pg/mL Total Protein 3.9 L 6.0-8.3 g/dL Albumin 1.4 L 3.5-5.0 g/dL Folic Acid (LAB) 6.40 2-20 ng/mL Reticulocyte Count (auto) 2.37796 H 0.42-2.23 % Immature Reticulocyte Fraction 6.60 H 0.18-0.48 % Iron Level 41 L 65-175 mcg/dL Total Iron Binding Capacity 40 L 250-450 mcg/dL Percent Iron Saturation 102.5 H 30-44 % Ferritin 512 H 30-400 ng/mL Vitamin B12 Level 1616 H 193-986 pg/mL Current Medications Medications (Trade) Dose Ordered Sig/Estelita Route PRN Reason Start Time Stop Time Status Last Admin Dose Admin Acetaminophen (TYLenol 325MG TAB) 650 mg Q6H PRN PO FEVER/MILD PAIN LEVEL 1-3 05/30/25 00:00 05/31/25 22:42 DC Acetaminophen (TYLenol 325MG TAB) 650 mg Q6H PRN PO FEVER/MILD PAIN LEVEL 1-3 05/31/25 23:00 06/30/25 22:59 Acetaminophen (TYLenol 650MG SUPPOSITORY) 650 mg Q6H PRN RC FEVER / MILD PAIN 1-3 IF NPO 06/01/25 09:00 07/01/25 08:59 Acetaminophen (TYLenol 650MG SUPPOSITORY) 650 mg Q6H PRN RC FEVER / MILD PAIN 1-3 IF NPO 05/30/25 00:00 06/01/25 08:57 DC Albuterol Sulfate (Proventil 0.083% 2.5mg/3ml) 2.5 mg Q4H PRN IH SHORTNESS OF BREATH 05/30/25 06:30 05/31/25 22:43 DC Albuterol Sulfate (Proventil 0.083% 2.5mg/3ml) 2.5 mg Q4H PRN IH SHORTNESS OF BREATH 05/31/25 23:00 06/30/25 22:59 Dextrose/Sodium Chloride 1,000 ml @ 100 mls/hr Q10H IV 05/30/25 10:30 05/31/25 16:00 DC 05/30/25 21:49 100 MLS/HR Docusate Sodium (COLace 100MG CAP) 100 mg BID PRN PO CONSTIPATION 06/01/25 09:00 07/01/25 08:59 Docusate Sodium (COLace 100MG CAP) 100 mg BID PRN PO CONSTIPATION 05/30/25 00:00 06/01/25 08:57 DC Enoxaparin Sodium (Lovenox) 40 mg DAILY SQ 06/01/25 09:00 07/01/25 08:59 Enoxaparin Sodium (Lovenox) 40 mg DAILY SQ 05/30/25 17:30 06/01/25 08:59 DC 05/31/25 09:24 40 MG Furosemide (LASix 20MG TAB) 20 mg DAILY PO 06/02/25 09:00 07/02/25 08:59 Furosemide (LASix 40MG VIAL) 40 mg Q12H IV 06/01/25 06:00 06/01/25 07:48 DC 06/01/25 06:08 40 MG Furosemide (LASix 40MG VIAL) 40 mg Q12H IV 05/30/25 17:30 06/01/25 05:44 DC 05/31/25 16:37 40 MG Insulin Human Regular (humuLIN R 100 UNIT/ML 3ML) INSULIN SLIDING SCAL... ACHS SQ 06/01/25 11:30 07/01/25 11:29 Insulin Human Regular (humuLIN R 100 UNIT/ML 3ML) INSULIN SLIDING SCAL... ACHS SQ 05/30/25 07:30 06/01/25 08:59 DC Ipratropium [place] (AtrovENT UD) 0.5 mg Q4H PRN IH SHORTNESS OF BREATH 05/30/25 06:30 05/31/25 22:44 DC Ipratropium [place] (AtrovENT UD) 0.5 mg Q4H PRN IH SHORTNESS OF BREATH 05/31/25 23:00 06/30/25 22:59 Labetalol HCl (TRANdate 20MG SYG) 10 mg Q2H PRN IV SBP GREATER THAN 160 05/30/25 00:00 05/31/25 22:43 DC Labetalol HCl (TRANdate 20MG SYG) 10 mg Q2H PRN IV SBP GREATER THAN 160 05/31/25 23:00 06/30/25 22:59 Lactated Ringer's 1,000 ml @ 25 mls/hr Q24H IV 05/30/25 06:00 06/01/25 09:05 DC 05/30/25 06:03 50 MLS/HR Lactulose (Constulose 20gm/ 30ml Udcup) 20 gm Q6H PRN PO CONSTIPATION 05/30/25 00:00 05/31/25 22:42 DC Lactulose (Constulose 20gm/ 30ml Udcup) 20 gm Q6H PRN PO CONSTIPATION 05/31/25 23:00 06/30/25 22:59 Magnesium Sulfate 50 ml @ 0 mls/hr NOW IV 06/01/25 14:00 06/01/25 13:58 DC Magnesium Sulfate 50 ml @ 0 mls/hr PROTOCOL PRN IV LOW MG 06/01/25 09:00 07/01/25 08:59 06/02/25 01:32 25 MLS/HR Magnesium Sulfate 50 ml @ 0 mls/hr PROTOCOL PRN IV LOW MG 05/31/25 09:00 06/01/25 08:59 DC Multivitamins Therapeutic (Multivitamin Tablet) 1 tab DAILY PO 06/01/25 09:00 07/01/25 08:59 06/01/25 10:25 1 TAB Multivitamins Therapeutic (Multivitamin Tablet) 1 tab DAILY PO 05/31/25 09:00 06/01/25 08:59 DC 05/31/25 09:24 1 TAB Multivitamins/ Minerals 10 ml/ Folic Acid 1 mg/ Thiamine HCl 100 mg/Sodium Chloride 1,010 ml @ 0 mls/hr DAILY IV 05/30/25 12:00 06/01/25 09:01 DC 06/01/25 10:25 100 MLS/HR Ondansetron HCl (zoFRAN 4MG INJ) 4 mg Q6H PRN IVP NAUSEA/VOMITING 05/30/25 00:00 05/30/25 17:34 DC Ondansetron HCl (zoFRAN 4MG INJ) 4 mg Q8H PRN IVP NAUSEA/VOMITING 05/30/25 17:30 05/31/25 22:45 DC Ondansetron HCl (zoFRAN 4MG INJ) 4 mg Q8H PRN IVP NAUSEA/VOMITING 05/31/25 23:00 06/30/25 22:59 Pantoprazole Sodium (PROTonix 40MG INJ) 40 mg BID IVP 05/30/25 21:00 05/31/25 22:40 DC 05/31/25 09:24 40 MG Pantoprazole Sodium (PROTonix 40MG INJ) 40 mg BID IVP 05/31/25 23:00 06/30/25 22:59 06/01/25 21:45 40 MG Piperacillin Sod/ Tazobactam Sod (Zosyn 3.375gm+NS 50ml) 3.375 gm Q8H IVPB 05/30/25 06:30 05/31/25 22:39 DC 05/31/25 15:46 3.375 GM Piperacillin Sod/ Tazobactam Sod (Zosyn 3.375gm+NS 50ml) 3.375 gm Q8H IVPB 05/31/25 23:00 06/10/25 22:59 06/01/25 21:45 3.375 GM Potassium Chloride 100 ml @ 100 mls/hr AD PRN IV POTASSIUM PROTOCOL 05/30/25 17:30 05/31/25 22:44 DC Potassium Chloride 100 ml @ 100 mls/hr AD PRN IV POTASSIUM PROTOCOL 05/31/25 23:00 06/30/25 22:59 Potassium Chloride (K-Dur/Klor-Con 20meq) 20 meq AD PRN PO POTASSIUM PROTOCOL 05/30/25 17:30 05/31/25 22:45 DC 05/31/25 16:38 20 MEQ Potassium Chloride (K-Dur/Klor-Con 20meq) 20 meq AD PRN PO POTASSIUM PROTOCOL 05/31/25 23:00 06/30/25 22:59 06/01/25 10:28 20 MEQ Potassium Chloride (K-Dur/Klor-Con 20meq) 40 meq BID PO 06/01/25 14:00 07/01/25 13:59 06/01/25 14:59 40 MEQ Potassium Chloride (KCl 10% Elixir 20meq/15ml) 20 meq AD PRN PO POTASSIUM PROTOCOL 05/30/25 17:30 05/31/25 22:45 DC 05/31/25 06:26 20 MEQ Potassium Chloride (KCl 10% Elixir 20meq/15ml) 20 meq AD PRN PO POTASSIUM PROTOCOL 05/31/25 23:00 06/30/25 22:59 Temazepam (restORIL 15 MG CAP) 15 mg HS PRN PO INSOMNIA/SLEEP 06/01/25 09:00 07/01/25 08:59 Temazepam (restORIL 15 MG CAP) 15 mg HS PRN PO INSOMNIA/SLEEP 05/30/25 00:00 06/01/25 08:59 DC Thiamine HCl (Vitamin B-1) 100 mg DAILY IVP 06/02/25 09:00 07/02/25 08:59 Thiamine HCl (Vitamin B-1) 100 mg DAILY IVP 05/30/25 10:30 06/01/25 09:02 DC 05/31/25 09:24 100 MG Diagnostics / Radiology: [COPY/PASTE HERE IF NO REPORTS PLEASE DELETE SECTION] Assessment: [Crohn's disease Acute dehydration Left Pleural effusion Ascending colon mass Copd Anemia ] Plan: [NO gi endoscopic intervention at this time Recommend GI prophylaxis with protonix 80 IV BID Optimize hydration Trend HGB and transfuse as needed to goal of HGB> 7 Please call with questions, concerns, and change in clinical status Thank you for this consult. ] RANDALL OCHOA NP Jun 02, 2025 07:59
[2025-06-02] MEDS ORDERED: THIAMINE HCL 100 MG/ML 2ML VIAL IVP SCH (09:00)
--- NOTE | 2025-06-02 10:09 | PN ---
[facility] CARDIOLOGY PROGRESS NOTE Date Patient Seen: Jun 02, 2025 Time of Visit: 09:55 Interval History: [ No events overnight, the patient was assessed at his bedside , he appears weak , frail and deconditioned , he is unable to perform minimal physical activities, serum albumina was noted to be severely low at 1.4 , the patient is volume depleted and due to his severe hyopoalbuminemia he appears to be third spacing ,due to his failure to thrive we recommend supplemental nutrition, we will require a Nutrition consultation. .] Physical Examination: GENERAL: [extremely frail and deconditioned.] HEAD: [Normal with no signs of head trauma.] EYES: [PERRLA, EOMI, conjunctiva and sclera normal.] ENT: [Hearing grossly intact, normal oropharynx.] NECK: [Supple without JVD. There is no tenderness, lymphadenopathy, or masses. No thyromegaly. Normal carotid upstrokes without bruits.] LUNGS: [Decreased breath sounds in the bases bilaterally . No wheezes, or rhonchi.] HEART: [Normal rate and rhythm. Normal S1 and S2 without murmurs, gallop or rub.] VASC: [Peripheral pulses +2 bilaterally.] ABD: [Bowel sounds normal, soft, nontender, no masses, no organomegaly. No audible bruits.] : [Not examined] LYMPH: [No lymphadenopathy noted.] EXT: [edema and weeping fluid in legs and upper extremities.] SKIN: [No rashes or lesions noted.] NEURO: [Awake, alert, and oriented x3. No focal sensory or strength deficits noted.] Laboratory: [ ] Hematology Labs: Test 06/02/25 04:53 Range/Units White Blood Count 5.0 4.8-10.8 K/uL Red Blood Count 3.07 L 4.50-6.20 MIL/uL Hemoglobin 10.1 L 14.0-18.0 g/dL Hematocrit 28.4 L 42-54 % Mean Corpuscular Volume 92.5 79-99 fL Mean Corpuscular Hemoglobin 32.9 27.0-33.0 pg Mean Corpuscular Hemoglobin Concent 35.6 32.0-36.0 g/dL Red Cell Distribution Width 16.9 H 11.0-15.5 % Platelet Count 264 130-400 K/uL Mean Platelet Volume 8.4 7.5-10.5 fL Immature Granulocyte % (Auto) 0.4 0-1 % Neutrophils (%) (Auto) 68.9 40.0-77.0 % Lymphocytes (%) (Auto) 20.3 L 21.0-51.0 % Monocytes (%) (Auto) 9.4 3.0-13.0 % Eosinophils (%) (Auto) 0.8 0.0-8.0 % Basophils (%) (Auto) 0.2 0.0-5.0 % Neutrophils # (Auto) 3.5 1.8-7.7 K/uL Lymphocytes # (Auto) 1.0 1.0-4.8 K/uL Monocytes # (Auto) 0.5 0.1-1.0 K/uL Eosinophils # (Auto) 0.04 0.00-0.70 K/uL Basophils # (Auto) 0.01 0.00-0.20 K/uL Absolute Immature Granulocyte (auto 0.02 0-1 K/uL Nucleated Red Blood Cells 0.0 0.0-0.19 % Chemistry Labs: Test 06/02/25 05:26 06/02/25 04:53 06/01/25 04:16 Range/Units Whole Blood Glucose 93 70-110 MG/DL Sodium Level 138 136-145 mmol/L Potassium Level 3.3 L 3.5-5.1 mmol/L Chloride Level 105 101-111 mmol/L Carbon Dioxide Level 25 21-32 mmol/L Blood Urea Nitrogen 21 H 7-18 mg/dL Creatinine 0.9 0.5-1.3 mg/dL Glomerular Filtration Rate Calc 98 >90 mL/min Random Glucose 99 70-105 mg/dL Total Calcium 7.3 L 8.5-10.1 mg/dL Phosphorus Level 3.2 2.5-4.9 mg/dL Magnesium Level 2.10 1.80-2.40 mg/dL Total Bilirubin 0.9 0.2-1.0 mg/dL Direct Bilirubin 0.5 H 0.0-0.3 mg/dL Aspartate Amino Transf (AST/SGOT) 15 10-37 U/L Alanine Aminotransferase (ALT/SGPT) 9 L 12-78 U/L Alkaline Phosphatase 86 50-136 U/L Ammonia 36 H 11-32 umol/L B-Type Natriuretic Peptide 20 0-100 pg/mL Total Protein 3.9 L 6.0-8.3 g/dL Albumin 1.4 L 3.5-5.0 g/dL Folic Acid (LAB) 6.40 2-20 ng/mL Diagnostics / Radiology: [Copy/Paste Echos/Imaging Report here] Impression and Plan: Crohn's disease Hypertension Small loculated pericardial effusion Failure to thrive Hypoalbuminemia ] Plan: [#Small loculated pericardial effusion Patient was admitted for ongoing fatigue tiredness for the past six days. Also shortness of breath Presenting ECG was sinus rhythm, no acute ischemia. Troponins negative Prior admission from March 2025 cardiology was consulted at that time for moderate pericardial effusion, LVEF showed 65% Repeat 2D echo on this admission showed LVEF of greater than 65%, no hemo dynamically significant valvular abnormalities, with a small loculated pericardial effusion, concerning for cardiac mass, with no echo indications for pericardial tamponade. Will need outpatient cardiac MRI. No MRI chest is available here at [facility]. We will plan for outpatient MRI Loculated pericardial effusion, may be due to autoimmune and inflammatory process of Chrohn's vs malignancy. Will need repeat echo in one month. #Failure to thrive Ongoing weakness , recommend PT/OT evaluation, patient lives alone at home and has no transportation and is having trouble with ADLs #Hypoalbuminemia Serum albumin 1.4 , We consider that the patient is third spacing and intravascularly volume depleted We will request a Nutrition consultation. Supplementation with protein shakes ( Boost, Ensure ) Patient reports edema and weeping fluid in legs and upper extremities Further workup on Crohn's disease is recommended Thank you for this consult cardiology will follow along. Prakash Eldridge MD ] ATTESTATION BY PHYSICIAN I have seen and examined the patient, reviewed the above documentation, participated in medical decision making, made necessary modifications, and agree with the treatment plan as documented by my mid-level provider above. MD CAS Galicia JAMES R MD Jun 02, 2025 10:09
--- NOTE | 2025-06-02 10:26 | HMCIMG ---
EXAM: CR Chest, single view. CLINICAL HISTORY: Assess for fluid overload. COMPARISON: Prior chest radiograph dated 30 May 2025. FINDINGS: Mild left-sided pleural effusion and blunting of the left costophrenic angle. The right costophrenic angle is clear. No evidence of pneumothorax. The cardiomediastinal silhouette is within normal limits. No acute osseous abnormality. IMPRESSION: Mild left-sided pleural effusion and blunting of the left costophrenic angle. The right costophrenic angle is clear. No evidence of pneumothorax. Normal cardiac size. Compared to the prior study no interval change. /[place]
--- NOTE | 2025-06-02 10:26 | HMCIMG ---
EXAMINATION: SPECTRAL DOPPLER ULTRASOUND EXAMINATION OF THE BILATERAL LOWER EXTREMITY VEINS. CLINICAL HISTORY: Bed bound for many days, to rule out DVT. COMPARISON: None provided. TECHNIQUE: Real-time ultrasound scan of the veins of the bilateral lower extremity with color Doppler flow, spectral waveform analysis and compression. FINDINGS: DEEP VEINS: The common femoral, superficial femoral, and popliteal veins are echolucent and compressible. There is normal color Doppler flow throughout. The visualized calf veins appear patent. SUPERFICIAL VEINS: The greater saphenous veins are patent and compressible. SOFT TISSUES: No popliteal fossa cyst or other abnormalities. IMPRESSION: No deep venous thrombosis evident in the bilateral lower extremity. No superficial thrombophlebitis in the bilateral lower extremity. /[place]
--- NOTE | 2025-06-02 10:35 | PN ---
GASTROENTEROLOGY PROGRESS NOTE Date of Visit: Jun 02, 2025 Time of Visit: 10:34 Events / Notes: [ No acute events overnight. Patient's vital signs remained stable. WBC 5.0 today, hemoglobin 10.1, hematocrit 28.4, platelets 264. CMP significant for potassium of 3.3, BUN 21, creatinine 0.9, calcium 7.3, total bilirubin 0.9, direct bilirubin 0.5, AST 15, ALT nine, alkaline phosphatase 86, ammonia 36, tot al protein 3.9, albumin 1.4. Urine culture negative. Chest x-ray from 05/31 pending results. Patient reports being tired of not being able to eat. Patient currently pending IVP. Informed we will reevaluated GI status and previous studies and possibly plan for colonoscopy once cleared by cardiology. Patient verbalized understanding and agreement. ] Review of Systems: CONSTITUTIONAL: No malaise or change in sensation of wellbeing. ENMT: No rhinorrhea, otorrhea, sinus pain, ear ache. CARDIOVASCULAR: No angina, palpitations, orthopnea or paroxysmal dyspnea. RESPIRATORY: No SOB. GASTROINTESTINAL: No abdominal pain, nausea, vomiting, diarrhea, hematemesis, melena or change in the patient's habitual bowel movements consistency/number. GENITOURINARY: No dysuria, hematuria or change in bladder continence. MUSCULOSKELETAL: No new muscle pain or decrease in muscular strength. No new joint swelling, redness or tenderness. SKIN: No new rash. Physical Exam: GEN: Awake, alert, oriented in person, time and place, and in no acute distress. HEENT: No sinus tenderness. Tympanic membranes were not examined. No rhinorrhea. Oral pharyngeal mucosa is pink, moist and within normal limits. CHEST: Inspection, palpation of the chest were unremarkable. Lung auscultation revealed normal breath sounds bilaterally. CARDIAC: PMI is within normal limits. Heart sounds are regular. ABD: Soft, non-tender and not distended. No peritoneal signs on palpation. No organomegaly. Normal bowel sounds. EXT: No cyanosis or clubbing. No edema. SKIN: Intact. No rashes. JOINTS: No evidence of synovitis or acute arthritis. NEURO: Alert and oriented to name, place and person. Cranial nerve examination is unremarkable. No focal motor deficits. Normal speech. Strength is normal. Vital Signs (last 8hr) Date Time Temp Pulse Resp B/P (MAP) Pulse Ox O2 Delivery O2 Flow Rate FiO2 06/02/25 08:00 98.2 88 18 122/85 99 Room Air 06/02/25 04:00 97.5 86 20 107/73 97 Room Air Laboratory: [ ] Laboratory: Test 06/02/25 05:26 06/02/25 04:53 06/01/25 04:16 Range/Units Whole Blood Glucose 93 70-110 MG/DL White Blood Count 5.0 4.8-10.8 K/uL Red Blood Count 3.07 L 4.50-6.20 MIL/uL Hemoglobin 10.1 L 14.0-18.0 g/dL Hematocrit 28.4 L 42-54 % Mean Corpuscular Volume 92.5 79-99 fL Mean Corpuscular Hemoglobin 32.9 27.0-33.0 pg Mean Corpuscular Hemoglobin Concent 35.6 32.0-36.0 g/dL Red Cell Distribution Width 16.9 H 11.0-15.5 % Platelet Count 264 130-400 K/uL Mean Platelet Volume 8.4 7.5-10.5 fL Immature Granulocyte % (Auto) 0.4 0-1 % Neutrophils (%) (Auto) 68.9 40.0-77.0 % Lymphocytes (%) (Auto) 20.3 L 21.0-51.0 % Monocytes (%) (Auto) 9.4 3.0-13.0 % Eosinophils (%) (Auto) 0.8 0.0-8.0 % Basophils (%) (Auto) 0.2 0.0-5.0 % Neutrophils # (Auto) 3.5 1.8-7.7 K/uL Lymphocytes # (Auto) 1.0 1.0-4.8 K/uL Monocytes # (Auto) 0.5 0.1-1.0 K/uL Eosinophils # (Auto) 0.04 0.00-0.70 K/uL Basophils # (Auto) 0.01 0.00-0.20 K/uL Absolute Immature Granulocyte (auto 0.02 0-1 K/uL Nucleated Red Blood Cells 0.0 0.0-0.19 % Sodium Level 138 136-145 mmol/L Potassium Level 3.3 L 3.5-5.1 mmol/L Chloride Level 105 101-111 mmol/L Carbon Dioxide Level 25 21-32 mmol/L Blood Urea Nitrogen 21 H 7-18 mg/dL Creatinine 0.9 0.5-1.3 mg/dL Glomerular Filtration Rate Calc 98 >90 mL/min Random Glucose 99 70-105 mg/dL Total Calcium 7.3 L 8.5-10.1 mg/dL Phosphorus Level 3.2 2.5-4.9 mg/dL Magnesium Level 2.10 1.80-2.40 mg/dL Total Bilirubin 0.9 0.2-1.0 mg/dL Direct Bilirubin 0.5 H 0.0-0.3 mg/dL Aspartate Amino Transf (AST/SGOT) 15 10-37 U/L Alanine Aminotransferase (ALT/SGPT) 9 L 12-78 U/L Alkaline Phosphatase 86 50-136 U/L Ammonia 36 H 11-32 umol/L B-Type Natriuretic Peptide 20 0-100 pg/mL Total Protein 3.9 L 6.0-8.3 g/dL Albumin 1.4 L 3.5-5.0 g/dL Folic Acid (LAB) 6.40 2-20 ng/mL Current Medications Medications (Trade) Dose Ordered Sig/Estelita Route PRN Reason Start Time Stop Time Status Last Admin Dose Admin Acetaminophen (TYLenol 325MG TAB) 650 mg Q6H PRN PO FEVER/MILD PAIN LEVEL 1-3 05/30/25 00:00 05/31/25 22:42 DC Acetaminophen (TYLenol 325MG TAB) 650 mg Q6H PRN PO FEVER/MILD PAIN LEVEL 1-3 05/31/25 23:00 06/30/25 22:59 Acetaminophen (TYLenol 650MG SUPPOSITORY) 650 mg Q6H PRN RC FEVER / MILD PAIN 1-3 IF NPO 06/01/25 09:00 07/01/25 08:59 Acetaminophen (TYLenol 650MG SUPPOSITORY) 650 mg Q6H PRN RC FEVER / MILD PAIN 1-3 IF NPO 05/30/25 00:00 06/01/25 08:57 DC Albuterol Sulfate (Proventil 0.083% 2.5mg/3ml) 2.5 mg Q4H PRN IH SHORTNESS OF BREATH 05/30/25 06:30 05/31/25 22:43 DC Albuterol Sulfate (Proventil 0.083% 2.5mg/3ml) 2.5 mg Q4H PRN IH SHORTNESS OF BREATH 05/31/25 23:00 06/30/25 22:59 Dextrose/Sodium Chloride 1,000 ml @ 100 mls/hr Q10H IV 05/30/25 10:30 05/31/25 16:00 DC 05/30/25 21:49 100 MLS/HR Docusate Sodium (COLace 100MG CAP) 100 mg BID PRN PO CONSTIPATION 06/01/25 09:00 07/01/25 08:59 Docusate Sodium (COLace 100MG CAP) 100 mg BID PRN PO CONSTIPATION 05/30/25 00:00 06/01/25 08:57 DC Enoxaparin Sodium (Lovenox) 40 mg DAILY SQ 06/01/25 09:00 07/01/25 08:59 Enoxaparin Sodium (Lovenox) 40 mg DAILY SQ 05/30/25 17:30 06/01/25 08:59 DC 05/31/25 09:24 40 MG Furosemide (LASix 20MG TAB) 20 mg DAILY PO 06/02/25 09:00 06/02/25 08:15 DC Furosemide (LASix 40MG VIAL) 40 mg Q12H IV 06/01/25 06:00 06/01/25 07:48 DC 06/01/25 06:08 40 MG Furosemide (LASix 40MG VIAL) 40 mg Q12H IV 05/30/25 17:30 06/01/25 05:44 DC 05/31/25 16:37 40 MG Insulin Human Regular (humuLIN R 100 UNIT/ML 3ML) INSULIN SLIDING SCAL... ACHS SQ 06/01/25 11:30 07/01/25 11:29 Insulin Human Regular (humuLIN R 100 UNIT/ML 3ML) INSULIN SLIDING SCAL... ACHS SQ 05/30/25 07:30 06/01/25 08:59 DC Ipratropium [place] (AtrovENT UD) 0.5 mg Q4H PRN IH SHORTNESS OF BREATH 05/30/25 06:30 05/31/25 22:44 DC Ipratropium [place] (AtrovENT UD) 0.5 mg Q4H PRN IH SHORTNESS OF BREATH 05/31/25 23:00 06/30/25 22:59 Labetalol HCl (TRANdate 20MG SYG) 10 mg Q2H PRN IV SBP GREATER THAN 160 05/30/25 00:00 05/31/25 22:43 DC Labetalol HCl (TRANdate 20MG SYG) 10 mg Q2H PRN IV SBP GREATER THAN 160 05/31/25 23:00 06/30/25 22:59 Lactated Ringer's 1,000 ml @ 25 mls/hr Q24H IV 06/02/25 09:30 07/02/25 09:29 Lactated Ringer's 1,000 ml @ 25 mls/hr Q24H IV 05/30/25 06:00 06/01/25 09:05 DC 05/30/25 06:03 50 MLS/HR Lactulose (Constulose 20gm/ 30ml Udcup) 20 gm Q6H PRN PO CONSTIPATION 05/30/25 00:00 05/31/25 22:42 DC Lactulose (Constulose 20gm/ 30ml Udcup) 20 gm Q6H PRN PO CONSTIPATION 05/31/25 23:00 06/30/25 22:59 Magnesium Sulfate 50 ml @ 0 mls/hr NOW IV 06/01/25 14:00 06/01/25 13:58 DC Magnesium Sulfate 50 ml @ 0 mls/hr PROTOCOL PRN IV LOW MG 06/01/25 09:00 07/01/25 08:59 06/02/25 01:32 25 MLS/HR Magnesium Sulfate 50 ml @ 0 mls/hr PROTOCOL PRN IV LOW MG 05/31/25 09:00 06/01/25 08:59 DC Multivitamins Therapeutic (Multivitamin Tablet) 1 tab DAILY PO 06/01/25 09:00 07/01/25 08:59 06/01/25 10:25 1 TAB Multivitamins Therapeutic (Multivitamin Tablet) 1 tab DAILY PO 05/31/25 09:00 06/01/25 08:59 DC 05/31/25 09:24 1 TAB Multivitamins/ Minerals 10 ml/ Folic Acid 1 mg/ Thiamine HCl 100 mg/Sodium Chloride 1,010 ml @ 0 mls/hr DAILY IV 05/30/25 12:00 06/01/25 09:01 DC 06/01/25 10:25 100 MLS/HR Ondansetron HCl (zoFRAN 4MG INJ) 4 mg Q6H PRN IVP NAUSEA/VOMITING 05/30/25 00:00 05/30/25 17:34 DC Ondansetron HCl (zoFRAN 4MG INJ) 4 mg Q8H PRN IVP NAUSEA/VOMITING 05/30/25 17:30 05/31/25 22:45 DC Ondansetron HCl (zoFRAN 4MG INJ) 4 mg Q8H PRN IVP NAUSEA/VOMITING 05/31/25 23:00 06/30/25 22:59 Pantoprazole Sodium (PROTonix 40MG INJ) 40 mg BID IVP 05/30/25 21:00 05/31/25 22:40 DC 05/31/25 09:24 40 MG Pantoprazole Sodium (PROTonix 40MG INJ) 40 mg BID IVP 05/31/25 23:00 06/30/25 22:59 06/01/25 21:45 40 MG Piperacillin Sod/ Tazobactam Sod (Zosyn 3.375gm+NS 50ml) 3.375 gm Q8H IVPB 05/30/25 06:30 05/31/25 22:39 DC 05/31/25 15:46 3.375 GM Piperacillin Sod/ Tazobactam Sod (Zosyn 3.375gm+NS 50ml) 3.375 gm Q8H IVPB 05/31/25 23:00 06/10/25 22:59 06/01/25 21:45 3.375 GM Potassium Chloride 100 ml @ 100 mls/hr AD PRN IV POTASSIUM PROTOCOL 05/30/25 17:30 05/31/25 22:44 DC Potassium Chloride 100 ml @ 100 mls/hr AD PRN IV POTASSIUM PROTOCOL 05/31/25 23:00 06/30/25 22:59 Potassium Chloride (K-Dur/Klor-Con 20meq) 20 meq AD PRN PO POTASSIUM PROTOCOL 05/30/25 17:30 05/31/25 22:45 DC 05/31/25 16:38 20 MEQ Potassium Chloride (K-Dur/Klor-Con 20meq) 20 meq AD PRN PO POTASSIUM PROTOCOL 05/31/25 23:00 06/30/25 22:59 06/01/25 10:28 20 MEQ Potassium Chloride (K-Dur/Klor-Con 20meq) 40 meq BID PO 06/01/25 14:00 07/01/25 13:59 06/01/25 14:59 40 MEQ Potassium Chloride (KCl 10% Elixir 20meq/15ml) 20 meq AD PRN PO POTASSIUM PROTOCOL 05/30/25 17:30 05/31/25 22:45 DC 05/31/25 06:26 20 MEQ Potassium Chloride (KCl 10% Elixir 20meq/15ml) 20 meq AD PRN PO POTASSIUM PROTOCOL 05/31/25 23:00 06/30/25 22:59 Temazepam (restORIL 15 MG CAP) 15 mg HS PRN PO INSOMNIA/SLEEP 06/01/25 09:00 07/01/25 08:59 Temazepam (restORIL 15 MG CAP) 15 mg HS PRN PO INSOMNIA/SLEEP 05/30/25 00:00 06/01/25 08:59 DC Thiamine HCl (Vitamin B-1) 100 mg DAILY IVP 06/02/25 09:00 07/02/25 08:59 Thiamine HCl (Vitamin B-1) 100 mg DAILY IVP 05/30/25 10:30 06/01/25 09:02 DC 05/31/25 09:24 100 MG Diagnostics / Radiology: [COPY/PASTE HERE IF NO REPORTS PLEASE DELETE SECTION] Assessment: [Crohn's disease Acute dehydration Left Pleural effusion Ascending colon mass Copd Anemia ] PLAN Case discussed with Dr Reyes [Cardiac clearance for EGD/Colonoscopy Recommend GI prophylaxis with Protonix 40 BID Optimize hydration Please call with questions concerns, and change in clinical status Thank you for allowing us to be part of this patient's care. Trend HGB and transfuse as needed to goal of HGB> 7 Please call with questions, concerns, and change in clinical status Thank you for this consult. ] RANDALL OCHOA [employer] Jun 02, 2025 10:34
--- NOTE | 2025-06-02 11:17 | PN ---
[facility] PROGRESS NOTE Date of Service: Jun 02, 2025 Time of Service: 11:12 History of Presenting Illness: Mr. Lu is 59-year-old male with a history of Crohn's, GERD, hypertension, multiple colonoscopies, former smoker with 10 years of tobacco use who presented to [facility] ED via EMS for evaluation of increased generalized body weakness for the last six days. According to EMS and family who was on scene the patient has not been eating for the past six days. ED provider reports that the patient also reports mild shortness of breath. Patient reports he has been having diarrhea but it is the same as it usually is due to Crohn's. He states he follows with Dr. Milner as outpatient. The patient denied any melena, hematemesis, fever or chills. The patient reports that the weakness is so bad that he has been bed- bound at home and not ambulating due to not feeling well and feeling very weak. Per chart review the patient was admitted on 04/20/2025 for similar symptoms of general body weakness. Cardiology, GI, and general surgeon evaluated the patient on that admission. The CT abdomen and pelvis done on 04/20/2025 showed colocolic intussusception at the sigmoid colon with underlining mass suspected. Right UPJ obstruction with mild hydronephrosis. GI was consulted who did a colonoscopy that showed partial obstructing polypoid mass in the ascending colon status post partial resection. General surgeon Dr. Santos was consulted who recommended outpatient follow up in elective surgery. Cardiology was consulted for moderate posterior pericardial effusion per echo which also showed global ejection fraction of 65%. The patient was discharged on 04/25/2025. Today WBCs and troponin are WNL. Na 133, total calcium 7.7. Albumin 1.8, total protein 4.8. In ED the patient received Rocephin1 g and NS1 L bolus. ED provider request patient be admitted with the diagnosis of left pleural effusion and failure to thrive. Chest x-ray: Small to moderate pleural effusion on the left side. Lower lobe airspace disease bilaterally, more pronounced on the left side. COPD. No gross interval changes. I assessed the patient at bedside in ED 3. No family at bedside. The patient's breathing was even, unlabored, in no distress. He has edema to bilateral lower extremities and upper extremities (hand edema R>L) Informed him of plan to admit at CT results of left pleural effusion and interpretation of COPD. The patient reports that he has never been told that he has pleural effusion nor COPD and stated that that must be results from another patient. He reports that he never told ED provider that he was short of breath. He states that he is just here because he is very weak and has no appetite. Patient was not contributing with medical questions. He appeared frustrated. Plan and assessment are listed below. SUBJECTIVE: 05/30/25: Patient was evaluated at the bedside in ED 3 today. Patient appeared very frail and weak. Patient has been complaining of generalized weakness since December or January this year. Patient has a past medical history of Crohn's disease follows Dr. Milner on an outpatient basis. Patient says he has no appetite and has nausea and vomiting. Patient does not recall the last time he had a proper meal. He is living with his sister who helps him with his daily activities of living. Patient reports he feels depressed. Denies fever, chills, abdominal pain, diarrhea, melena, and hematemesis. Patient says he had multiple colono scopies in the past and attributes his weakness to these procedures. His TSH is elevated 5.2, low free T3 was 0.55, and free T4 0.97. His serum albumin 1.8. He has Generalized edema prominent in the right lower leg and left leg up to mid calf and in bilateral upper limbs. His CRP is elevated, 77.2, Whole blood ketone is high,3.6 and ABG revealing primary metabolic acidosis, with adequate compensation. Anion gap of 14.6 and corrected anion gap of 20.1. Urine protein creatinine ratio is pending. A CT abdomen and 2D echo were ordered. 05/31/25 Patient was seen and examined at the bedside today. His appetite has improved slightly. He received D5NS and a banana bag yesterday; we will transition to LR. He remains on gentle diuresis with furosemide 40 mg BID for anasarca. GI is scheduled to see him on Monday. We will monitor for refeeding syndrome and recheck magnesium and phosphorus. Chest x-ray and repeat potassium are planned. He is tachycardic and has been bedbound for several days; we will obtain a venous Doppler ultrasound to rule out DVT. CT abdomen showed active colitis, right UPJ obstruction with moderate hydronephrosis, and a calculus in the lower calyx. A urology consult will be requested. Embedded Firmware Engineer recommendations are pending as his appetite has been poor. 06/01/25: The patient was examined at the bedside with family present. He appears malnourished and in mild distress. He is currently receiving a banana bag; daily IV thiamine 100 mg will be initiated tomorrow. Bias Machine Operator Helper recommendations are pending. CT abdomen demonstrated moderate hydronephrosis with a right UPJ calculus in the upper calyx. Urology (Dr. Rhodes) has ordered an IV pyelogram which is scheduled for tomorrow, with outpatient follow-up planned. Cardiology consultation ruled out congestive heart failure but identified a loculated pericardial effusion on Echo. An MRI chest with contrast was recommended; however, this is not available at this facility. For lower extremity edema, cardiology initiated furosemide 20 mg. Gastroenterology was consulted for Crohns disease, malnutrition, and poor appetite; evaluation is scheduled for Monday. Laboratory results: Hgb 9.7 g/dL, potassium 3.6 mmol/L, magnesium 1.5 mg/dL, phosphorus 3.2 mg/dL, albumin 1.3 g/dL. Will monitor closely for signs of refeeding syndrome. The patient remains on Zosyn. Further assessment and plan as discussed below 06/02/2025: Patient was examined at the bedside. He is severely malnourished with muscle and fat loss and is in mild distress. Patient reports improved appetite but still gets nauseous sometimes. Patient was seen by Dr. Eldridge and recommended an MRI chest with contrast for loculated pericardial effusion which is not available at this facility and recommended echo in one month. Pending IVP w/wo tomograms. Previous records of his colonoscopy biopsy from 05/16 showed no high grade dysplasia. Will monitor closely for signs of refeeding syndrome. Case management to work on final disposition as patient exhausted his SNF days. Review of Systems: General: Reports poor appetite and fatigue. Cardiovascular: Reports bilateral upper and lower extremity swelling; denies chest pain or palpitations. Respiratory: Denies shortness of breath or cough. Gastrointestinal: Reports poor appetite; denies abdominal pain, nausea, vomiting, or diarrhea. Genitourinary: No urinary complaints reported. Neurologic: Denies dizziness, syncope, or focal weakness.. General Physical Examination: General: Malnourished-appearing male, in mild distress, examined at bedside Neck: No JVD; trachea midline. Cardiovascular: Regular rate and rhythm; no murmurs, rubs, or gallops appreciated. Respiratory: Equal bilateral breath sounds; no wheezes, crackles, or rhonchi. Abdomen: Soft, non-distended, non-tender; normoactive bowel sounds. Extremities: Bilateral upper and lower extremity edema present; peripheral pulses palpable. Vital Signs (last 8hr) Date Time Temp Pulse Resp B/P (MAP) Pulse Ox O2 Delivery O2 Flow Rate FiO2 06/02/25 08:00 98.2 88 18 122/85 99 Room Air 06/02/25 04:00 97.5 86 20 107/73 97 Room Air LABS: Laboratory: Test 06/02/25 05:26 06/02/25 04:53 06/01/25 04:16 Range/Units Whole Blood Glucose 93 70-110 MG/DL White Blood Count 5.0 4.8-10.8 K/uL Red Blood Count 3.07 L 4.50-6.20 MIL/uL Hemoglobin 10.1 L 14.0-18.0 g/dL Hematocrit 28.4 L 42-54 % Mean Corpuscular Volume 92.5 79-99 fL Mean Corpuscular Hemoglobin 32.9 27.0-33.0 pg Mean Corpuscular Hemoglobin Concent 35.6 32.0-36.0 g/dL Red Cell Distribution Width 16.9 H 11.0-15.5 % Platelet Count 264 130-400 K/uL Mean Platelet Volume 8.4 7.5-10.5 fL Immature Granulocyte % (Auto) 0.4 0-1 % Neutrophils (%) (Auto) 68.9 40.0-77.0 % Lymphocytes (%) (Auto) 20.3 L 21.0-51.0 % Monocytes (%) (Auto) 9.4 3.0-13.0 % Eosinophils (%) (Auto) 0.8 0.0-8.0 % Basophils (%) (Auto) 0.2 0.0-5.0 % Neutrophils # (Auto) 3.5 1.8-7.7 K/uL Lymphocytes # (Auto) 1.0 1.0-4.8 K/uL Monocytes # (Auto) 0.5 0.1-1.0 K/uL Eosinophils # (Auto) 0.04 0.00-0.70 K/uL Basophils # (Auto) 0.01 0.00-0.20 K/uL Absolute Immature Granulocyte (auto 0.02 0-1 K/uL Nucleated Red Blood Cells 0.0 0.0-0.19 % Sodium Level 138 136-145 mmol/L Potassium Level 3.3 L 3.5-5.1 mmol/L Chloride Level 105 101-111 mmol/L Carbon Dioxide Level 25 21-32 mmol/L Blood Urea Nitrogen 21 H 7-18 mg/dL Creatinine 0.9 0.5-1.3 mg/dL Glomerular Filtration Rate Calc 98 >90 mL/min Random Glucose 99 70-105 mg/dL Total Calcium 7.3 L 8.5-10.1 mg/dL Phosphorus Level 3.2 2.5-4.9 mg/dL Magnesium Level 2.10 1.80-2.40 mg/dL Total Bilirubin 0.9 0.2-1.0 mg/dL Direct Bilirubin 0.5 H 0.0-0.3 mg/dL Aspartate Amino Transf (AST/SGOT) 15 10-37 U/L Alanine Aminotransferase (ALT/SGPT) 9 L 12-78 U/L Alkaline Phosphatase 86 50-136 U/L Ammonia 36 H 11-32 umol/L C-Reactive Protein, Quantitative 68.20 H 0.5-3.0 mg/L B-Type Natriuretic Peptide 20 0-100 pg/mL Total Protein 3.9 L 6.0-8.3 g/dL Albumin 1.4 L 3.5-5.0 g/dL Folic Acid (LAB) 6.40 2-20 ng/mL Current Medications Medications (Trade) Dose Ordered Sig/Estelita Route PRN Reason Start Time Stop Time Status Last Admin Dose Admin Acetaminophen (TYLenol 325MG TAB) 650 mg Q6H PRN PO FEVER/MILD PAIN LEVEL 1-3 05/30/25 00:00 05/31/25 22:42 DC Acetaminophen (TYLenol 325MG TAB) 650 mg Q6H PRN PO FEVER/MILD PAIN LEVEL 1-3 05/31/25 23:00 06/30/25 22:59 Acetaminophen (TYLenol 650MG SUPPOSITORY) 650 mg Q6H PRN RC FEVER / MILD PAIN 1-3 IF NPO 06/01/25 09:00 07/01/25 08:59 Acetaminophen (TYLenol 650MG SUPPOSITORY) 650 mg Q6H PRN RC FEVER / MILD PAIN 1-3 IF NPO 05/30/25 00:00 06/01/25 08:57 DC Albuterol Sulfate (Proventil 0.083% 2.5mg/3ml) 2.5 mg Q4H PRN IH SHORTNESS OF BREATH 05/30/25 06:30 05/31/25 22:43 DC Albuterol Sulfate (Proventil 0.083% 2.5mg/3ml) 2.5 mg Q4H PRN IH SHORTNESS OF BREATH 05/31/25 23:00 06/30/25 22:59 Dextrose/Sodium Chloride 1,000 ml @ 100 mls/hr Q10H IV 05/30/25 10:30 05/31/25 16:00 DC 05/30/25 21:49 100 MLS/HR Docusate Sodium (COLace 100MG CAP) 100 mg BID PRN PO CONSTIPATION 06/01/25 09:00 07/01/25 08:59 Docusate Sodium (COLace 100MG CAP) 100 mg BID PRN PO CONSTIPATION 05/30/25 00:00 06/01/25 08:57 DC Enoxaparin Sodium (Lovenox) 40 mg DAILY SQ 06/01/25 09:00 07/01/25 08:59 Enoxaparin Sodium (Lovenox) 40 mg DAILY SQ 05/30/25 17:30 06/01/25 08:59 DC 05/31/25 09:24 40 MG Furosemide (LASix 20MG TAB) 20 mg DAILY PO 06/02/25 09:00 06/02/25 08:15 DC Furosemide (LASix 40MG VIAL) 40 mg Q12H IV 06/01/25 06:00 06/01/25 07:48 DC 06/01/25 06:08 40 MG Furosemide (LASix 40MG VIAL) 40 mg Q12H IV 05/30/25 17:30 06/01/25 05:44 DC 05/31/25 16:37 40 MG Insulin Human Regular (humuLIN R 100 UNIT/ML 3ML) INSULIN SLIDING SCAL... ACHS SQ 06/01/25 11:30 07/01/25 11:29 Insulin Human Regular (humuLIN R 100 UNIT/ML 3ML) INSULIN SLIDING SCAL... ACHS SQ 05/30/25 07:30 06/01/25 08:59 DC Ipratropium Wagoner (AtrovENT UD) 0.5 mg Q4H PRN IH SHORTNESS OF BREATH 05/30/25 06:30 05/31/25 22:44 DC Ipratropium Wagoner (AtrovENT UD) 0.5 mg Q4H PRN IH SHORTNESS OF BREATH 05/31/25 23:00 06/30/25 22:59 Labetalol HCl (TRANdate 20MG SYG) 10 mg Q2H PRN IV SBP GREATER THAN 160 05/30/25 00:00 05/31/25 22:43 DC Labetalol HCl (TRANdate 20MG SYG) 10 mg Q2H PRN IV SBP GREATER THAN 160 05/31/25 23:00 06/30/25 22:59 Lactated Ringer's 1,000 ml @ 25 mls/hr Q24H IV 06/02/25 09:30 07/02/25 09:29 Lactated Ringer's 1,000 ml @ 25 mls/hr Q24H IV 05/30/25 06:00 06/01/25 09:05 DC 05/30/25 06:03 50 MLS/HR Lactulose (Constulose 20gm/ 30ml Udcup) 20 gm Q6H PRN PO CONSTIPATION 05/30/25 00:00 05/31/25 22:42 DC Lactulose (Constulose 20gm/ 30ml Udcup) 20 gm Q6H PRN PO CONSTIPATION 05/31/25 23:00 06/30/25 22:59 Magnesium Sulfate 50 ml @ 0 mls/hr NOW IV 06/01/25 14:00 06/01/25 13:58 DC Magnesium Sulfate 50 ml @ 0 mls/hr PROTOCOL PRN IV LOW MG 06/01/25 09:00 07/01/25 08:59 06/02/25 01:32 25 MLS/HR Magnesium Sulfate 50 ml @ 0 mls/hr PROTOCOL PRN IV LOW MG 05/31/25 09:00 06/01/25 08:59 DC Multivitamins Therapeutic (Multivitamin Tablet) 1 tab DAILY PO 06/01/25 09:00 07/01/25 08:59 06/01/25 10:25 1 TAB Multivitamins Therapeutic (Multivitamin Tablet) 1 tab DAILY PO 05/31/25 09:00 06/01/25 08:59 DC 05/31/25 09:24 1 TAB Multivitamins/ Minerals 10 ml/ Folic Acid 1 mg/ Thiamine HCl 100 mg/Sodium Chloride 1,010 ml @ 0 mls/hr DAILY IV 05/30/25 12:00 06/01/25 09:01 DC 06/01/25 10:25 100 MLS/HR Ondansetron HCl (zoFRAN 4MG INJ) 4 mg Q6H PRN IVP NAUSEA/VOMITING 05/30/25 00:00 05/30/25 17:34 DC Ondansetron HCl (zoFRAN 4MG INJ) 4 mg Q8H PRN IVP NAUSEA/VOMITING 05/30/25 17:30 05/31/25 22:45 DC Ondansetron HCl (zoFRAN 4MG INJ) 4 mg Q8H PRN IVP NAUSEA/VOMITING 05/31/25 23:00 06/30/25 22:59 Pantoprazole Sodium (PROTonix 40MG INJ) 40 mg BID IVP 05/30/25 21:00 05/31/25 22:40 DC 05/31/25 09:24 40 MG Pantoprazole Sodium (PROTonix 40MG INJ) 40 mg BID IVP 05/31/25 23:00 06/30/25 22:59 06/01/25 21:45 40 MG Piperacillin Sod/ Tazobactam Sod (Zosyn 3.375gm+NS 50ml) 3.375 gm Q8H IVPB 05/30/25 06:30 05/31/25 22:39 DC 05/31/25 15:46 3.375 GM Piperacillin Sod/ Tazobactam Sod (Zosyn 3.375gm+NS 50ml) 3.375 gm Q8H IVPB 05/31/25 23:00 06/10/25 22:59 06/01/25 21:45 3.375 GM Potassium Chloride 100 ml @ 100 mls/hr AD PRN IV POTASSIUM PROTOCOL 05/30/25 17:30 05/31/25 22:44 DC Potassium Chloride 100 ml @ 100 mls/hr AD PRN IV POTASSIUM PROTOCOL 05/31/25 23:00 06/30/25 22:59 Potassium Chloride (K-Dur/Klor-Con 20meq) 20 meq AD PRN PO POTASSIUM PROTOCOL 05/30/25 17:30 05/31/25 22:45 DC 05/31/25 16:38 20 MEQ Potassium Chloride (K-Dur/Klor-Con 20meq) 20 meq AD PRN PO POTASSIUM PROTOCOL 05/31/25 23:00 06/30/25 22:59 06/01/25 10:28 20 MEQ Potassium Chloride (K-Dur/Klor-Con 20meq) 20 meq BID PO 06/02/25 21:00 07/02/25 20:59 Potassium Chloride (K-Dur/Klor-Con 20meq) 40 meq BID PO 06/01/25 14:00 07/01/25 13:59 06/01/25 14:59 40 MEQ Potassium Chloride (KCl 10% Elixir 20meq/15ml) 20 meq AD PRN PO POTASSIUM PROTOCOL 05/30/25 17:30 05/31/25 22:45 DC 05/31/25 06:26 20 MEQ Potassium Chloride (KCl 10% Elixir 20meq/15ml) 20 meq AD PRN PO POTASSIUM PROTOCOL 05/31/25 23:00 06/30/25 22:59 Sulfasalazine (AZULfidine 500MG tab DR) 500 mg QID PO 06/02/25 13:00 06/12/25 12:59 Temazepam (restORIL 15 MG CAP) 15 mg HS PRN PO INSOMNIA/SLEEP 06/01/25 09:00 07/01/25 08:59 Temazepam (restORIL 15 MG CAP) 15 mg HS PRN PO INSOMNIA/SLEEP 05/30/25 00:00 06/01/25 08:59 DC Thiamine HCl (Vitamin B-1) 100 mg DAILY IVP 06/02/25 09:00 06/02/25 10:32 DC Thiamine HCl (Vitamin B-1) 100 mg DAILY IVP 05/30/25 10:30 06/01/25 09:02 DC 05/31/25 09:24 100 MG Thiamine HCl (Vitamin B-1) 500 mg DAILY IVP 06/03/25 09:00 06/02/25 10:50 DC DIAGNOSTICS / RADIOLOGY: [ ] ASSESSMENT: Failure to thrive, POA Severe Protein Energy Malnutrition POA Acute colitis on CT abdomen/pelvis Moderate hydronephrosis due to renal calculi Cystitis on Ct abdomen/pelvis Acute on chronic abdominal pain, POA Loculated Pericardial effusion on echo Chronic diarrhea 2/2 Crohn's disease Acute dehydration, elevated BUN/ketonuria History of multiple colonoscopies, followed by Dr. Milner hx of colocolic intussusception at the sigmoid colon with underlining mass suspected, per CT abdomen and pelvis on 04/20/2025 Partial obstructing polypoid mass in the ascending colon status post partial resection, per colonoscopy on 03/2025 admission Left pleural effusion per chest x-ray on 05/30/2025, recurrent, with dyspnea, POA COPD per chest x-ray on 05/30/2025 Anemia of chronic disease Electrolyte derangement (hyponatremia, hypocalcemia) Protein calorie malnutrition/hypoalbuminemia Proteinuria, ketonuria, bilirubinuria, urobilinogenuria, per UA on 05/29/25 Chronic problem list: Crohn's, GERD, hypertension, multiple colonoscopies, former smoker with 10 years of tobacco use History of right UPJ obstruction with mild hydronephrosis, per CT on 04/20/2025 Small to large posterior pericardial effusion, EF > 65%/3D volume EF 68% per echo on 04/21/2025 PLAN: Starvation ketoacidosis * Continue Thiamine 100 mg and MVT QID * IV fluids LR 1000 @25ml/hr * Monitor for phosphorous, magnesium, and electrolytes * Monitor for signs of confusion, delirium, ataxia * Monitor Daily weight, strict I/O, JVP, lung crackles Failure to thrive, Protein calorie malnutrition, hypoalbuminemia * GI recommended Protonix 40mg, no endoscopic evaluation * Dietary consult placed, recommended HH + GI soft/bland diet + jello tid w/ trays and Vit B1 and MVT. * Advance towards goals as tolerated * CT of chest, abdomen, and pelvis showed active colitis and right UPJ obstruction with moderate hydronephrosis * Hepatitis panel - negative Acute Colitis IV fluids, bowel rest, electrolyte correction. Continue IV zosyn Monitor for complications: perforation, toxic megacolon. Hydronephrosis from Right UPJ Obstruction with Calculus in Lower Calyx IVP is scheduled today. Follow up outpatient with Dr. Meagan Crisostomoitis Currently on zosyn Monitor for progression to pyelonephritis, especially given concurrent obstruction. Left sided Pleural effusion, suspected pneumonia * Chest x-ray showed left sided pleural effusion * Will repeat chest x-ray * Serology influenza, COVID, strep screen, tested negative * Continue IV Zosyn 3.375 q8 * Monitor respiratory status. * Oxygen therapy as needed. Titrate oxygen prn to keep Spo2>/+=92%. * Albuterol and Atrovent PRN SOB. * Pulmonology team for recurrent pleural effusion and suspected COPD. Sublicinal Hypothyroidism * TSH is 5.4, free T3 0.55, Free T4 0.97 * Monitor until patient is hemodynamically stable Loculated pericardial effusion * Recommended MRI Chest with contrast * F/u in one month for repeat echo -Monitor for fluid overload (The patient is edematous and dehydrated, ER administered NS 1 L bolus). -Fluid restriction a 1200 mL. -PRN medications for: Pain management, fever, hypertension, N/V, constipation, SOB. -Glucometer checks AC & HS needed with insulin regular sliding scale coverage as needed. -Blood pressure checks every 4 hours and as needed. -Reconcile home medications once available. -Monitor renal and liver function. -Monitor electrolytes and treat accordingly PRN -AM labs. -GI and DVT prophylaxis -Further plan/orders per hospitalization course. ATTESTATION BY PHYSICIAN I have seen and examined the patient. I reviewed the documentation, medical decision making, and treatment plan as noted by the resident provider above. I agree with the findings and plan of care. Wisam Rodriguez MD, HARSHAVARDHA MD Jun 02, 2025 11:17 KORTNEY MACKENZIE MD Jun 02, 2025 11:36
--- NOTE | 2025-06-02 12:32 | NUR ---
Nutrition consult per PCM eval Reviewed labs, notes, and medications. Pt last admin 04/20/25, former smoker, w/ nausea, improved appetite, banana bag 06/01/25, to receive 100 mg b1 06/02/25, MVI, IV abx, K 3.3 (L), elevated BUN 21, Cr WNL, Ca 7.3 (L), elevated CRP, elevated b12, on HH + GI soft/bland diet + easy to chew per chart review. Pt lactose intolerant per chart review. 50%PO intake, wt via supine scale, last bM 06/02/25, mild pitting, moderate fat and muscle loss, no wounds, -100 ml balance 06/01/25 per nursing. Ensure supplements have lactose, prostat jello has protein and no lactose. Consider alternate means of nutrition or appetite stimulant if PO intake does not improve. Pt with severe PCM, Supplement thiamin 100 mg/day for 5-7 days + MVI QD for at least 10 days. Recommendations: -Provide HH + GI soft/bland diet + prostat jello tid w/ trays -Monitor PO intake -Encourage PO intake as able -If poor PO intake continues consider appetite stimulant -Monitor BM -If no BM >3 days consider stool softener -Consider probiotics QD if diarrhea -Monitor electrolytes -Replenish electrolytes per protocol -Monitor wts -Reweigh as able -Order Vit D labs to rule out deficiencies -Provide MVI QD, consider b1 100 mg/day for 5-7 days -Texture per LUNCHROOM WORKER recs -Recommend Pt to follow up with PCP -Monitor goals of care RD to follow + available for consult per protocol Addendum: 06/02/25 at [address] Amended: Links added.
[2025-06-02] MEDS: sulfaSALAzine 500MG tab DR 500 MG/TAB TABLET.DR PO SCH (13:00)
[2025-06-02] MEDS ORDERED: IOHEXOL-350 50ML VIAL IV ONE (13:29)
[2025-06-02] MEDS: LACTATED RINGERS 1000ML 1,000 ML IV SCH (13:30)
[2025-06-02] MEDS: MULTIVITAMIN TABLET PO SCH (14:00)
--- NOTE | 2025-06-02 16:03 | HMCIMG ---
ABD 1VW REASON: Right UPJ obstruction and small bladder stone--PROCESS CONTROL SUPERVISOR FILM FOR IVP FINDINGS: Single image of the abdomen was obtained. Bowel gas pattern is normal. Bones and soft tissues appear unremarkable. The study demonstrate there is a large contrast seen in the lateral right renal pelvis with severe calyectasis. This finding is suggesting of right UPJ obstruction. There are no abnormal calcifications. There is no evidence of foreign body. IMPRESSION: 1. Severe right UPJ obstruction with a large contrast seen in the right renal pelvis measuring approximately 12 x 12 cm. There is associated callus calyectasis. Due to contrast excretion into the right renal pelvis and caliectasis uteropelvic junction. I would recommend once the contrast clears to performing the IVP
--- NOTE | 2025-06-02 18:07 | NUR ---
NOT ON UNIT. AT PROCEDURE FOR IVP WITH TOMOGRAM Addendum: 06/02/25 at 1807 by MANINDER BAIRD LVN Amended: Links added.
[2025-06-02] MEDS ORDERED: PoTASSium chloRIDE 20MEQ ER 20 MEQ ERTAB PO SCH (21:00)
--- NOTE | 2025-06-02 22:18 | HMCIMG ---
EXAM: CR Chest, single view CLINICAL HISTORY: Fluid overload. COMPARISON: Prior chest radiograph dated June 01, 2025 FINDINGS: Mildly increased opacity in the left retrocardiac region and blunting of the left costophrenic angle,probable mild left-sided pleural effusion. The cardiomediastinal silhouette is within normal limits. No evidence of pneumothorax. No acute osseous abnormality. IMPRESSION: Mildly increased opacity in the left retrocardiac region and blunting of the left costophrenic angle,probable mild left-sided pleural effusion. The cardiomediastinal silhouette is within normal limits. No evidence of pneumothorax. Compared to the prior study, there is a mild reduction in the left-sided pleural effusion. /[place]
[2025-06-03] VITALS (8 sets, daily range): BP systolic 98–120; BP diastolic 68–82; PULSE 79–106; RESP 16–20; TEMP 97.9–98.3; O2SAT 97–98
[2025-06-03 05:31] LABS: NUCLEATED RED BLOOD CELLS 0.0 % (0.0-0.19); PLATELET COUNT (AUTO) 189.0 K/uL (130-400); RED BLOOD CELL COUNT(AUTO) 3.1 MIL/uL (4.50-6.20); RED CELL DISTRIBUTION WIDTH 17.4 % (11.0-15.5); WHITE BLOOD COUNT (AUTO) 5.4 K/uL (4.8-10.8)
[2025-06-03 05:39] LABS: CREATININE 0.9 mg/dL (0.5-1.3); GLOMERULAR FILTR. RATE CALC 98.0 mL/min (>90); GLUCOSE,RANDOM 94.0 mg/dL (70-105); PHOSPHORUS 3.1 mg/dL (2.5-4.9); SODIUM SERUM 134.0 mmol/L (136-145); UREA NITROGEN, BLOOD 18.0 mg/dL (7-18)
--- NOTE | 2025-06-03 07:10 | PN ---
[facility] Cardiology Progress Note CARDIOLOGY PROGRESS NOTE JUNE 03, 2025 Problems: 1. Severe hypoalbuminemia of 1.4 with secondary 3rd spacing 2. Crohn's disease 3. Small to moderate loculated pericardial effusion with no signs of tamponade and LV ejection fraction of 65% 4. Hypertension 5. Failure to thrive Blood pressure running 110-120 systolic heart rate in the 70s the patient is afebrile. Hemoglobin 10.1 platelet count [id number] potassium 3.6 BUN 18 creatinine 0.9. The patient continues on Lovenox for DVT prophylaxis insulin scale pantoprazole potassium protocol and antibiotics. The patient is receiving dietary supplementation to try to improve hypoalbuminemia. Clinically the patient has no signs of tamponade and can have a repeat echo in one month's time as suggested by Dr. Eldridge. JORGE SIFUENTES MD Jun 03, 2025 07:10
--- NOTE | 2025-06-03 08:08 | PN ---
GASTROENTEROLOGY PROGRESS NOTE Date of Visit: Jun 03, 2025 Time of Visit: 08:08 Events / Notes: [ No acute events overnight. Patient's vital signs remained stable. WBC 5.0 today, hemoglobin 10.1, hematocrit 28.4, platelets 264. CMP significant for potassium of 3.3, BUN 21, creatinine 0.9, calcium 7.3, total bilirubin 0.9, direct bilirubin 0.5, AST 15, ALT nine, alkaline phosphatase 86, ammonia 36, tot al protein 3.9, albumin 1.4. Urine culture negative. Chest x-ray from 05/31 pending results. Patient reports being tired of not being able to eat. Patient currently pending IVP. Informed we will reevaluated GI status and previous studies and possibly plan for egd/colonoscopy once cleared by cardiology. Patient verbalized understanding and agreement. 06/03/25: Colonoscopies from 04/20/25 and 01/04/[address] Reyes and Dr. Leonardo. 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 A localized are of prolapsed, severely congested masslike erythematous and inflamed mucosa was found int the sigmoid colon. CT showing long segment thickening of the sigmoid colon for a length of 16.4 cm with a max diameter of 5.8cm showing significant inflammation, engorged pericolonic vessels, and mild fat stranding. There is also mild thickening of the splenic flexure, transverse colon, and ascending colon, reflecting underlying active colitis. No evidence of pneumatosis or evident perforation or pericolonic abscess. Recommendations to repeat colonoscopy within the next 12 months. Patient found resting in SF in no acute distress. Patient reports abdominal pain and nausea when attempting to eat clear fluids. Recommend EGD to assess for any pathology. He agreed to proceed. ] Review of Systems: CONSTITUTIONAL: No malaise or change in sensation of wellbeing. ENMT: No rhinorrhea, otorrhea, sinus pain, ear ache. CARDIOVASCULAR: No angina, palpitations, orthopnea or paroxysmal dyspnea. RESPIRATORY: No SOB. GASTROINTESTINAL: No abdominal pain, nausea, vomiting, diarrhea, hematemesis, melena or change in the patient's habitual bowel movements consistency/number. GENITOURINARY: No dysuria, hematuria or change in bladder continence. MUSCULOSKELETAL: No new muscle pain or decrease in muscular strength. No new joint swelling, redness or tenderness. SKIN: No new rash. Physical Exam: GEN: Awake, alert, oriented in person, time and place, and in no acute distress. HEENT: No sinus tenderness. Tympanic membranes were not examined. No rhinorrhea. Oral pharyngeal mucosa is pink, moist and within normal limits. CHEST: Inspection, palpation of the chest were unremarkable. Lung auscultation revealed normal breath sounds bilaterally. CARDIAC: PMI is within normal limits. Heart sounds are regular. ABD: Soft, non-tender and not distended. No peritoneal signs on palpation. No organomegaly. Normal bowel sounds. EXT: No cyanosis or clubbing. No edema. SKIN: Intact. No rashes. JOINTS: No evidence of synovitis or acute arthritis. NEURO: Alert and oriented to name, place and person. Cranial nerve examination is unremarkable. No focal motor deficits. Normal speech. Strength is normal. Vital Signs (last 8hr) Date Time Temp Pulse Resp B/P (MAP) Pulse Ox O2 Delivery O2 Flow Rate FiO2 06/03/25 03:31 98.1 79 16 120/81 99 Room Air Laboratory: [ ] Laboratory: Test 06/03/25 05:07 06/03/25 05:06 06/02/25 04:53 Range/Units Whole Blood Glucose 92 70-110 MG/DL White Blood Count 5.4 4.8-10.8 K/uL Red Blood Count 3.10 L 4.50-6.20 MIL/uL Hemoglobin 10.1 L 14.0-18.0 g/dL Hematocrit 29.4 L 42-54 % Mean Corpuscular Volume 94.8 79-99 fL Mean Corpuscular Hemoglobin 32.6 27.0-33.0 pg Mean Corpuscular Hemoglobin Concent 34.4 32.0-36.0 g/dL Red Cell Distribution Width 17.4 H 11.0-15.5 % Platelet Count 189 # 130-400 K/uL Mean Platelet Volume 8.6 7.5-10.5 fL Nucleated Red Blood Cells 0.0 0.0-0.19 % Sodium Level 134 L 136-145 mmol/L Potassium Level 3.6 3.5-5.1 mmol/L Chloride Level 106 101-111 mmol/L Carbon Dioxide Level 22 21-32 mmol/L Blood Urea Nitrogen 18 7-18 mg/dL Creatinine 0.9 0.5-1.3 mg/dL Glomerular Filtration Rate Calc 98 >90 mL/min Random Glucose 94 70-105 mg/dL Total Calcium 7.3 L 8.5-10.1 mg/dL Phosphorus Level 3.1 2.5-4.9 mg/dL Magnesium Level 2.00 1.80-2.40 mg/dL Immature Granulocyte % (Auto) 0.4 0-1 % Neutrophils (%) (Auto) 68.9 40.0-77.0 % Lymphocytes (%) (Auto) 20.3 L 21.0-51.0 % Monocytes (%) (Auto) 9.4 3.0-13.0 % Eosinophils (%) (Auto) 0.8 0.0-8.0 % Basophils (%) (Auto) 0.2 0.0-5.0 % Neutrophils # (Auto) 3.5 1.8-7.7 K/uL Lymphocytes # (Auto) 1.0 1.0-4.8 K/uL Monocytes # (Auto) 0.5 0.1-1.0 K/uL Eosinophils # (Auto) 0.04 0.00-0.70 K/uL Basophils # (Auto) 0.01 0.00-0.20 K/uL Absolute Immature Granulocyte (auto 0.02 0-1 K/uL Erythrocyte Sedimentation Rate 3 0-20 MM/HR Total Bilirubin 0.9 0.2-1.0 mg/dL Direct Bilirubin 0.5 H 0.0-0.3 mg/dL Aspartate Amino Transf (AST/SGOT) 15 10-37 U/L Alanine Aminotransferase (ALT/SGPT) 9 L 12-78 U/L Alkaline Phosphatase 86 50-136 U/L Ammonia 36 H 11-32 umol/L C-Reactive Protein, Quantitative 68.20 H 0.5-3.0 mg/L B-Type Natriuretic Peptide 20 0-100 pg/mL Total Protein 3.9 L 6.0-8.3 g/dL Albumin 1.4 L 3.5-5.0 g/dL Current Medications Medications (Trade) Dose Ordered Sig/Estelita Route PRN Reason Start Time Stop Time Status Last Admin Dose Admin Acetaminophen (TYLenol 325MG TAB) 650 mg Q6H PRN PO FEVER/MILD PAIN LEVEL 1-3 05/30/25 00:00 05/31/25 22:42 DC Acetaminophen (TYLenol 325MG TAB) 650 mg Q6H PRN PO FEVER/MILD PAIN LEVEL 1-3 05/31/25 23:00 06/30/25 22:59 Acetaminophen (TYLenol 650MG SUPPOSITORY) 650 mg Q6H PRN RC FEVER / MILD PAIN 1-3 IF NPO 06/01/25 09:00 07/01/25 08:59 Acetaminophen (TYLenol 650MG SUPPOSITORY) 650 mg Q6H PRN RC FEVER / MILD PAIN 1-3 IF NPO 05/30/25 00:00 06/01/25 08:57 DC Albuterol Sulfate (Proventil 0.083% 2.5mg/3ml) 2.5 mg Q4H PRN IH SHORTNESS OF BREATH 05/30/25 06:30 05/31/25 22:43 DC Albuterol Sulfate (Proventil 0.083% 2.5mg/3ml) 2.5 mg Q4H PRN IH SHORTNESS OF BREATH 05/31/25 23:00 06/30/25 22:59 Dextrose/Sodium Chloride 1,000 ml @ 100 mls/hr Q10H IV 05/30/25 10:30 05/31/25 16:00 DC 05/30/25 21:49 100 MLS/HR Docusate Sodium (COLace 100MG CAP) 100 mg BID PRN PO CONSTIPATION 06/01/25 09:00 07/01/25 08:59 Docusate Sodium (COLace 100MG CAP) 100 mg BID PRN PO CONSTIPATION 05/30/25 00:00 06/01/25 08:57 DC Enoxaparin Sodium (Lovenox) 40 mg DAILY SQ 06/01/25 09:00 07/01/25 08:59 06/03/25 08:03 40 MG Enoxaparin Sodium (Lovenox) 40 mg DAILY SQ 05/30/25 17:30 06/01/25 08:59 DC 05/31/25 09:24 40 MG Furosemide (LASix 20MG TAB) 20 mg DAILY PO 06/02/25 09:00 06/02/25 08:15 DC Furosemide (LASix 40MG VIAL) 40 mg Q12H IV 06/01/25 06:00 06/01/25 07:48 DC 06/01/25 06:08 40 MG Furosemide (LASix 40MG VIAL) 40 mg Q12H IV 05/30/25 17:30 06/01/25 05:44 DC 05/31/25 16:37 40 MG Insulin Human Regular (humuLIN R 100 UNIT/ML 3ML) INSULIN SLIDING SCAL... ACHS SQ 06/01/25 11:30 07/01/25 11:29 Insulin Human Regular (humuLIN R 100 UNIT/ML 3ML) INSULIN SLIDING SCAL... ACHS SQ 05/30/25 07:30 06/01/25 08:59 DC Ipratropium [place] (AtrovENT UD) 0.5 mg Q4H PRN IH SHORTNESS OF BREATH 05/30/25 06:30 05/31/25 22:44 DC Ipratropium [place] (AtrovENT UD) 0.5 mg Q4H PRN IH SHORTNESS OF BREATH 05/31/25 23:00 06/30/25 22:59 Labetalol HCl (TRANdate 20MG SYG) 10 mg Q2H PRN IV SBP GREATER THAN 160 05/30/25 00:00 05/31/25 22:43 DC Labetalol HCl (TRANdate 20MG SYG) 10 mg Q2H PRN IV SBP GREATER THAN 160 05/31/25 23:00 06/30/25 22:59 Lactated Ringer's 1,000 ml @ 25 mls/hr Q24H IV 06/02/25 09:30 07/02/25 09:29 06/02/25 13:30 25 MLS/HR Lactated Ringer's 1,000 ml @ 25 mls/hr Q24H IV 05/30/25 06:00 06/01/25 09:05 DC 05/30/25 06:03 50 MLS/HR Lactulose (Constulose 20gm/ 30ml Udcup) 20 gm Q6H PRN PO CONSTIPATION 05/30/25 00:00 05/31/25 22:42 DC Lactulose (Constulose 20gm/ 30ml Udcup) 20 gm Q6H PRN PO CONSTIPATION 05/31/25 23:00 06/30/25 22:59 Magnesium Sulfate 50 ml @ 0 mls/hr NOW IV 06/01/25 14:00 06/01/25 13:58 DC Magnesium Sulfate 50 ml @ 0 mls/hr PROTOCOL PRN IV LOW MG 06/01/25 09:00 07/01/25 08:59 06/02/25 01:32 25 MLS/HR Magnesium Sulfate 50 ml @ 0 mls/hr PROTOCOL PRN IV LOW MG 05/31/25 09:00 06/01/25 08:59 DC Multivitamins Therapeutic (Multivitamin Tablet) 1 tab DAILY PO 06/01/25 09:00 06/02/25 13:46 DC 06/01/25 10:25 1 TAB Multivitamins Therapeutic (Multivitamin Tablet) 1 tab DAILY PO 05/31/25 09:00 06/01/25 08:59 DC 05/31/25 09:24 1 TAB Multivitamins Therapeutic (Multivitamin Tablet) 1 tab QID PO 06/02/25 14:00 07/01/25 08:59 06/03/25 08:01 1 TAB Multivitamins/ Minerals 10 ml/ Folic Acid 1 mg/ Thiamine HCl 100 mg/Sodium Chloride 1,010 ml @ 0 mls/hr DAILY IV 05/30/25 12:00 06/01/25 09:01 DC 06/01/25 10:25 100 MLS/HR Ondansetron HCl (zoFRAN 4MG INJ) 4 mg Q6H PRN IVP NAUSEA/VOMITING 05/30/25 00:00 05/30/25 17:34 DC Ondansetron HCl (zoFRAN 4MG INJ) 4 mg Q8H PRN IVP NAUSEA/VOMITING 05/30/25 17:30 05/31/25 22:45 DC Ondansetron HCl (zoFRAN 4MG INJ) 4 mg Q8H PRN IVP NAUSEA/VOMITING 05/31/25 23:00 06/30/25 22:59 Pantoprazole Sodium (PROTonix 40MG INJ) 40 mg BID IVP 05/30/25 21:00 05/31/25 22:40 DC 05/31/25 09:24 40 MG Pantoprazole Sodium (PROTonix 40MG INJ) 40 mg BID IVP 05/31/25 23:00 06/30/25 22:59 06/03/25 08:01 40 MG Piperacillin Sod/ Tazobactam Sod (Zosyn 3.375gm+NS 50ml) 3.375 gm Q8H IVPB 05/30/25 06:30 05/31/25 22:39 DC 05/31/25 15:46 3.375 GM Piperacillin Sod/ Tazobactam Sod (Zosyn 3.375gm+NS 50ml) 3.375 gm Q8H IVPB 05/31/25 23:00 06/10/25 22:59 06/03/25 06:48 3.375 GM Potassium Chloride 100 ml @ 100 mls/hr AD PRN IV POTASSIUM PROTOCOL 05/30/25 17:30 05/31/25 22:44 DC Potassium Chloride 100 ml @ 100 mls/hr AD PRN IV POTASSIUM PROTOCOL 05/31/25 23:00 06/30/25 22:59 Potassium Chloride (K-Dur/Klor-Con 20meq) 20 meq AD PRN PO POTASSIUM PROTOCOL 05/30/25 17:30 05/31/25 22:45 DC 05/31/25 16:38 20 MEQ Potassium Chloride (K-Dur/Klor-Con 20meq) 20 meq AD PRN PO POTASSIUM PROTOCOL 05/31/25 23:00 06/30/25 22:59 06/01/25 10:28 20 MEQ Potassium Chloride (K-Dur/Klor-Con 20meq) 20 meq BID PO 06/02/25 21:00 06/02/25 11:43 DC Potassium Chloride (K-Dur/Klor-Con 20meq) 40 meq BID PO 06/01/25 14:00 07/01/25 13:59 06/03/25 08:01 40 MEQ Potassium Chloride (KCl 10% Elixir 20meq/15ml) 20 meq AD PRN PO POTASSIUM PROTOCOL 05/30/25 17:30 05/31/25 22:45 DC 05/31/25 06:26 20 MEQ Potassium Chloride (KCl 10% Elixir 20meq/15ml) 20 meq AD PRN PO POTASSIUM PROTOCOL 05/31/25 23:00 06/30/25 22:59 Sulfasalazine (AZULfidine 500MG tab DR) 500 mg QID PO 06/02/25 13:00 06/12/25 12:59 06/03/25 08:01 500 MG Temazepam (restORIL 15 MG CAP) 15 mg HS PRN PO INSOMNIA/SLEEP 06/01/25 09:00 07/01/25 08:59 Temazepam (restORIL 15 MG CAP) 15 mg HS PRN PO INSOMNIA/SLEEP 05/30/25 00:00 06/01/25 08:59 DC Thiamine HCl (Vitamin B-1) 100 mg DAILY IVP 06/02/25 09:00 06/02/25 10:32 DC Thiamine HCl (Vitamin B-1) 100 mg DAILY IVP 05/30/25 10:30 06/01/25 09:02 DC 05/31/25 09:24 100 MG Thiamine HCl (Vitamin B-1) 500 mg DAILY IVP 06/03/25 09:00 06/02/25 10:50 DC Diagnostics / Radiology: [COPY/PASTE HERE IF NO REPORTS PLEASE DELETE SECTION] Assessment: [Crohn's disease Acute dehydration Left Pleural effusion Ascending colon mass Copd Anemia ] PLAN Case discussed with Dr Reyes and Dr. Leonardo Plan for EGD in am NPO after midnight Recommend GI prophylaxis with Protonix 40 BID Optimize hydration and nutrition Please call with questions concerns, and change in clinical status Thank you for allowing us to be part of this patient's care. Trend HGB and transfuse as needed to goal of HGB> 7 Patient can be followed up as outpatient for management of Crohns, Recommend repeat colonoscopy within 1 year. Please call with questions, concerns, and change in clinical status Thank you for this consult. ] RANDALL OCHOA ENGINEER/CONDUCTOR Jun 03, 2025 08:08
[2025-06-03] MEDS ORDERED: THIAMINE HCL 100 MG/ML 2ML VIAL IVP SCH (09:00)
--- NOTE | 2025-06-03 13:31 | PN ---
[facility] PROGRESS NOTE Date of Service: Jun 03, 2025 Time of Service: 13:02 History of Presenting Illness: Mr. Lu is 59-year-old male with a history of Crohn's, GERD, hypertension, multiple colonoscopies, former smoker with 10 years of tobacco use who presented to [facility] ED via EMS for evaluation of increased generalized body weakness for the last six days. According to EMS and family who was on scene the patient has not been eating for the past six days. ED provider reports that the patient also reports mild shortness of breath. Patient reports he has been having diarrhea but it is the same as it usually is due to Crohn's. He states he follows with Dr. Milner as outpatient. The patient denied any melena, hematemesis, fever or chills. The patient reports that the weakness is so bad that he has been bed- bound at home and not ambulating due to not feeling well and feeling very weak. Per chart review the patient was admitted on 04/20/2025 for similar symptoms of general body weakness. Cardiology, GI, and general surgeon evaluated the patient on that admission. The CT abdomen and pelvis done on 04/20/2025 showed colocolic intussusception at the sigmoid colon with underlining mass suspected. Right UPJ obstruction with mild hydronephrosis. GI was consulted who did a colonoscopy that showed partial obstructing polypoid mass in the ascending colon status post partial resection. General surgeon Dr. Santos was consulted who recommended outpatient follow up in elective surgery. Cardiology was consulted for moderate posterior pericardial effusion per echo which also showed global ejection fraction of 65%. The patient was discharged on 04/25/2025. Today WBCs and troponin are WNL. Na 133, total calcium 7.7. Albumin 1.8, total protein 4.8. In ED the patient received Rocephin1 g and NS1 L bolus. ED provider request patient be admitted with the diagnosis of left pleural effusion and failure to thrive. Chest x-ray: Small to moderate pleural effusion on the left side. Lower lobe airspace disease bilaterally, more pronounced on the left side. COPD. No gross interval changes. I assessed the patient at bedside in ED 3. No family at bedside. The patient's breathing was even, unlabored, in no distress. He has edema to bilateral lower extremities and upper extremities (hand edema R>L) Informed him of plan to admit at CT results of left pleural effusion and interpretation of COPD. The patient reports that he has never been told that he has pleural effusion nor COPD and stated that that must be results from another patient. He reports that he never told ED provider that he was short of breath. He states that he is just here because he is very weak and has no appetite. Patient was not contributing with medical questions. He appeared frustrated. Plan and assessment are listed below. SUBJECTIVE: 05/30/25: Patient was evaluated at the bedside in ED 3 today. Patient appeared very frail and weak. Patient has been complaining of generalized weakness since December or January this year. Patient has a past medical history of Crohn's disease follows Dr. Milner on an outpatient basis. Patient says he has no appetite and has nausea and vomiting. Patient does not recall the last time he had a proper meal. He is living with his sister who helps him with his daily activities of living. Patient reports he feels depressed. Denies fever, chills, abdominal pain, diarrhea, melena, and hematemesis. Patient says he had multiple colono scopies in the past and attributes his weakness to these procedures. His TSH is elevated 5.2, low free T3 was 0.55, and free T4 0.97. His serum albumin 1.8. He has Generalized edema prominent in the right lower leg and left leg up to mid calf and in bilateral upper limbs. His CRP is elevated, 77.2, Whole blood ketone is high,3.6 and ABG revealing primary metabolic acidosis, with adequate compensation. Anion gap of 14.6 and corrected anion gap of 20.1. Urine protein creatinine ratio is pending. A CT abdomen and 2D echo were ordered. 05/31/25 Patient was seen and examined at the bedside today. His appetite has improved slightly. He received D5NS and a banana bag yesterday; we will transition to LR. He remains on gentle diuresis with furosemide 40 mg BID for anasarca. GI is scheduled to see him on Monday. We will monitor for refeeding syndrome and recheck magnesium and phosphorus. Chest x-ray and repeat potassium are planned. He is tachycardic and has been bedbound for several days; we will obtain a venous Doppler ultrasound to rule out DVT. CT abdomen showed active colitis, right UPJ obstruction with moderate hydronephrosis, and a calculus in the lower calyx. A urology consult will be requested. Director Employment recommendations are pending as his appetite has been poor. 06/01/25: The patient was examined at the bedside with family present. He appears malnourished and in mild distress. He is currently receiving a banana bag; daily IV thiamine 100 mg will be initiated tomorrow. Developer Programmer recommendations are pending. CT abdomen demonstrated moderate hydronephrosis with a right UPJ calculus in the upper calyx. Urology (Dr. Rhodes) has ordered an IV pyelogram which is scheduled for tomorrow, with outpatient follow-up planned. Cardiology consultation ruled out congestive heart failure but identified a loculated pericardial effusion on Echo. An MRI chest with contrast was recommended; however, this is not available at this facility. For lower extremity edema, cardiology initiated furosemide 20 mg. Gastroenterology was consulted for Crohns disease, malnutrition, and poor appetite; evaluation is scheduled for Monday. Laboratory results: Hgb 9.7 g/dL, potassium 3.6 mmol/L, magnesium 1.5 mg/dL, phosphorus 3.2 mg/dL, albumin 1.3 g/dL. Will monitor closely for signs of refeeding syndrome. The patient remains on Zosyn. Further assessment and plan as discussed below 06/02/2025: Patient was examined at the bedside. He is severely malnourished with muscle and fat loss and is in mild distress. Patient reports improved appetite but still gets nauseous sometimes. Patient was seen by Dr. Eldridge and recommended an MRI chest with contrast for loculated pericardial effusion which is not available at this facility and recommended echo in one month. Pending IVP w/wo tomograms. Previous records of his colonoscopy biopsy from 05/16 showed no high grade dysplasia. Will monitor closely for signs of refeeding syndrome. Case management to work on final disposition as patient exhausted his SNF days. 06/03/25: Patient was examined at the bed side. He looks weak however reports increased appetite today. Nutritional evaluation was done yesterday and they recommended Prostat Jello with protein as he is lactose intolerant. Today Dr. Keller reviewed his previous Colonoscopies from 03/31/25 and 01/04/25 and concluded that patient can be followed up for Crohn's on an outpatient basis. They recommended Protonix 40mg BID and a repeat colonoscopy in 1 year. Patient was tested for right UPJ obstruction with IV pyelogram yesterday however the study could not be conclusive as there was 12 x 12 cm of contrast collection in the right UPJ. They recommended a repeat IVP once the contrast material is cleared. Case management advised the patient be discharged to [facility], a private day care once the imaging is completed. Review of Systems: General: Reports poor appetite and fatigue. Cardiovascular: Reports bilateral upper and lower extremity swelling; denies chest pain or palpitations. Respiratory: Denies shortness of breath or cough. Gastrointestinal: Reports poor appetite; denies abdominal pain, nausea, vomiting, or diarrhea. Genitourinary: No urinary complaints reported. Neurologic: Denies dizziness, syncope, or focal weakness.. General Physical Examination: General: Malnourished-appearing male, in mild distress, examined at bedside Neck: No JVD; trachea midline. Cardiovascular: Regular rate and rhythm; no murmurs, rubs, or gallops appreciated. Respiratory: Equal bilateral breath sounds; no wheezes, crackles, or rhonchi. Abdomen: Soft, non-distended, non-tender; normoactive bowel sounds. Extremities: Bilateral upper and lower extremity edema present; peripheral pulses palpable. Vital Signs (last 8hr) Date Time Temp Pulse Resp B/P (MAP) Pulse Ox O2 Delivery O2 Flow Rate FiO2 06/03/25 08:00 97.9 95 18 119/82 97 Room Air LABS: Laboratory: Test 06/03/25 11:21 06/03/25 11:10 06/03/25 05:06 06/02/25 04:53 Range/Units Whole Blood Glucose 114 H 70-110 MG/DL Procalcitonin 0.05 0.05-0.5 ng/mL White Blood Count 5.4 4.8-10.8 K/uL Red Blood Count 3.10 L 4.50-6.20 MIL/uL Hemoglobin 10.1 L 14.0-18.0 g/dL Hematocrit 29.4 L 42-54 % Mean Corpuscular Volume 94.8 79-99 fL Mean Corpuscular Hemoglobin 32.6 27.0-33.0 pg Mean Corpuscular Hemoglobin Concent 34.4 32.0-36.0 g/dL Red Cell Distribution Width 17.4 H 11.0-15.5 % Platelet Count 189 # 130-400 K/uL Mean Platelet Volume 8.6 7.5-10.5 fL Nucleated Red Blood Cells 0.0 0.0-0.19 % Sodium Level 134 L 136-145 mmol/L Potassium Level 3.6 3.5-5.1 mmol/L Chloride Level 106 101-111 mmol/L Carbon Dioxide Level 22 21-32 mmol/L Blood Urea Nitrogen 18 7-18 mg/dL Creatinine 0.9 0.5-1.3 mg/dL Glomerular Filtration Rate Calc 98 >90 mL/min Random Glucose 94 70-105 mg/dL Total Calcium 7.3 L 8.5-10.1 mg/dL Phosphorus Level 3.1 2.5-4.9 mg/dL Magnesium Level 2.00 1.80-2.40 mg/dL Immature Granulocyte % (Auto) 0.4 0-1 % Neutrophils (%) (Auto) 68.9 40.0-77.0 % Lymphocytes (%) (Auto) 20.3 L 21.0-51.0 % Monocytes (%) (Auto) 9.4 3.0-13.0 % Eosinophils (%) (Auto) 0.8 0.0-8.0 % Basophils (%) (Auto) 0.2 0.0-5.0 % Neutrophils # (Auto) 3.5 1.8-7.7 K/uL Lymphocytes # (Auto) 1.0 1.0-4.8 K/uL Monocytes # (Auto) 0.5 0.1-1.0 K/uL Eosinophils # (Auto) 0.04 0.00-0.70 K/uL Basophils # (Auto) 0.01 0.00-0.20 K/uL Absolute Immature Granulocyte (auto 0.02 0-1 K/uL Erythrocyte Sedimentation Rate 3 0-20 MM/HR Total Bilirubin 0.9 0.2-1.0 mg/dL Direct Bilirubin 0.5 H 0.0-0.3 mg/dL Aspartate Amino Transf (AST/SGOT) 15 10-37 U/L Alanine Aminotransferase (ALT/SGPT) 9 L 12-78 U/L Alkaline Phosphatase 86 50-136 U/L Ammonia 36 H 11-32 umol/L C-Reactive Protein, Quantitative 68.20 H 0.5-3.0 mg/L B-Type Natriuretic Peptide 20 0-100 pg/mL Total Protein 3.9 L 6.0-8.3 g/dL Albumin 1.4 L 3.5-5.0 g/dL Current Medications Medications (Trade) Dose Ordered Sig/Estelita Route PRN Reason Start Time Stop Time Status Last Admin Dose Admin Acetaminophen (TYLenol 325MG TAB) 650 mg Q6H PRN PO FEVER/MILD PAIN LEVEL 1-3 05/30/25 00:00 05/31/25 22:42 DC Acetaminophen (TYLenol 325MG TAB) 650 mg Q6H PRN PO FEVER/MILD PAIN LEVEL 1-3 05/31/25 23:00 06/30/25 22:59 Acetaminophen (TYLenol 650MG SUPPOSITORY) 650 mg Q6H PRN RC FEVER / MILD PAIN 1-3 IF NPO 06/01/25 09:00 07/01/25 08:59 Acetaminophen (TYLenol 650MG SUPPOSITORY) 650 mg Q6H PRN RC FEVER / MILD PAIN 1-3 IF NPO 05/30/25 00:00 06/01/25 08:57 DC Albuterol Sulfate (Proventil 0.083% 2.5mg/3ml) 2.5 mg Q4H PRN IH SHORTNESS OF BREATH 05/30/25 06:30 05/31/25 22:43 DC Albuterol Sulfate (Proventil 0.083% 2.5mg/3ml) 2.5 mg Q4H PRN IH SHORTNESS OF BREATH 05/31/25 23:00 06/30/25 22:59 Dextrose/Sodium Chloride 1,000 ml @ 100 mls/hr Q10H IV 05/30/25 10:30 05/31/25 16:00 DC 05/30/25 21:49 100 MLS/HR Docusate Sodium (COLace 100MG CAP) 100 mg BID PRN PO CONSTIPATION 06/01/25 09:00 07/01/25 08:59 Docusate Sodium (COLace 100MG CAP) 100 mg BID PRN PO CONSTIPATION 05/30/25 00:00 06/01/25 08:57 DC Enoxaparin Sodium (Lovenox) 40 mg DAILY SQ 06/01/25 09:00 07/01/25 08:59 06/03/25 08:03 40 MG Enoxaparin Sodium (Lovenox) 40 mg DAILY SQ 05/30/25 17:30 06/01/25 08:59 DC 05/31/25 09:24 40 MG Furosemide (LASix 20MG TAB) 20 mg DAILY PO 06/02/25 09:00 06/02/25 08:15 DC Furosemide (LASix 40MG VIAL) 40 mg Q12H IV 06/01/25 06:00 06/01/25 07:48 DC 06/01/25 06:08 40 MG Furosemide (LASix 40MG VIAL) 40 mg Q12H IV 05/30/25 17:30 06/01/25 05:44 DC 05/31/25 16:37 40 MG Insulin Human Regular (humuLIN R 100 UNIT/ML 3ML) INSULIN SLIDING SCAL... ACHS SQ 06/01/25 11:30 07/01/25 11:29 Insulin Human Regular (humuLIN R 100 UNIT/ML 3ML) INSULIN SLIDING SCAL... ACHS SQ 05/30/25 07:30 06/01/25 08:59 DC Ipratropium [place] (AtrovENT UD) 0.5 mg Q4H PRN IH SHORTNESS OF BREATH 05/30/25 06:30 05/31/25 22:44 DC Ipratropium [place] (AtrovENT UD) 0.5 mg Q4H PRN IH SHORTNESS OF BREATH 05/31/25 23:00 06/30/25 22:59 Labetalol HCl (TRANdate 20MG SYG) 10 mg Q2H PRN IV SBP GREATER THAN 160 05/30/25 00:00 05/31/25 22:43 DC Labetalol HCl (TRANdate 20MG SYG) 10 mg Q2H PRN IV SBP GREATER THAN 160 05/31/25 23:00 06/30/25 22:59 Lactated Ringer's 1,000 ml @ 25 mls/hr Q24H IV 06/02/25 09:30 07/02/25 09:29 06/03/25 08:51 25 MLS/HR Lactated Ringer's 1,000 ml @ 25 mls/hr Q24H IV 05/30/25 06:00 06/01/25 09:05 DC 05/30/25 06:03 50 MLS/HR Lactulose (Constulose 20gm/ 30ml Udcup) 20 gm Q6H PRN PO CONSTIPATION 05/30/25 00:00 05/31/25 22:42 DC Lactulose (Constulose 20gm/ 30ml Udcup) 20 gm Q6H PRN PO CONSTIPATION 05/31/25 23:00 06/30/25 22:59 Magnesium Sulfate 50 ml @ 0 mls/hr NOW IV 06/01/25 14:00 06/01/25 13:58 DC Magnesium Sulfate 50 ml @ 0 mls/hr PROTOCOL PRN IV LOW MG 06/01/25 09:00 07/01/25 08:59 06/02/25 01:32 25 MLS/HR Magnesium Sulfate 50 ml @ 0 mls/hr PROTOCOL PRN IV LOW MG 05/31/25 09:00 06/01/25 08:59 DC Multivitamins Therapeutic (Multivitamin Tablet) 1 tab DAILY PO 06/01/25 09:00 06/02/25 13:46 DC 06/01/25 10:25 1 TAB Multivitamins Therapeutic (Multivitamin Tablet) 1 tab DAILY PO 05/31/25 09:00 06/01/25 08:59 DC 05/31/25 09:24 1 TAB Multivitamins Therapeutic (Multivitamin Tablet) 1 tab QID PO 06/02/25 14:00 07/01/25 08:59 06/03/25 08:01 1 TAB Multivitamins/ Minerals 10 ml/ Folic Acid 1 mg/ Thiamine HCl 100 mg/Sodium Chloride 1,010 ml @ 0 mls/hr DAILY IV 05/30/25 12:00 06/01/25 09:01 DC 06/01/25 10:25 100 MLS/HR Ondansetron HCl (zoFRAN 4MG INJ) 4 mg Q6H PRN IVP NAUSEA/VOMITING 05/30/25 00:00 05/30/25 17:34 DC Ondansetron HCl (zoFRAN 4MG INJ) 4 mg Q8H PRN IVP NAUSEA/VOMITING 05/30/25 17:30 05/31/25 22:45 DC Ondansetron HCl (zoFRAN 4MG INJ) 4 mg Q8H PRN IVP NAUSEA/VOMITING 05/31/25 23:00 06/30/25 22:59 Pantoprazole Sodium (PROTonix 40MG INJ) 40 mg BID IVP 05/30/25 21:00 05/31/25 22:40 DC 05/31/25 09:24 40 MG Pantoprazole Sodium (PROTonix 40MG INJ) 40 mg BID IVP 05/31/25 23:00 06/30/25 22:59 06/03/25 08:01 40 MG Piperacillin Sod/ Tazobactam Sod (Zosyn 3.375gm+NS 50ml) 3.375 gm Q8H IVPB 05/30/25 06:30 05/31/25 22:39 DC 05/31/25 15:46 3.375 GM Piperacillin Sod/ Tazobactam Sod (Zosyn 3.375gm+NS 50ml) 3.375 gm Q8H IVPB 05/31/25 23:00 06/10/25 22:59 06/03/25 06:48 3.375 GM Potassium Chloride 100 ml @ 100 mls/hr AD PRN IV POTASSIUM PROTOCOL 05/30/25 17:30 05/31/25 22:44 DC Potassium Chloride 100 ml @ 100 mls/hr AD PRN IV POTASSIUM PROTOCOL 05/31/25 23:00 06/30/25 22:59 Potassium Chloride (K-Dur/Klor-Con 20meq) 20 meq AD PRN PO POTASSIUM PROTOCOL 05/30/25 17:30 05/31/25 22:45 DC 05/31/25 16:38 20 MEQ Potassium Chloride (K-Dur/Klor-Con 20meq) 20 meq AD PRN PO POTASSIUM PROTOCOL 05/31/25 23:00 06/30/25 22:59 06/01/25 10:28 20 MEQ Potassium Chloride (K-Dur/Klor-Con 20meq) 20 meq BID PO 06/02/25 21:00 06/02/25 11:43 DC Potassium Chloride (K-Dur/Klor-Con 20meq) 40 meq BID PO 06/01/25 14:00 07/01/25 13:59 06/03/25 08:01 40 MEQ Potassium Chloride (KCl 10% Elixir 20meq/15ml) 20 meq AD PRN PO POTASSIUM PROTOCOL 05/30/25 17:30 05/31/25 22:45 DC 05/31/25 06:26 20 MEQ Potassium Chloride (KCl 10% Elixir 20meq/15ml) 20 meq AD PRN PO POTASSIUM PROTOCOL 05/31/25 23:00 06/30/25 22:59 Sulfasalazine (AZULfidine 500MG tab DR) 500 mg QID PO 06/02/25 13:00 06/12/25 12:59 06/03/25 08:01 500 MG Temazepam (restORIL 15 MG CAP) 15 mg HS PRN PO INSOMNIA/SLEEP 06/01/25 09:00 07/01/25 08:59 Temazepam (restORIL 15 MG CAP) 15 mg HS PRN PO INSOMNIA/SLEEP 05/30/25 00:00 06/01/25 08:59 DC Thiamine HCl (Vitamin B-1) 100 mg DAILY IVP 06/02/25 09:00 06/02/25 10:32 DC Thiamine HCl (Vitamin B-1) 100 mg DAILY IVP 05/30/25 10:30 06/01/25 09:02 DC 05/31/25 09:24 100 MG Thiamine HCl (Vitamin B-1) 500 mg DAILY IVP 06/03/25 09:00 06/02/25 10:50 DC DIAGNOSTICS / RADIOLOGY: [ ] PATIENT: KIMBERLEY LU MR#: [id number] : 1965 SEX: M AGE: 59 LOCATION: [facility] ORDER [id number] STATUS: ADM IN REPORT#: [id number] SERVICE 1021 REASON: Right UPJ obstruction and small bladder stone--NATURAL RESOURCE MANAGER FILM FOR IVP ORDERING PHYSICIAN: LIAM SCHWAB MD PROCEDURE: ABD 1VW - ABD 1VW ABD 1VW REASON: Right UPJ obstruction and small bladder stone--NATURAL RESOURCE MANAGER FILM FOR IVP FINDINGS: Single image of the abdomen was obtained. Bowel gas pattern is normal. Bones and soft tissues appear unremarkable. The study demonstrate there is a large contrast seen in the lateral right renal pelvis with severe calyectasis. This finding is suggesting of right UPJ obstruction. There are no abnormal calcifications. There is no evidence of foreign body. IMPRESSION: 1. Severe right UPJ obstruction with a large contrast seen in the right renal pelvis measuring approximately 12 x 12 cm. There is associated callus calyectasis. Due to contrast excretion into the right renal pelvis and caliectasis uteropelvic junction. I would recommend once the contrast clears to performing the IVP DICTATED BY: RENE MERIDA MD DATE: 06/02/25 1558 ELECTRONICALLY SIGNED BY: RENE MERIDA MD DATE: 06/02/25 1603 PATIENT: KIMBERLEY LU MR#: [id number] : 1965 SEX: M AGE: 59 LOCATION: [facility] ORDER 1342 STATUS: ADM IN REPORT#: [id number] SERVICE 1341 REASON: fluid overload ORDERING PHYSICIAN: KORTNEY MACKENZIE MD PROCEDURE: CXR1VW - CHEST 1VW EXAM: CR Chest, single view CLINICAL HISTORY: Fluid overload. COMPARISON: Prior chest radiograph dated June 01, 2025 FINDINGS: Mildly increased opacity in the left retrocardiac region and blunting of the left costophrenic angle,probable mild left-sided pleural effusion. The cardiomediastinal silhouette is within normal limits. No evidence of pneumothorax. No acute osseous abnormality. IMPRESSION: Mildly increased opacity in the left retrocardiac region and blunting of the left costophrenic angle,probable mild left-sided pleural effusion. The cardiomediastinal silhouette is within normal limits. No evidence of pneumothorax. Compared to the prior study, there is a mild reduction in the left-sided pleural effusion. /[place] DICTATED BY: STEPHIE EVANS Jr., MD DATE: 06/02/252316 ELECTRONICALLY SIGNED BY: STEPHIE EVANS Jr., MD DATE: 06/02/252316 ASSESSMENT: Failure to thrive, POA Severe Protein Energy Malnutrition POA Acute colitis on CT abdomen/pelvis Moderate hydronephrosis due to renal calculi Cystitis on Ct abdomen/pelvis Acute on chronic abdominal pain, POA Loculated Pericardial effusion on echo Chronic diarrhea 2/2 Crohn's disease Acute dehydration, elevated BUN/ketonuria History of multiple colonoscopies, followed by Dr. Milner hx of colocolic intussusception at the sigmoid colon with underlining mass suspected, per CT abdomen and pelvis on 04/20/2025 Partial obstructing polypoid mass in the ascending colon status post partial resection, per colonoscopy on 03/2025 admission Left pleural effusion per chest x-ray on 05/30/2025, recurrent, with dyspnea, POA COPD per chest x-ray on 05/30/2025 Anemia of chronic disease Electrolyte derangement (hyponatremia, hypocalcemia) Protein calorie malnutrition/hypoalbuminemia Proteinuria, ketonuria, bilirubinuria, urobilinogenuria, per UA on 05/29/25 Chronic problem list: Crohn's, GERD, hypertension, multiple colonoscopies, former smoker with 10 years of tobacco use History of right UPJ obstruction with mild hydronephrosis, per CT on 04/20/2025 Small to large posterior pericardial effusion, EF > 65%/3D volume EF 68% per echo on 04/21/2025 PLAN: Starvation ketoacidosis * Continue Thiamine 100 mg and MVT QID * IV fluids LR 1000 @25ml/hr * Monitor for phosphorous, magnesium, and electrolytes * Monitor for signs of confusion, delirium, ataxia * Monitor Daily weight, strict I/O, JVP, lung crackles Failure to thrive, Protein calorie malnutrition, hypoalbuminemia * GI recommended Protonix 40mg BID, no endoscopic evaluation * Dietary consult placed, recommended HH + GI soft/bland diet + jello tid w/ trays and Vit B1 and MVT. * Advance towards goals as tolerated * CT of chest, abdomen, and pelvis showed active colitis and right UPJ obstruction with moderate hydronephrosis * Hepatitis panel - negative * Start Mirtazapine for increasing appetite and improved mood. Acute Colitis IV fluids, bowel rest, electrolyte correction. Continue IV zosyn Monitor for complications: perforation, toxic megacolon. Hydronephrosis from Right UPJ Obstruction with Calculus in Lower Calyx * A 6.4 mm calculus in the dependent portion of the bladder with wall thickening of 4.5 mm. * A 12 x 12 cm larger contrast collection seen at the right UPJ. * Dr. Merida recommended a repeat IVP once the contrast clears at the UPJ * Follow up outpatient with Dr. Rhodes Cystemigdio Currently on zosyn Monitor for progression to pyelonephritis, especially given concurrent obstruction. Left sided Pleural effusion, suspected pneumonia * Chest x-ray showed left sided pleural effusion * Will repeat chest x-ray * Serology influenza, COVID, strep screen, tested negative * Continue IV Zosyn 3.375 q8 * Monitor respiratory status. * Oxygen therapy as needed. Titrate oxygen prn to keep Spo2>/+=92%. * Albuterol and Atrovent PRN SOB. * Pulmonology team for recurrent pleural effusion and suspected COPD. Sublicinal Hypothyroidism * TSH is 5.4, free T3 0.55, Free T4 0.97 * Monitor until patient is hemodynamically stable Loculated pericardial effusion * Recommended MRI Chest with contrast * F/u in one month for repeat echo -Monitor for fluid overload (The patient is edematous and dehydrated, ER administered NS 1 L bolus). -Fluid restriction a 1200 mL. -PRN medications for: Pain management, fever, hypertension, N/V, constipation, SOB. -Glucometer checks AC & HS needed with insulin regular sliding scale coverage as needed. -Blood pressure checks every 4 hours and as needed. -Reconcile home medications once available. -Monitor renal and liver function. -Monitor electrolytes and treat accordingly PRN -AM labs. -GI and DVT prophylaxis -Further plan/orders per hospitalization course. ATTESTATION BY PHYSICIAN I have seen and examined the patient. I reviewed the documentation, medical decision making, and treatment plan as noted by the resident provider above. I agree with the findings and plan of care. ÁNGELA GAYLE MD, HARSHAVARDHA MD Jun 03, 2025 13:31
--- NOTE | 2025-06-03 14:04 | NUR ---
DC PLAN VISITED WITH PATIENT. SPOKE TO SISTER EXPLAINED NO SNF DAYS LEFT SAID PLAN IS FOR [facility]. [phone] SANDY. STEFFANIE SIGNED. SANDY SAID PATIENT BED WILL BE AVAILABLE TOMORROW 06/04/25. SAID THEY HAVE A TRANSPORT EMS BUT THAT [facility] DOES NOT LET THEM COME HERE DUE TO ORDINANCES. SAID WILL NEED TO HAVE [facility] EMS. [address]FIRMED [address]ESS [id number] [place] [address]. REQUESTED MEDICAL RECORDS FAX [phone]. Addendum: 06/03/25 at 1413 by ALYSE HURST RN CM Amended: Links added.
--- NOTE | 2025-06-03 14:38 | PN ---
[facility] PROGRESS NOTE Date Patient Seen: Jun 03, 2025 Time of Visit: 14:28 Supervising Physician: REYNALDO STANFORD MD Primary Care Physician: BABAR GONZALES MD Outpatient Specialists: Inpatient Consults: [facility] pulmonary, Dr Rhodes, Dr Faulkner, Dr Eldridge PROBLEM LIST: Bilateral small pleural effusion greater on the left not amenable for thoracentesis Acute on chronic diastolic heart failure with a LVEF of 65%, improving. 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 Neumann, previous . Dyspnea Generalized body weakness Electrolyte derangement syndrome: Hypokalemia, Hyponatremia mild, & Hypomagnesemia CHRONIC PROBLEM LIST: Crohn's disease GERD Hypertension Former smoker 10 years COPD, undiagnosed and untreated RECOMMENDATIONS: Pleural effusion too small for thoracentesis. Recommend against thoracentesis due to possibility of pneumothorax and complications. Patient may follow up with pulmonology in 1-2 weeks post discharge. Disposition per primary team INTERVAL HISTORY: Kimberley Lu is a 59-year-old gentleman, patient of Dr. Babar Gonzales, health history: Hypertension, Crohn's disease, GERD, former smoker for 10 years, suspect COPD, undiagnosed and untreated,and obstructing polypoid mass ascending colon s/p partial resection, patient to follow up with Dr. Neumann, previous admission 04/20/2020, presents to the emergency department, yesterday evening, 05/29/2025 for generalized body weakness and dyspnea. Patient reports for the past six days to feel generalized body weakness has progressively worsened. Additionally, the patient is having increase shortness of the breath with minimal activities. Patient also reports feeling more bloated and that his legs are swollen. The patient had a previous admission on with similar symptoms was clinically worked up and diagnosed with obstructing polypoid mass ascending colon s/p partial resection, patient to follow up with Dr. Neumann as an outpatient. The patient did not. Consulted to assist with management of recurrent pleural effusion left lower lung. 06/03/25 were reconsulted for pleural effusion. Chest x-ray shows small left pleural effusion. On bedside point of care ultrasound pleural effusion too small to be amenable for thoracentesis. High-risk for pneumothorax and complications. Patient denies any shortness of breath, chest pain, or palpitations. He is in no apparent distress currently saturating 95% on room air hemodynamically stable and afebrile. Patient may follow up on discharge in 1-2 weeks with pulmonology for further testing. REVIEW OF SYSTEMS: General: No malaise or fever. Neurological: No fainting episodes or seizures. HEENT: No nasal congestion or nasal secretion. Respiratory: No cough, shortness of breath, or wheezing Cardiac: No chest pain or palpitations. Gastrointestinal: No vomiting or diarrhea. Genitourinary: No dysuria hematuria. Skin: No rashes or lesions. Hematological: No bruises or bleeding. Musculoskeletal: No joint pains or arthralgias. Psychiatric: No depression or panic attacks. PHYSICAL EXAM: GENERAL: alert, , awake oriented x 3 HEENT: EOMI, Sclera non icteric, moist mucosa NECK: Supple, no JVD, trachea midline LUNGS: Absent lung sounds to right lower lobe, clear to others lung sounds. No wheezes HEART: Regular rate and rhythm. Normal S1 and S2, without murmurs ABD: Abdomen soft, distended, nontender. Bowel sounds present EXT: No clubbing cyanosis bilateral pitting edema NEURO: Alert and oriented to person, follows commands Vital Signs (last 8hr) Date Time Temp Pulse Resp B/P (MAP) Pulse Ox O2 Delivery O2 Flow Rate FiO2 06/03/25 12:00 98.2 106 17 98/72 95 Room Air 06/03/25 08:00 97.9 95 18 119/82 97 Room Air LABS: Hematology Labs: Test 06/03/25 05:06 06/02/25 04:53 Range/Units White Blood Count 5.4 4.8-10.8 K/uL Red Blood Count 3.10 L 4.50-6.20 MIL/uL Hemoglobin 10.1 L 14.0-18.0 g/dL Hematocrit 29.4 L 42-54 % Mean Corpuscular Volume 94.8 79-99 fL Mean Corpuscular Hemoglobin 32.6 27.0-33.0 pg Mean Corpuscular Hemoglobin Concent 34.4 32.0-36.0 g/dL Red Cell Distribution Width 17.4 H 11.0-15.5 % Platelet Count 189 # 130-400 K/uL Mean Platelet Volume 8.6 7.5-10.5 fL Nucleated Red Blood Cells 0.0 0.0-0.19 % Immature Granulocyte % (Auto) 0.4 0-1 % Neutrophils (%) (Auto) 68.9 40.0-77.0 % Lymphocytes (%) (Auto) 20.3 L 21.0-51.0 % Monocytes (%) (Auto) 9.4 3.0-13.0 % Eosinophils (%) (Auto) 0.8 0.0-8.0 % Basophils (%) (Auto) 0.2 0.0-5.0 % Neutrophils # (Auto) 3.5 1.8-7.7 K/uL Lymphocytes # (Auto) 1.0 1.0-4.8 K/uL Monocytes # (Auto) 0.5 0.1-1.0 K/uL Eosinophils # (Auto) 0.04 0.00-0.70 K/uL Basophils # (Auto) 0.01 0.00-0.20 K/uL Absolute Immature Granulocyte (auto 0.02 0-1 K/uL Erythrocyte Sedimentation Rate 3 0-20 MM/HR Chemistry Labs: Test 06/03/25 11:21 06/03/25 11:10 06/03/25 05:06 06/02/25 04:53 Range/Units Whole Blood Glucose 114 H 70-110 MG/DL Procalcitonin 0.05 0.05-0.5 ng/mL Sodium Level 134 L 136-145 mmol/L Potassium Level 3.6 3.5-5.1 mmol/L Chloride Level 106 101-111 mmol/L Carbon Dioxide Level 22 21-32 mmol/L Blood Urea Nitrogen 18 7-18 mg/dL Creatinine 0.9 0.5-1.3 mg/dL Glomerular Filtration Rate Calc 98 >90 mL/min Random Glucose 94 70-105 mg/dL Total Calcium 7.3 L 8.5-10.1 mg/dL Phosphorus Level 3.1 2.5-4.9 mg/dL Magnesium Level 2.00 1.80-2.40 mg/dL Vitamin D 25-Hydroxy 101.4 30.0-100.0 ng/mL Total Bilirubin 0.9 0.2-1.0 mg/dL Direct Bilirubin 0.5 H 0.0-0.3 mg/dL Aspartate Amino Transf (AST/SGOT) 15 10-37 U/L Alanine Aminotransferase (ALT/SGPT) 9 L 12-78 U/L Alkaline Phosphatase 86 50-136 U/L Ammonia 36 H 11-32 umol/L C-Reactive Protein, Quantitative 68.20 H 0.5-3.0 mg/L B-Type Natriuretic Peptide 20 0-100 pg/mL Total Protein 3.9 L 6.0-8.3 g/dL Albumin 1.4 L 3.5-5.0 g/dL DIAGNOSTICS / RADIOLOGY RESULTS: [ ][facility] [address] [place] [address] IMAGING REPORT Signed PATIENT: KIMBERLEY LU MR#: [id number] : 1965 SEX: M AGE: 59 LOCATION: [facility] ORDER 41 STATUS: ADM IN REPORT#: [id number] SERVICE 40 REASON: fluid overload ORDERING PHYSICIAN: KORTNEY MACKENZIE MD PROCEDURE: CXR1VW - CHEST 1VW EXAM: CR Chest, single view CLINICAL HISTORY: Fluid overload. COMPARISON: Prior chest radiograph dated June 01, 2025 FINDINGS: Mildly increased opacity in the left retrocardiac region and blunting of the left costophrenic angle,probable mild left-sided pleural effusion. The cardiomediastinal silhouette is within normal limits. No evidence of pneumothorax. No acute osseous abnormality. IMPRESSION: Mildly increased opacity in the left retrocardiac region and blunting of the left costophrenic angle,probable mild left-sided pleural effusion. The cardiomediastinal silhouette is within normal limits. No evidence of pneumothorax. Compared to the prior study, there is a mild reduction in the left-sided pleural effusion. /[place] DICTATED BY: STEPHIE EVANS Jr., MD DATE: 06/02/252316 ELECTRONICALLY SIGNED BY: STEPHIE EVANS Jr., MD DATE: 06/02/252316 PLAN Thoracentesis not recommended. Pleural effusion too small to be amenable for thoracentesis. From pulmonary standpoint patient can Follow up with pulmonology 1-2 weeks post discharge. Dispo per primary NEURO: Minimize central acting medications as possible. Maintain fall precautions, adequate lighting during the day PULMONARY: Supplemental 02 as needed. Maintain aspiration precautions at all times CARDIOVASCULAR: Follow hemodynamics. Vital signs per facility protocol GI & NUTRITION: Continue with nutritional support. Continue stool softeners and laxatives as needed. KIDNEYS & ELECTROLYTES: Strict monitoring of intake, output and overall fluid balance. Avoid nephrotoxic medications to the extent possible. Medications to be dosed according to renal function. Monitor electrolytes and replace as needed ENDOCRINE: Maintain blood glucose between 100-180 at all times. Hypoglycemia protocol in place INFECTIOUS DISEASE: Trend temperature, WBC and procalcitonin level Follow cultures, deescalate antibiotics as soon as possible. Panculture if new onset fever ONCOLOGY/HEMATOLOGY/COAGULATION: Monitor for s/s of bleeding Monitor hemoglobin, coagulation studies as needed SKIN: Pressure ulcer prevention per facility protocol Specialty mattress ORTHO/REHAB: Continue PT/OT Prophylaxis: Continue GI and DVT prophylaxis Code Status: Full Resuscitation Disposition: TBD Other: ATTESTATION BY PHYSICIAN I attest that I reviewed and discussed the case with the Physician Quality Control Technician as well as agree with the Physician Quality Control Technician's findings, plans of care, and documentation above. Reynaldo Stuart MD, [facility] Jun 03, 2025 14:38
[2025-06-03] MEDS ORDERED: PEG 3350/NA SULF,BICARB,CL/KCL 4000 ML SOLN PO ONE (16:00)
[2025-06-04] VITALS (12 sets, daily range): BP systolic 87–158; BP diastolic 54–84; PULSE 69–96; RESP 13–20; TEMP 97.5–98.3; O2SAT 98–99
[2025-06-04 06:47] LABS: NUCLEATED RED BLOOD CELLS 0.0 % (0.0-0.19); PLATELET COUNT (AUTO) 245.0 K/uL (130-400); RED BLOOD CELL COUNT(AUTO) 3.14 MIL/uL (4.50-6.20); RED CELL DISTRIBUTION WIDTH 17.5 % (11.0-15.5); WHITE BLOOD COUNT (AUTO) 4.4 K/uL (4.8-10.8)
[2025-06-04 06:55] LABS: CREATININE 0.9 mg/dL (0.5-1.3); GLOMERULAR FILTR. RATE CALC 98.0 mL/min (>90); GLUCOSE,RANDOM 80.0 mg/dL (70-105); SODIUM SERUM 136.0 mmol/L (136-145); UREA NITROGEN, BLOOD 19.0 mg/dL (7-18)
[2025-06-04 07:14] LABS: C DIFFICILE TOXIN A/B Detected (Not Detected); ENTEROAGGREGATIVE ECOLI Not Detected (Not Detected); GIARDIA LAMBLIA Not Detected (Not Detected); PLESIOMONAS SHIGELOIDES Not Detected (Not Detected); SAPOVIRUS Not Detected (Not Detected); SHIGELLA/ENTEROINVASIVE E COLI Not Detected (Not Detected); VIBRIO Not Detected (Not Detected); VIBRIO CHOLERAE Not Detected (Not Detected)
--- NOTE | 2025-06-04 14:15 | PN ---
[facility] PROGRESS NOTE Date Patient Seen: Jun 04, 2025 Time of Visit: 14:14 Supervising Physician: Dr. Moreno Primary Care Physician: BABAR THOMPSON MD Outpatient Specialists: Inpatient Consults: [facility] pulmonary, Dr Rhodes, Dr Faulkner, Dr Eldridge PROBLEM LIST: Bilateral small pleural effusion greater on the left not amenable for thoracentesis Acute on chronic diastolic heart failure with a LVEF of 65%, improving. 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 Neumann, kevin . Dyspnea Generalized body weakness Electrolyte derangement syndrome: Hypokalemia, Hyponatremia mild, & Hypomagnesemia CHRONIC PROBLEM LIST: Crohn's disease GERD Hypertension Former smoker 10 years COPD, undiagnosed and untreated RECOMMENDATIONS: Pleural effusion too small for thoracentesis. Recommend against thoracentesis due to possibility of pneumothorax and complications. Patient may follow up with pulmonology in 1-2 weeks post discharge. Disposition per primary team INTERVAL HISTORY: Patient is seen at bedside today, currently on room air. Patient denies any chest pain or shortness of breath. Small pleural effusions on chest x-ray show no indication for thoracentesis at this time. We recommend to continue with conservative management. Patient should follow up with [facility] 1-2 weeks after discharge to ensure resolution of his pleural effusions. REVIEW OF SYSTEMS: General: No malaise or fever. Neurological: No fainting episodes or seizures. HEENT: No nasal congestion or nasal secretion. Respiratory: No cough, shortness of breath, or wheezing Cardiac: No chest pain or palpitations. Gastrointestinal: No vomiting or diarrhea. Genitourinary: No dysuria hematuria. Skin: No rashes or lesions. Hematological: No bruises or bleeding. Musculoskeletal: No joint pains or arthralgias. Psychiatric: No depression or panic attacks. PHYSICAL EXAM: GENERAL: alert, , awake oriented x 3 HEENT: EOMI, Sclera non icteric, moist mucosa NECK: Supple, no JVD, trachea midline LUNGS: Absent lung sounds to right lower lobe, clear to others lung sounds. No wheezes HEART: Regular rate and rhythm. Normal S1 and S2, without murmurs ABD: Abdomen soft, distended, nontender. Bowel sounds present EXT: No clubbing cyanosis bilateral pitting edema NEURO: Alert and oriented to person, follows commands Vital Signs (last 8hr) Date Time Temp Pulse Resp B/P (MAP) Pulse Ox O2 Delivery O2 Flow Rate FiO2 06/04/25 12:00 97.5 85 17 99/70 100 Room Air 06/04/25 09:06 97.9 79 17 101/68 96 Room Air 21 06/04/25 09:01 80 16 99/67 96 Room Air 21 06/04/25 08:56 81 16 96/69 97 Room Air 21 06/04/25 08:51 82 14 93/59 100 Nonrebreathing Mask 10.0 100 06/04/25 08:46 80 14 92/56 100 Nonrebreathing Mask 10.0 100 06/04/25 08:41 81 15 87/58 100 Nonrebreathing Mask 10.0 100 06/04/25 08:36 97.9 90 13 89/54 100 Nonrebreathing Mask 10.0 100 06/04/25 08:29 Mask 10.0 06/04/25 08:29 Mask 06/04/25 08:00 98.1 69 17 158/84 97 Room Air 06/04/25 08:00 98 Room Air* 0 21 LABS: Hematology Labs: Test 06/04/25 04:26 Range/Units White Blood Count 4.4 L 4.8-10.8 K/uL Red Blood Count 3.14 L 4.50-6.20 MIL/uL Hemoglobin 10.2 L 14.0-18.0 g/dL Hematocrit 29.4 L 42-54 % Mean Corpuscular Volume 93.6 79-99 fL Mean Corpuscular Hemoglobin 32.5 27.0-33.0 pg Mean Corpuscular Hemoglobin Concent 34.7 32.0-36.0 g/dL Red Cell Distribution Width 17.5 H 11.0-15.5 % Platelet Count 245 # 130-400 K/uL Mean Platelet Volume 8.7 7.5-10.5 fL Nucleated Red Blood Cells 0.0 0.0-0.19 % Chemistry Labs: Test 06/04/25 11:59 06/04/25 04:26 06/03/25 11:10 06/03/25 05:06 Range/Units Whole Blood Glucose 74 70-110 MG/DL Sodium Level 136 136-145 mmol/L Potassium Level 3.8 3.5-5.1 mmol/L Chloride Level 105 101-111 mmol/L Carbon Dioxide Level 24 21-32 mmol/L Blood Urea Nitrogen 19 H 7-18 mg/dL Creatinine 0.9 0.5-1.3 mg/dL Glomerular Filtration Rate Calc 98 >90 mL/min Random Glucose 80 70-105 mg/dL Total Calcium 7.6 L 8.5-10.1 mg/dL Procalcitonin 0.05 0.05-0.5 ng/mL Phosphorus Level 3.1 2.5-4.9 mg/dL Magnesium Level 2.00 1.80-2.40 mg/dL Vitamin D 25-Hydroxy 101.4 30.0-100.0 ng/mL DIAGNOSTICS / RADIOLOGY RESULTS: [ ] PLAN Thoracentesis not recommended. Pleural effusion too small to be amenable for thoracentesis. From pulmonary standpoint patient can Follow up with pulmonology 1-2 weeks post discharge. Dispo per primary NEURO: Minimize central acting medications as possible. Maintain fall precautions, adequate lighting during the day PULMONARY: Supplemental 02 as needed. Maintain aspiration precautions at all times CARDIOVASCULAR: Follow hemodynamics. Vital signs per facility protocol GI & NUTRITION: Continue with nutritional support. Continue stool softeners and laxatives as needed. KIDNEYS & ELECTROLYTES: Strict monitoring of intake, output and overall fluid balance. Avoid nephrotoxic medications to the extent possible. Medications to be dosed according to renal function. Monitor electrolytes and replace as needed ENDOCRINE: Maintain blood glucose between 100-180 at all times. Hypoglycemia protocol in place INFECTIOUS DISEASE: Trend temperature, WBC and procalcitonin level Follow cultures, deescalate antibiotics as soon as possible. Panculture if new onset fever ONCOLOGY/HEMATOLOGY/COAGULATION: Monitor for s/s of bleeding Monitor hemoglobin, coagulation studies as needed SKIN: Pressure ulcer prevention per facility protocol Specialty mattress ORTHO/REHAB: Continue PT/OT Prophylaxis: Continue GI and DVT prophylaxis Code Status: Full Resuscitation Disposition: TBD Other: MATEO SHEEHAN Jun 04, 2025 14:15
--- NOTE | 2025-06-04 14:42 | PN ---
[facility] PROGRESS NOTE Date of Service: Jun 04, 2025 Time of Service: 14:27 History of Presenting Illness: Mr. Lu is 59-year-old male with a history of Crohn's, GERD, hypertension, multiple colonoscopies, former smoker with 10 years of tobacco use who presented to [facility] ED via EMS for evaluation of increased generalized body weakness for the last six days. According to EMS and family who was on scene the patient has not been eating for the past six days. ED provider reports that the patient also reports mild shortness of breath. Patient reports he has been having diarrhea but it is the same as it usually is due to Crohn's. He states he follows with Dr. Milner as outpatient. The patient denied any melena, hematemesis, fever or chills. The patient reports that the weakness is so bad that he has been bed- bound at home and not ambulating due to not feeling well and feeling very weak. Per chart review the patient was admitted on 04/20/2025 for similar symptoms of general body weakness. Cardiology, GI, and general surgeon evaluated the patient on that admission. The CT abdomen and pelvis done on 04/20/2025 showed colocolic intussusception at the sigmoid colon with underlining mass suspected. Right UPJ obstruction with mild hydronephrosis. GI was consulted who did a colonoscopy that showed partial obstructing polypoid mass in the ascending colon status post partial resection. General surgeon Dr. Santos was consulted who recommended outpatient follow up in elective surgery. Cardiology was consulted for moderate posterior pericardial effusion per echo which also showed global ejection fraction of 65%. The patient was discharged on 04/25/2025. Today WBCs and troponin are WNL. Na 133, total calcium 7.7. Albumin 1.8, total protein 4.8. In ED the patient received Rocephin1 g and NS1 L bolus. ED provider request patient be admitted with the diagnosis of left pleural effusion and failure to thrive. Chest x-ray: Small to moderate pleural effusion on the left side. Lower lobe airspace disease bilaterally, more pronounced on the left side. COPD. No gross interval changes. I assessed the patient at bedside in ED 3. No family at bedside. The patient's breathing was even, unlabored, in no distress. He has edema to bilateral lower extremities and upper extremities (hand edema R>L) Informed him of plan to admit at CT results of left pleural effusion and interpretation of COPD. The patient reports that he has never been told that he has pleural effusion nor COPD and stated that that must be results from another patient. He reports that he never told ED provider that he was short of breath. He states that he is just here because he is very weak and has no appetite. Patient was not contributing with medical questions. He appeared frustrated. Plan and assessment are listed below. SUBJECTIVE: 05/30/25: Patient was evaluated at the bedside in ED 3 today. Patient appeared very frail and weak. Patient has been complaining of generalized weakness since December or January this year. Patient has a past medical history of Crohn's disease follows Dr. Milner on an outpatient basis. Patient says he has no appetite and has nausea and vomiting. Patient does not recall the last time he had a proper meal. He is living with his sister who helps him with his daily activities of living. Patient reports he feels depressed. Denies fever, chills, abdominal pain, diarrhea, melena, and hematemesis. Patient says he had multiple colono scopies in the past and attributes his weakness to these procedures. His TSH is elevated 5.2, low free T3 was 0.55, and free T4 0.97. His serum albumin 1.8. He has Generalized edema prominent in the right lower leg and left leg up to mid calf and in bilateral upper limbs. His CRP is elevated, 77.2, Whole blood ketone is high,3.6 and ABG revealing primary metabolic acidosis, with adequate compensation. Anion gap of 14.6 and corrected anion gap of 20.1. Urine protein creatinine ratio is pending. A CT abdomen and 2D echo were ordered. 05/31/25 Patient was seen and examined at the bedside today. His appetite has improved slightly. He received D5NS and a banana bag yesterday; we will transition to LR. He remains on gentle diuresis with furosemide 40 mg BID for anasarca. GI is scheduled to see him on Monday. We will monitor for refeeding syndrome and recheck magnesium and phosphorus. Chest x-ray and repeat potassium are planned. He is tachycardic and has been bedbound for several days; we will obtain a venous Doppler ultrasound to rule out DVT. CT abdomen showed active colitis, right UPJ obstruction with moderate hydronephrosis, and a calculus in the lower calyx. A urology consult will be requested. Oven Loader recommendations are pending as his appetite has been poor. 06/01/25: The patient was examined at the bedside with family present. He appears malnourished and in mild distress. He is currently receiving a banana bag; daily IV thiamine 100 mg will be initiated tomorrow. Gravity Meter Operator recommendations are pending. CT abdomen demonstrated moderate hydronephrosis with a right UPJ calculus in the upper calyx. Urology (Dr. Rhodes) has ordered an IV pyelogram which is scheduled for tomorrow, with outpatient follow-up planned. Cardiology consultation ruled out congestive heart failure but identified a loculated pericardial effusion on Echo. An MRI chest with contrast was recommended; however, this is not available at this facility. For lower extremity edema, cardiology initiated furosemide 20 mg. Gastroenterology was consulted for Crohns disease, malnutrition, and poor appetite; evaluation is scheduled for Monday. Laboratory results: Hgb 9.7 g/dL, potassium 3.6 mmol/L, magnesium 1.5 mg/dL, phosphorus 3.2 mg/dL, albumin 1.3 g/dL. Will monitor closely for signs of refeeding syndrome. The patient remains on Zosyn. Further assessment and plan as discussed below 06/02/2025: Patient was examined at the bedside. He is severely malnourished with muscle and fat loss and is in mild distress. Patient reports improved appetite but still gets nauseous sometimes. Patient was seen by Dr. Eldridge and recommended an MRI chest with contrast for loculated pericardial effusion which is not available at this facility and recommended echo in one month. Pending IVP w/wo tomograms. Previous records of his colonoscopy biopsy from 05/16 showed no high grade dysplasia. Will monitor closely for signs of refeeding syndrome. Case management to work on final disposition as patient exhausted his SNF days. 06/03/25: Patient was examined at the bed side. He looks weak however reports increased appetite today. Nutritional evaluation was done yesterday and they recommended Prostat Jello with protein as he is lactose intolerant. Today Dr. Keller reviewed his previous Colonoscopies from 03/31/25 and 01/04/25 and concluded that patient can be followed up for Crohn's on an outpatient basis. They recommended Protonix 40mg BID and a repeat colonoscopy in 1 year. Patient was tested for right UPJ obstruction with IV pyelogram yesterday however the study could not be conclusive as there was 12 x 12 cm of contrast collection in the right UPJ. They recommended a repeat IVP once the contrast material is cleared. Case management advised the patient be discharged to [facility], a private day care once the imaging is completed. 06/04/2025: Patient was examined at the bedside and he looked frail. He had more prominent swelling of the left upper and lower limbs. Patient has been NPO since yesterday for a planned EGD this morning. The EGD showed a diaphragmatic hernia without obstruction. Patient continues to have nausea and poor appetite. Patient's sister was in the room who said his decline started since July last year. His sister reports he lost about 60 lb in a period of 3 months since then. Patient was started on mirtazapine yesterday however could not take it due to nausea. Today Marinol a started to be taken 30 minutes before meals to improve his appetite. IV fluids have been stopped as his 3rd spacing and albumin 25% infusion is started and a repeat chest x-ray ordered. A repeat IVP with tomography will be performed today and cortisol a.m. ordered. Review of Systems: General: Reports poor appetite and fatigue. Cardiovascular: Reports bilateral upper and lower extremity swelling; denies chest pain or palpitations. Respiratory: Denies shortness of breath or cough. Gastrointestinal: Reports poor appetite; denies abdominal pain, nausea, vomiting, or diarrhea. Genitourinary: No urinary complaints reported. Neurologic: Denies dizziness, syncope, or focal weakness.. General Physical Examination: General: Malnourished-appearing male, in mild distress, examined at bedside Neck: No JVD; trachea midline. Cardiovascular: Regular rate and rhythm; no murmurs, rubs, or gallops appreciated. Respiratory: Equal bilateral breath sounds; no wheezes, crackles, or rhonchi. Abdomen: Soft, non-distended, non-tender; normoactive bowel sounds. Extremities: Bilateral upper and lower extremity edema present; prominent on left peripheral pulses palpable. Vital Signs (last 8hr) Date Time Temp Pulse Resp B/P (MAP) Pulse Ox O2 Delivery O2 Flow Rate FiO2 06/04/25 12:00 97.5 85 17 99/70 100 Room Air 06/04/25 09:06 97.9 79 17 101/68 96 Room Air 21 06/04/25 09:01 80 16 99/67 96 Room Air 21 06/04/25 08:56 81 16 96/69 97 Room Air 06/04/25 08:51 82 14 93/59 100 Nonrebreathing Mask 10.0 100 06/04/25 08:46 80 14 92/56 100 Nonrebreathing Mask 10.0 100 06/04/25 08:41 81 15 87/58 100 Nonrebreathing Mask 10.0 100 06/04/25 08:36 97.9 90 13 89/54 100 Nonrebreathing Mask 10.0 100 06/04/25 08:29 Mask 10.0 06/04/25 08:29 Mask 06/04/25 08:00 98.1 69 17 158/84 97 Room Air 06/04/25 08:00 98 Room Air* 0 21 LABS: Laboratory: Test 06/04/25 11:59 06/04/25 04:26 06/03/25 11:10 06/03/25 05:06 Range/Units Whole Blood Glucose 74 70-110 MG/DL White Blood Count 4.4 L 4.8-10.8 K/uL Red Blood Count 3.14 L 4.50-6.20 MIL/uL Hemoglobin 10.2 L 14.0-18.0 g/dL Hematocrit 29.4 L 42-54 % Mean Corpuscular Volume 93.6 79-99 fL Mean Corpuscular Hemoglobin 32.5 27.0-33.0 pg Mean Corpuscular Hemoglobin Concent 34.7 32.0-36.0 g/dL Red Cell Distribution Width 17.5 H 11.0-15.5 % Platelet Count 245 # 130-400 K/uL Mean Platelet Volume 8.7 7.5-10.5 fL Nucleated Red Blood Cells 0.0 0.0-0.19 % Sodium Level 136 136-145 mmol/L Potassium Level 3.8 3.5-5.1 mmol/L Chloride Level 105 101-111 mmol/L Carbon Dioxide Level 24 21-32 mmol/L Blood Urea Nitrogen 19 H 7-18 mg/dL Creatinine 0.9 0.5-1.3 mg/dL Glomerular Filtration Rate Calc 98 >90 mL/min Random Glucose 80 70-105 mg/dL Total Calcium 7.6 L 8.5-10.1 mg/dL Procalcitonin 0.05 0.05-0.5 ng/mL Phosphorus Level 3.1 2.5-4.9 mg/dL Magnesium Level 2.00 1.80-2.40 mg/dL Vitamin D 25-Hydroxy 101.4 30.0-100.0 ng/mL Current Medications Medications (Trade) Dose Ordered Sig/Estelita Route PRN Reason Start Time Stop Time Status Last Admin Dose Admin Acetaminophen (TYLenol 325MG TAB) 650 mg Q6H PRN PO FEVER/MILD PAIN LEVEL 1-3 05/30/25 00:00 05/31/25 22:42 DC Acetaminophen (TYLenol 325MG TAB) 650 mg Q6H PRN PO FEVER/MILD PAIN LEVEL 1-3 05/31/25 23:00 06/30/25 22:59 Acetaminophen (TYLenol 650MG SUPPOSITORY) 650 mg Q6H PRN RC FEVER / MILD PAIN 1-3 IF NPO 06/01/25 09:00 07/01/25 08:59 Acetaminophen (TYLenol 650MG SUPPOSITORY) 650 mg Q6H PRN RC FEVER / MILD PAIN 1-3 IF NPO 05/30/25 00:00 06/01/25 08:57 DC Albumin Human 100 ml @ 0 mls/hr TID IV 06/04/25 14:00 06/05/25 13:59 Albuterol Sulfate (Proventil 0.083% 2.5mg/3ml) 2.5 mg Q4H PRN IH SHORTNESS OF BREATH 05/30/25 06:30 05/31/25 22:43 DC Albuterol Sulfate (Proventil 0.083% 2.5mg/3ml) 2.5 mg Q4H PRN IH SHORTNESS OF BREATH 05/31/25 23:00 06/30/25 22:59 Dextrose/Sodium Chloride 1,000 ml @ 100 mls/hr Q10H IV 05/30/25 10:30 05/31/25 16:00 DC 05/30/25 21:49 100 MLS/HR Docusate Sodium (COLace 100MG CAP) 100 mg BID PRN PO CONSTIPATION 06/01/25 09:00 07/01/25 08:59 Docusate Sodium (COLace 100MG CAP) 100 mg BID PRN PO CONSTIPATION 05/30/25 00:00 06/01/25 08:57 DC Dronabinol (MARinol 2.5 MG CAP) 2.5 mg BIDAC PO 06/04/25 16:30 06/11/25 16:29 Enoxaparin Sodium (Lovenox) 40 mg DAILY SQ 06/01/25 09:00 07/01/25 08:59 06/04/25 09:56 40 MG Enoxaparin Sodium (Lovenox) 40 mg DAILY SQ 05/30/25 17:30 06/01/25 08:59 DC 05/31/25 09:24 40 MG Furosemide (LASix 20MG TAB) 20 mg DAILY PO 06/02/25 09:00 06/02/25 08:15 DC Furosemide (LASix 40MG VIAL) 40 mg Q12H IV 06/01/25 06:00 06/01/25 07:48 DC 06/01/25 06:08 40 MG Furosemide (LASix 40MG VIAL) 40 mg Q12H IV 05/30/25 17:30 06/01/25 05:44 DC 05/31/25 16:37 40 MG Insulin Human Regular (humuLIN R 100 UNIT/ML 3ML) INSULIN SLIDING SCAL... ACHS SQ 06/01/25 11:30 07/01/25 11:29 Insulin Human Regular (humuLIN R 100 UNIT/ML 3ML) INSULIN SLIDING SCAL... ACHS SQ 05/30/25 07:30 06/01/25 08:59 DC Ipratropium [place] (AtrovENT UD) 0.5 mg Q4H PRN IH SHORTNESS OF BREATH 05/30/25 06:30 05/31/25 22:44 DC Ipratropium [place] (AtrovENT UD) 0.5 mg Q4H PRN IH SHORTNESS OF BREATH 05/31/25 23:00 06/30/25 22:59 Labetalol HCl (TRANdate 20MG SYG) 10 mg Q2H PRN IV SBP GREATER THAN 160 05/30/25 00:00 05/31/25 22:43 DC Labetalol HCl (TRANdate 20MG SYG) 10 mg Q2H PRN IV SBP GREATER THAN 160 05/31/25 23:00 06/30/25 22:59 Lactated Ringer's 1,000 ml @ 25 mls/hr Q24H IV 06/02/25 09:30 07/02/25 09:29 Hold 06/03/25 08:51 25 MLS/HR Lactated Ringer's 1,000 ml @ 25 mls/hr Q24H IV 05/30/25 06:00 06/01/25 09:05 DC 05/30/25 06:03 50 MLS/HR Lactulose (Constulose 20gm/ 30ml Udcup) 20 gm Q6H PRN PO CONSTIPATION 05/30/25 00:00 05/31/25 22:42 DC Lactulose (Constulose 20gm/ 30ml Udcup) 20 gm Q6H PRN PO CONSTIPATION 05/31/25 23:00 06/30/25 22:59 Magnesium Sulfate 50 ml @ 0 mls/hr NOW IV 06/01/25 14:00 06/01/25 13:58 DC Magnesium Sulfate 50 ml @ 0 mls/hr PROTOCOL PRN IV LOW MG 06/01/25 09:00 07/01/25 08:59 06/02/25 01:32 25 MLS/HR Magnesium Sulfate 50 ml @ 0 mls/hr PROTOCOL PRN IV LOW MG 05/31/25 09:00 06/01/25 08:59 DC Mirtazapine (REMeron 15 MG TAB) 7.5 mg HS PO 06/03/25 21:00 07/03/25 20:59 Multivitamins Therapeutic (Multivitamin Tablet) 1 tab DAILY PO 06/01/25 09:00 06/02/25 13:46 DC 06/01/25 10:25 1 TAB Multivitamins Therapeutic (Multivitamin Tablet) 1 tab DAILY PO 05/31/25 09:00 06/01/25 08:59 DC 05/31/25 09:24 1 TAB Multivitamins Therapeutic (Multivitamin Tablet) 1 tab QID PO 06/02/25 14:00 07/01/25 08:59 06/03/25 17:46 1 TAB Multivitamins/ Minerals 10 ml/ Folic Acid 1 mg/ Thiamine HCl 100 mg/Sodium Chloride 1,010 ml @ 0 mls/hr DAILY IV 05/30/25 12:00 06/01/25 09:01 DC 06/01/25 10:25 100 MLS/HR Ondansetron HCl (zoFRAN 4MG INJ) 4 mg Q6H PRN IVP NAUSEA/VOMITING 05/30/25 00:00 05/30/25 17:34 DC Ondansetron HCl (zoFRAN 4MG INJ) 4 mg Q8H PRN IVP NAUSEA/VOMITING 05/30/25 17:30 05/31/25 22:45 DC Ondansetron HCl (zoFRAN 4MG INJ) 4 mg Q8H PRN IVP NAUSEA/VOMITING 05/31/25 23:00 06/30/25 22:59 06/04/25 09:57 4 MG Pantoprazole Sodium (PROTonix 40MG INJ) 40 mg BID IVP 05/30/25 21:00 05/31/25 22:40 DC 05/31/25 09:24 40 MG Pantoprazole Sodium (PROTonix 40MG INJ) 40 mg BID IVP 05/31/25 23:00 06/30/25 22:59 06/04/25 09:57 40 MG Piperacillin Sod/ Tazobactam Sod (Zosyn 3.375gm+NS 50ml) 3.375 gm Q8H IVPB 05/30/25 06:30 05/31/25 22:39 DC 05/31/25 15:46 3.375 GM Piperacillin Sod/ Tazobactam Sod (Zosyn 3.375gm+NS 50ml) 3.375 gm Q8H IVPB 05/31/25 23:00 06/10/25 22:59 06/04/25 05:30 3.375 GM Potassium Chloride 100 ml @ 100 mls/hr AD PRN IV POTASSIUM PROTOCOL 05/30/25 17:30 05/31/25 22:44 DC Potassium Chloride 100 ml @ 100 mls/hr AD PRN IV POTASSIUM PROTOCOL 05/31/25 23:00 06/30/25 22:59 Potassium Chloride (K-Dur/Klor-Con 20meq) 20 meq AD PRN PO POTASSIUM PROTOCOL 05/30/25 17:30 05/31/25 22:45 DC 05/31/25 16:38 20 MEQ Potassium Chloride (K-Dur/Klor-Con 20meq) 20 meq AD PRN PO POTASSIUM PROTOCOL 05/31/25 23:00 06/30/25 22:59 06/01/25 10:28 20 MEQ Potassium Chloride (K-Dur/Klor-Con 20meq) 20 meq BID PO 06/02/25 21:00 06/02/25 11:43 DC Potassium Chloride (K-Dur/Klor-Con 20meq) 40 meq BID PO 06/01/25 14:00 07/01/25 13:59 06/03/25 08:01 40 MEQ Potassium Chloride (KCl 10% Elixir 20meq/15ml) 20 meq AD PRN PO POTASSIUM PROTOCOL 05/30/25 17:30 05/31/25 22:45 DC 05/31/25 06:26 20 MEQ Potassium Chloride (KCl 10% Elixir 20meq/15ml) 20 meq AD PRN PO POTASSIUM PROTOCOL 05/31/25 23:00 06/30/25 22:59 Sulfasalazine (AZULfidine 500MG tab DR) 500 mg QID PO 06/02/25 13:00 06/12/25 12:59 06/03/25 17:46 500 MG Temazepam (restORIL 15 MG CAP) 15 mg HS PRN PO INSOMNIA/SLEEP 06/01/25 09:00 07/01/25 08:59 Temazepam (restORIL 15 MG CAP) 15 mg HS PRN PO INSOMNIA/SLEEP 05/30/25 00:00 06/01/25 08:59 DC Thiamine HCl (Vitamin B-1) 100 mg DAILY IVP 06/02/25 09:00 06/02/25 10:32 DC Thiamine HCl (Vitamin B-1) 100 mg DAILY IVP 05/30/25 10:30 06/01/25 09:02 DC 05/31/25 09:24 100 MG Thiamine HCl (Vitamin B-1) 500 mg DAILY IVP 06/03/25 09:00 06/02/25 10:50 DC DIAGNOSTICS / RADIOLOGY: [ ] ASSESSMENT: Failure to thrive, POA Severe Protein Energy Malnutrition POA Acute colitis on CT abdomen/pelvis Moderate hydronephrosis due to renal calculi Cystitis on Ct abdomen/pelvis Acute on chronic abdominal pain, POA Loculated Pericardial effusion on echo Chronic diarrhea 2/2 Crohn's disease Acute dehydration, elevated BUN/ketonuria History of multiple colonoscopies, followed by Dr. Milner hx of colocolic intussusception at the sigmoid colon with underlining mass suspected, per CT abdomen and pelvis on 04/20/2025 Partial obstructing polypoid mass in the ascending colon status post partial resection, per colonoscopy on 03/2025 admission Left pleural effusion per chest x-ray on 05/30/2025, recurrent, with dyspnea, POA COPD per chest x-ray on 05/30/2025 Anemia of chronic disease Electrolyte derangement (hyponatremia, hypocalcemia) Protein calorie malnutrition/hypoalbuminemia Proteinuria, ketonuria, bilirubinuria, urobilinogenuria, per UA on 05/29/25 Chronic problem list: Crohn's, GERD, hypertension, multiple colonoscopies, former smoker with 10 years of tobacco use History of right UPJ obstruction with mild hydronephrosis, per CT on 04/20/2025 Small to large posterior pericardial effusion, EF > 65%/3D volume EF 68% per echo on 04/21/2025 PLAN: Starvation ketoacidosis * Continue Thiamine 100 mg and MVT QID * Stop IV fluids LR 1000 * Monitor for phosphorous, magnesium, and electrolytes * Monitor for signs of confusion, delirium, ataxia * Monitor Daily weight, strict I/O, JVP, lung crackles Failure to thrive, Protein calorie malnutrition, hypoalbuminemia * GI recommended Protonix 40mg BID, no colonoscopy evaluation * Dietary consult placed, recommended HH + GI soft/bland diet + jello tid w/ trays and Vit B1 and MVT. * Advance towards goals as tolerated * CT of chest, abdomen, and pelvis showed active colitis and right UPJ obstruction with moderate hydronephrosis * Hepatitis panel - negative * Start Mirtazapine for increasing appetite and improved mood.. * Start Marinol 2.5 mg b.i.d. * Cortisol AM ordered * We will consider adding Aldactone once the patient is hemodynamically stable. Acute Colitis IV fluids, bowel rest, electrolyte correction. Continue IV zosyn Monitor for complications: perforation, toxic megacolon. Hydronephrosis from Right UPJ Obstruction with Calculus in Lower Calyx * A 6.4 mm calculus in the dependent portion of the bladder with wall thickening of 4.5 mm. * A 12 x 12 cm larger contrast collection seen at the right UPJ. * Dr. Peralta recommended a repeat IVP once the contrast clears at the UPJ * Follow up outpatient with Dr. Rhodes Cystemigdio * Currently on zosyn * Monitor for progression to pyelonephritis, especially given concurrent obstruction. Left sided Pleural effusion, suspected pneumonia * Chest x-ray showed left sided pleural effusion * Will repeat chest x-ray * Serology influenza, COVID, strep screen, tested negative * Continue IV Zosyn 3.375 q8 * Monitor respiratory status. * Oxygen therapy as needed. Titrate oxygen prn to keep Spo2>/+=92%. * Albuterol and Atrovent PRN SOB. * Pulmonology team advised no intervention as the pleural effusion is too small. Sublicinal Hypothyroidism * TSH is 5.4, free T3 0.55, Free T4 0.97 * Monitor until patient is hemodynamically stable Loculated pericardial effusion * Recommended MRI Chest with contrast * F/u in one month for repeat echo -Monitor for fluid overload (The patient is edematous and dehydrated, ER admi nistered NS 1 L bolus). -Fluid restriction a 1200 mL. -PRN medications for: Pain management, fever, hypertension, N/V, constipation, SOB. -Glucometer checks AC & HS needed with insulin regular sliding scale coverage as needed. -Blood pressure checks every 4 hours and as needed. -Reconcile home medications once available. -Monitor renal and liver function. -Monitor electrolytes and treat accordingly PRN -AM labs. -GI and DVT prophylaxis -Further plan/orders per hospitalization course. ATTESTATION BY PHYSICIAN I have seen and examined the patient. I reviewed the documentation, medical dec ision making, and treatment plan as noted by the resident provider above. I agree with the findings and plan of care. ÁNGELA GAYLE MD, HARSHAVARDHA MD Jun 04, 2025 14:42
[2025-06-04] MEDS: ALBUMIN HUMAN 25% 100 ML IV SCH (16:02)
--- NOTE | 2025-06-04 16:50 | HMCIMG ---
EXAM: XR Chest, 1 View. CLINICAL HISTORY: COMPARISON: XR Chest 06/02/2025. FINDINGS: LUNGS: The lungs are clear. No consolidation. PLEURAL SPACES: Moderate left pleural effusion. Left diffusion is slightly increased compared to the prior study. HEART: The heart size is normal. BONES: No acute osseous abnormality. IMPRESSION: 1. Moderate left pleural effusion, slightly increased compared to the prior study. /Mora
[2025-06-05] VITALS (8 sets, daily range): BP systolic 115–130; BP diastolic 78–94; PULSE 84–99; RESP 18–20; TEMP 97.5–98.1; O2SAT 96–97
[2025-06-05 05:47] LABS: NUCLEATED RED BLOOD CELLS 0.0 % (0.0-0.19); PLATELET COUNT (AUTO) 155.0 K/uL (130-400); RED BLOOD CELL COUNT(AUTO) 2.7 MIL/uL (4.50-6.20); RED CELL DISTRIBUTION WIDTH 17.2 % (11.0-15.5); WHITE BLOOD COUNT (AUTO) 3.9 K/uL (4.8-10.8)
[2025-06-05 06:00] LABS: CREATININE 0.7 mg/dL (0.5-1.3); GLOMERULAR FILTR. RATE CALC 105.0 mL/min (>90); GLUCOSE,RANDOM 82.0 mg/dL (70-105); SODIUM SERUM 139.0 mmol/L (136-145); UREA NITROGEN, BLOOD 15.0 mg/dL (7-18)
--- NOTE | 2025-06-05 15:01 | PN ---
GASTROENTEROLOGY PROGRESS NOTE Date of Visit: Jun 05, 2025 Time of Visit: 15:00 Events / Notes: [ No acute events overnight. Patient's vital signs remained stable. WBC 5.0 today, hemoglobin 10.1, hematocrit 28.4, platelets 264. CMP significant for potassium of 3.3, BUN 21, creatinine 0.9, calcium 7.3, total bilirubin 0.9, direct bilirubin 0.5, AST 15, ALT nine, alkaline phosphatase 86, ammonia 36, tot al protein 3.9, albumin 1.4. Urine culture negative. Chest x-ray from 05/31 pending results. Patient reports being tired of not being able to eat. Patient currently pending IVP. Informed we will reevaluated GI status and previous studies and possibly plan for egd/colonoscopy once cleared by cardiology. Patient verbalized understanding and agreement. 06/03/25: Colonoscopies from 04/20/25 and 01/04/[address] Reyes and Dr. Leonardo. 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 A localized are of prolapsed, severely congested masslike erythematous and inflamed mucosa was found int the sigmoid colon. CT showing long segment thickening of the sigmoid colon for a length of 16.4 cm with a max diameter of 5.8cm showing significant inflammation, engorged pericolonic vessels, and mild fat stranding. There is also mild thickening of the splenic flexure, transverse colon, and ascending colon, reflecting underlying active colitis. No evidence of pneumatosis or evident perforation or pericolonic abscess. Recommendations to repeat colonoscopy within the next 12 months. Patient found resting in SF in no acute distress. Patient reports abdominal pain and nausea when attempting to eat clear fluids. Recommend EGD to assess for any pathology. He agreed to proceed. 06/05/25: EGD on 06/04/15 significant for gastritis. ] Review of Systems: CONSTITUTIONAL: No malaise or change in sensation of wellbeing. ENMT: No rhinorrhea, otorrhea, sinus pain, ear ache. CARDIOVASCULAR: No angina, palpitations, orthopnea or paroxysmal dyspnea. RESPIRATORY: No SOB. GASTROINTESTINAL: No abdominal pain, nausea, vomiting, diarrhea, hematemesis, melena or change in the patient's habitual bowel movements consistency/number. GENITOURINARY: No dysuria, hematuria or change in bladder continence. MUSCULOSKELETAL: No new muscle pain or decrease in muscular strength. No new joint swelling, redness or tenderness. SKIN: No new rash. Physical Exam: GEN: Awake, alert, oriented in person, time and place, and in no acute distress. HEENT: No sinus tenderness. Tympanic membranes were not examined. No rhinorrhea. Oral pharyngeal mucosa is pink, moist and within normal limits. CHEST: Inspection, palpation of the chest were unremarkable. Lung auscultation revealed normal breath sounds bilaterally. CARDIAC: PMI is within normal limits. Heart sounds are regular. ABD: Soft, non-tender and not distended. No peritoneal signs on palpation. No organomegaly. Normal bowel sounds. EXT: No cyanosis or clubbing. No edema. SKIN: Intact. No rashes. JOINTS: No evidence of synovitis or acute arthritis. NEURO: Alert and oriented to name, place and person. Cranial nerve examination is unremarkable. No focal motor deficits. Normal speech. Strength is normal. Vital Signs (last 8hr) Date Time Temp Pulse Resp B/P (MAP) Pulse Ox O2 Delivery O2 Flow Rate FiO2 06/05/25 12:00 97.5 95 18 123/78 100 Room Air 06/05/25 08:18 97 Room Air* 0 21 06/05/25 08:00 97.7 86 18 118/80 91 Room Air Laboratory: [ ] Laboratory: Test 06/05/25 11:02 06/05/25 05:29 Range/Units Whole Blood Glucose 104 70-110 MG/DL White Blood Count 3.9 L 4.8-10.8 K/uL Red Blood Count 2.70 L 4.50-6.20 MIL/uL Hemoglobin 8.8 L 14.0-18.0 g/dL Hematocrit 25.4 L 42-54 % Mean Corpuscular Volume 94.1 79-99 fL Mean Corpuscular Hemoglobin 32.6 27.0-33.0 pg Mean Corpuscular Hemoglobin Concent 34.6 32.0-36.0 g/dL Red Cell Distribution Width 17.2 H 11.0-15.5 % Platelet Count 155 # 130-400 K/uL Mean Platelet Volume 8.4 7.5-10.5 fL Nucleated Red Blood Cells 0.0 0.0-0.19 % Sodium Level 139 136-145 mmol/L Potassium Level 3.6 3.5-5.1 mmol/L Chloride Level 107 101-111 mmol/L Carbon Dioxide Level 25 21-32 mmol/L Blood Urea Nitrogen 15 7-18 mg/dL Creatinine 0.7 0.5-1.3 mg/dL Glomerular Filtration Rate Calc 105 >90 mL/min Random Glucose 82 70-105 mg/dL Whole Blood Ketones Quantitative 1.6 H 0.0-0.6 mmol/L Total Calcium 7.4 L 8.5-10.1 mg/dL C-Reactive Protein, Quantitative 31.00 H 0.5-3.0 mg/L Current Medications Medications (Trade) Dose Ordered Sig/Estelita Route PRN Reason Start Time Stop Time Status Last Admin Dose Admin Acetaminophen (TYLenol 325MG TAB) 650 mg Q6H PRN PO FEVER/MILD PAIN LEVEL 1-3 05/30/25 00:00 05/31/25 22:42 DC Acetaminophen (TYLenol 325MG TAB) 650 mg Q6H PRN PO FEVER/MILD PAIN LEVEL 1-3 05/31/25 23:00 06/30/25 22:59 Acetaminophen (TYLenol 650MG SUPPOSITORY) 650 mg Q6H PRN RC FEVER / MILD PAIN 1-3 IF NPO 06/01/25 09:00 07/01/25 08:59 Acetaminophen (TYLenol 650MG SUPPOSITORY) 650 mg Q6H PRN RC FEVER / MILD PAIN 1-3 IF NPO 05/30/25 00:00 06/01/25 08:57 DC Albumin Human 100 ml @ 0 mls/hr TID IV 06/04/25 14:00 06/05/25 13:59 DC 06/05/25 07:53 1 MLS/HR Albuterol Sulfate (Proventil 0.083% 2.5mg/3ml) 2.5 mg Q4H PRN IH SHORTNESS OF BREATH 05/30/25 06:30 05/31/25 22:43 DC Albuterol Sulfate (Proventil 0.083% 2.5mg/3ml) 2.5 mg Q4H PRN IH SHORTNESS OF BREATH 05/31/25 23:00 06/30/25 22:59 Dextrose/Sodium Chloride 1,000 ml @ 100 mls/hr Q10H IV 05/30/25 10:30 05/31/25 16:00 DC 05/30/25 21:49 100 MLS/HR Docusate Sodium (COLace 100MG CAP) 100 mg BID PRN PO CONSTIPATION 06/01/25 09:00 07/01/25 08:59 Docusate Sodium (COLace 100MG CAP) 100 mg BID PRN PO CONSTIPATION 05/30/25 00:00 06/01/25 08:57 DC Dronabinol (MARinol 2.5 MG CAP) 2.5 mg BIDAC PO 06/04/25 16:30 06/11/25 16:29 06/05/25 07:52 2.5 MG Enoxaparin Sodium (Lovenox) 40 mg DAILY SQ 06/01/25 09:00 07/01/25 08:59 06/05/25 07:54 40 MG Enoxaparin Sodium (Lovenox) 40 mg DAILY SQ 05/30/25 17:30 06/01/25 08:59 DC 05/31/25 09:24 40 MG Furosemide (LASix 20MG TAB) 20 mg DAILY PO 06/02/25 09:00 06/02/25 08:15 DC Furosemide (LASix 40MG VIAL) 40 mg Q12H IV 06/01/25 06:00 06/01/25 07:48 DC 06/01/25 06:08 40 MG Furosemide (LASix 40MG VIAL) 40 mg Q12H IV 05/30/25 17:30 06/01/25 05:44 DC 05/31/25 16:37 40 MG Insulin Human Regular (humuLIN R 100 UNIT/ML 3ML) INSULIN SLIDING SCAL... ACHS SQ 06/01/25 11:30 07/01/25 11:29 Insulin Human Regular (humuLIN R 100 UNIT/ML 3ML) INSULIN SLIDING SCAL... ACHS SQ 05/30/25 07:30 06/01/25 08:59 DC Ipratropium Rocky (AtrovENT UD) 0.5 mg Q4H PRN IH SHORTNESS OF BREATH 05/30/25 06:30 05/31/25 22:44 DC Ipratropium Rocky (AtrovENT UD) 0.5 mg Q4H PRN IH SHORTNESS OF BREATH 05/31/25 23:00 06/30/25 22:59 Labetalol HCl (TRANdate 20MG SYG) 10 mg Q2H PRN IV SBP GREATER THAN 160 05/30/25 00:00 05/31/25 22:43 DC Labetalol HCl (TRANdate 20MG SYG) 10 mg Q2H PRN IV SBP GREATER THAN 160 05/31/25 23:00 06/30/25 22:59 Lactated Ringer's 1,000 ml @ 25 mls/hr Q24H IV 06/02/25 09:30 07/02/25 09:29 Hold 06/03/25 08:51 25 MLS/HR Lactated Ringer's 1,000 ml @ 25 mls/hr Q24H IV 05/30/25 06:00 06/01/25 09:05 DC 05/30/25 06:03 50 MLS/HR Lactulose (Constulose 20gm/ 30ml Udcup) 20 gm Q6H PRN PO CONSTIPATION 05/30/25 00:00 05/31/25 22:42 DC Lactulose (Constulose 20gm/ 30ml Udcup) 20 gm Q6H PRN PO CONSTIPATION 05/31/25 23:00 06/30/25 22:59 Magnesium Sulfate 50 ml @ 0 mls/hr NOW IV 06/01/25 14:00 06/01/25 13:58 DC Magnesium Sulfate 50 ml @ 0 mls/hr PROTOCOL PRN IV LOW MG 06/01/25 09:00 07/01/25 08:59 06/02/25 01:32 25 MLS/HR Magnesium Sulfate 50 ml @ 0 mls/hr PROTOCOL PRN IV LOW MG 05/31/25 09:00 06/01/25 08:59 DC Mirtazapine (REMeron 15 MG TAB) 7.5 mg HS PO 06/03/25 21:00 07/03/25 20:59 06/04/25 21:20 7.5 MG Multivitamins Therapeutic (Multivitamin Tablet) 1 tab DAILY PO 06/01/25 09:00 06/02/25 13:46 DC 06/01/25 10:25 1 TAB Multivitamins Therapeutic (Multivitamin Tablet) 1 tab DAILY PO 05/31/25 09:00 06/01/25 08:59 DC 05/31/25 09:24 1 TAB Multivitamins Therapeutic (Multivitamin Tablet) 1 tab QID PO 06/02/25 14:00 07/01/25 08:59 06/05/25 14:52 1 TAB Multivitamins/ Minerals 10 ml/ Folic Acid 1 mg/ Thiamine HCl 100 mg/Sodium Chloride 1,010 ml @ 0 mls/hr DAILY IV 05/30/25 12:00 06/01/25 09:01 DC 06/01/25 10:25 100 MLS/HR Ondansetron HCl (zoFRAN 4MG INJ) 4 mg Q6H PRN IVP NAUSEA/VOMITING 05/30/25 00:00 05/30/25 17:34 DC Ondansetron HCl (zoFRAN 4MG INJ) 4 mg Q8H PRN IVP NAUSEA/VOMITING 05/30/25 17:30 05/31/25 22:45 DC Ondansetron HCl (zoFRAN 4MG INJ) 4 mg Q8H PRN IVP NAUSEA/VOMITING 05/31/25 23:00 06/30/25 22:59 06/04/25 09:57 4 MG Pantoprazole Sodium (PROTonix 40MG INJ) 40 mg BID IVP 05/30/25 21:00 05/31/25 22:40 DC 05/31/25 09:24 40 MG Pantoprazole Sodium (PROTonix 40MG INJ) 40 mg BID IVP 05/31/25 23:00 06/30/25 22:59 06/05/25 07:53 40 MG Piperacillin Sod/ Tazobactam Sod (Zosyn 3.375gm+NS 50ml) 3.375 gm Q8H IVPB 05/30/25 06:30 05/31/25 22:39 DC 05/31/25 15:46 3.375 GM Piperacillin Sod/ Tazobactam Sod (Zosyn 3.375gm+NS 50ml) 3.375 gm Q8H IVPB 05/31/25 23:00 06/10/25 22:59 06/05/25 14:52 3.375 GM Potassium Chloride 100 ml @ 100 mls/hr AD PRN IV POTASSIUM PROTOCOL 05/30/25 17:30 05/31/25 22:44 DC Potassium Chloride 100 ml @ 100 mls/hr AD PRN IV POTASSIUM PROTOCOL 05/31/25 23:00 06/30/25 22:59 Potassium Chloride (K-Dur/Klor-Con 20meq) 20 meq AD PRN PO POTASSIUM PROTOCOL 05/30/25 17:30 05/31/25 22:45 DC 05/31/25 16:38 20 MEQ Potassium Chloride (K-Dur/Klor-Con 20meq) 20 meq AD PRN PO POTASSIUM PROTOCOL 05/31/25 23:00 06/30/25 22:59 06/01/25 10:28 20 MEQ Potassium Chloride (K-Dur/Klor-Con 20meq) 20 meq BID PO 06/02/25 21:00 06/02/25 11:43 DC Potassium Chloride (K-Dur/Klor-Con 20meq) 40 meq BID PO 06/01/25 14:00 07/01/25 13:59 06/05/25 07:52 40 MEQ Potassium Chloride (KCl 10% Elixir 20meq/15ml) 20 meq AD PRN PO POTASSIUM PROTOCOL 05/30/25 17:30 05/31/25 22:45 DC 05/31/25 06:26 20 MEQ Potassium Chloride (KCl 10% Elixir 20meq/15ml) 20 meq AD PRN PO POTASSIUM PROTOCOL 05/31/25 23:00 06/30/25 22:59 Sulfasalazine (AZULfidine 500MG tab DR) 500 mg QID PO 06/02/25 13:00 06/12/25 12:59 06/05/25 14:52 500 MG Temazepam (restORIL 15 MG CAP) 15 mg HS PRN PO INSOMNIA/SLEEP 06/01/25 09:00 07/01/25 08:59 Temazepam (restORIL 15 MG CAP) 15 mg HS PRN PO INSOMNIA/SLEEP 05/30/25 00:00 06/01/25 08:59 DC Thiamine HCl (Vitamin B-1) 100 mg DAILY IVP 06/02/25 09:00 06/02/25 10:32 DC Thiamine HCl (Vitamin B-1) 100 mg DAILY IVP 05/30/25 10:30 06/01/25 09:02 DC 05/31/25 09:24 100 MG Thiamine HCl (Vitamin B-1) 500 mg DAILY IVP 06/03/25 09:00 06/02/25 10:50 DC Diagnostics / Radiology: [COPY/PASTE HERE IF NO REPORTS PLEASE DELETE SECTION] Assessment: [Crohn's disease Acute dehydration Left Pleural effusion Ascending colon mass Copd Anemia ] PLAN Case discussed with Dr Reyes and Dr. Leonardo Recommend GI prophylaxis with Protonix 40 BID Optimize hydration and nutrition Please call with questions concerns, and change in clinical status Thank you for allowing us to be part of this patient's care. Trend HGB and transfuse as needed to goal of HGB> 7 Patient can be followed up as outpatient for management of Crohns, Recommend repeat colonoscopy within 1 year. Please call with questions, concerns, and change in clinical status Thank you for this consult. ] RANDALL OCHOA NP Jun 05, 2025 15:01
--- NOTE | 2025-06-05 15:45 | PN ---
[facility] PROGRESS NOTE Date Patient Seen: Jun 05, 2025 Time of Visit: 15:43 Supervising Physician: Dr. Moreno Primary Care Physician: BABAR THOMPSON MD Outpatient Specialists: Inpatient Consults: [facility] pulmonary, Dr Rhodes, Dr Faulkner, Dr Eldridge PROBLEM LIST: Bilateral small pleural effusion greater on the left not amenable for thoracentesis Acute on chronic diastolic heart failure with a LVEF of 65%, improving. 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 Neumann, kevin . Dyspnea Generalized body weakness Electrolyte derangement syndrome: Hypokalemia, Hyponatremia mild, & Hypomagnesemia CHRONIC PROBLEM LIST: Crohn's disease GERD Hypertension Former smoker 10 years COPD, undiagnosed and untreated RECOMMENDATIONS: Pleural effusion too small for thoracentesis. Recommend against thoracentesis due to possibility of pneumothorax and complications. Patient may follow up with pulmonology in 1-2 weeks post discharge. Disposition per primary team INTERVAL HISTORY: Patient evaluated again at bedside, remains on room air at this time with a white count of 3.9, hemoglobin stable at 8.8. Patient denies any chest pain or shortness of breath, lung sounds are clear to auscultation in the upper lobes, slightly diffuse in the lower. Patient advised at this time that there is no clinical indication for thoracentesis to continue with conservative management at this time with the primary team. Patient is cleared from a pulmonary perspective for discharge with recommended follow up with the [facility] for further evaluation and complete resolution of his pleural effusions. REVIEW OF SYSTEMS: General: No malaise or fever. Neurological: No fainting episodes or seizures. HEENT: No nasal congestion or nasal secretion. Respiratory: No cough, shortness of breath, or wheezing Cardiac: No chest pain or palpitations. Gastrointestinal: No vomiting or diarrhea. Genitourinary: No dysuria hematuria. Skin: No rashes or lesions. Hematological: No bruises or bleeding. Musculoskeletal: No joint pains or arthralgias. Psychiatric: No depression or panic attacks. PHYSICAL EXAM: GENERAL: alert, , awake oriented x 3 HEENT: EOMI, Sclera non icteric, moist mucosa NECK: Supple, no JVD, trachea midline LUNGS: Absent lung sounds to right lower lobe, clear to others lung sounds. No wheezes HEART: Regular rate and rhythm. Normal S1 and S2, without murmurs ABD: Abdomen soft, distended, nontender. Bowel sounds present EXT: No clubbing cyanosis bilateral pitting edema NEURO: Alert and oriented to person, follows commands Vital Signs (last 8hr) Date Time Temp Pulse Resp B/P (MAP) Pulse Ox O2 Delivery O2 Flow Rate FiO2 06/05/25 12:00 97.5 95 18 123/78 100 Room Air 06/05/25 08:18 97 Room Air* 0 21 06/05/25 08:00 97.7 86 18 118/80 91 Room Air LABS: Hematology Labs: Test 06/05/25 05:29 Range/Units White Blood Count 3.9 L 4.8-10.8 K/uL Red Blood Count 2.70 L 4.50-6.20 MIL/uL Hemoglobin 8.8 L 14.0-18.0 g/dL Hematocrit 25.4 L 42-54 % Mean Corpuscular Volume 94.1 79-99 fL Mean Corpuscular Hemoglobin 32.6 27.0-33.0 pg Mean Corpuscular Hemoglobin Concent 34.6 32.0-36.0 g/dL Red Cell Distribution Width 17.2 H 11.0-15.5 % Platelet Count 155 # 130-400 K/uL Mean Platelet Volume 8.4 7.5-10.5 fL Nucleated Red Blood Cells 0.0 0.0-0.19 % Chemistry Labs: Test 06/05/25 15:08 06/05/25 05:29 Range/Units Whole Blood Glucose 104 70-110 MG/DL Sodium Level 139 136-145 mmol/L Potassium Level 3.6 3.5-5.1 mmol/L Chloride Level 107 101-111 mmol/L Carbon Dioxide Level 25 21-32 mmol/L Blood Urea Nitrogen 15 7-18 mg/dL Creatinine 0.7 0.5-1.3 mg/dL Glomerular Filtration Rate Calc 105 >90 mL/min Random Glucose 82 70-105 mg/dL Whole Blood Ketones Quantitative 1.6 H 0.0-0.6 mmol/L Total Calcium 7.4 L 8.5-10.1 mg/dL C-Reactive Protein, Quantitative 31.00 H 0.5-3.0 mg/L DIAGNOSTICS / RADIOLOGY RESULTS: [ ] PLAN Thoracentesis not recommended. Pleural effusion too small to be amenable for thoracentesis. From pulmonary standpoint patient can Follow up with pulmonology 1-2 weeks post discharge. Dispo per primary NEURO: Minimize central acting medications as possible. Maintain fall precautions, adequate lighting during the day PULMONARY: Supplemental 02 as needed. Maintain aspiration precautions at all times CARDIOVASCULAR: Follow hemodynamics. Vital signs per facility protocol GI & NUTRITION: Continue with nutritional support. Continue stool softeners and laxatives as needed. KIDNEYS & ELECTROLYTES: Strict monitoring of intake, output and overall fluid balance. Avoid nephrotoxic medications to the extent possible. Medications to be dosed according to renal function. Monitor electrolytes and replace as needed ENDOCRINE: Maintain blood glucose between 100-180 at all times. Hypoglycemia protocol in place INFECTIOUS DISEASE: Trend temperature, WBC and procalcitonin level Follow cultures, deescalate antibiotics as soon as possible. Panculture if new onset fever ONCOLOGY/HEMATOLOGY/COAGULATION: Monitor for s/s of bleeding Monitor hemoglobin, coagulation studies as needed SKIN: Pressure ulcer prevention per facility protocol Specialty mattress ORTHO/REHAB: Continue PT/OT Prophylaxis: Continue GI and DVT prophylaxis Code Status: Full Resuscitation Disposition: TBD Other: MATEO SHEEHAN Jun 05, 2025 15:45
--- NOTE | 2025-06-05 17:57 | PN ---
[facility] PROGRESS NOTE Date of Service: Jun 05, 2025 Time of Service: 17:47 History of Presenting Illness: Mr. Lu is 59-year-old male with a history of Crohn's, GERD, hypertension, multiple colonoscopies, former smoker with 10 years of tobacco use who presented to [facility] ED via EMS for evaluation of increased generalized body weakness for the last six days. According to EMS and family who was on scene the patient has not been eating for the past six days. ED provider reports that the patient also reports mild shortness of breath. Patient reports he has been having diarrhea but it is the same as it usually is due to Crohn's. He states he follows with Dr. Milner as outpatient. The patient denied any melena, hematemesis, fever or chills. The patient reports that the weakness is so bad that he has been bed- bound at home and not ambulating due to not feeling well and feeling very weak. Per chart review the patient was admitted on 04/20/2025 for similar symptoms of general body weakness. Cardiology, GI, and general surgeon evaluated the patient on that admission. The CT abdomen and pelvis done on 04/20/2025 showed colocolic intussusception at the sigmoid colon with underlining mass suspected. Right UPJ obstruction with mild hydronephrosis. GI was consulted who did a colonoscopy that showed partial obstructing polypoid mass in the ascending colon status post partial resection. General surgeon Dr. Santos was consulted who recommended outpatient follow up in elective surgery. Cardiology was consulted for moderate posterior pericardial effusion per echo which also showed global ejection fraction of 65%. The patient was discharged on 04/25/2025. Today WBCs and troponin are WNL. Na 133, total calcium 7.7. Albumin 1.8, total protein 4.8. In ED the patient received Rocephin1 g and NS1 L bolus. ED provider request patient be admitted with the diagnosis of left pleural effusion and failure to thrive. Chest x-ray: Small to moderate pleural effusion on the left side. Lower lobe airspace disease bilaterally, more pronounced on the left side. COPD. No gross interval changes. I assessed the patient at bedside in ED 3. No family at bedside. The patient's breathing was even, unlabored, in no distress. He has edema to bilateral lower extremities and upper extremities (hand edema R>L) Informed him of plan to admit at CT results of left pleural effusion and interpretation of COPD. The patient reports that he has never been told that he has pleural effusion nor COPD and stated that that must be results from another patient. He reports that he never told ED provider that he was short of breath. He states that he is just here because he is very weak and has no appetite. Patient was not contributing with medical questions. He appeared frustrated. Plan and assessment are listed below. SUBJECTIVE: 05/30/25: Patient was evaluated at the bedside in ED 3 today. Patient appeared very frail and weak. Patient has been complaining of generalized weakness since December or January this year. Patient has a past medical history of Crohn's disease follows Dr. Milner on an outpatient basis. Patient says he has no appetite and has nausea and vomiting. Patient does not recall the last time he had a proper meal. He is living with his sister who helps him with his daily activities of living. Patient reports he feels depressed. Denies fever, chills, abdominal pain, diarrhea, melena, and hematemesis. Patient says he had multiple colono scopies in the past and attributes his weakness to these procedures. His TSH is elevated 5.2, low free T3 was 0.55, and free T4 0.97. His serum albumin 1.8. He has Generalized edema prominent in the right lower leg and left leg up to mid calf and in bilateral upper limbs. His CRP is elevated, 77.2, Whole blood ketone is high,3.6 and ABG revealing primary metabolic acidosis, with adequate compensation. Anion gap of 14.6 and corrected anion gap of 20.1. Urine protein creatinine ratio is pending. A CT abdomen and 2D echo were ordered. 05/31/25 Patient was seen and examined at the bedside today. His appetite has improved slightly. He received D5NS and a banana bag yesterday; we will transition to LR. He remains on gentle diuresis with furosemide 40 mg BID for anasarca. GI is scheduled to see him on Monday. We will monitor for refeeding syndrome and rech jurgen magnesium and phosphorus. Chest x-ray and repeat potassium are planned. He is tachycardic and has been bedbound for several days; we will obtain a venous Doppler ultrasound to rule out DVT. CT abdomen showed active colitis, right UPJ obstruction with moderate hydronephrosis, and a calculus in the lower calyx. A urology consult will be requested. Wiring Technician recommendations are pe nding as his appetite has been poor. 06/01/25: The patient was examined at the bedside with family present. He appears malnourished and in mild distress. He is currently receiving a banana bag; daily IV thiamine 100 mg will be initiated tomorrow. Store Shopper recommendations are pending. CT abdomen demonstrated moderate hydronephrosis with a right UPJ calculus in the upper calyx. Urology (Dr. Rhodes) has ordered an IV pyelogram which is scheduled for tomorrow, with outpatient follow-up planned. Cardiology consultation ruled out congestive heart failure but identified a loculated pericardial effusion on Echo. An MRI chest with contrast was recommended; however, this is not available at this facility. For lower extremity edema, cardiology initiated furosemide 20 mg. Gastroenterology was consulted for Crohns disease, malnutrition, and poor appetite; evaluation is scheduled for Monday. Laboratory results: Hgb 9.7 g/dL, potassium 3.6 mmol/L, magnesium 1.5 mg/dL, phosphorus 3.2 mg/dL, albumin 1.3 g/dL. Will monitor closely for signs of refeeding syndrome. The patient remains on Zosyn. Further assessment and plan as discussed below 06/02/2025: Patient was examined at the bedside. He is severely malnourished with muscle and fat loss and is in mild distress. Patient reports improved appetite but still gets nauseous sometimes. Patient was seen by Dr. Eldridge and recommended an MRI chest with contrast for loculated pericardial effusion which is not available at this facility and recommended echo in one month. Pending IVP w/wo tomograms. Previous records of his colonoscopy biopsy from 05/16 showed no high grade dysplasia. Will monitor closely for signs of refeeding syndrome. Case management to work on final disposition as patient exhausted his SNF days. 06/03/25: Patient was examined at the bed side. He looks weak however reports increased appetite today. Nutritional evaluation was done yesterday and they recommended Prostat Jello with protein as he is lactose intolerant. Today Dr. Keller reviewed his previous Colonoscopies from 03/31/25 and 01/04/25 and concluded that patient can be followed up for Crohn's on an outpatient basis. They recommended Protonix 40mg BID and a repeat colonoscopy in 1 year. Patient was tested for right UPJ obstruction with IV pyelogram yesterday however the study could not be conclusive as there was 12 x 12 cm of contrast collection in the right UPJ. They recommended a repeat IVP once the contrast material is cleared. Case management advised the patient be discharged to [facility], a private day care once the imaging is completed. 06/04/2025: Patient was examined at the bedside and he looked frail. He had more prominent swelling of the left upper and lower limbs. Patient has been NPO since yesterday for a planned EGD this morning. The EGD showed a diaphragmatic hernia without obstruction. Patient continues to have nausea and poor appetite. Patient's sister was in the room who said his decline started since July last year. His sister reports he lost about 60 lb in a period of 3 months since then. Patient was started on mirtazapine yesterday however could not take it due to nausea. Today Marinol a started to be taken 30 minutes before meals to improve his appetite. IV fluids have been stopped as his 3rd spacing and albumin 25% infusion is started and a repeat chest x-ray ordered. A repeat IVP with tomography will be performed today and cortisol a.m. ordered. 06/05/2025: Patient was examined at the bedside and he looks frail. Patient still reports nausea and is unable to finish his meals. Patient was given albumin infusion yesterday. Patient was started on Marinol yesterday however reports his appetite had stayed the same. Patient refused to do the IVP with tomography and reports understanding the risks associated with it. Chest x-ray today showed slightly worsening pleural effusion on the left side. Patient's CRP and calprotectin have been down trending. Patient is still receiving Zosyn day5. Patient was advised about initiating PPN as he is unable to tolerate oral feeds and possible placement to LTAC. Patient said he would need some time to make that decision and will be reviewed tomorrow. Diet will be changed to regular as he reported heart healthy diet to bland. Patient's hemoglobin was 8.8, down from 10.2 yesterday. For now we will continue to monitor. Review of Systems: General: Reports poor appetite and fatigue. Cardiovascular: Reports bilateral upper and lower extremity swelling; denies chest pain or palpitations. Respiratory: Denies shortness of breath or cough. Gastrointestinal: Reports poor appetite; denies abdominal pain, nausea, vomiting, or diarrhea. Genitourinary: No urinary complaints reported. Neurologic: Denies dizziness, syncope, or focal weakness.. General Physical Examination: General: Malnourished-appearing male, in mild distress, examined at bedside Neck: No JVD; trachea midline. Cardiovascular: Regular rate and rhythm; no murmurs, rubs, or gallops appreciated. Respiratory: Equal bilateral breath sounds; no wheezes, crackles, or rhonchi. Abdomen: Soft, non-distended, non-tender; normoactive bowel sounds. Extremities: Bilateral upper and lower extremity edema present; prominent on left peripheral pulses palpable. Vital Signs (last 8hr) Date Time Temp Pulse Resp B/P (MAP) Pulse Ox O2 Delivery O2 Flow Rate FiO2 06/05/25 16:00 98.1 97 18 128/94 99 Room Air 06/05/25 12:00 97.5 95 18 123/78 100 Room Air LABS: Laboratory: Test 06/05/25 15:08 06/05/25 05:29 Range/Units Whole Blood Glucose 104 70-110 MG/DL White Blood Count 3.9 L 4.8-10.8 K/uL Red Blood Count 2.70 L 4.50-6.20 MIL/uL Hemoglobin 8.8 L 14.0-18.0 g/dL Hematocrit 25.4 L 42-54 % Mean Corpuscular Volume 94.1 79-99 fL Mean Corpuscular Hemoglobin 32.6 27.0-33.0 pg Mean Corpuscular Hemoglobin Concent 34.6 32.0-36.0 g/dL Red Cell Distribution Width 17.2 H 11.0-15.5 % Platelet Count 155 # 130-400 K/uL Mean Platelet Volume 8.4 7.5-10.5 fL Nucleated Red Blood Cells 0.0 0.0-0.19 % Sodium Level 139 136-145 mmol/L Potassium Level 3.6 3.5-5.1 mmol/L Chloride Level 107 101-111 mmol/L Carbon Dioxide Level 25 21-32 mmol/L Blood Urea Nitrogen 15 7-18 mg/dL Creatinine 0.7 0.5-1.3 mg/dL Glomerular Filtration Rate Calc 105 >90 mL/min Random Glucose 82 70-105 mg/dL Whole Blood Ketones Quantitative 1.6 H 0.0-0.6 mmol/L Total Calcium 7.4 L 8.5-10.1 mg/dL C-Reactive Protein, Quantitative 31.00 H 0.5-3.0 mg/L Current Medications Medications (Trade) Dose Ordered Sig/Estelita Route PRN Reason Start Time Stop Time Status Last Admin Dose Admin Acetaminophen (TYLenol 325MG TAB) 650 mg Q6H PRN PO FEVER/MILD PAIN LEVEL 1-3 05/30/25 00:00 05/31/25 22:42 DC Acetaminophen (TYLenol 325MG TAB) 650 mg Q6H PRN PO FEVER/MILD PAIN LEVEL 1-3 05/31/25 23:00 06/30/25 22:59 Acetaminophen (TYLenol 650MG SUPPOSITORY) 650 mg Q6H PRN RC FEVER / MILD PAIN 1-3 IF NPO 06/01/25 09:00 07/01/25 08:59 Acetaminophen (TYLenol 650MG SUPPOSITORY) 650 mg Q6H PRN RC FEVER / MILD PAIN 1-3 IF NPO 05/30/25 00:00 06/01/25 08:57 DC Albumin Human 100 ml @ 0 mls/hr TID IV 06/04/25 14:00 06/05/25 13:59 DC 06/05/25 07:53 1 MLS/HR Albuterol Sulfate (Proventil 0.083% 2.5mg/3ml) 2.5 mg Q4H PRN IH SHORTNESS OF BREATH 05/30/25 06:30 05/31/25 22:43 DC Albuterol Sulfate (Proventil 0.083% 2.5mg/3ml) 2.5 mg Q4H PRN IH SHORTNESS OF BREATH 05/31/25 23:00 06/30/25 22:59 Dextrose/Sodium Chloride 1,000 ml @ 100 mls/hr Q10H IV 05/30/25 10:30 05/31/25 16:00 DC 05/30/25 21:49 100 MLS/HR Docusate Sodium (COLace 100MG CAP) 100 mg BID PRN PO CONSTIPATION 06/01/25 09:00 07/01/25 08:59 Docusate Sodium (COLace 100MG CAP) 100 mg BID PRN PO CONSTIPATION 05/30/25 00:00 06/01/25 08:57 DC Dronabinol (MARinol 2.5 MG CAP) 2.5 mg BIDAC PO 06/04/25 16:30 06/11/25 16:29 06/05/25 07:52 2.5 MG Enoxaparin Sodium (Lovenox) 40 mg DAILY SQ 06/01/25 09:00 07/01/25 08:59 06/05/25 07:54 40 MG Enoxaparin Sodium (Lovenox) 40 mg DAILY SQ 05/30/25 17:30 06/01/25 08:59 DC 05/31/25 09:24 40 MG Furosemide (LASix 20MG TAB) 20 mg DAILY PO 06/02/25 09:00 06/02/25 08:15 DC Furosemide (LASix 40MG VIAL) 40 mg Q12H IV 06/01/25 06:00 06/01/25 07:48 DC 06/01/25 06:08 40 MG Furosemide (LASix 40MG VIAL) 40 mg Q12H IV 05/30/25 17:30 06/01/25 05:44 DC 05/31/25 16:37 40 MG Insulin Human Regular (humuLIN R 100 UNIT/ML 3ML) INSULIN SLIDING SCAL... ACHS SQ 06/01/25 11:30 07/01/25 11:29 Insulin Human Regular (humuLIN R 100 UNIT/ML 3ML) INSULIN SLIDING SCAL... ACHS SQ 05/30/25 07:30 06/01/25 08:59 DC Ipratropium Northrop (AtrovENT UD) 0.5 mg Q4H PRN IH SHORTNESS OF BREATH 05/30/25 06:30 05/31/25 22:44 DC Ipratropium Northrop (AtrovENT UD) 0.5 mg Q4H PRN IH SHORTNESS OF BREATH 05/31/25 23:00 06/30/25 22:59 Labetalol HCl (TRANdate 20MG SYG) 10 mg Q2H PRN IV SBP GREATER THAN 160 05/30/25 00:00 05/31/25 22:43 DC Labetalol HCl (TRANdate 20MG SYG) 10 mg Q2H PRN IV SBP GREATER THAN 160 05/31/25 23:00 06/30/25 22:59 Lactated Ringer's 1,000 ml @ 25 mls/hr Q24H IV 06/02/25 09:30 07/02/25 09:29 Hold 06/03/25 08:51 25 MLS/HR Lactated Ringer's 1,000 ml @ 25 mls/hr Q24H IV 05/30/25 06:00 06/01/25 09:05 DC 05/30/25 06:03 50 MLS/HR Lactulose (Constulose 20gm/ 30ml Udcup) 20 gm Q6H PRN PO CONSTIPATION 05/30/25 00:00 05/31/25 22:42 DC Lactulose (Constulose 20gm/ 30ml Udcup) 20 gm Q6H PRN PO CONSTIPATION 05/31/25 23:00 06/30/25 22:59 Magnesium Sulfate 50 ml @ 0 mls/hr NOW IV 06/01/25 14:00 06/01/25 13:58 DC Magnesium Sulfate 50 ml @ 0 mls/hr PROTOCOL PRN IV LOW MG 06/01/25 09:00 07/01/25 08:59 06/02/25 01:32 25 MLS/HR Magnesium Sulfate 50 ml @ 0 mls/hr PROTOCOL PRN IV LOW MG 05/31/25 09:00 06/01/25 08:59 DC Mirtazapine (REMeron 15 MG TAB) 7.5 mg HS PO 06/03/25 21:00 07/03/25 20:59 06/04/25 21:20 7.5 MG Multivitamins Therapeutic (Multivitamin Tablet) 1 tab DAILY PO 06/01/25 09:00 06/02/25 13:46 DC 06/01/25 10:25 1 TAB Multivitamins Therapeutic (Multivitamin Tablet) 1 tab DAILY PO 05/31/25 09:00 06/01/25 08:59 DC 05/31/25 09:24 1 TAB Multivitamins Therapeutic (Multivitamin Tablet) 1 tab QID PO 06/02/25 14:00 07/01/25 08:59 06/05/25 14:52 1 TAB Multivitamins/ Minerals 10 ml/ Folic Acid 1 mg/ Thiamine HCl 100 mg/Sodium Chloride 1,010 ml @ 0 mls/hr DAILY IV 05/30/25 12:00 06/01/25 09:01 DC 06/01/25 10:25 100 MLS/HR Ondansetron HCl (zoFRAN 4MG INJ) 4 mg Q6H PRN IVP NAUSEA/VOMITING 05/30/25 00:00 05/30/25 17:34 DC Ondansetron HCl (zoFRAN 4MG INJ) 4 mg Q8H PRN IVP NAUSEA/VOMITING 05/30/25 17:30 05/31/25 22:45 DC Ondansetron HCl (zoFRAN 4MG INJ) 4 mg Q8H PRN IVP NAUSEA/VOMITING 05/31/25 23:00 06/30/25 22:59 06/04/25 09:57 4 MG Pantoprazole Sodium (PROTonix 40MG INJ) 40 mg BID IVP 05/30/25 21:00 05/31/25 22:40 DC 05/31/25 09:24 40 MG Pantoprazole Sodium (PROTonix 40MG INJ) 40 mg BID IVP 05/31/25 23:00 06/30/25 22:59 06/05/25 07:53 40 MG Piperacillin Sod/ Tazobactam Sod (Zosyn 3.375gm+NS 50ml) 3.375 gm Q8H IVPB 05/30/25 06:30 05/31/25 22:39 DC 05/31/25 15:46 3.375 GM Piperacillin Sod/ Tazobactam Sod (Zosyn 3.375gm+NS 50ml) 3.375 gm Q8H IVPB 05/31/25 23:00 06/10/25 22:59 06/05/25 14:52 3.375 GM Potassium Chloride 100 ml @ 100 mls/hr AD PRN IV POTASSIUM PROTOCOL 05/30/25 17:30 05/31/25 22:44 DC Potassium Chloride 100 ml @ 100 mls/hr AD PRN IV POTASSIUM PROTOCOL 05/31/25 23:00 06/30/25 22:59 Potassium Chloride (K-Dur/Klor-Con 20meq) 20 meq AD PRN PO POTASSIUM PROTOCOL 05/30/25 17:30 05/31/25 22:45 DC 05/31/25 16:38 20 MEQ Potassium Chloride (K-Dur/Klor-Con 20meq) 20 meq AD PRN PO POTASSIUM PROTOCOL 05/31/25 23:00 06/30/25 22:59 06/01/25 10:28 20 MEQ Potassium Chloride (K-Dur/Klor-Con 20meq) 20 meq BID PO 06/02/25 21:00 06/02/25 11:43 DC Potassium Chloride (K-Dur/Klor-Con 20meq) 40 meq BID PO 06/01/25 14:00 07/01/25 13:59 06/05/25 07:52 40 MEQ Potassium Chloride (KCl 10% Elixir 20meq/15ml) 20 meq AD PRN PO POTASSIUM PROTOCOL 05/30/25 17:30 05/31/25 22:45 DC 05/31/25 06:26 20 MEQ Potassium Chloride (KCl 10% Elixir 20meq/15ml) 20 meq AD PRN PO POTASSIUM PROTOCOL 05/31/25 23:00 06/30/25 22:59 Sulfasalazine (AZULfidine 500MG tab DR) 500 mg QID PO 06/02/25 13:00 06/12/25 12:59 06/05/25 14:52 500 MG Temazepam (restORIL 15 MG CAP) 15 mg HS PRN PO INSOMNIA/SLEEP 06/01/25 09:00 07/01/25 08:59 Temazepam (restORIL 15 MG CAP) 15 mg HS PRN PO INSOMNIA/SLEEP 05/30/25 00:00 06/01/25 08:59 DC Thiamine HCl (Vitamin B-1) 100 mg DAILY IVP 06/02/25 09:00 06/02/25 10:32 DC Thiamine HCl (Vitamin B-1) 100 mg DAILY IVP 05/30/25 10:30 06/01/25 09:02 DC 05/31/25 09:24 100 MG Thiamine HCl (Vitamin B-1) 500 mg DAILY IVP 06/03/25 09:00 06/02/25 10:50 DC DIAGNOSTICS / RADIOLOGY: [ ] PATIENT: KIMBERLEY LU MR#: [id number] : 1965 SEX: M AGE: 59 LOCATION: [facility] ORDER 1206 STATUS: ADM IN REPORT#: [id number] SERVICE [id number] REASON: Left pleural effusion ORDERING PHYSICIAN: LIAM SCHWAB MD PROCEDURE: CXR1VW - CHEST 1VW EXAM: XR Chest, 1 View. CLINICAL HISTORY: COMPARISON: XR Chest 06/02/2025. FINDINGS: LUNGS: The lungs are clear. No consolidation. PLEURAL SPACES: Moderate left pleural effusion. Left diffusion is slightly increased compared to the prior study. HEART: The heart size is normal. BONES: No acute osseous abnormality. IMPRESSION: 1. Moderate left pleural effusion, slightly increased compared to the prior study. /[place] DICTATED BY: DAFNE GAMEZ MD DATE: 06/04/251748 ELECTRONICALLY SIGNED BY: DAFNE GAMEZ MD DATE: 06/04/251748 ASSESSMENT: Failure to thrive, POA Severe Protein Energy Malnutrition POA Acute colitis on CT abdomen/pelvis Moderate hydronephrosis due to renal calculi Cystitis on Ct abdomen/pelvis Acute on chronic abdominal pain, POA Loculated Pericardial effusion on echo Chronic diarrhea 2/2 Crohn's disease Acute dehydration, elevated BUN/ketonuria History of multiple colonoscopies, followed by Dr. Milner hx of colocolic intussusception at the sigmoid colon with underlining mass suspected, per CT abdomen and pelvis on 04/20/2025 Partial obstructing polypoid mass in the ascending colon status post partial resection, per colonoscopy on 03/2025 admission Left pleural effusion per chest x-ray on 05/30/2025, recurrent, with dyspnea, POA COPD per chest x-ray on 05/30/2025 Anemia of chronic disease Electrolyte derangement (hyponatremia, hypocalcemia) Protein calorie malnutrition/hypoalbuminemia Proteinuria, ketonuria, bilirubinuria, urobilinogenuria, per UA on 05/29/25 Chronic problem list: Crohn's, GERD, hypertension, multiple colonoscopies, former smoker with 10 years of tobacco use History of right UPJ obstruction with mild hydronephrosis, per CT on 04/20/2025 Small to large posterior pericardial effusion, EF > 65%/3D volume EF 68% per echo on 04/21/2025 PLAN: Starvation ketoacidosis * Continue Thiamine 100 mg and MVT QID * Stop IV fluids LR 1000 and albumin * Monitor for phosphorous, magnesium, and electrolytes * Monitor for signs of confusion, delirium, ataxia * Monitor Daily weight, strict I/O, JVP, lung crackles Failure to thrive, Protein calorie malnutrition, hypoalbuminemia * GI recommended Protonix 40mg BID, no colonoscopy evaluation * Dietary consult placed, recommended HH + GI soft/bland diet + jello tid w/ trays and Vit B1 and MVT. * Advance towards goals as tolerated * CT of chest, abdomen, and pelvis showed active colitis and right UPJ obstruction with moderate hydronephrosis * Hepatitis panel - negative * Start Mirtazapine for increasing appetite and improved mood.. * Start Marinol 2.5 mg t.i.d. * Cortisol AM ordered results pending * We will consider adding Aldactone once the patient is hemodynamically stable. Acute Colitis IV fluids, bowel rest, electrolyte correction. Continue IV zosyn day 5 Monitor for complications: perforation, toxic megacolon. Hydronephrosis from Right UPJ Obstruction with Calculus in Lower Calyx * A 6.4 mm calculus in the dependent portion of the bladder with wall thickening of 4.5 mm. * A 12 x 12 cm larger contrast collection seen at the right UPJ. * Dr. Peralta recommended a repeat IVP once the contrast clears at the UPJ * Follow up outpatient with Dr. Rhodes Cystitis * Currently on zosyn day 5 * Monitor for progression to pyelonephritis, especially given concurrent obstruction. Left sided Pleural effusion, suspected pneumonia * Chest x-ray showed left sided pleural effusion * Chest x-ray showed worsening left-sided pleural effusion * Serology influenza, COVID, strep screen, tested negative * Continue IV Zosyn 3.375 q8 * Monitor respiratory status. * Oxygen therapy as needed. Titrate oxygen prn to keep Spo2>/+=92%. * Albuterol and Atrovent PRN SOB. * Pulmonology team advised no intervention as the pleural effusion is too small. Sublicinal Hypothyroidism * TSH is 5.4, free T3 0.55, Free T4 0.97 * Monitor until patient is hemodynamically stable Loculated pericardial effusion * Recommended MRI Chest with contrast * F/u in one month for repeat echo -Monitor for fluid overload (The patient is edematous and dehydrated, ER administered NS 1 L bolus). -Fluid restriction a 1200 mL. -PRN medications for: Pain management, fever, hypertension, N/V, constipation, SOB. -Glucometer checks AC & HS needed with insulin regular sliding scale coverage as needed. -Blood pressure checks every 4 hours and as needed. -Reconcile home medications once available. -Monitor renal and liver function. -Monitor electrolytes and treat accordingly PRN -AM labs. -GI and DVT prophylaxis -Further plan/orders per hospitalization course. ATTESTATION BY PHYSICIAN I have seen and examined the patient. I reviewed the documentation, medical decision making, and treatment plan as noted by the resident provider above. I agree with the findings and plan of care. ÁNGELA GAYLE MD, HARSHAVARDHA MD Jun 05, 2025 17:57
[2025-06-06] VITALS: BP 126/86; PULSE 96; RESP 18; TEMP 98.3
[2025-06-06 04:00] VITALS: BP 149/96; PULSE 86; RESP 18; TEMP 97.8
[2025-06-06 04:59] LABS: NUCLEATED RED BLOOD CELLS 0.0 % (0.0-0.19); PLATELET COUNT (AUTO) 150.0 K/uL (130-400); RED BLOOD CELL COUNT(AUTO) 2.76 MIL/uL (4.50-6.20); RED CELL DISTRIBUTION WIDTH 16.9 % (11.0-15.5); WHITE BLOOD COUNT (AUTO) 4.1 K/uL (4.8-10.8)
[2025-06-06 05:08] LABS: CREATININE 0.5 mg/dL (0.5-1.3); GLOMERULAR FILTR. RATE CALC 117.0 mL/min (>90); GLUCOSE,RANDOM 85.0 mg/dL (70-105); SODIUM SERUM 139.0 mmol/L (136-145); UREA NITROGEN, BLOOD 12.0 mg/dL (7-18)
[2025-06-06 08:00] VITALS: O2SAT 97
[2025-06-06 08:01] VITALS: BP 121/94; PULSE 93; RESP 18; TEMP 97.8
[2025-06-06 11:37] VITALS: BP 107/84; PULSE 119; RESP 20; TEMP 98.1
--- NOTE | 2025-06-06 12:00 | NUR ---
CHANGE IN CONDITION PATIENT REFUSING ALL MEDICATIONS DUE TODAY 06/06/25. TRIED TO GIVE PATIENT EDUCATION ON WHY EACH MEDICATION WAS IMPORTANT TOWARDS HIS HEALTH AND HE MOTIONED HIS HEAD NO AND STATED "I AM GETTING DISCHARGED TODAY, I DON'T NEED ANY MORE MEDICATIONS FROM HERE." WILL CONTINUE TO MONITOR.
--- NOTE | 2025-06-06 12:12 | NUR ---
cm note call made to Cindy at [facility]([phone]), states she hsa spoke to suresh dalton, and states [facility] is [facility] and assist with adls/and care for pt. and can call her when ready for transfer. need to fax clinncal updates when ready to fax: [phone]. and will need to have [facility] set up for her to transfer.
--- NOTE | 2025-06-06 14:29 | DS ---
Discharge Summary Hospital Course Summary: Mr. Lu is 59-year-old male with a history of Crohn's, GERD, hypertension, multiple colonoscopies, former smoker with 10 years of tobacco use who presented [place] [facility] [place] for evaluation of increased generalized body weakness for the last six days. According to EMS and family who was on scene the patient has not been eating for the past six days. ED provider reports that the patient also reports mild shortness of breath. Patient reports he has been having diarrhea but it is the same as it usually is due to Crohn's. He states he follows with Dr. Milner as outpatient. The patient denied any melena, hematemesis, fever or chills. The patient reports that the weakness is so bad that he has been bed- bound at home and not ambulating due to not feeling well and feeling very weak. Per chart review the patient was admitted on 04/20/2025 for similar symptoms of general body weakness. Cardiology, GI, and general surgeon evaluated the patient on that admission. The CT abdomen and pelvis done on 04/20/2025 showed colocolic intussusception at the sigmoid colon with underlining mass suspected. Right UPJ obstruction with mild hydronephrosis. GI was consulted who did a colonoscopy that showed partial obstructing polypoid mass in the ascending colon status post partial resection. General surgeon Dr. Santos was consulted who recommended outpatient follow up in elective surgery. Cardiology was consulted for moderate posterior pericardial effusion per echo which also showed global ejection fraction of 65%. The patient was discharged on 04/25/2025. On admission his WBCs and troponin are WNL. Na 133, total calcium 7.7. Albumin 1.8, total protein 4.8. In ED the patient received Rocephin1 g and NS1 L bolus. ED provider request patient be admitted with the diagnosis of left pleural effusion and failure to thrive. Chest x-ray: Small to moderate pleural effusion on the left side. Lower lobe airspace disease bilaterally, more pronounced on the left side. COPD. No gross interval changes. After admission talking to patient's sister, that patient has history of Crohn's disease with multiple colonoscopies in the past and since July of last year patient decline has started. Patient's appetite has reduced significantly since then and has eaten small meals. He lost about 60 lb in about 3 months time. Since then patient has been mostly bed-bound, unable to do his activities of daily living, dependent on his sister. On admission his serum albumin was 1.8, CRP elevated 77.2, whole blood ketone 3.6, and ABG revealing primary metabolic acidosis with adequate compensation. Patient was diagnosed with severe protein energy malnutrition and starvation ketosis and was initiated on D5 NS, banana bag, thiamine, multivitamins and gentle diuresis with furosemide. He was monitored closely for electrolytes, refeeding syndrome, volume status. Patient was encouraged to have oral feeds however he was unable to finish them due to nausea. CT abdomen showed active colitis, right UPJ obstruction with moderate hydronephrosis, and a calculus in the lower calyx of right kidney. IV Zosyn was started and a urology consult was placed who recommended IVP with tomography. An x-ray obtained after administration of contrast for IVP concentrated the contrast material at the obstruction site in right UPJ and the procedure could not be completed because of it. Repeat IVP was recommended however the patient refused the procedure has he had stable finding since 2019 and being asymptomatic. Chest x-ray showed left basal pleural effusion and a pulmonary consult was placed for possible thoracocentesis however they deemed the effusion to be too small and did not to the procedure. A cardiology consult was obtained to rule out congestive heart failure which revealed a loculated pericardial mass without evidence of heart failure. Patient was advised to follow up on an outpatient basis to obtain a cardiac MRI to further investigate. A Gastroenterology consult was placed who recommended and EGD which revealed mild gastritis and small hiatal hernia and biopsy samples were taken. They reviewed the recent colonoscopy results and deemed it was not necessary at this moment and can be repeated at a later time on an outpatient basis for management of Crohn's disease. They advised Protonix 40 mg b.i.d.. Sulfasalazine was res tarted during hospitalization and advised to continue for management of Crohn's. Patient started 3rd spacing with the any amount of IV hydration hands they were stopped on the 3rd day encouraged to have oral feeds and oral hydration. Dietary consult advised to include heart healthy diet, soft GI diet, and ensure. Patient being lactose intolerant it was later changed to protein Jellys. Due to his depressed demeanor and severe protein energy malnutrition patient was prescribed mirtazapine Marinol to improve his appetite. He reported mild improvement in appetite and was able to finish half of his meals while in the hospital. Patient was given an infusion of albumin. In the light of severe protein energy malnutrition patient unable to tolerate oral feeds he was given the option of TPN however patient refused. In the light of patient not being able to eat enough foods and not agreeing for TPN with recommended he be discharged home on appetite stimulants and encourage oral feeds as tolerated. Patient will be discharged to [facility], an adult assisted living facility on mirtazapine, Marinol, multivitamins, famotidine, sulfasalazine, and polyethylene glycol. Patient was advised to follow up with PCP in 2-3 days and follow with Dr. Leonardo in 1 week for obtaining the pathology reports from EGD. Patient is encouraged to eat soft GI diet, heart healthy, and protein jellies as tolerated. Research Project Manager(s): , planer operator Dr. Maloney, clinic physician Dr. Neri, reception clerk Dr. Rhodes, urologist [facility] CONSULTATION NOTE Date Patient Seen: May 30, 2025 Time of Visit: 10:46 Supervising Physician: Dr. Nakul Neri Reason for Consultation: Recurrent pleural effusions left lower lung Primary Care Physician: [ ] Outpatient Specialists: [ ] Inpatient Consults: [ ] PROBLEM LIST: 1. CHRISTIANA basal pleural effusion 2. Suspect congestive heart failure, last echocardiogram results 04/16EF greater than 65% 3. 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 Neumann, previous admission 04/20/2020 4. Dyspnea 5. Generalized body weakness 7. Electrolyte derangement syndrome: Hypokalemia, Hyponatremia mild, & Hyp omagnesemia CHRONIC PROBLEM LIST: Crohn's disease GERD Hypertension Former smoker 10 years Suspect, COPD, undiagnosed and untreated Recommendations: Bilateral basal pleural effusions, clinical workup echocardiogram ordered to be read by on-call clinic physician's, patient does not have one Gentle diuretic: Lasix 40 mg IV b.i.d. Electrolyte protocol replacement therapy: Potassium and Magnesium Keep oxygen saturation greater than 92% Aspiration precautions Safety precautions DVT prophylaxis with Lovenox 40 mg sub q.day GI prophylaxis Protonix 40 mg p.o. daily Strict I&O Daily weight A.m. labs ordered: CBC, CMP, magnesium, calcium, hemoglobin A1c Out of bed for all meals Educate and use incentive spirometer while awake out of bed 6-10 times an hours HPI: Latrell Lu is a 59-year-old gentleman, patient of Dr. Layton Gonzales, health history: Hypertension, Crohn's disease, GERD, former smoker for 10 years, suspect COPD, undiagnosed and untreated,and obstructing polypoid mass ascending colon s/p partial resection, patient to follow up with Dr. Neumann, previous admission 04/20/2020, presents to the emergency department, yesterday evening, 05/29/2025 for generalized body weakness and dyspnea. Patient reports for the past six days to feel generalized body weakness has progressively worsened. Additionally, the patient is having increase shortness of the breath with minimal activities. Patient also reports feeling more bloated and that his legs are swollen. The patient had a previous admission on with similar symptoms was clinically worked up and diagnosed with obstructing polypoid mass ascending colon s/p partial resection, patient to follow up with Dr. Neumann as an outpatient. The patient did not. Consulted to assist with management of recurrent pleural effusion left lower lung. Vital signs: Temperature 98.4, pulse 90, respirations 16, blood pressure 130/75, oxygen saturation 97% on room air FiO2, 21. Laboratory results: Sodium 135, magnesium 1.8, calcium 7.5, white blood cell 7.1, hemoglobin 12.1, and hematocrit 36.4 CXR one view results: Left lower lobe basal effusion CT pelvis/abdomen/chest with/without contrast results: CHRISTIANA basal pleural effus ions. The patient was assessed in the Emergency department, in [facility], and a limited history and physical was obtained, the patient is a poor historian. And additional information was gathered by looking through the chart records. The patient did confirm that he did not follow up with Dr. Neumann as instructed during his previous admission at the end of March. Patient also reports being noncompliant with his medications. During the assessment patient has bilateral lower extremity pitting edema, extra swelling in the abdominal area. Patient also reports that he feels that he has gained weight but has not checked his weight. Thank you for the consult in the and for the opportunity to participate in the care for this patient. PAST MEDICAL HX: see above PAST SURGICAL HX: noncontributory SOCIAL HISTORY: The patient reports smoking for 10 years and has quit for probably over20 +years. The patient reports drinking alcohol in the past, but has not and denies the use of recreational drugs. 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 The patient lives independently and has friends and family in the area. Coded Allergies: No Known Drug Allergies (Unverified Allergy, Unknown, 09/18/17) REVIEW OF SYSTEMS: 12 point ROS reviewed with patient. Pertinent positives mentioned above. Otherwise negative. PHYSICAL EXAM: GENERAL: alert, , awake oriented x 3 HEENT: EOMI, Sclera non icteric, moist mucosa NECK: Supple, no JVD, trachea midline LUNGS: Clear breath sounds bilaterally. No wheezes HEART: Regular rate and rhythm. Normal S1 and S2, without murmurs ABD: Abdomen soft, distended, nontender. Bowel sounds present EXT: No clubbing cyanosis bilateral pitting edema NEURO: Alert and oriented to person, follows commands Vital Signs (last 8hr) Date Time Temp Pulse Resp B/P (MAP) Pulse Ox O2 Delivery O2 Flow Rate FiO2 05/30/25 08:18 98.4 120 12 125/87 97 Room Air* 0 21 05/30/25 05:12 98.4 85 16 137/90 96 Room Air* 0 21 LABS: Hematology Labs: Test 05/30/25 05:04 05/29/25 20:54 Range/Units White Blood Count 7.4 4.8-10.8 K/uL Red Blood Count 3.46 L 4.50-6.20 MIL/uL Hemoglobin 11.2 L 14.0-18.0 g/dL Hematocrit 33.2 L 42-54 % Mean Corpuscular Volume 96.0 79-99 fL Mean Corpuscular Hemoglobin 32.4 27.0-33.0 pg Mean Corpuscular Hemoglobin Concent 33.7 32.0-36.0 g/dL Red Cell Distribution Width 16.6 H 11.0-15.5 % Platelet Count 342 130-400 K/uL Mean Platelet Volume 8.5 7.5-10.5 fL Nucleated Red Blood Cells 0.0 0.0-0.19 % Immature Granulocyte % (Auto) 0.3 0-1 % Neutrophils (%) (Auto) 67.6 40.0-77.0 % Lymphocytes (%) (Auto) 17.2 L 21.0-51.0 % Monocytes (%) (Auto) 14.1 H 3.0-13.0 % Eosinophils (%) (Auto) 0.4 0.0-8.0 % Basophils (%) (Auto) 0.4 0.0-5.0 % Neutrophils # (Auto) 4.8 1.8-7.7 K/uL Lymphocytes # (Auto) 1.2 1.0-4.8 K/uL Monocytes # (Auto) 1.0 0.1-1.0 K/uL Eosinophils # (Auto) 0.03 0.00-0.70 K/uL Basophils # (Auto) 0.03 0.00-0.20 K/uL Absolute Immature Granulocyte (auto 0.02 0-1 K/uL Chemistry Labs: Test 05/30/25 09:29 05/30/25 07:34 05/30/25 05:04 05/29/25 20:54 Range/Units Whole Blood Ketones Quantitative 3.6 H 0.0-0.6 mmol/L Lactic Acid Level 1.3 0.8-2.5 mmol/L Free Thyroxine (T4) Direct 0.97 0.76-1.46 ng/dL Free Triiodothyronine (T3) pg/mL 0.55 L 2.18-3.98 pg/mL Whole Blood Glucose 66 L 70-110 MG/DL Sodium Level 135 L 136-145 mmol/L Potassium Level 4.1 3.5-5.1 mmol/L Chloride Level 104 101-111 mmol/L Carbon Dioxide Level 21 21-32 mmol/L Blood Urea Nitrogen 19 H 7-18 mg/dL Creatinine 0.6 0.5-1.3 mg/dL Glomerular Filtration Rate Calc 111 >90 mL/min Random Glucose 68 L 70-105 mg/dL Total Calcium 7.5 L 8.5-10.1 mg/dL Phosphorus Level 3.3 2.5-4.9 mg/dL Magnesium Level 1.80 1.80-2.40 mg/dL Troponin I High Sensitivity 5 4-75 ng/L B-Type Natriuretic Peptide 19 0-100 pg/mL Thyroid Stimulating Hormone (TSH) 5.20 #H 0.36-3.74 uIU/mL Total Bilirubin 0.7 0.2-1.0 mg/dL Aspartate Amino Transf (AST/SGOT) 16 10-37 U/L Alanine Aminotransferase (ALT/SGPT) 11 L 12-78 U/L Alkaline Phosphatase 101 50-136 U/L Total Creatine Kinase 19 #L 21-232 U/L Total Protein 4.8 L 6.0-8.3 g/dL Albumin 1.8 L 3.5-5.0 g/dL Coagulation Labs: Test 05/30/25 05:04 Range/Units D-Dimer Quantitative (PE/DVT) 399 0-500 ng/mL DIAGNOSTICS / RADIOLOGY RESULTS: [ ] PLAN NEURO: Minimize central acting medications as possible. Maintain fall precautions, adequate lighting during the day PULMONARY: Supplemental 02 as needed. Maintain aspiration precautions at all times CARDIOVASCULAR: Follow hemodynamics. Vital signs per facility protocol GI & NUTRITION: Continue with nutritional support. Continue stool softeners and laxatives as needed. KIDNEYS & ELECTROLYTES: Strict monitoring of intake, output and overall fluid balance. Avoid nephrotoxic medications to the extent possible. Medications to be dosed according to renal function. Monitor electrolytes and replace as needed ENDOCRINE: Maintain blood glucose between 100-180 at all times. Hypoglycemia protocol in place INFECTIOUS DISEASE: Trend temperature, WBC and procalcitonin level Follow cultures, deescalate antibiotics as soon as possible. Panculture if new onset fever ONCOLOGY/HEMATOLOGY/COAGULATION: Monitor for s/s of bleeding Monitor hemoglobin, coagulation studies as needed SKIN: Pressure ulcer prevention per facility protocol Specialty mattress ORTHO/REHAB: Continue PT/OT Prophylaxis: Continue GI and DVT prophylaxis Code Status: Full Resuscitation Disposition: TBD Other: Total patient care time exceeds 50 minutes excluding all procedures. The patien t's information including vital signs diagnostic tests assessment findings was reviewed and discussed with supervising physician, Dr. Nakul Neri and an intervention and treatment plan was formulated and implemented. ROSS AMBRIZ NP May 30, 2025 10:46 Electronically Signed by: ROSS AMBRIZ NP05/30/25 3284 Electronically Co-Signed by: REQUESTING PHYSICIAN: Wisam Gayle MD REASON FOR CONSULTATION: Right hydronephrosis. HISTORY OF PRESENT ILLNESS: Dear Dr. Gayle and Dr. Barrera, I had the pleasure of seeing the patient, 59-year-old male, admitted to the hospital because of exacerbation of Crohn's disease. CT scan performed because of abdominal pain, documented the presence of ____ secondary to obstruction on the right hand side. The patient's hydronephrosis has been present on CT scans dated from 2017 without any change in intensity. Nonetheless, the consultation of urology requested because of the hydronephrosis as well as the finding of a small calcification in the most dependent part of his bladder. The patient encountered lying in bed comfortably. He has no flank pain, no gross hematuria. He has abdominal discomfort. ALLERGIES: Recorded as none. MEDICATIONS: Include sulfasalazine, famotidine, vitamins. The patient's additional medication in the hospital includes albuterol, Atrovent. PAST MEDICAL HISTORY: Significant for Crohn's disease. PAST SURGICAL HISTORY: Multiple colonoscopies. REVIEW OF SYSTEMS: No shortness of breath. No chest pain. Appetite is poor. He has nausea. No vomiting. He has no constipation. He has diarrhea. He has no headaches or dizziness. He feels weak. No fever or chills. FAMILY HISTORY: Negative for kidney stones. SOCIAL HISTORY: Does not smoke or drink. Lives with family. PHYSICAL EXAMINATION: GENERAL: A very thin male, awake and oriented, in no distress. VITAL SIGNS: Temperature is 98, blood pressure is 153/____. LUNGS: Lung zamora are clear to auscultation and percussion. ABDOMEN: Scaphoid, full, soft, nontender. No masses. BACK: No CVA tenderness. EXTERNAL GENITALIA AND RECTAL: Deferred. LABORATORY DATA: Urinalysis shows dark, cloudy, yellow urine, specific gravity of 1.030, pH of 5.5, no blood, no nitrites, no bilirubin, no bacteria. The patient's white count is 7, hematocrit is 36, platelet count is 332. Sodium 133, potassium 3.7. BUN and creatinine are 20/0.7. IMAGING STUDIES: Reviewed today include a CT scan of the abdomen and pelvis that documents uteropelvic junction obstruction, chronic, longstanding, and this is unchanged from 2017. In addition, the patient has small calcification in his bladder. ASSESSMENT: * Ureteropelvic junction obstruction with minimal to no change in the last several years. * Exacerbation of Crohn's disease. * Small bladder stone. RECOMMENDATIONS: * To have IVP with tomograms. * Follow up with PCP as an outpatient with referral to Urology. * The patient's concern was answered. * No surgical urologic intervention is planned at this time. Thank you for the opportunity for providing consultation on your patient. Sincerely, TID: [id number] RECEIPT: [id number] Electronically Signed by: Electronically Co-Signed by: [facility] CONSULTATION NOTE Date Patient Seen: May 31, 2025 Time of Visit: 18:43 Reason for Consultation: [Suspected heart failure ] History of Present Illness: [ 59-year-old male patient with a past medical history of Crohn's disease, GERD, hypertension, multiple colonoscopies, patient plans to [facility] wishes department by EMS to generalized body weakness onset six days. Patient was endorsing also mild shortness of breath. Of note has a prior admission from March 2025 cardiology was consulted at that time for moderate pericardial effusion, LVEF showed 65%, repeat 2D echo on this admission showed LVEF of greater than 65%, no hemodynamically significant valvular abnormalities, with a small loculated pericardial effusion, concerning for cardiac mass, with no echo indications for pericardial tamponade. Remarkable lab results, albumin 1.8, troponin is negative, the clinical evidence of heart failure. ] Past Medical History: [Refer to chart ] Past Surgical History: [Refer to HPI ] Family History: [Refer to HPI] Social History: [Refer to HPI] Habits: [Never] smoker. [Denies] alcohol consumption. [Denies] illicit drug use Review of Systems: A review of12 point system was negative set per HPI Physical Examination: GENERAL: [No acute distress.] HEAD: [Normal with no signs of head trauma.] EYES: [PERRLA, EOMI, conjunctiva and sclera normal.] ENT: [Hearing grossly intact, normal oropharynx.] NECK: [Supple without JVD. There is no tenderness, lymphadenopathy, or masses. No thyromegaly. Normal carotid upstrokes without bruits.] LUNGS: [Decreased breath sounds in the bases bilaterally . No wheezes, or rhonchi.] HEART: [Normal rate and rhythm. Normal S1 and S2 without mumurs, gallop or rub.] VASC: [Peripheral pulses +2 bilaterally.] ABD: [Bowel sounds normal, soft, nontender, no masses, no organomegaly. No audible bruits.] : [Not examined] LYMPH: [No lymphadenopathy noted.] EXT: [No clubbing, cyanosis or edema.] SKIN: [No rashes or lesions noted.] NEURO: [Awake, alert, and oriented x3. No focal sensory or strength deficits noted.] Vital Signs (last 8hr) Date Time Temp Pulse Resp B/P (MAP) Pulse Ox O2 Delivery O2 Flow Rate FiO2 05/31/25 16:00 98.1 80 18 113/61 90 Room Air 05/31/25 12:00 97.5 99 18 165/69 95 Room Air Laboratory: [ ] Hematology Labs: Test 05/31/25 09:22 05/31/25 05:27 Range/Units Reticulocyte Count (auto) 2.48811 H 0.42-2.23 % Immature Reticulocyte Fraction 6.60 H 0.18-0.48 % White Blood Count 5.7 4.8-10.8 K/uL Red Blood Count 3.37 L 4.50-6.20 MIL/uL Hemoglobin 10.9 L 14.0-18.0 g/dL Hematocrit 31.1 L 42-54 % Mean Corpuscular Volume 92.3 79-99 fL Mean Corpuscular Hemoglobin 32.3 27.0-33.0 pg Mean Corpuscular Hemoglobin Concent 35.0 32.0-36.0 g/dL Red Cell Distribution Width 16.3 H 11.0-15.5 % Platelet Count 278 130-400 K/uL Mean Platelet Volume 7.9 7.5-10.5 fL Immature Granulocyte % (Auto) 0.3 0-1 % Neutrophils (%) (Auto) 70.5 40.0-77.0 % Lymphocytes (%) (Auto) 15.7 L 21.0-51.0 % Monocytes (%) (Auto) 12.5 3.0-13.0 % Eosinophils (%) (Auto) 0.7 0.0-8.0 % Basophils (%) (Auto) 0.3 0.0-5.0 % Neutrophils # (Auto) 4.0 1.8-7.7 K/uL Lymphocytes # (Auto) 0.9 L 1.0-4.8 K/uL Monocytes # (Auto) 0.7 0.1-1.0 K/uL Eosinophils # (Auto) 0.04 0.00-0.70 K/uL Basophils # (Auto) 0.02 0.00-0.20 K/uL Absolute Immature Granulocyte (auto 0.02 0-1 K/uL Nucleated Red Blood Cells 0.0 0.0-0.19 % Chemistry Labs: Test 05/31/25 15:11 05/31/25 09:22 05/31/25 05:27 05/30/25 15:53 Range/Units Whole Blood Glucose 145 H 70-110 MG/DL Potassium Level 3.2 L 3.5-5.1 mmol/L Iron Level 41 L 65-175 mcg/dL Total Iron Binding Capacity 40 L 250-450 mcg/dL Percent Iron Saturation 102.5 H 30-44 % Ferritin 512 H 30-400 ng/mL Vitamin B12 Level 1616 H 193-986 pg/mL Sodium Level 135 L 136-145 mmol/L Chloride Level 105 101-111 mmol/L Carbon Dioxide Level 21 21-32 mmol/L Blood Urea Nitrogen 18 7-18 mg/dL Creatinine 0.7 0.5-1.3 mg/dL Glomerular Filtration Rate Calc 105 >90 mL/min Random Glucose 131 H 70-105 mg/dL Total Calcium 7.4 L 8.5-10.1 mg/dL Magnesium Level 1.60 L 1.80-2.40 mg/dL Total Bilirubin 0.7 0.2-1.0 mg/dL Aspartate Amino Transf (AST/SGOT) 14 10-37 U/L Alanine Aminotransferase (ALT/SGPT) 10 L 12-78 U/L Alkaline Phosphatase 95 50-136 U/L B-Type Natriuretic Peptide 32 0-100 pg/mL Total Protein 4.3 L 6.0-8.3 g/dL Albumin 1.5 L 3.5-5.0 g/dL Phosphorus Level 3.2 2.5-4.9 mg/dL Test 05/30/25 09:29 05/30/25 05:04 05/29/25 20:54 Range/Units Whole Blood Ketones Quantitative 3.6 H 0.0-0.6 mmol/L Serum Osmolality 279 278-305 mOsm/kg Lactic Acid Level 1.3 0.8-2.5 mmol/L Free Thyroxine (T4) Direct 0.97 0.76-1.46 ng/dL Free Triiodothyronine (T3) pg/mL 0.55 L 2.18-3.98 pg/mL Troponin I High Sensitivity 5 4-75 ng/L C-Reactive Protein, Quantitative 77.20 H 0.5-3.0 mg/L Thyroid Stimulating Hormone (TSH) 5.20 #H 0.36-3.74 uIU/mL Total Creatine Kinase 19 #L 21-232 U/L Coagulation Labs: Test 05/30/25 05:04 Range/Units Prothrombin Time 12.0 H 9.6-11.6 SEC Prothromb Time International Ratio 1.15 0.85-1.15 Activated Partial Thromboplast Time 39.0 H 26.3-35.5 SEC D-Dimer Quantitative (PE/DVT) 399 0-500 ng/mL Diagnostics / Radiology: [Copy/Paste Echos/Imaging Report here] Assessment: [Crohn's disease Current Hypertension ] Plan: [# suspected heart failure Patient was admitted for ongoing fatigue tiredness for the past six days. Also shortness of breath Presenting ECG was sinus rhythm, no acute ischemia. Troponins negative Prior admission from March 2025 cardiology was consulted at that time for moderate pericardial effusion, LVEF showed 65% Repeat 2D echo on this admission showed LVEF of greater than 65%, no hemodynamically significant valvular abnormalities, with a small loculated pericardial effusion, concerning for cardiac mass, with no echo indications for pericardial tamponade No clinical evidence for heart failure, but the loculated pericardial effusion is concerning he should be followed up with an MRI of the chest with the contrast to further delineate this patient's anatomy Thank you for this consult cardiology will continue to follow along Grover maloney MD ] ATTESTATION BY PHYSICIAN I have seen and examined the patient, reviewed the above documentation, participated in medical decision making, made necessary modifications, and agree with the treatment plan as documented by my mid-level provider above. MD CAS Galicia JAMES R MD May 31, 2025 18:50 Electronically Signed by: GROVER MALONEY MD05/31/25 185 Electronically Co-Signed by: Procedure(s): PATIENT: LATRELL LU MR#: [id number] : 1965 SEX: M AGE: 59 LOCATION: [facility] ORDER 29 STATUS: REG ER REPORT#: [id number] SERVICE 28 REASON: SOB ORDERING PHYSICIAN: ASIF MIJARES PROCEDURE: CXR1VW - CHEST 1VW EXAM: CR Chest, 1 view CLINICAL HISTORY: Shortness of breath. COMPARISON: Chest radiograph dated 04/24/2025. FINDINGS: Small to moderate pleural effusion on the left side. Lower lobe airspace disease bilaterally, more pronounced on the left side. COPD. No pneumothorax. The cardiomediastinal silhouette is within normal limits. No acute osseous abnormality. IMPRESSION: Small to moderate pleural effusion on the left side. Lower lobe airspace disease bilaterally, more pronounced on the left side. COPD. No gross interval changes. /Gray DICTATED BY: STEPHIE EVANS Jr., MD DATE: 05/29/252254 ELECTRONICALLY SIGNED BY: STEPHIE EVANS Jr., MD DATE: 05/29/252254 PATIENT: LATRELL LU MR#: [id number] : 1965 SEX: M AGE: 59 LOCATION: [facility] ORDER 5 STATUS: ADM IN REPORT#: [id number] SERVICE REASON: PLEURAL EFFUSION ORDERING PHYSICIAN: ZIYAD GORDON PROCEDURE: CAP WWO - CT CHEST/ABD/PELV W/WO CONTRAS EXAM: CT Abdomen and Pelvis with and without Intravenous Contrast CLINICAL HISTORY: PLEURAL EFFUSION TECHNIQUE: Axial computed tomography images of the chest, abdomen and pelvis with and without intravenous contrast. CONTRAST: None. COMPARISON: None provided. FINDINGS: Large Bowel: There is a long segment thickening of the sigmoid colon for a length of 16.4 cm with a maximum diameter of 5.8 cm, showing significant inflammation, engorged pericolonic vessels, and mild fat stranding. There is also mild thickening of the splenic flexure, transverse colon, and ascending colon, reflecting underlying active colitis. No evidence of pneumatosis, evident perforation, or pericolonic abscess. There is mild wall thickening of the left lateral conal fascia and the paracolic gutter. Small Bowel: Small bowel loops within normal caliber. No evidence of significant small bowel wall thickening, obstruction, or abnormal enhancement. Liver, spleen, gall bladder, pancreas, and adrenal glands are normal in size and attenuation, with no focal lesions. Kidneys and Ureters: There is right UPJ obstruction causing moderate hydronephrosis with pooling of contrast and 6mm calculus in the lower calyx . No renal mass or perinephric collection. Urinary Bladder and Prostate: There is a 6.4 mm calculus in the dependent portion of the urinary bladder with wall thickening of 4.5 mm. Mild bladder wall calcification along the posterior urinary bladder wall. There is thickening of the bladder wall. Prostate is normal sized with intraprostatic calcification. Abdominal Wall and Subcutaneous Tissues: There is diffuse edema along the subcutaneous plane of the abdomen and the intramuscular plane. Musculoskeletal Structures: Bone shows degenerative changes. No lytic or sclerotic lesions. Other Findings: No free fluid or free air in the abdomen or pelvis. No lymphadenopathy. IMPRESSION: Long segment thickening of the proximal sigmoidcolon for a length of 16.4 cm with a maximum diameter of 5.8 cm, showing significant inflammation, engorged pericolonic vessels, and mild fat stranding. No evidence of pneumatosis, evident perforation, or pericolonic abscess. Features suggestive of active colitis. Right UPJ obstruction with moderate hydronephrosis and calculi in the lower calyx. Thickened urinary bladder wall, suggesting cystitis. Bladder calculi. /Gray DICTATED BY: CRISTIANE JETER MD DATE: 05/30/251811 ELECTRONICALLY SIGNED BY: CRISTIANE JETER MD DATE: 05/30/251811 PATIENT: LATRELL LU MR#: [id number] : 1965 SEX: M AGE: 59 LOCATION: [facility] ORDER [id number] STATUS: ADM IN REPORT#: [id number] SERVICE 0932 REASON: GBW ORDERING PHYSICIAN: ZIYAD GORDON PROCEDURE: ECHO CMP - ECHO 2-D COMPLETE APPROVED REPORT EXAM: Two-dimensional and M-mode echocardiogram with Doppler and color Doppler. Study Details: Previous echo 04/21/25 INDICATION ICD: General body weakness 2D Dimensions IVSd 0.8 (0.7-1.1cm) LVEF(%) 63.6 (>50%) LVDd 3.2 (3.8-5.6cm) FS(%) 33 % PWd 1.1 (0.7-1.1cm) LA (2D) 3.2 (1.6-4.0cm) IVSs 1.1 cm Ao Root(2D) 3.0 (2.0-3.7cm) LVDs 2.1 (2.5-4.0cm) LVOT diam 1.8 (1.8-2.4cm) PWs 1.0 cm M-Mode Dimensions EPSS 0.6 cm LA (MM) 3.2 (1.6-4.0cm) Ao Root(MM) 2.8 (2.0-3.7cm) Aortic Valve AoV Vmax 0.9 m/s Ao Peak GR 3.5 mmHg LVOT Vmax 0.8 m/s AoV VTI 0.2 m Ao Mean GR 2.3 mmHg LVOT VTI 0.16 m DEREK (VMAX) 2.18 cm2 DEREK (VTI) 2.4 cm2 Mitral Valve MV E Vmax 45.9 cm/s DECEL Time 178 ms MV A Vmax 64.9 cm/s P 1/2 T 59 ms E/A ratio 0.7 MVA (PHT) 3.8 cm2 TDI E/E' Medial 9.9 E/E' Lateral 8.5 Medial E' Peak V 4.63 cm/s Lateral E' Peak V 5.38 cm/s Pulmonary Valve PV Vmax 1.1 m/s PV VTI 0.18 m PV Mean GR 2.7 mmHg PV Peak GR 5.2 mmHg Tricuspid Valve TR Vmax 1.0 m/s RAP (EST) 8 mmHg RVSP 12.1 mmHg TR Peak GR 4.1 mmHg Left Ventricle The left ventricle is normal size. Cannot exclude regional wall motion abnormalities. Left ventricular wall thickness appears normal. The LVEF is estimated> 65%. The left ventricular diastolic function is normal. Right Ventricle The right ventricle is normal size. The right ventricular systolic function appears normal. Atria The left atrium size is normal. The right atrium size is normal. Aortic Valve The aortic valve is normal in structure. No aortic regurgitation is present. There is no aortic valvular stenosis. Mitral Valve The mitral valve is normal in structure. There is no mitral valve regurgitation noted. There is no mitral valve stenosis. Tricuspid Valve The tricuspid valve is normal in structure. There is trace of tricuspid valve regurgitation noted. Pulmonic Valve Pulmonic valve is not well visualized. There is no pulmonic valvular regurgitation. Great Vessels The aortic root is normal in size. IVC is not well visualized. Pericardium There is smal loculatedl pericardial effusion. No echo indications of pericardial tamponade. Other Information Quality : Technically difficult study due to body habitus Conclusion No significant changes compared to previous echocardiogram done on 04/21/25. The left ventricle is normal size. The LVEF is estimated> 65%. The left ventricular diastolic function is normal. The right ventricular systolic function appears normal. Both atria are normal in size. No hemodynamically significant valvular abnormalities. There is smal loculatedl pericardial effusion. No echo indications of pericardial tamponade. DICTATED BY: GROVER MALONEY MD DATE: 05/30/25 0932 ELECTRONICALLY SIGNED BY: GROVER MALONEY MD DATE: 05/31/25 0801 PATIENT: LATRELL LU MR#: [id number] : 1965 SEX: M AGE: 59 LOCATION: [facility] ORDER 1 STATUS: ADM IN REPORT#: [id number] SERVICE 0841 REASON: bedbound for many days, r/o dvt ORDERING PHYSICIAN: KORTNEY MACKENZIE MD PROCEDURE: VENOUS CHRISTIANA - US VENOUS DOPPLER BILATERAL EXAMINATION: SPECTRAL DOPPLER ULTRASOUND EXAMINATION OF THE BILATERAL LOWER EXTREMITY VEINS. CLINICAL HISTORY: Bed bound for many days, to rule out DVT. COMPARISON: None provided. TECHNIQUE: Real-time ultrasound scan of the veins of the bilateral lower extremity with color Doppler flow, spectral waveform analysis and compression. FINDINGS: DEEP VEINS: The common femoral, superficial femoral, and popliteal veins are echolucent and compressible. There is normal color Doppler flow throughout. The visualized calf veins appear patent. SUPERFICIAL VEINS: The greater saphenous veins are patent and compressible. SOFT TISSUES: No popliteal fossa cyst or other abnormalities. IMPRESSION: No deep venous thrombosis evident in the bilateral lower extremity. No superficial thrombophlebitis in the bilateral lower extremity. /Eastern DICTATED BY: STEPHIE EVANS Jr., MD DATE: 06/02/251125 ELECTRONICALLY SIGNED BY: STEPHIE EVANS Jr., MD DATE: 06/02/251125 PATIENT: LATRELL LU MR#: [id number] : 1965 SEX: M AGE: 59 LOCATION: [facility] ORDER 1600 STATUS: ADM IN REPORT#: [id number] SERVICE 1555 REASON: assess for fluid overload ORDERING PHYSICIAN: KORTNEY MACKENZIE MD PROCEDURE: CXR1VW - CHEST 1VW EXAM: CR Chest, single view. CLINICAL HISTORY: Assess for fluid overload. COMPARISON: Prior chest radiograph dated 30 May 2025. FINDINGS: Mild left-sided pleural effusion and blunting of the left costophrenic angle. The right costophrenic angle is clear. No evidence of pneumothorax. The cardiomediastinal silhouette is within normal limits. No acute osseous abnormality. IMPRESSION: Mild left-sided pleural effusion and blunting of the left costophrenic angle. The right costophrenic angle is clear. No evidence of pneumothorax. Normal cardiac size. Compared to the prior study no interval change. /Gray DICTATED BY: STEPHIE EVANS Jr., MD DATE: 06/02/251125 ELECTRONICALLY SIGNED BY: STEPHIE EVANS Jr., MD DATE: 06/02/251125 PATIENT: LATRELL LU MR#: [id number] : 1965 SEX: M AGE: 59 LOCATION: [facility] ORDER 1026 STATUS: ADM IN REPORT#: [id number] SERVICE 1021 REASON: Right UPJ obstruction and small bladder stone--CERTIFIED ALCOHOL AND DRUG COUNSELOR FILM FOR IVP ORDERING PHYSICIAN: LIAM SCHWAB MD PROCEDURE: ABD 1VW - ABD 1VW ABD 1VW REASON: Right UPJ obstruction and small bladder stone--CERTIFIED ALCOHOL AND DRUG COUNSELOR FILM FOR IVP FINDINGS: Single image of the abdomen was obtained. Bowel gas pattern is normal. Bones and soft tissues appear unremarkable. The study demonstrate there is a large contrast seen in the lateral right renal pelvis with severe calyectasis. This finding is suggesting of right UPJ obstruction. There are no abnormal calcifications. There is no evidence of foreign body. IMPRESSION: 1. Severe right UPJ obstruction with a large contrast seen in the right renal pelvis measuring approximately 12 x 12 cm. There is associated callus calyectasis. Due to contrast excretion into the right renal pelvis and caliectasis uteropelvic junction. I would recommend once the contrast clears to performing the IVP DICTATED BY: RENE MERIDA MD DATE: 06/02/25 1552 ELECTRONICALLY SIGNED BY: RENE MERIDA MD DATE: 06/02/25 1608 PATIENT: LATRELL LU MR#: [id number] : 1965 SEX: M AGE: 59 LOCATION: [facility] ORDER 1342 STATUS: ADM IN REPORT#: [id number] SERVICE 1341 REASON: fluid overload ORDERING PHYSICIAN: KORTNEY MACKENZIE MD PROCEDURE: CXR1VW - CHEST 1VW EXAM: CR Chest, single view CLINICAL HISTORY: Fluid overload. COMPARISON: Prior chest radiograph dated June 01, 2025 FINDINGS: Mildly increased opacity in the left retrocardiac region and blunting of the left costophrenic angle,probable mild left-sided pleural effusion. The cardiomediastinal silhouette is within normal limits. No evidence of pneumothorax. No acute osseous abnormality. IMPRESSION: Mildly increased opacity in the left retrocardiac region and blunting of the left costophrenic angle,probable mild left-sided pleural effusion. The cardiomediastinal silhouette is within normal limits. No evidence of pneumothorax. Compared to the prior study, there is a mild reduction in the left-sided pleural effusion. /Eastern DICTATED BY: STEPHIE EVANS Jr., MD DATE: 06/02/252316 ELECTRONICALLY SIGNED BY: STEPHIE EVANS Jr., MD DATE: 06/02/252316 PATIENT: LATRELL LU MR#: [id number] : 1965 SEX: M AGE: 59 LOCATION: [facility] ORDER 120 STATUS: ADM IN REPORT#: [id number] SERVICE 115 REASON: Left pleural effusion ORDERING PHYSICIAN: LIAM SCHWAB MD PROCEDURE: CXR1VW - CHEST 1VW EXAM: XR Chest, 1 View. CLINICAL HISTORY: COMPARISON: XR Chest 06/02/2025. FINDINGS: LUNGS: The lungs are clear. No consolidation. PLEURAL SPACES: Moderate left pleural effusion. Left diffusion is slightly increased compared to the prior study. HEART: The heart size is normal. BONES: No acute osseous abnormality. IMPRESSION: 1. Moderate left pleural effusion, slightly increased compared to the prior study. /Gray DICTATED BY: DAFNE GAMEZ MD DATE: 06/04/251748 ELECTRONICALLY SIGNED BY: DAFNE GAMEZ MD DATE: 06/04/251748 Assessment/Plan: ASSESSMENT: Failure to thrive Severe protein energy Malnutrition Acute colitis on CT abdomen/pelvis, resolved Moderate hydronephrosis due to renal calculi Cystitis on Ct abdomen/pelvis, resolved Loculated Pericardial effusion on echo Chronic diarrhea due to Crohn's disease Acute dehydration, elevated BUN/ketonuria, resolved History of multiple colonoscopies due to crohn's disease History of of colocolic intussusception at the sigmoid colon with underlining mass suspected, per CT abdomen and pelvis on 04/20/2025 Partial obstructing polypoid mass in the ascending colon status post partial resection, without high grade dysplasia Left pleural effusion, due to hypoalbuminemia Proteinuria, ketonuria, bilirubinuria, urobilinogenuria, resolving Right UPJ obstruction with mild hydronephrosis Discharge Instructions: ADMISSION DATE : 05/29/2025 DISCHARGE DATE: 06/06/2025 DISPOSITION : Assisted living facility CONDITION : Stable SUPPLY CHAIN VICE PRESIDENT(S) : Dr. Ambriz, , Dr. Maloney, Dr. Arroyo, Dr. Rhodes FOLLOW UP APPOINTMENT(S) : f/u with PCP in one 2-3 days, f/u with Dr. Leonardo in one week PROCEDURES: EGD IMAGING (S) : report attached to summary MICROBIOLOGY : report attached to summary ACTIVITY : ad krystal HOME MEDICATIONS : Continued Home Medications: Reported Medications Potassium Chloride (Potassium Chloride) 20 Meq Tab.er.prt, 1 TAB PO BID for 30 Days, #60 TAB 0 Refills 05/29/25 Sulfasalazine (Sulfasalazine Dr) 500 Mg Tablet.dr, 2 TAB PO QID for 30 Days, #120 TAB 0 Refills 05/29/25 Famotidine (Famotidine) 20 Mg Tablet, 1 TAB PO BID for 30 Days, #60 TAB 0 Refills 03/29/25 New Medications: Polyethylene Glycol 3350 (Miralax) 17 Gram Powd.pack 17 GM PO [id number] PRN for CONSTIPATION for 7 Days, #15 PACKET Mirtazapine (Remeron 15Mg Tab) 15 Mg Tablet 7.5 MG PO HS, #15 TAB Multivitamins,Therapeutic (Multivitamin Tablet) 400 Mcg Tab 1 TAB PO QID, #16 TAB Continued Medications: Famotidine (Famotidine) 20 Mg Tablet 1 TAB PO BID for 30 Days, #60 TAB 0 Refills Potassium Chloride (Potassium Chloride) 20 Meq Tab.er.prt 1 TAB PO BID for 30 Days, #60 TAB 0 Refills Sulfasalazine (Sulfasalazine Dr) 500 Mg Tablet.dr 2 TAB PO QID for 30 Days, #120 TAB 0 Refills Time spent arranging discharge: 1-30 minutes ATTESTATION BY PHYSICIAN I have seen and examined the patient. I reviewed the documentation, medical decision making, and treatment plan as noted by the resident provider above. I agree with the findings and plan of care. WISAM GAYLE MD, HARSHAVARDHA MD Jun 06, 2025 14:29
[2025-06-06] MEDS ORDERED: MVIT PO (14:41)
[2025-06-06] MEDS ORDERED: POLY17PO4 PO (14:41)
[2025-06-06] MEDS ORDERED: MIRT-146 PO (14:41)
--- NOTE | 2025-06-06 14:46 | NUR ---
REPORT GIVEN TO [facility] SANDY SERRANO LVN. ALL QUESTIONS ANSWERED. PENDING DISCHARGE PROCESS
[2025-06-06] MEDS ORDERED: DRON10CA PO (15:46)
--- NOTE | 2025-06-06 18:06 | NUR ---
PATIENT DISCHARGE PATIENT DISCHARGES VIA EMS TO [facility]. ALL DISCHARGE EDUCATION GIVEN. DISCHARGE COMPLETE.
--- NOTE | 2025-06-06 21:36 | PN ---
[facility] PROGRESS NOTE Date Patient Seen: Jun 06, 2025 Time of Visit: 21:33 Supervising Physician: Dr. Moreno Primary Care Physician: BABAR THOMPSON MD Outpatient Specialists: Inpatient Consults: [facility], Dr Rhodes, Dr Faulkner, Dr Eldridge PROBLEM LIST: Bilateral small pleural effusion greater on the left not amenable for thoracentesis Acute on chronic diastolic heart failure with a LVEF of 65%, improving. 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 Neumann, kevin . Dyspnea Generalized body weakness Electrolyte derangement syndrome: Hypokalemia, Hyponatremia mild, & Hypomagnesemia CHRONIC PROBLEM LIST: Crohn's disease GERD Hypertension Former smoker 10 years COPD, undiagnosed and untreated RECOMMENDATIONS: Pleural effusion too small for thoracentesis. Recommend against thoracentesis due to possibility of pneumothorax and complications. Patient may follow up with pulmonology in 1-2 weeks post discharge. Disposition per primary team INTERVAL HISTORY: Patient evaluated at bedside today, resting comfortably in currently on room air. Patient denies any chest pain or shortness of breath. Per nursing staff patient is scheduled to be discharged today. There was no indication for thoracentesis on this admission however we recommend the patient follow up at [facility] [place] to ensure complete resolution with the in the next 1- 2 weeks. Patient was advised of this, no questions asked at bedside. Patient is cleared to discharge from a pulmonary standpoint. REVIEW OF SYSTEMS: General: No malaise or fever. Neurological: No fainting episodes or seizures. HEENT: No nasal congestion or nasal secretion. Respiratory: No cough, shortness of breath, or wheezing Cardiac: No chest pain or palpitations. Gastrointestinal: No vomiting or diarrhea. Genitourinary: No dysuria hematuria. Skin: No rashes or lesions. Hematological: No bruises or bleeding. Musculoskeletal: No joint pains or arthralgias. Psychiatric: No depression or panic attacks. PHYSICAL EXAM: GENERAL: alert, , awake oriented x 3 HEENT: EOMI, Sclera non icteric, moist mucosa NECK: Supple, no JVD, trachea midline LUNGS: Absent lung sounds to right lower lobe, clear to others lung sounds. No wheezes HEART: Regular rate and rhythm. Normal S1 and S2, without murmurs ABD: Abdomen soft, distended, nontender. Bowel sounds present EXT: No clubbing cyanosis bilateral pitting edema NEURO: Alert and oriented to person, follows commands LABS: Hematology Labs: Test 06/06/25 04:46 Range/Units White Blood Count 4.1 L 4.8-10.8 K/uL Red Blood Count 2.76 L 4.50-6.20 MIL/uL Hemoglobin 8.9 L 14.0-18.0 g/dL Hematocrit 25.0 L 42-54 % Mean Corpuscular Volume 90.6 79-99 fL Mean Corpuscular Hemoglobin 32.2 27.0-33.0 pg Mean Corpuscular Hemoglobin Concent 35.6 32.0-36.0 g/dL Red Cell Distribution Width 16.9 H 11.0-15.5 % Platelet Count 150 130-400 K/uL Mean Platelet Volume 8.3 7.5-10.5 fL Nucleated Red Blood Cells 0.0 0.0-0.19 % Chemistry Labs: Test 06/06/25 10:52 06/06/25 04:46 06/05/25 07:12 06/05/25 05:29 Range/Units Whole Blood Glucose 105 70-110 MG/DL Sodium Level 139 136-145 mmol/L Potassium Level 3.9 3.5-5.1 mmol/L Chloride Level 109 101-111 mmol/L Carbon Dioxide Level 22 21-32 mmol/L Blood Urea Nitrogen 12 7-18 mg/dL Creatinine 0.5 0.5-1.3 mg/dL Glomerular Filtration Rate Calc 117 >90 mL/min Random Glucose 85 70-105 mg/dL Total Calcium 7.6 L 8.5-10.1 mg/dL Cortisol AM Sample 26.4 H 6.2-19.4 ug/dL Whole Blood Ketones Quantitative 1.6 H 0.0-0.6 mmol/L C-Reactive Protein, Quantitative 31.00 H 0.5-3.0 mg/L DIAGNOSTICS / RADIOLOGY RESULTS: [ ] PLAN Thoracentesis not recommended. Pleural effusion too small to be amenable for thoracentesis. From pulmonary standpoint patient can Follow up with pulmonology 1-2 weeks post discharge. Dispo per primary NEURO: Minimize central acting medications as possible. Maintain fall precautions, adequate lighting during the day PULMONARY: Supplemental 02 as needed. Maintain aspiration precautions at all times CARDIOVASCULAR: Follow hemodynamics. Vital signs per facility protocol GI & NUTRITION: Continue with nutritional support. Continue stool softeners and laxatives as needed. KIDNEYS & ELECTROLYTES: Strict monitoring of intake, output and overall fluid balance. Avoid nephrotoxic medications to the extent possible. Medications to be dosed according to renal function. Monitor electrolytes and replace as needed ENDOCRINE: Maintain blood glucose between 100-180 at all times. Hypoglycemia protocol in place INFECTIOUS DISEASE: Trend temperature, WBC and procalcitonin level Follow cultures, deescalate antibiotics as soon as possible. Panculture if new onset fever ONCOLOGY/HEMATOLOGY/COAGULATION: Monitor for s/s of bleeding Monitor hemoglobin, coagulation studies as needed SKIN: Pressure ulcer prevention per facility protocol Specialty mattress ORTHO/REHAB: Continue PT/OT Prophylaxis: Continue GI and DVT prophylaxis Code Status: Full Resuscitation Disposition: TBD Other: MATOE SHEEHAN Jun 06, 2025 21:36
== END 2025-06-06 18:20 | DRG 385 ==
LOC: EDH 20:07 → EDHIP 23:42 → 4CH 05-30 20:10 → UNDODISIN 05-31 18:00
PROVIDERS: ADMIT Internal Medicine; ATTEND Internal Medicine
PROC: 0DB68ZX Excision of Stomach, Via Natural or Artificial Opening Endoscopic, Diagnostic (ICD-10-PCS; principal; 2025-06-04)
PROC: 0DB78ZX Excision of Stomach, Pylorus, Via Natural or Artificial Opening Endoscopic, Diagnostic (ICD-10-PCS; 2025-06-04)
DX: K50.90 Crohn's disease, unspecified, without complications (principal); E43 Unspecified severe protein-calorie malnutrition; K56.1 Intussusception; N13.6 Pyonephrosis; J90 Pleural effusion, not elsewhere classified; I31.39 Other pericardial effusion (noninflammatory); E87.1 Hypo-osmolality and hyponatremia; E87.20 Acidosis, unspecified; Z68.1 Body mass index [BMI] 19.9 or less, adult; E86.0 Dehydration; R62.7 Adult failure to thrive; G89.29 Other chronic pain; R94.4 Abnormal results of kidney function studies; E83.51 Hypocalcemia; E88.09 Other disorders of plasma-protein metabolism, not elsewhere classified; J44.9 Chronic obstructive pulmonary disease, unspecified; K21.9 Gastro-esophageal reflux disease without esophagitis; D63.8 Anemia in other chronic diseases classified elsewhere; R54 Age-related physical debility; N21.0 Calculus in bladder; K64.8 Other hemorrhoids; K57.30 Diverticulosis of large intestine without perforation or abscess without bleeding; K44.9 Diaphragmatic hernia without obstruction or gangrene; E87.6 Hypokalemia; E73.9 Lactose intolerance, unspecified; E83.42 Hypomagnesemia; Z91.148 Patient's other noncompliance with medication regimen for other reason; Z87.891 Personal history of nicotine dependence; Z74.01 Bed confinement status; K31.89 Other diseases of stomach and duodenum
CPT/HCPCS: 36415; 36600; 43239; 71045; 71270; 74018; 74178; 80048; 80051; 80053; 80074; 80076; 80305; 81001; 82010; 82140; 82306; 82435; 82533; 82550; 82570; 82607; 82728; 82746; 82803; 82947; 82948; 83036; 83605; 83735; 83880; 83930; 83935; 84100; 84132; 84145; 84156; 84295; 84439; 84443; 84481; 84484; 85018; 85025; 85027; 85378; 85610; 85651; 85730; 86140; 87086; 87507; 87635; 87804; 87880; 93306; 93970; 94664; 99285; G0378; J0696; J1650; J1938; J2405; J2470; J2543; J2704; J3411; J3475; J3490; J7030; J7042; J7120; P9046; Q0167; Q9967; A4215; A4222; A4223; A4510; A4620